=== PATIENT | female | born 1955 | race African-American/Black ===

== ENCOUNTER 2016-08-21 02:05 | Inpatient (IN) ==
[2016-08-21] MEDS ORDERED: TERBUTALINE 1 MG/1 ML VIAL SUBCUT ONE ×2 (02:44→02:48)
[2016-08-21] MEDS ORDERED: methylPREDNISolone SOD SUC 125 MG/2 ML VIAL IV STA (02:44)
[2016-08-21] MEDS ORDERED: ALBUTEROL NEB SOLN 5 MG/ML 20 ML/BOTTLE CONT NEB STA (02:44)
[2016-08-21] MEDS ORDERED: methylPREDNISolone SOD SUC 125 MG/2 ML VIAL ONE ×2 (02:48→02:57)
--- NOTE | 2016-08-21 03:05 | Emergency Department Note ---
I, Anne Lozoya, am scribing for, and in the presence of, Stephanie Perez DO 02: 48. IChris Debra, DO, personally performed the services described in this documentation, ascribed by Anne Lozoya in my presence, and it is both accurate and complete . Arrival - Arrival Chief Complaint: Shortness of Breath Stated Complaint: shortness of breath ED Nursing Triage Note: Patient to room via ems. Patient states that she has asthma and she is having trouble breathing. Patient has had a total of 3 breathing treatments and states that she still is having trouble breathing. Mode of Arrival: Stretcher Limitations: No Limitations Source: Patient Time Seen by Provider: 08/21/16 02:21 - History of Present Illness HPI Narrative: Pt is a 60 y/o female that came to the ED via EMS with c/o SOB and wheezing that began a few hours ago. Pt reports she does have asthma and took 3 breathing treatments but seems unable to catch her breath. Pt denies anyone being sick at home. She states she is currently on steroids. Pt reports she has been seeing a doctor about her asthma and is being treated for it for 3 years. No other complaints/pain in ED. Onset (ago): hour(s) Consistency: constant Severity: moderate Severity scale (1-10): 5 Quality: other Allergies/Adverse Reactions: Allergies Allergy/AdvReac Type Severity Reaction Status Date / Time Iodinated Contrast Media - Allergy ANAPHYLAXIS Verified 08/21/16 02:17 IV Dye iodine AdvReac ITCHING Verified 08/21/16 02:17 Home Medications: Home Medications Medication Instructions Recorded Confirmed Type glipiZIDE [Glipizide] 2.5 mg PO DAILY PRN 08/25/15 08/02/16 History Arformoterol Neb [Brovana] 15 mcg RESP TX RT BID 11/02/15 08/01/16 History Pantoprazole Sodium 40 mg PO BID 12/01/15 08/01/16 History Benzonatate [Tessalon] 100 mg PO TID #30 capsule 12/18/15 08/01/16 Rx Furosemide Tab [Lasix Tab] 20 mg PO DAILY 03/18/16 08/01/16 History Albuterol Sulfate [Ventolin HFA] 2 puff INH Q4H PRN 04/24/16 08/01/16 History Diltiazem Cd Cap [Cardizem CD] 300 mg PO BEDTIME 04/24/16 08/01/16 History Montelukast Tab [Singulair Tab] 10 mg PO DAILY 04/24/16 08/01/16 History Theophylline ER Tab (24 Hr) 200 mg PO BID W/MEALS 04/24/16 08/01/16 History Fluticasone 50 Mcg Nasal [place] 1 spray BOTH NARES DAILY 06/01/16 08/01/16 History [Flonase Nasal [place]] Beclomethasone 80 Mcg Inhaler 2 puffs INH 5X DAILY 07/07/16 08/01/16 History [Qvar 80 Mcg] Erythromycin Base 250 mg PO TID W/MEALS 07/07/16 08/01/16 History Promethazine Tab [Phenergan Tab] 25 mg PO Q6H PRN 07/07/16 08/01/16 History Albuterol/Ipratropium Neb [Duoneb] 3 ml RESP TX RT Q6H 08/01/16 08/01/16 History Beclomethasone 40 Mcg Inhaler 2 puffs INH BID 08/01/16 08/01/16 History [Qvar 40 Mcg] Acetaminophen Tab [Tylenol Tab] 325 mg PO Q4H PRN #0 tablet 08/04/16 Rx HYDROcodone/ACETAMIN 7.5-325 1 tablet PO Q4H PRN #20 tablet 08/04/16 Rx [[place] 7.5-325] Hydrocortisone (Anusol-Hc) Sup 25 mg RECTAL BID PRN #0 suppository 08/04/16 Rx [Anusol HC Supp] Hydrocortisone 2.5% Rectal Cr 1 applic TOP TID PRN #1 rectal 08/04/16 Rx [Anusol HC Cream] cream Polyethylene Glycol Powder 17 gm PO DAILY PRN #0 powder 08/04/16 Rx [Miralax] guaiFENesin LIQUID [Robitussin] 15 ml PO Q4H PRN #7 udcup 08/04/16 Rx predniSONE TAB [PredniSONE] See Taper PO DAILY #20 tablet 08/04/16 Rx Review of System - Review of System 12 point system: reviewed and no additional remarkable complaints except as stated - Review of System Constitutional: Absent: chills, fever Respiratory: Present: wheezing, other (SOB). Absent: cough Cardiovascular: Absent: chest pain Gastrointestinal: Absent: abdominal pain, nausea, vomiting Musculoskeletal: Absent: arm pain, back pain, leg pain, neck pain Skin: Absent: rash Neurological: Absent: headache Psychiatric: Absent: anxiety Medical,Surgical,& Family Hx - Medical History Cardio: History of: Cardiac Dysrhythmia (STATES AFLUTTER), Hypertension No history of: CHF, CAD Neurology: History of: Migraine (doesn't take meds for this) No history of: Brain Aneurysm, Cerebral Hemorrhage, Cerebrovascular Accident , Cerebral Palsy, Dementia, Multiple Sclerosis, Parkinson's Disease, Peripheral Neuropathy, Seizures, TIA, Vertigo, Neurologocal Cancer HEENT: History of: Ear Problem (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), HEENT Problems ( chronic allergic rhinitis) Endocrine: History of: Diabetes Mellitus (NIDDM) (recently diagnosed), Endocrine Problems (morbid obesity) Rheumatology: History of;: Rheumatological Problems (carpal tunnel) Respiratory: History of: Asthma, Bronchitis, COPD, Obstructive Sleep Apnea, Respiratory Problems (patient states that she is on home oxygen) Gastrointestinal: History of: GERD (AND GASTROPARESIS), GI Problems (for history of significant reflux and was prescribed a hospital bed.) Musculoskeletal: History of: Musculoskeletal Problems (NUMBNESS AND TINGLING IN FEET AND LEGS) - Surgical History Cardiac Surgeries: Patient Denies: Cardiac Catheterization Thoracic Surgeries: Patient denies;: Organ Transplant, Lobectomy Neurologic Surgeries: Patient denies: Brain Aneurysm, Cerebral Hemorrhage, Neurologic Surgery HEENT Surgeries: Patient denies: Eye Surgery, Thyroid Surgery, Tonsilectomy & Adenoidectomy Abdominal Surgeries: Patient denies: Abdominal Surgery Reproductive Surgeries: Surgical HX of;: Hysterectomy - Family History Family History: Reports;: Family Cancer (father-liver cancer), Family Diabetes ( father and mother), Family Heart Disease (father), Family Hypertension (father) , Family Psychiatric Problems (mom and sister), Family Stroke (mom) - Social History Smoking Status: Never smoker Frequency of Alcohol Use: None Type of Drug Use: None Exam Vital Signs: Vital Signs Temperature 97.5 F L 08/21/16 02:05 Pulse Rate 103 H 08/21/16 02:05 Respiratory Rate 26 H 08/21/16 02:05 Blood Pressure 114/75 08/21/16 02:05 O2 Sat by Pulse Oximetry 100 08/21/16 02:05 - General General appearance: alert, in no apparent distress - Head Head exam: Present: atraumatic, normocephalic - Eye Eye exam: Present: PERRL, EOMI - ENT ENT exam: Present: mucous membranes moist. Absent: mucous membranes dry - Neck Neck exam: Present: full ROM. Absent: tenderness - Chest Chest inspection: Present: symmetric chest wall rise. Absent: tenderness - Respiratory Respiratory exam: Present: wheezes (expiratory and inspiratory wheezing) - Cardiovascular Cardiovascular exam: Present: normal rhythm, tachycardia, normal heart sounds - Abdominal Exam Abdominal exam: Present: soft. Absent: tenderness - Extremities Exam Extremities exam: Present: full ROM. Absent: tenderness, pedal edema - Back Exam Back exam: Present: full ROM. Absent: tenderness - Neurological Exam Neurological exam: Present: alert, oriented X3, CN II-XII intact. Absent: motor sensory deficit - Psychiatric Psychiatric exam: Present: normal affect, normal mood - Skin Skin exam: Present: warm, dry Results - Labs CBC & BMP: 08/21/16 02:17 Lab Results: I have reviewed the patients labs Labs: Laboratory Tests 08/21/16 02:17 Potassium 3.2 L Chloride 110 H Glucose 150 H Alkaline Phosphatase 150 H
[2016-08-21 03:13] LABS: Albumin 3.9 G/DL (3.4-5.0); Bilirubin,Total 0.4 MG/DL (0.2-1.0); Calcium 9.3 MG/DL (8.5-10.1); Osmolality,Calculated 288.7 MOS/KG (273-304); Potassium 3.2 MMOL/L (3.5-5.1); Total Protein 6.4 G/DL (6.4-8.3)
[2016-08-21 03:36] LABS: Basophils % 0.6 % (0.0-0.8); Eosinophils # 0.6 10*3/uL (0.0-0.87); Eosinophils % 8.3 % (0.00-10.9); Hemoglobin 12.7 GM/DL (12.0-16.0); Immature Granulocytes % 0.4 %; Immature Granulocytes Absolute 0.03 #; Lymphocytes # 2.5 10*3/uL (1.4-4.0); Lymphocytes % 34.9 % (21.3-54.2); Mean Corpuscular HGB Conc 34.3 GM/DL (32-36); Mean Corpuscular Hemoglobin 31 PG (27-34); Mean Corpuscular Volume 88.9 FL (87-102); Mean Platelet Volume 10.3 FL (9.6-12.0); Monocytes # 0.4 10*3/uL (0.11-0.8); Monocytes % 6.3 % (1.7-12.7); Neutrophils # 3.5 10*3/uL (1.4-7.4); Neutrophils % 49.5 % (38.7-73.9); Platelet Count 220 T/CUMM (130-400); Red Blood Count 4.16 MC/CUMM (3.8-5.5); Red Cell Distribution Width 14.1 % (9.3-17.3)
[2016-08-21] MEDS ORDERED: POTASSIUM CHLORIDE 20 MEQ TABLET PO STA (03:41)
[2016-08-21] MEDS ORDERED: POTASSIUM CHLORIDE 20 MEQ TABLET PO ONE (03:54)
[2016-08-21] MEDS ORDERED: HYDROmorphone 2 MG/1 ML VIAL IV STA (04:07)
[2016-08-21] MEDS ORDERED: ONDANSETRON 4 MG/2 ML VIAL IV STA (04:08)
[2016-08-21] MEDS ORDERED: DEXTROSE 50% 25 GM/50 ML VIAL IV PRN (04:13)
[2016-08-21] MEDS ORDERED: GLUCAGON 1 MG VIAL IM PRN (04:13)
--- NOTE | 2016-08-21 04:13 | Hospitalist History & Physical ---
Assessment and Plan (1) Asthma with exacerbation Status: Acute Current Visit: No Qualifiers: Asthma severity: severe persistent Qualified Code(s): J45.51 - Severe persistent asthma with (acute) exacerbation (2) Respiratory distress Status: Resolved Current Visit: No (3) GERD (gastroesophageal reflux disease) Status: Chronic Current Visit: No (4) Diabetes mellitus Status: Chronic Current Visit: No Qualifiers: Diabetes mellitus type: type 2 Diabetes mellitus complication status: with neurologic complications Diabetes mellitus complication detail: with autonomic neuropathy (5) Diabetes mellitus Status: Chronic Current Visit: No Qualifiers: Diabetes mellitus type: type 2 Diabetes mellitus complication status: without complication Qualified Code(s): E11.9 - Type 2 diabetes mellitus without complications (6) Asthma with acute exacerbation Status: Acute Assessment and plan: Plan for this patient. We will admit the patient our service. Scheduled breathing treatments and steroids. Will continue home meds as appropriate and consult her surgical specialist Dr. Moose Hendrickson. Current Visit: No History of Present Illness Chief complaint: shortness of breath History of present illness: Ms. Armstrong is a 60 year old female with past medical history significant for diabetes and asthma [facility] Patient's been admitted multiple times under our service. She has a long-standing history of asthma exacerbations and sees Dr. Moose Hendrickson as her surgical specialist. She reports tonight that the shortness of breath and wheezing started a few hours ago. She took several breathing treatments at home she was unable to catch her breath. She ultimately called the ambulance to bring her to our hospital for further evaluation. She received 2 hour long the episodes I was consulted to admit her. She still has significant wheezing. Home Medications Medication Instructions Recorded Confirmed Type glipiZIDE [Glipizide] 2.5 mg PO DAILY PRN 08/25/15 08/02/16 History Arformoterol Neb [Brovana] 15 mcg RESP TX RT BID 11/02/15 08/01/16 History Pantoprazole Sodium 40 mg PO BID 12/01/15 08/01/16 History Benzonatate [Tessalon] 100 mg PO TID #30 capsule 12/18/15 08/01/16 Rx Furosemide Tab [Lasix Tab] 20 mg PO DAILY 03/18/16 08/01/16 History Albuterol Sulfate [Ventolin HFA] 2 puff INH Q4H PRN 04/24/16 08/01/16 History Diltiazem Cd Cap [Cardizem CD] 300 mg PO BEDTIME 04/24/16 08/01/16 History Montelukast Tab [Singulair Tab] 10 mg PO DAILY 04/24/16 08/01/16 History Theophylline ER Tab (24 Hr) 200 mg PO BID W/MEALS 04/24/16 08/01/16 History Fluticasone 50 Mcg Nasal [place] 1 spray BOTH NARES DAILY 06/01/16 08/01/16 History [Flonase Nasal [place]] Beclomethasone 80 Mcg Inhaler 2 puffs INH 5X DAILY 07/07/16 08/01/16 History [Qvar 80 Mcg] Erythromycin Base 250 mg PO TID W/MEALS 07/07/16 08/01/16 History Promethazine Tab [Phenergan Tab] 25 mg PO Q6H PRN 07/07/16 08/01/16 History Albuterol/Ipratropium Neb [Duoneb] 3 ml RESP TX RT Q6H 08/01/16 08/01/16 History Beclomethasone 40 Mcg Inhaler 2 puffs INH BID 08/01/16 08/01/16 History [Qvar 40 Mcg] Acetaminophen Tab [Tylenol Tab] 325 mg PO Q4H PRN #0 tablet 08/04/16 Rx HYDROcodone/ACETAMIN 7.5-325 1 tablet PO Q4H PRN #20 tablet 08/04/16 Rx [[place] 7.5-325] Hydrocortisone (Anusol-Hc) Sup 25 mg RECTAL BID PRN #0 suppository 08/04/16 Rx [Anusol HC Supp] Hydrocortisone 2.5% Rectal Cr 1 applic TOP TID PRN #1 rectal 08/04/16 Rx [Anusol HC Cream] cream Polyethylene Glycol Powder 17 gm PO DAILY PRN #0 powder 08/04/16 Rx [Miralax] guaiFENesin LIQUID [Robitussin] 15 ml PO Q4H PRN #7 udcup 08/04/16 Rx predniSONE TAB [PredniSONE] See Taper PO DAILY #20 tablet 08/04/16 Rx Allergies Allergy/AdvReac Type Severity Reaction Status Date / Time Iodinated Contrast Media - Allergy ANAPHYLAXIS Verified 08/21/16 02:17 IV Dye iodine AdvReac ITCHING Verified 08/21/16 02:17 Medical,Surgical,& Family Hx - Medical History Cardio: History of: Cardiac Dysrhythmia (STATES AFLUTTER), Hypertension No history of: CHF, CAD Neurology: History of: Migraine (doesn't take meds for this) No history of: Brain Aneurysm, Cerebral Hemorrhage, Cerebrovascular Accident , Cerebral Palsy, Dementia, Multiple Sclerosis, Parkinson's Disease, Peripheral Neuropathy, Seizures, TIA, Vertigo, Neurologocal Cancer HEENT: History of: Ear Problem (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), HEENT Problems ( chronic allergic rhinitis) Endocrine: History of: Diabetes Mellitus (NIDDM) (recently diagnosed), Endocrine Problems (morbid obesity) Rheumatology: History of;: Rheumatological Problems (carpal tunnel) Respiratory: History of: Asthma, Bronchitis, COPD, Obstructive Sleep Apnea, Respiratory Problems (patient states that she is on home oxygen) Gastrointestinal: History of: GERD (AND GASTROPARESIS), GI Problems (for history of significant reflux and was prescribed a hospital bed.) Musculoskeletal: History of: Musculoskeletal Problems (NUMBNESS AND TINGLING IN FEET AND LEGS) - Surgical History Cardiac Surgeries: Patient Denies: Cardiac Catheterization Thoracic Surgeries: Patient denies;: Organ Transplant, Lobectomy Neurologic Surgeries: Patient denies: Brain Aneurysm, Cerebral Hemorrhage, Neurologic Surgery HEENT Surgeries: Patient denies: Eye Surgery, Thyroid Surgery, Tonsilectomy & Adenoidectomy Abdominal Surgeries: Patient denies: Abdominal Surgery Reproductive Surgeries: Surgical HX of;: Hysterectomy - Family History Family History: Reports;: Family Cancer (father-liver cancer), Family Diabetes ( father and mother), Family Heart Disease (father), Family Hypertension (father) , Family Psychiatric Problems (mom and sister), Family Stroke (mom) - Social History Smoking Status: Never smoker Frequency of Alcohol Use: None Type of Drug Use: None 12 point system: reviewed and no additional remarkable complaints except as stated Exam - Constitutional Vitals: Period Temp Pulse Resp BP Sys/Loung Pulse Ox Last 24 Hr 97.5 F 103 26 114/75 100 General appearance: over weight - Head Head exam: Present: normal inspection - Eye Eye exam: Present: EOMI Pupils: Present: MUSTAPHA - ENT ENT exam: Present: normal exam - Respiratory Respiratory exam: Present: wheezes - Cardiovascular Cardiovascular exam: Present: regular rate and rhythm - GI/Abdominal GI/Abdominal exam: Present: normal bowel sounds - Extremities Exam Extremities exam: Present: normal inspection - Back Exam Back exam: Present: normal inspection - Neurological Exam Neurological exam: Present: alert, oriented X3 - Psychiatric Psychiatric exam: Present: normal affect Results - Labs CBC & BMP: 08/21/16 02:17 08/21/16 02:17
[2016-08-21] MEDS ORDERED: ONDANSETRON 4 MG/2 ML VIAL ONE (04:16)
[2016-08-21] MEDS ORDERED: HYDROmorphone 2 MG/1 ML VIAL ONE (04:17)
[2016-08-21] MEDS ORDERED: INFLUENZA VIRUS VACCINE 0.5 ML SYRINGE IM ONE (06:18)
--- NOTE | 2016-08-21 06:45 | XRay Report ---
Exam: XR chest 1V portable Date: 08/21/2016 2:45 AM Indication: Shortness of breath Comparison: 08/01/2016 Technical: AP portable Findings: External cardiac leads and oxygen tubing are present. Cardiomegaly is present. Some coarse interstitial markings present. No obvious consolidations are present. Mediastinum bony structures are otherwise intact. Patchy infiltrate in the right base cannot be excluded Impression: 1. Mild cardiomegaly 2. Underlying mild scarring and possible infiltrate right base. PROCEDURE INTERPRETED AT [facility] DEPARTMENT OF RADIOLOGY Final Report Signed by: Dr. Cory De La Garza
[2016-08-21] MEDS: ALBUTEROL/IPRATROPIUM 3 ML NEB RESP TX SCH ×2 (07:05→12:36)
[2016-08-21] MEDS: PANTOPRAZOLE 40 MG TABLET PO SCH ×2 (08:57→21:19)
[2016-08-21] MEDS: DOCUSATE SODIUM 100 MG CAPSULE PO SCH ×2 (08:57→21:19)
[2016-08-21] MEDS: INSULIN REGULAR 100 UNIT/ML SUBCUT SCH ×4 (08:58→21:18)
[2016-08-21] MEDS ORDERED: ALBUTEROL 2.5 MG/3 ML NEB RESP TX PRN (10:52)
[2016-08-21] MEDS ORDERED: PROMETHAZINE 25 MG TABLET PO PRN (10:57)
[2016-08-21] MEDS ORDERED: HYDROCORTISONE 25 MG SUPP RECTAL PRN (10:57)
[2016-08-21] MEDS ORDERED: POLYETHYLENE GLYCOL POWDER 17 GM PACK PO PRN (10:57)
[2016-08-21] MEDS ORDERED: ACETAMINOPHEN 325 MG TABLET PO PRN (10:57)
[2016-08-21] MEDS: methylPREDNISolone SOD SUC 125 MG/2 ML VIAL IV SCH ×3 (12:12→22:03)
[2016-08-21] MEDS: LEVOFLOXACIN INJ 500 MG in PREMIX 1 EACH IV SCH (12:13)
[2016-08-21] MEDS: ARFORMOTEROL 15 MCG/2 ML NEB RESP TX SCH ×2 (12:30→19:31)
[2016-08-21] MEDS: BENZONATATE 100 MG CAPSULE PO SCH ×2 (15:02→21:19)
[2016-08-21] MEDS: BECLOMETHASONE 80 MCG/PUFF INHALER 8.7 GM INH SCH ×3 (15:02→22:03)
--- NOTE | 2016-08-21 17:47 | Pulmonology Consult Note ---
Assessment and Plan (1) Acute asthma exacerbation Status: Acute Assessment and plan: Clearly she is having an exacerbation of asthma. It has improved with Solu- Medrol 125 mg every 6 hours as well as bronchodilators. Would continue same for now. Also getting empiric antibiotics with Levaquin. Current Visit: No (2) Obstructive sleep apnea Status: Acute Assessment and plan: We will need to use her CPAP at night. Current Visit: No (3) Diabetes mellitus Status: Chronic Assessment and plan: Glucose is running in the 200s. This is due to the steroids. Sliding scale ordered. Current Visit: No Qualifiers: Diabetes mellitus type: type 2 Diabetes mellitus complication status: without complication Qualified Code(s): E11.9 - Type 2 diabetes mellitus without complications History of Present Illness Chief complaint: Cough shortness of breath History of present illness: Ms. Armstrong is a 60 year old female who has a long history of asthma. She has been very difficult to control. She is on inhaled steroids, Brovana, and oral Singulair. She gets Xolair treatments as well. She has had multiple rounds of steroids. She was last hospitalized here about 3 weeks ago. Comes back in now after about a 1 day history of worsening shortness of breath and she was in respiratory distress last night. She has now been given intravenous corticosteroids and nebulized bronchodilators and is feeling a little better. She is a non-smoker. She has obstructive sleep apnea and gastroesophageal reflux disease. Home Medications Medication Instructions Recorded Confirmed Type glipiZIDE [Glipizide] 2.5 mg PO DAILY PRN 08/25/15 08/21/16 History Arformoterol Neb [Brovana] 15 mcg RESP TX RT BID 11/02/15 08/21/16 History Pantoprazole Sodium 40 mg PO BID 12/01/15 08/21/16 History Benzonatate [Tessalon] 100 mg PO TID #30 capsule 12/18/15 08/21/16 Rx Furosemide Tab [Lasix Tab] 20 mg PO DAILY 03/18/16 08/21/16 History Albuterol Sulfate [Ventolin HFA] 2 puff INH Q4H PRN 04/24/16 08/21/16 History Diltiazem Cd Cap [Cardizem CD] 300 mg PO BEDTIME 04/24/16 08/21/16 History Montelukast Tab [Singulair Tab] 10 mg PO DAILY 04/24/16 08/21/16 History Theophylline ER Tab (24 Hr) 200 mg PO BID W/MEALS 04/24/16 08/21/16 History Fluticasone 50 Mcg Nasal [place] 1 spray BOTH NARES DAILY 06/01/16 08/21/16 History [Flonase Nasal [place]] Beclomethasone 80 Mcg Inhaler 2 puffs INH 5X DAILY 07/07/16 08/21/16 History [Qvar 80 Mcg] Erythromycin Base 250 mg PO TID W/MEALS 07/07/16 08/21/16 History Promethazine Tab [Phenergan Tab] 25 mg PO Q6H PRN 07/07/16 08/21/16 History Albuterol/Ipratropium Neb [Duoneb] 3 ml RESP TX RT Q6H 08/01/16 08/21/16 History Beclomethasone 40 Mcg Inhaler 2 puffs INH BID 08/01/16 08/21/16 History [Qvar 40 Mcg] Acetaminophen Tab [Tylenol Tab] 325 mg PO Q4H PRN #0 tablet 08/04/16 08/21/16 Rx HYDROcodone/ACETAMIN 7.5-325 1 tablet PO Q4H PRN #20 tablet 08/04/16 08/21/16 Rx [[place] 7.5-325] Hydrocortisone (Anusol-Hc) Sup 25 mg RECTAL BID PRN #0 suppository 08/04/16 Rx [Anusol HC Supp] Hydrocortisone 2.5% Rectal Cr 1 applic TOP TID PRN #1 rectal 08/04/16 08/21/16 Rx [Anusol HC Cream] cream Polyethylene Glycol Powder 17 gm PO DAILY PRN #0 powder 08/04/16 08/21/16 Rx [Miralax] guaiFENesin LIQUID [Robitussin] 15 ml PO Q4H PRN #7 udcup 08/04/16 08/21/16 Rx predniSONE TAB [PredniSONE] See Taper PO DAILY #20 tablet 08/04/16 08/21/16 Rx levoFLOXacin [Levofloxacin Tab] 750 mg PO DAILY 08/21/16 08/21/16 History Allergies Allergy/AdvReac Type Severity Reaction Status Date / Time Iodinated Contrast Media - Allergy ANAPHYLAXIS Verified 08/21/16 02:17 IV Dye iodine AdvReac ITCHING Verified 08/21/16 02:17 12 point system: reviewed and no additional remarkable complaints except as stated - Constitutional Constitutional: Present: fatigue, weight gain - Cardiovascular Cardiovascular: Present: dyspnea, dyspnea on exertion - Respiratory Respiratory: Present: cough, dyspnea, dyspnea on exertion, wheezing - Gastrointestinal Gastrointestinal: Present: dyspepsia - Psychiatric Psychiatric: Present: anxiety Exam ([place]) H&P - Constitutional Vitals: Period Temp Pulse Resp BP Sys/Lu[place] Pulse Ox Last 24 Hr 97.6 F-98.6 F 63-112 18-21 95-131/47-62 95-100 Exam: Vital signs are normal. Pupils react to light. Throat is clear. Neck supple no bruits. Chest reveals expiratory wheezes bilaterally. Heart normal rate and rhythm no murmurs. Abdomen soft nontender no masses. Extremities no clubbing cyanosis or edema. Calves nontender. 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), HEENT Problems ( chronic allergic rhinitis) Endocrine: History of: Diabetes Mellitus (NIDDM) (recently diagnosed), Endocrine Problems (morbid obesity) Rheumatology: History of;: Rheumatological Problems (carpal tunnel) Respiratory: History of: Asthma, Bronchitis, COPD, Obstructive Sleep Apnea, Respiratory Problems (patient states that she is on home oxygen) Gastrointestinal: History of: GERD (AND GASTROPARESIS), GI Problems (for history of significant reflux and was prescribed a hospital bed.) Musculoskeletal: History of: Musculoskeletal Problems (NUMBNESS AND TINGLING IN FEET AND LEGS) - Surgical History Cardiac Surgeries: Patient Denies: Cardiac Catheterization Thoracic Surgeries: Patient denies;: Organ Transplant, Lobectomy Neurologic Surgeries: Patient denies: Brain Aneurysm, Cerebral Hemorrhage, Neurologic Surgery HEENT Surgeries: Patient denies: Eye Surgery, Thyroid Surgery, Tonsilectomy & Adenoidectomy Abdominal Surgeries: Patient denies: Abdominal Surgery Reproductive Surgeries: Surgical HX of;: Hysterectomy - Family History Family History: Reports;: Family Cancer (father-liver cancer), Family Diabetes ( father and mother), Family Heart Disease (father), Family Hypertension (father) , Family Psychiatric Problems (mom and sister), Family Stroke (mom) - Social History Smoking Status: Never smoker Frequency of Alcohol Use: None Type of Drug Use: None Results - Labs CBC & BMP: 08/21/16 02:17 08/21/16 02:17 Lab Results: I have reviewed the past 24 hour labs - Diagnostic Findings Procedure: Chest x-ray: image reviewed by me (Questionable right lower lobe infiltrate.)
[2016-08-21] MEDS: THEOPHYLLINE ER (24 HR) 400 MG TABLET PO SCH (17:48)
[2016-08-21] MEDS: DILTIAZEM CD 300 MG CAPSULE PO SCH (21:19)
[2016-08-21] MEDS: guaiFENesin 200 MG/10 ML UDCUP PO PRN (21:19)
[2016-08-22] MEDS: ALBUTEROL/IPRATROPIUM 3 ML NEB RESP TX PRN (03:00)
[2016-08-22] MEDS: guaiFENesin 200 MG/10 ML UDCUP PO PRN (04:03)
[2016-08-22] MEDS: BECLOMETHASONE 80 MCG/PUFF INHALER 8.7 GM INH SCH ×5 (05:26→23:19)
[2016-08-22] MEDS: methylPREDNISolone SOD SUC 125 MG/2 ML VIAL IV SCH ×4 (05:26→23:19)
[2016-08-22 06:53] LABS: Basophils % 0.1 % (0.0-0.8); Hemoglobin 12.7 GM/DL (12.0-16.0); Immature Granulocytes % 1.7 %; Immature Granulocytes Absolute 0.29 #; Lymphocytes # 1.2 10*3/uL (1.4-4.0); Lymphocytes % 7.1 % (21.3-54.2); Mean Corpuscular HGB Conc 33.4 GM/DL (32-36); Mean Corpuscular Hemoglobin 30 PG (27-34); Mean Corpuscular Volume 89.8 FL (87-102); Mean Platelet Volume 11.4 FL (9.6-12.0); Monocytes # 0.3 10*3/uL (0.11-0.8); Monocytes % 1.9 % (1.7-12.7); Neutrophils # 15.4 10*3/uL (1.4-7.4); Neutrophils % 89.2 % (38.7-73.9); Platelet Count 226 T/CUMM (130-400); Red Blood Count 4.23 MC/CUMM (3.8-5.5); Red Cell Distribution Width 14.4 % (9.3-17.3); White Blood Count 17.3 T/CUMM (4-12)
[2016-08-22 07:29] LABS: Calcium 10.1 MG/DL (8.5-10.1); Osmolality,Calculated 295.6 MOS/KG (273-304); Potassium 4.1 MMOL/L (3.5-5.1)
[2016-08-22] MEDS: ARFORMOTEROL 15 MCG/2 ML NEB RESP TX SCH ×2 (08:38→18:30)
[2016-08-22] MEDS: INSULIN REGULAR 100 UNIT/ML SUBCUT SCH ×4 (08:58→21:30)
[2016-08-22] MEDS: MONTELUKAST 10 MG TABLET PO SCH (09:00)
[2016-08-22] MEDS: FUROSEMIDE 20 MG TABLET PO SCH (09:00)
[2016-08-22] MEDS: DOCUSATE SODIUM 100 MG CAPSULE PO SCH ×2 (09:00→21:22)
[2016-08-22] MEDS: PANTOPRAZOLE 40 MG TABLET PO SCH ×3 (09:00→21:22)
[2016-08-22] MEDS: BENZONATATE 100 MG CAPSULE PO SCH ×3 (09:00→21:23)
[2016-08-22] MEDS: FLUTICASONE 50 MCG NASAL SPRAY 16 GM BOTTLE BOTH NARES SCH (09:02)
[2016-08-22] MEDS: THEOPHYLLINE ER (24 HR) 400 MG TABLET PO SCH ×2 (09:20→17:13)
--- NOTE | 2016-08-22 09:51 | Hospitalist Progress Note ---
Assessment and Plan (1) Asthma with exacerbation Status: Acute Current Visit: No Qualifiers: Asthma severity: severe persistent Qualified Code(s): J45.51 - Severe persistent asthma with (acute) exacerbation (2) Respiratory distress Status: Resolved Current Visit: No (3) GERD (gastroesophageal reflux disease) Status: Chronic Current Visit: No (4) Diabetes mellitus Status: Chronic Current Visit: No Qualifiers: Diabetes mellitus type: type 2 Diabetes mellitus complication status: with neurologic complications Diabetes mellitus complication detail: with autonomic neuropathy (5) Diabetes mellitus Status: Chronic Current Visit: No Qualifiers: Diabetes mellitus type: type 2 Diabetes mellitus complication status: without complication Qualified Code(s): E11.9 - Type 2 diabetes mellitus without complications (6) Asthma with acute exacerbation Status: Acute Assessment and plan: Plan for this patient. We will admit the patient our service. Scheduled breathing treatments and steroids. Will continue home meds as appropriate and consult her component assembler supervisor Dr. Moose Hendrickson. 08/22/16 patient seems to be improving on the current regimen. We have her on steroids antibiotics scheduled breathing treatments. He is limited exacerbation of this nature Ms. Armstrong usually requires 4-5 days of hospitalization before she's ready for discharge. Current Visit: No Hospitalist: Subjective Interval history: She reports feeling much better. Exam - Constitutional Vitals: Period Temp Pulse Resp BP Sys/Luong Pulse Ox Last 24 Hr 97.8 F-99.3 F 63-112 16-20 115-154/51-89 96-100 General appearance: over weight - Head Head exam: Present: normal inspection - Eye Eye exam: Present: EOMI Pupils: Present: MUSTAPHA - ENT ENT exam: Present: normal exam - Respiratory Respiratory exam: Present: wheezes improving - Cardiovascular Cardiovascular exam: Present: regular rate and rhythm - GI/Abdominal GI/Abdominal exam: Present: normal bowel sounds - Extremities Exam Extremities exam: Present: normal inspection - Back Exam Back exam: Present: normal inspection - Neurological Exam Neurological exam: Present: alert, oriented X3 - Psychiatric Psychiatric exam: Present: normal affect Results - Labs CBC & BMP: 08/22/16 05:18 08/22/16 05:18
--- NOTE | 2016-08-22 10:10 | Pulmonology Progress Note ---
Pulmonary - PN: Subj Interval history: This is a 60-year-old white female with severe asthma. In with acute exacerbation. She is a little better but still fairly tight. Need to continue current dose of steroids. Exam (Progress Note) - Constitutional Vitals: Period Temp Pulse Resp BP Sys/Luong Pulse Ox Last 24 Hr 97.8 F-99.3 F 63-112 16-20 115-154/51-89 96-100 Exam: Alert oriented vital signs normal. Pupils react to light. Throat is clear. Neck supple no bruits. Chest shows expiratory wheezes bilaterally and prolonged expiratory phase. Heart normal rate and rhythm no murmurs. Abdomen soft nontender no masses. Extremities no clubbing cyanosis edema. Calves nontender. Results - Labs CBC & BMP: 08/22/16 05:18 08/22/16 05:18 Lab Results: I have reviewed the past 24 hour labs Assessment and Plan (1) Acute asthma exacerbation Status: Acute Assessment and plan: Clearly she is having an exacerbation of asthma. It has improved with Solu- Medrol 125 mg every 6 hours as well as bronchodilators. Would continue same for now. Also getting empiric antibiotics with Levaquin. 08/22/2016 continue current medications. Hopefully can start reducing steroids tomorrow. Current Visit: No (2) Obstructive sleep apnea Status: Acute Assessment and plan: We will need to use her CPAP at night. 08/22/2016 she has had sleep studies done and has a new device being brought to her house for use at night. She is better at present. We will not use it here. Current Visit: No (3) Diabetes mellitus Status: Chronic Assessment and plan: Glucose is running in the 200s. This is due to the steroids. Sliding scale ordered. 08/22/2016 blood sugars in the 200s due to steroids. Current Visit: No Qualifiers: Diabetes mellitus type: type 2 Diabetes mellitus complication status: without complication Qualified Code(s): E11.9 - Type 2 diabetes mellitus without complications
[2016-08-22] MEDS: LEVOFLOXACIN INJ 500 MG in PREMIX 1 EACH IV SCH (10:28)
[2016-08-22] MEDS: DILTIAZEM CD 300 MG CAPSULE PO SCH (21:22)
[2016-08-22] MEDS: ZALEPLON 5 MG CAPSULE PO SCH (22:05)
[2016-08-23] MEDS: ALBUTEROL/IPRATROPIUM 3 ML NEB RESP TX PRN (04:10)
[2016-08-23] MEDS: methylPREDNISolone SOD SUC 125 MG/2 ML VIAL IV SCH ×2 (05:26→10:05)
[2016-08-23] MEDS: BECLOMETHASONE 80 MCG/PUFF INHALER 8.7 GM INH SCH ×5 (05:28→23:57)
[2016-08-23 06:36] LABS: Hemoglobin 12.7 GM/DL (12.0-16.0); Immature Granulocytes % 1.4 %; Lymphocytes # 0.9 10*3/uL (1.4-4.0); Lymphocytes % 4.1 % (21.3-54.2); Mean Corpuscular HGB Conc 34.3 GM/DL (32-36); Mean Corpuscular Hemoglobin 31 PG (27-34); Mean Corpuscular Volume 89.2 FL (87-102); Mean Platelet Volume 10.6 FL (9.6-12.0); Monocytes # 0.4 10*3/uL (0.11-0.8); Monocytes % 1.9 % (1.7-12.7); Neutrophils # 19.2 10*3/uL (1.4-7.4); Neutrophils % 92.6 % (38.7-73.9); Platelet Count 249 T/CUMM (130-400); Red Blood Count 4.15 MC/CUMM (3.8-5.5); Red Cell Distribution Width 14.3 % (9.3-17.3); White Blood Count 20.8 T/CUMM (4-12)
[2016-08-23 06:59] LABS: Hypochromasia Slight; Lymphocytes 3 % (20-55); Platelet Estimate Normal; Segmented Neutrophils 95 % (50-85); Total Cells Counted 100
[2016-08-23] MEDS: ARFORMOTEROL 15 MCG/2 ML NEB RESP TX SCH ×2 (07:00→19:20)
[2016-08-23 07:14] LABS: Calcium 9.2 MG/DL (8.5-10.1); Osmolality,Calculated 299.6 MOS/KG (273-304); Potassium 4.1 MMOL/L (3.5-5.1)
[2016-08-23] MEDS: THEOPHYLLINE ER (24 HR) 400 MG TABLET PO SCH ×2 (08:11→16:08)
[2016-08-23] MEDS: INSULIN REGULAR 100 UNIT/ML SUBCUT SCH ×4 (08:11→20:43)
[2016-08-23] MEDS: FUROSEMIDE 20 MG TABLET PO SCH (08:12)
[2016-08-23] MEDS: PANTOPRAZOLE 40 MG TABLET PO SCH ×3 (08:12→20:43)
[2016-08-23] MEDS: MONTELUKAST 10 MG TABLET PO SCH (08:12)
[2016-08-23] MEDS: DOCUSATE SODIUM 100 MG CAPSULE PO SCH ×2 (08:12→20:44)
[2016-08-23] MEDS: BENZONATATE 100 MG CAPSULE PO SCH ×3 (08:12→20:43)
[2016-08-23] MEDS: FLUTICASONE 50 MCG NASAL SPRAY 16 GM BOTTLE BOTH NARES SCH (08:12)
--- NOTE | 2016-08-23 08:59 | XRay Report ---
XR chest 2V Date: 08/23/2016 4:00 AM History: Shortness of breath Comparison: 08/21/2016 Technique: PA and lateral chest Findings: The heart is minimally enlarged with reduced parenchymal findings in the lungs. Residual atelectasis at the lung bases. Stable mediastinum with degenerative changes. Impression: Improved CHF/pneumonitis with residual atelectasis at the lung bases. PROCEDURE INTERPRETED AT [facility] DEPARTMENT OF RADIOLOGY Final Report Signed by: Dr. Jayla Zafar
[2016-08-23] MEDS: LACTULOSE 20 GM/30 ML UDCUP PO PRN (10:05)
[2016-08-23] MEDS: LEVOFLOXACIN INJ 500 MG in PREMIX 1 EACH IV SCH (10:06)
--- NOTE | 2016-08-23 10:33 | Pulmonology Progress Note ---
Pulmonary - PN: Subj Interval history: This is a 60-year-old white female with severe asthma. In with acute exacerbation. She is a little better but still fairly tight. Need to continue current dose of steroids. 08/23/2016 patient is feeling better. Not as much bronchospasm. Exam (Progress Note) - Constitutional Vitals: Period Temp Pulse Resp BP Sys/Luong Pulse Ox Last 24 Hr 97.6 F-98.8 F 76-110 18-20 109-132/49-77 93-99 Exam: Alert oriented vital signs normal. Pupils react to light. Throat is clear. Neck supple no bruits. Chest shows expiratory wheezes bilaterally and prolonged expiratory phase. Heart normal rate and rhythm no murmurs. Abdomen soft nontender no masses. Extremities no clubbing cyanosis edema. Calves nontender. Results - Labs CBC & BMP: 08/23/16 05:54 08/23/16 05:54 Lab Results: I have reviewed the past 24 hour labs - Diagnostic Findings Procedure: Chest x-ray: image reviewed by me (Improved less interstitial edema) Assessment and Plan (1) Acute asthma exacerbation Status: Acute Assessment and plan: Clearly she is having an exacerbation of asthma. It has improved with Solu- Medrol 125 mg every 6 hours as well as bronchodilators. Would continue same for now. Also getting empiric antibiotics with Levaquin. 08/22/2016 continue current medications. Hopefully can start reducing steroids tomorrow. 08/23/2016 she is better we can start reducing steroids. Current Visit: No (2) Obstructive sleep apnea Status: Acute Assessment and plan: We will need to use her CPAP at night. 08/22/2016 she has had sleep studies done and has a new device being brought to her house for use at night. She is better at present. We will not use it here. Current Visit: No (3) Diabetes mellitus Status: Chronic Assessment and plan: Glucose is running in the 200s. This is due to the steroids. Sliding scale ordered. 08/22/2016 blood sugars in the 200s due to steroids. 08/23/2016 glucoses remained in the 200s. This is fair control on steroids. Should get better with reduction of the steroids. Current Visit: No Qualifiers: Diabetes mellitus type: type 2 Diabetes mellitus complication status: without complication Qualified Code(s): E11.9 - Type 2 diabetes mellitus without complications
--- NOTE | 2016-08-23 14:17 | Hospitalist Progress Note ---
Hospitalist: Subjective Interval history: Wheezing and SOB improving. No cp. Still significant YATES. No LE swelling. Tolerating po better today. No fever. +BM today. No diarrhea. Exam - Constitutional Vitals: Period Temp Pulse Resp BP Sys/Luong Pulse Ox Last 24 Hr 97.3 F-98.8 F 76-110 18-20 109-133/49-77 93-99 General appearance: no acute distress, over weight - Head Head exam: Present: normal inspection, normocephalic, atraumatic - Eye Eye exam: Present: EOMI. Absent: conjunctival injection, scleral icterus Pupils: Present: MUSTAPHA - ENT ENT exam: Present: normal exam - Neck Neck exam: Present: normal inspection. Absent: lymphadenopathy, tenderness, thyromegaly - Respiratory Respiratory exam: Present: decreased breath sounds, prolonged expiratory phase, wheezes - Cardiovascular Cardiovascular exam: Present: regular rate and rhythm. Absent: diastolic murmur , systolic murmur - GI/Abdominal GI/Abdominal exam: Present: normal bowel sounds, soft (difficult to assess for HSM or masses given body habitus). Absent: mass, organomegaly, tenderness - Extremities Exam Extremities exam: Present: normal inspection, normal capillary refill. Absent: calf tenderness, edema - Neurological Exam Neurological exam: Present: alert, oriented X3. Absent: motor sensory deficit - Psychiatric Psychiatric exam: Present: normal affect, normal mood - Skin Skin exam: Present: normal color, warm, dry Results - Labs CBC & BMP: 08/23/16 05:54 08/23/16 05:54 - Impressions * Acute Asthma exacerbation- cont IV steroids--possibly able to wean tomorrow, IV antibiotics, bronchodilators, oxygen as needed. Add mucinex. Pulm following * DM2 with steroid induced hyperglycemia- Increase insulin. Check HgbA1c * ARLETH- bipap hs per pulm * Mild hypernatremia- on Lasix po. monitor since oral intake has improved today and likely has increased her free water. DVT prophylaxis and GI prophylaxis (prevent stress ulcer due to high dose steroid use) D/W pt and all questions answered. - Diagnostic Findings Procedure: Chest x-ray: image reviewed by me (improved basilar infiltrates)
--- NOTE | 2016-08-23 15:00 | Physician Query Form ---
CLICK EDIT DOCUMENT TO SELECT QUERY ANSWER --> OK --> SIGN Sariah Bates RN Clinical Anesthesiologist Assistant Certified W) [phone] (f) [phone] [email or web address] PROVIDERS: Make your selection(s) from the choices in EACH section by typing an "x" and enter comments in the comment section. Please use your independent medical judgment in providing your response. This request does not imply that any particular answer is desired or expected. CLINICAL INDICATORS: (Providers should not edit this section) Based on documentation of "Shortness of breath and wheezing" "Acute Asthma exacerbation" History of COPD. Treated with BIPAP, IV Solu Medrol, IV Levaquin. Based on the above, could you clarify the appropriate diagnosis, if significant , that supports the above abnormalities and additional evaluation, monitoring, and/or treatment rendered: ( x) Acute COPD with Acute Asthma Exacerbation ( ) COPD with Acute Asthma Exacerbation ( ) Other, please specify: ( ) Clinically unable to determine COMMENTS: Use of terms such as suspected, likely, or probable (associated with a specific diagnosis that is being evaluated, monitored, or treated as if it exists) are acceptable and can be restated in the discharge summary if not ruled out. [facility]
[2016-08-23] MEDS ORDERED: HYDROCORTISONE 2.5% RECTAL CREAM 30 GM TUBE TOP PRN (16:56)
[2016-08-23] MEDS: methylPREDNISolone SOD SUC 40 MG/1 ML VIAL IV SCH (17:14)
[2016-08-23] MEDS: guaiFENesin 200 MG/10 ML UDCUP PO PRN (20:43)
[2016-08-23] MEDS: ZALEPLON 5 MG CAPSULE PO SCH (20:43)
[2016-08-23] MEDS: DILTIAZEM CD 300 MG CAPSULE PO SCH (20:43)
[2016-08-23] MEDS: INSULIN GLARGINE 100 UNIT/ML SUBCUT SCH (20:44)
[2016-08-23] MEDS: DESITIN 4OZ/NYSTATIN 15 GRAM MIXTURE PASTE TOP SCH (20:44)
[2016-08-24] MEDS: methylPREDNISolone SOD SUC 40 MG/1 ML VIAL IV SCH ×3 (02:00→23:46)
[2016-08-24] MEDS: BECLOMETHASONE 80 MCG/PUFF INHALER 8.7 GM INH SCH ×5 (06:11→21:50)
[2016-08-24] MEDS: ARFORMOTEROL 15 MCG/2 ML NEB RESP TX SCH ×2 (07:20→19:20)
[2016-08-24 07:43] LABS: Risk Ratio 2.34; VLDL CHOLESTEROL 16.4 MG/DL
[2016-08-24] MEDS: INSULIN REGULAR 100 UNIT/ML SUBCUT SCH ×4 (08:30→20:13)
[2016-08-24] MEDS: DOCUSATE SODIUM 100 MG CAPSULE PO SCH ×2 (08:31→20:14)
[2016-08-24] MEDS: THEOPHYLLINE ER (24 HR) 400 MG TABLET PO SCH ×2 (08:31→16:29)
[2016-08-24] MEDS: BENZONATATE 100 MG CAPSULE PO SCH ×3 (08:32→20:14)
[2016-08-24] MEDS: LACTULOSE 20 GM/30 ML UDCUP PO PRN (08:33)
[2016-08-24] MEDS: MONTELUKAST 10 MG TABLET PO SCH (08:33)
[2016-08-24] MEDS: FUROSEMIDE 20 MG TABLET PO SCH (08:33)
[2016-08-24] MEDS: PANTOPRAZOLE 40 MG TABLET PO SCH ×2 (08:34→20:14)
[2016-08-24] MEDS: DESITIN 4OZ/NYSTATIN 15 GRAM MIXTURE PASTE TOP SCH ×2 (08:35→20:15)
[2016-08-24] MEDS: FLUTICASONE 50 MCG NASAL SPRAY 16 GM BOTTLE BOTH NARES SCH (08:36)
--- NOTE | 2016-08-24 09:33 | Pulmonology Progress Note ---
Pulmonary - PN: Subj Interval history: This is a 60-year-old white female with severe asthma. In with acute exacerbation. She is a little better but still fairly tight. Need to continue current dose of steroids. 08/23/2016 patient is feeling better. Not as much bronchospasm. 08/24/16 patient is feeling better. Still having some wheezing but sounds much better. Exam (Progress Note) - Constitutional Vitals: Period Temp Pulse Resp BP Sys/Luong Pulse Ox Last 24 Hr 97.3 F-98.7 F 80-113 14-22 123-143/61-76 93-100 Exam: Alert oriented vital signs normal. Pupils react to light. Throat is clear. Neck supple no bruits. Chest shows expiratory wheezes bilaterally and prolonged expiratory phase. Heart normal rate and rhythm no murmurs. Abdomen soft nontender no masses. Extremities no clubbing cyanosis edema. Calves nontender. Sounds a little better than yesterday. Results - Labs CBC & BMP: 08/23/16 05:54 08/23/16 05:54 Lab Results: I have reviewed the past 24 hour labs Assessment and Plan (1) Acute asthma exacerbation Status: Acute Assessment and plan: Clearly she is having an exacerbation of asthma. It has improved with Solu- Medrol 125 mg every 6 hours as well as bronchodilators. Would continue same for now. Also getting empiric antibiotics with Levaquin. 08/22/2016 continue current medications. Hopefully can start reducing steroids tomorrow. 08/23/2016 she is better we can start reducing steroids. 08/24/16 we will reduce Solu-Medrol to 40 mg every 12 hours. Still needs a few more days here. Current Visit: No (2) Obstructive sleep apnea Status: Acute Assessment and plan: We will need to use her CPAP at night. 08/22/2016 she has had sleep studies done and has a new device being brought to her house for use at night. She is better at present. We will not use it here. Current Visit: No (3) Diabetes mellitus Status: Chronic Assessment and plan: Glucose is running in the 200s. This is due to the steroids. Sliding scale ordered. 08/22/2016 blood sugars in the 200s due to steroids. 08/23/2016 glucoses remained in the 200s. This is fair control on steroids. Should get better with reduction of the steroids. 08/24/16 glucoses remain in the 200s. Should improve as we taper steroids. Current Visit: No Qualifiers: Diabetes mellitus type: type 2 Diabetes mellitus complication status: without complication Qualified Code(s): E11.9 - Type 2 diabetes mellitus without complications
[2016-08-24] MEDS: LEVOFLOXACIN INJ 500 MG in PREMIX 1 EACH IV SCH (11:34)
--- NOTE | 2016-08-24 16:09 | Hospitalist Progress Note ---
Hospitalist: Subjective Interval history: Patient reports her shortness of breath has improved. She reports her wheezing is decreased. No chest pain. No fever. She reports feeling nauseated earlier but after having 2 bowel movements she reports feeling better. She is able to walk across the room without significant dyspnea. She is tolerating some oral intake. Exam - Constitutional Vitals: Period Temp Pulse Resp BP Sys/Luong Pulse Ox Last 24 Hr 98 F-98.7 F 80-113 14-22 118-143/61-73 93-100 General appearance: no acute distress, over weight - Head Head exam: Present: normal inspection - Eye Eye exam: Present: EOMI. Absent: conjunctival injection, scleral icterus Pupils: Present: MUSTAPHA - Respiratory Respiratory exam: Present: wheezes. Absent: accessory muscle use - Cardiovascular Cardiovascular exam: Present: regular rate and rhythm. Absent: diastolic murmur , systolic murmur, tachycardia - GI/Abdominal GI/Abdominal exam: Present: normal bowel sounds, soft. Absent: distended, tenderness - Extremities Exam Extremities exam: Absent: edema - Neurological Exam Neurological exam: Present: alert, oriented X3, motor sensory deficit - Skin Skin exam: Present: normal color, warm, dry Results - Labs CBC & BMP: 08/23/16 05:54 08/23/16 05:54 Labs: Hemoglobin A1c 7.6 - Impressions * Acute Asthma exacerbation-weaning IV steroids, IV antibiotics, bronchodilators , oxygen as needed. Cont Mucinex. Add Acapella valve. Pulm following * DM2 uncontrolled with a hemoglobin A1c of 7.6 with steroid induced hyperglycemia-continue insulin. Watch blood sugars now that we are weaning the steroids * ARLETH- bipap hs per pulm. Not doing in the hospital but can resume upon discharge per pulmonology. * Mild hypernatremia- on Lasix po. monitor since oral intake has improved today and likely has increased her free water. DVT prophylaxis and GI prophylaxis (prevent stress ulcer due to high dose steroid use) D/W pt and all questions answered. Disposal: Likely discharge to home in the a.m. if patient continues to improve.
[2016-08-24] MEDS: ACETAMINOPHEN 325 MG TABLET PO PRN (16:29)
[2016-08-24] MEDS: guaiFENesin 200 MG/10 ML UDCUP PO PRN (20:14)
[2016-08-24] MEDS: DILTIAZEM CD 300 MG CAPSULE PO SCH (20:14)
[2016-08-24] MEDS: ZALEPLON 5 MG CAPSULE PO SCH (20:14)
[2016-08-24] MEDS: INSULIN GLARGINE 100 UNIT/ML SUBCUT SCH (20:14)
[2016-08-25] MEDS: BECLOMETHASONE 80 MCG/PUFF INHALER 8.7 GM INH SCH ×5 (06:10→21:22)
[2016-08-25] MEDS: ARFORMOTEROL 15 MCG/2 ML NEB RESP TX SCH ×2 (07:01→20:00)
[2016-08-25] MEDS: DOCUSATE SODIUM 100 MG CAPSULE PO SCH ×2 (09:15→21:17)
[2016-08-25] MEDS: THEOPHYLLINE ER (24 HR) 400 MG TABLET PO SCH ×2 (09:15→16:58)
[2016-08-25] MEDS: FUROSEMIDE 20 MG TABLET PO SCH (09:15)
[2016-08-25] MEDS: BENZONATATE 100 MG CAPSULE PO SCH ×3 (09:15→21:17)
[2016-08-25] MEDS: DESITIN 4OZ/NYSTATIN 15 GRAM MIXTURE PASTE TOP SCH ×2 (09:16→21:22)
[2016-08-25] MEDS: PANTOPRAZOLE 40 MG TABLET PO SCH ×2 (09:16→21:19)
[2016-08-25] MEDS: FLUTICASONE 50 MCG NASAL SPRAY 16 GM BOTTLE BOTH NARES SCH (09:16)
[2016-08-25] MEDS: MONTELUKAST 10 MG TABLET PO SCH (09:16)
--- NOTE | 2016-08-25 09:32 | Discharge Summary ---
<Sree Allen - Last Filed: 08/25/16 09:33> Hospital Course - Hospital Course Hospital Course: Ms. Armstrong is 60 yr old black female patient that was admitted on 08/21 for asthma exacerbation. The patient stated she was at home and began to have trouble breathing. She gave herself consecutive treatments at home before calling EMR for assistance. The patient has an extensive hx of asthma as well as htn, she wears 2L of O2 nightly, and recently diagnosed DM. Patient was admitted to hospitalist service for evaluation and pulm was consulted. Breathing treatments and medications were ordered for patient. Pt states she has improved significantly and is ready to be discharged today. No apparent distress noted. Pt does not have any complaints and is aware of need to follow up if problems arise. MD to follow with med recs. Discharge Plan - Discharge Data Disposition: Disch To Home/Self Care - Discharge Medications New predniSONE TAB [PredniSONE] 40 mg PO DAILY #60 tablet Levofloxacin Tab [Levaquin Tab] 750 mg PO DAILY #7 tablet Continue glipiZIDE [Glipizide] 2.5 mg PO DAILY PRN PRN Reason: blood sugar >/= to 160 Arformoterol Neb [Brovana] 15 mcg RESP TX RT BID Pantoprazole Sodium 40 mg PO BID Benzonatate [Tessalon] 100 mg PO TID #30 capsule Furosemide Tab [Lasix Tab] 20 mg PO DAILY Albuterol Sulfate [Ventolin HFA] 2 puff INH Q4H PRN PRN Reason: Shortness Of Breath/Wheezing Theophylline ER Tab (24 Hr) 200 mg PO BID W/MEALS Montelukast Tab [Singulair Tab] 10 mg PO DAILY Diltiazem Cd Cap [Cardizem CD] 300 mg PO BEDTIME Beclomethasone 80 Mcg Inhaler [Qvar 80 Mcg] 2 puffs INH 5X DAILY Promethazine Tab [Phenergan Tab] 25 mg PO Q6H PRN PRN Reason: Nausea/Vomiting Erythromycin Base 250 mg PO TID W/MEALS Albuterol/Ipratropium Neb [Duoneb] 3 ml RESP TX RT Q6H predniSONE TAB [PredniSONE] See Taper PO DAILY #20 tablet Acetaminophen Tab [Tylenol Tab] 325 mg PO Q4H PRN #0 tablet PRN Reason: fever, headache/body aches Hydrocortisone 2.5% Rectal Cr [Anusol HC Cream] 1 applic TOP TID PRN #1 rectal cream PRN Reason: Hemorrhoids Fluticasone 50 Mcg Nasal [place] [Flonase Nasal [place]] 1 spray BOTH NARES DAILY Beclomethasone 40 Mcg Inhaler [Qvar 40 Mcg] 2 puffs INH BID HYDROcodone/ACETAMIN 7.5-325 [[place] 7.5-325] 1 tablet PO Q4H PRN #20 tablet PRN Reason: Pain Moderate (4-7) Hydrocortisone (Anusol-Hc) Sup [Anusol HC Supp] 25 mg RECTAL BID PRN #0 suppository PRN Reason: Hemorrhoids Polyethylene Glycol Powder [Miralax] 17 gm PO DAILY PRN #0 powder PRN Reason: Constipation guaiFENesin LIQUID [Robitussin] 15 ml PO Q4H PRN #7 udcup PRN Reason: Cough levoFLOXacin [Levofloxacin Tab] 750 mg PO DAILY #7 - Follow Up or Referral Follow Up: Wilfrid Hendrickson MD [Physician] - - Forms/Instructions Exam - Constitutional Vitals: Period Temp Pulse Resp BP Sys/Luong Pulse Ox Last 24 Hr 98.2 F-98.4 F 91-112 16-20 115-132/53-75 96-100 Discharge Results Labs on day of discharge: Labs from last 24 hours 08/28/16 08/27/16 08/27/16 07:23 20:38 16:26 POC Glucose 93 207 H 253 H 08/27/16 12:01 POC Glucose 172 H DS: Provider Date of admission: 08/21/16 04:13 Primary care physician: Emilee Briceño MD Attending physician on admission: Wilfrido Pham MD Consults: 08/21/16 10:53 Consult to Physician [CONS] Routine Comment: Consulting Provider: Wilfrid Hendrickson Consult to Specialist Group: Pulmonology Person Notified: rc Date Notified: 08/21/16 Time Notified: 11:34 Consult Notification Comment: Discharging clinician: Sree Allen NP <Srinath Mir - Last Filed: 08/28/16 09:27> Discharge Plan - Discharge Data Condition at Discharge: Stable Discharge Diet: diabetic diet Activity: resume usual activities as tolerated
[2016-08-25] MEDS: LACTULOSE 20 GM/30 ML UDCUP PO PRN (10:06)
[2016-08-25] MEDS: guaiFENesin 200 MG/10 ML UDCUP PO PRN (10:06)
[2016-08-25] MEDS: ACETAMINOPHEN 325 MG TABLET PO PRN (10:07)
[2016-08-25] MEDS: INSULIN REGULAR 100 UNIT/ML SUBCUT SCH ×4 (10:08→21:23)
[2016-08-25] MEDS ORDERED: diphenhydrAMINE CAP 25 MG CAPSULE PO PRN (10:22)
[2016-08-25] MEDS: LEVOFLOXACIN INJ 500 MG in PREMIX 1 EACH IV SCH (13:09)
[2016-08-25] MEDS: ONDANSETRON 4 MG/2 ML VIAL IV PRN (13:47)
[2016-08-25] MEDS: methylPREDNISolone SOD SUC 40 MG/1 ML VIAL IV SCH (13:48)
--- NOTE | 2016-08-25 15:04 | Pulmonology Progress Note ---
Pulmonary - PN: Subj Interval history: This is a 60-year-old white female with severe asthma. In with acute exacerbation. She is a little better but still fairly tight. Need to continue current dose of steroids. 08/23/2016 patient is feeling better. Not as much bronchospasm. 08/24/16 patient is feeling better. Still having some wheezing but sounds much better. 08/25/2016 patient continues to improve but still has some wheezing. I do think we can taper her steroids further. Do not think she is ready for discharge yet. Exam (Progress Note) - Constitutional Vitals: Period Temp Pulse Resp BP Sys/Luong Pulse Ox Last 24 Hr 97.4 F-98.5 F 72-96 14-22 120-141/56-73 95-100 Exam: Alert oriented vital signs normal. Pupils react to light. Throat is clear. Neck supple no bruits. Chest shows mild expiratory wheezes bilaterally and prolonged expiratory phase. Heart normal rate and rhythm no murmurs. Abdomen soft nontender no masses. Extremities no clubbing cyanosis edema. Calves nontender. Again, sounds a little better than yesterday. Results - Labs CBC & BMP: 08/23/16 05:54 08/23/16 05:54 Lab Results: I have reviewed the past 24 hour labs Assessment and Plan (1) Acute asthma exacerbation Status: Acute Assessment and plan: Clearly she is having an exacerbation of asthma. It has improved with Solu- Medrol 125 mg every 6 hours as well as bronchodilators. Would continue same for now. Also getting empiric antibiotics with Levaquin. 08/22/2016 continue current medications. Hopefully can start reducing steroids tomorrow. 08/23/2016 she is better we can start reducing steroids. 08/24/16 we will reduce Solu-Medrol to 40 mg every 12 hours. Still needs a few more days here. 08/25/2016 reducing Solu-Medrol little further. Perhaps she could be discharged this weekend if she improves further. She has severe asthma with remodeling changes and would be likely to return if she goes home too soon. Current Visit: No (2) Obstructive sleep apnea Status: Acute Assessment and plan: We will need to use her CPAP at night. 08/22/2016 she has had sleep studies done and has a new device being brought to her house for use at night. She is better at present. We will not use it here. Current Visit: No (3) Diabetes mellitus Status: Chronic Assessment and plan: Glucose is running in the 200s. This is due to the steroids. Sliding scale ordered. 08/22/2016 blood sugars in the 200s due to steroids. 08/23/2016 glucoses remained in the 200s. This is fair control on steroids. Should get better with reduction of the steroids. 08/24/16 glucoses remain in the 200s. Should improve as we taper steroids. 08/25/2016 sugars getting better as we taper steroids. Current Visit: No Qualifiers: Diabetes mellitus type: type 2 Diabetes mellitus complication status: without complication Qualified Code(s): E11.9 - Type 2 diabetes mellitus without complications
--- NOTE | 2016-08-25 16:17 | Hospitalist Progress Note ---
Hospitalist: Subjective Interval history: Pt had an episode of emesis after lunch today. No abd pain. No cp. SOB improving. No fever. Exam - Constitutional Vitals: Period Temp Pulse Resp BP Sys/Luong Pulse Ox Last 24 Hr 97.4 F-98.5 F 74-96 14-22 120-141/59-73 95-100 General appearance: morbidly obese - Respiratory Respiratory exam: Present: clear to auscultation bilaterally. Absent: accessory muscle use - Cardiovascular Cardiovascular exam: Present: regular rate and rhythm. Absent: diastolic murmur , systolic murmur - GI/Abdominal GI/Abdominal exam: Present: normal bowel sounds, soft. Absent: distended, mass , tenderness - Extremities Exam Extremities exam: Present: normal inspection, normal capillary refill. Absent: edema - Skin Skin exam: Present: normal color, warm, dry Results - Labs CBC & BMP: 08/23/16 05:54 08/23/16 05:54 - Impressions * Acute Asthma exacerbation-weaning IV steroids, IV antibiotics, bronchodilators , oxygen as needed. Cont Mucinex. Cont Acapella valve. Pulm following * DM2 uncontrolled with a hemoglobin A1c of 7.6 with steroid induced hyperglycemia-continue insulin. Watch blood sugars now that we are weaning the steroids * ARLETH- bipap hs per pulm. Not doing in the hospital but can resume upon discharge per pulmonology. * Mild hypernatremia- on Lasix po. monitor. Recheck labs in am DVT prophylaxis and GI prophylaxis (prevent stress ulcer due to high dose steroid use) D/W pt, nurse and social work and all questions answered. Disposal: DC when cleared by pulmonology and tolerating oral intake.
[2016-08-25] MEDS: DILTIAZEM CD 300 MG CAPSULE PO SCH (21:18)
[2016-08-25] MEDS: ZALEPLON 5 MG CAPSULE PO SCH (21:19)
[2016-08-25] MEDS: INSULIN GLARGINE 100 UNIT/ML SUBCUT SCH (21:20)
[2016-08-26] MEDS: ALBUTEROL/IPRATROPIUM 3 ML NEB RESP TX PRN (02:55)
[2016-08-26] MEDS: BECLOMETHASONE 80 MCG/PUFF INHALER 8.7 GM INH SCH ×5 (06:11→21:09)
[2016-08-26] MEDS: ARFORMOTEROL 15 MCG/2 ML NEB RESP TX SCH ×2 (07:02→19:36)
[2016-08-26] MEDS: INSULIN REGULAR 100 UNIT/ML SUBCUT SCH ×4 (07:30→20:56)
[2016-08-26] MEDS: PANTOPRAZOLE 40 MG TABLET PO SCH ×2 (09:40→20:54)
[2016-08-26] MEDS: ONDANSETRON 4 MG/2 ML VIAL IV PRN (09:43)
[2016-08-26] MEDS: BENZONATATE 100 MG CAPSULE PO SCH ×3 (09:44→20:54)
[2016-08-26] MEDS: THEOPHYLLINE ER (24 HR) 400 MG TABLET PO SCH ×2 (09:44→16:51)
[2016-08-26] MEDS: methylPREDNISolone SOD SUC 40 MG/1 ML VIAL IV SCH (09:44)
[2016-08-26] MEDS: MONTELUKAST 10 MG TABLET PO SCH (09:44)
[2016-08-26] MEDS: DESITIN 4OZ/NYSTATIN 15 GRAM MIXTURE PASTE TOP SCH ×2 (09:45→21:10)
[2016-08-26] MEDS: FUROSEMIDE 20 MG TABLET PO SCH (09:45)
[2016-08-26] MEDS: DOCUSATE SODIUM 100 MG CAPSULE PO SCH ×2 (09:45→20:55)
[2016-08-26] MEDS: FLUTICASONE 50 MCG NASAL SPRAY 16 GM BOTTLE BOTH NARES SCH (09:45)
[2016-08-26] MEDS: LEVOFLOXACIN INJ 500 MG in PREMIX 1 EACH IV SCH (10:49)
--- NOTE | 2016-08-26 11:06 | Hospitalist Progress Note ---
Hospitalist: Subjective Interval history: Pt has been walking in the halls. SOB is improving. Minimal cough. Still complaining of nausea. Reportedly she had vomiting last night but nurses did not report this. She reports she has been doing more belching and feels relief from this. No fever or chest pain. +BM no diarrhea, melena or BRBPR Exam - Constitutional Vitals: Period Temp Pulse Resp BP Sys/Luong Pulse Ox Last 24 Hr 97.8 F-98.9 F 85-113 17-20 123-153/68-79 93-100 General appearance: over weight - Head Head exam: Present: normal inspection - Respiratory Respiratory exam: Present: other (clear to auscultation but wheezing on forced expiration bialterally. Nonlabored breathing noted. ) - Cardiovascular Cardiovascular exam: Present: regular rate and rhythm. Absent: diastolic murmur , systolic murmur - GI/Abdominal GI/Abdominal exam: Present: normal bowel sounds, soft. Absent: distended, mass , organomegaly, rebound - Extremities Exam Extremities exam: Present: normal inspection, normal capillary refill, edema. Absent: calf tenderness - Neurological Exam Neurological exam: Present: alert, oriented X3, normal gait - Skin Skin exam: Present: normal color, warm, dry Results - Labs CBC & BMP: 08/23/16 05:54 08/23/16 05:54 - Impressions * Acute Asthma exacerbation-weaning IV steroids (on q24h), IV antibiotics, bronchodilators, oxygen as needed. Cont Mucinex. Cont Acapella valve. Pulm following. Probably can change to po steroids soon. * DM2 uncontrolled with a hemoglobin A1c of 7.6 with steroid induced hyperglycemia-continue insulin. Watch blood sugars now that we are weaning the steroids * ARLETH- bipap hs per pulm. Not doing in the hospital but can resume upon discharge per pulmonology. * Mild hypernatremia- on Lasix po. monitor. DVT prophylaxis and GI prophylaxis (prevent stress ulcer due to high dose steroid use) D/W pt, nurse and social work and all questions answered. Disposal: DC when cleared by pulmonology and tolerating oral intake. Will add miralax scheduled, simethicone for gas and put her on a full liquid diet. Hopefully can dc soon.
[2016-08-26] MEDS: POLYETHYLENE GLYCOL POWDER 17 GM PACK PO SCH ×2 (13:08→20:56)
[2016-08-26] MEDS: SIMETHICONE CHEW 125 MG TABLET PO SCH ×3 (13:09→20:55)
--- NOTE | 2016-08-26 13:18 | Pulmonology Progress Note ---
Pulmonary - PN: Subj Interval history: This is a 60-year-old white female with severe asthma. In with acute exacerbation. She is a little better but still fairly tight. Need to continue current dose of steroids. 08/23/2016 patient is feeling better. Not as much bronchospasm. 08/24/16 patient is feeling better. Still having some wheezing but sounds much better. 08/25/2016 patient continues to improve but still has some wheezing. I do think we can taper her steroids further. Do not think she is ready for discharge yet. 08/26/2016 she is improving each day. Still has some mild end expiratory wheezes. We could probably go to oral medications now. Increase activities. Shoot for discharge Sunday. Exam (Progress Note) - Constitutional Vitals: Period Temp Pulse Resp BP Sys/Luong Pulse Ox Last 24 Hr 97.8 F-98.9 F 85-113 17-20 123-153/68-79 93-100 Exam: Alert oriented vital signs normal. Pupils react to light. Throat is clear. Neck supple no bruits. Chest shows mild end-expiratory wheezes bilaterally and prolonged expiratory phase. Heart normal rate and rhythm no murmurs. Abdomen soft nontender no masses. Extremities no clubbing cyanosis edema. Calves nontender. Results - Labs CBC & BMP: 08/23/16 05:54 08/23/16 05:54 Lab Results: I have reviewed the past 24 hour labs Assessment and Plan (1) Acute asthma exacerbation Status: Acute Assessment and plan: Clearly she is having an exacerbation of asthma. It has improved with Solu- Medrol 125 mg every 6 hours as well as bronchodilators. Would continue same for now. Also getting empiric antibiotics with Levaquin. 08/22/2016 continue current medications. Hopefully can start reducing steroids tomorrow. 08/23/2016 she is better we can start reducing steroids. 08/24/16 we will reduce Solu-Medrol to 40 mg every 12 hours. Still needs a few more days here. 08/25/2016 reducing Solu-Medrol little further. Perhaps she could be discharged this weekend if she improves further. She has severe asthma with remodeling changes and would be likely to return if she goes home too soon. 08/26/2016 could go to oral medications. Probably home in a couple of days. She always has end expiratory wheezes even between exacerbations. Current Visit: No (2) Obstructive sleep apnea Status: Acute Assessment and plan: We will need to use her CPAP at night. 08/22/2016 she has had sleep studies done and has a new device being brought to her house for use at night. She is better at present. We will not use it here. Current Visit: No (3) Diabetes mellitus Status: Chronic Assessment and plan: Glucose is running in the 200s. This is due to the steroids. Sliding scale ordered. 08/22/2016 blood sugars in the 200s due to steroids. 08/23/2016 glucoses remained in the 200s. This is fair control on steroids. Should get better with reduction of the steroids. 08/24/16 glucoses remain in the 200s. Should improve as we taper steroids. 08/25/2016 sugars getting better as we taper steroids. 08/26/2016 blood sugars improve as we reduce her steroids. Current Visit: No Qualifiers: Diabetes mellitus type: type 2 Diabetes mellitus complication status: without complication Qualified Code(s): E11.9 - Type 2 diabetes mellitus without complications
[2016-08-26] MEDS: ZALEPLON 5 MG CAPSULE PO SCH (20:54)
[2016-08-26] MEDS: DILTIAZEM CD 300 MG CAPSULE PO SCH (20:55)
[2016-08-26] MEDS: glipiZIDE 5 MG TABLET PO PRN (20:55)
[2016-08-26] MEDS: INSULIN GLARGINE 100 UNIT/ML SUBCUT SCH (20:56)
[2016-08-27 05:01] LABS: Basophils % 0.1 % (0.0-0.8); Eosinophils # 0.2 10*3/uL (0.0-0.87); Hematocrit 38.3 VOL% (35.7-47.0); Hemoglobin 13.6 GM/DL (12.0-16.0); Immature Granulocytes % 0.8 %; Immature Granulocytes Absolute 0.12 #; Lymphocytes # 0.9 10*3/uL (1.4-4.0); Lymphocytes % 5.9 % (21.3-54.2); Mean Corpuscular HGB Conc 35.5 GM/DL (32-36); Mean Corpuscular Hemoglobin 30 PG (27-34); Mean Corpuscular Volume 85.5 FL (87-102); Mean Platelet Volume 11.5 FL (9.6-12.0); Monocytes # 0.9 10*3/uL (0.11-0.8); Monocytes % 6.1 % (1.7-12.7); NRBC # 0.02 10*3/uL; Neutrophils % 86.1 % (38.7-73.9); Platelet Count 232 T/CUMM (130-400); Red Blood Count 4.48 MC/CUMM (3.8-5.5); Red Cell Distribution Width 13.6 % (9.3-17.3); White Blood Count 15.1 T/CUMM (4-12)
[2016-08-27 05:37] LABS: Albumin 3.5 G/DL (3.4-5.0); Calcium 8.5 MG/DL (8.5-10.1); Osmolality,Calculated 284.1 MOS/KG (273-304); Phosphorous 2.5 MG/DL (2.5-4.9)
[2016-08-27] MEDS: BECLOMETHASONE 80 MCG/PUFF INHALER 8.7 GM INH SCH ×5 (06:01→22:01)
[2016-08-27] MEDS: ARFORMOTEROL 15 MCG/2 ML NEB RESP TX SCH ×2 (07:17→21:23)
[2016-08-27] MEDS: MONTELUKAST 10 MG TABLET PO SCH (09:09)
[2016-08-27] MEDS: THEOPHYLLINE ER (24 HR) 400 MG TABLET PO SCH ×2 (09:09→16:53)
[2016-08-27] MEDS: DOCUSATE SODIUM 100 MG CAPSULE PO SCH ×2 (09:09→20:40)
[2016-08-27] MEDS: FUROSEMIDE 20 MG TABLET PO SCH (09:09)
[2016-08-27] MEDS: SIMETHICONE CHEW 125 MG TABLET PO SCH ×4 (09:09→20:40)
[2016-08-27] MEDS: BENZONATATE 100 MG CAPSULE PO SCH ×3 (09:09→20:40)
[2016-08-27] MEDS: PANTOPRAZOLE 40 MG TABLET PO SCH ×2 (09:09→20:40)
[2016-08-27] MEDS: FLUTICASONE 50 MCG NASAL SPRAY 16 GM BOTTLE BOTH NARES SCH (09:10)
[2016-08-27] MEDS: INSULIN REGULAR 100 UNIT/ML SUBCUT SCH ×4 (09:10→21:33)
[2016-08-27] MEDS: methylPREDNISolone SOD SUC 40 MG/1 ML VIAL IV SCH (09:10)
[2016-08-27] MEDS: POLYETHYLENE GLYCOL POWDER 17 GM PACK PO SCH ×2 (09:11→21:33)
[2016-08-27] MEDS: DESITIN 4OZ/NYSTATIN 15 GRAM MIXTURE PASTE TOP SCH ×2 (09:11→21:33)
--- NOTE | 2016-08-27 10:44 | Hospitalist Progress Note ---
Hospitalist: Subjective Interval history: Patient reports her nausea has resolved. She reports her shortness of breath is better. She is preparing to walk down the maloney. Denies any abdominal pain. Her gas pains are much improved. No fever. No chest pain. Exam - Constitutional Vitals: Period Temp Pulse Resp BP Sys/Luong Pulse Ox Last 24 Hr 97.4 F-98.9 F 84-112 16-20 118-146/57-77 95-100 General :patient is awake alert and oriented 4 lying in hospital bed in no acute distress. Cardiovascular :regular rate and rhythm no murmurs Lungs :mostly clear to auscultation at rest but on forced expiration she has expiratory wheezes bilaterally with a prolonged expiratory phase. Abdomen :soft nontender nondistended positive bowel sounds Extremities :warm and well perfused no clubbing cyanosis or edema Results - Labs CBC & BMP: 08/27/16 04:05 08/27/16 04:05 - Impressions * Acute Asthma exacerbation-change IV steroids (on q24h) to po. Continue IV antibiotics, bronchodilators, inhalers, oxygen as needed. Cont Mucinex. Cont Acapella valve. Pulm following. * DM2 uncontrolled with a hemoglobin A1c of 7.6 with steroid induced hyperglycemia-stop the scheduled insulin since blood sugars have significantly improved while off IV steroids. Continue insulin sliding scale as needed * ARLETH- bipap hs per pulm. Not doing in the hospital but can resume upon discharge per pulmonology. * Mild hypernatremia- on Lasix po. monitor. DVT prophylaxis and GI prophylaxis (prevent stress ulcer due to high dose steroid use) D/W pt, nurse and social work and all questions answered. Disposal: DC when cleared by pulmonology and tolerating oral intake. Cont miralax scheduled, simethicone for gas and put her on a advance to 1800 ADA diet. Hopefully can dc soon. I will be away several days. One of my associates will follow in my absence.
[2016-08-27] MEDS: LEVOFLOXACIN INJ 500 MG in PREMIX 1 EACH IV SCH (11:00)
--- NOTE | 2016-08-27 11:24 | Pulmonology Progress Note ---
Pulmonary - PN: Subj Interval history: This is a 60-year-old white female with severe asthma. In with acute exacerbation. She is a little better but still fairly tight. Need to continue current dose of steroids. 08/23/2016 patient is feeling better. Not as much bronchospasm. 08/24/16 patient is feeling better. Still having some wheezing but sounds much better. 08/25/2016 patient continues to improve but still has some wheezing. I do think we can taper her steroids further. Do not think she is ready for discharge yet. 08/26/2016 she is improving each day. Still has some mild end expiratory wheezes. We could probably go to oral medications now. Increase activities. Shoot for discharge Sunday. 08/27/2016 she is improved on oral medications now. Still has some end expiratory wheezes. Dr. Hendrickson will be back tomorrow and address follow-up plans, as he follows her in the office [facility]. Exam (Progress Note) - Constitutional Vitals: Period Temp Pulse Resp BP Sys/Luong Pulse Ox Last 24 Hr 97.4 F-98.9 F 84-112 16-20 118-146/57-77 95-100 Exam: Alert oriented vital signs normal. Pupils react to light. Throat is clear. Neck supple no bruits. Chest shows mild end-expiratory wheezes bilaterally and prolonged expiratory phase. Heart normal rate and rhythm no murmurs. Abdomen soft nontender no masses. Extremities no clubbing cyanosis edema. Calves nontender. Results - Labs CBC & BMP: 08/27/16 04:05 08/27/16 04:05 Lab Results: I have reviewed the past 24 hour labs Assessment and Plan (1) Acute asthma exacerbation Status: Acute Assessment and plan: Clearly she is having an exacerbation of asthma. It has improved with Solu- Medrol 125 mg every 6 hours as well as bronchodilators. Would continue same for now. Also getting empiric antibiotics with Levaquin. 08/22/2016 continue current medications. Hopefully can start reducing steroids tomorrow. 08/23/2016 she is better we can start reducing steroids. 08/24/16 we will reduce Solu-Medrol to 40 mg every 12 hours. Still needs a few more days here. 08/25/2016 reducing Solu-Medrol little further. Perhaps she could be discharged this weekend if she improves further. She has severe asthma with remodeling changes and would be likely to return if she goes home too soon. 08/26/2016 could go to oral medications. Probably home in a couple of days. She always has end expiratory wheezes even between exacerbations. 08/27/2016 plan discharge tomorrow. Current Visit: No (2) Obstructive sleep apnea Status: Acute Assessment and plan: We will need to use her CPAP at night. 08/22/2016 she has had sleep studies done and has a new device being brought to her house for use at night. She is better at present. We will not use it here. Current Visit: No (3) Diabetes mellitus Status: Chronic Assessment and plan: Glucose is running in the 200s. This is due to the steroids. Sliding scale ordered. 08/22/2016 blood sugars in the 200s due to steroids. 08/23/2016 glucoses remained in the 200s. This is fair control on steroids. Should get better with reduction of the steroids. 08/24/16 glucoses remain in the 200s. Should improve as we taper steroids. 08/25/2016 sugars getting better as we taper steroids. 08/26/2016 blood sugars improve as we reduce her steroids. 08/27/2016 blood sugars improved on lower prednisone dose Current Visit: No Qualifiers: Diabetes mellitus type: type 2 Diabetes mellitus complication status: without complication Qualified Code(s): E11.9 - Type 2 diabetes mellitus without complications
[2016-08-27] MEDS ORDERED: GLUCAGON 1 MG VIAL IM PRN (13:23)
[2016-08-27] MEDS ORDERED: DEXTROSE 50% 25 GM/50 ML VIAL IV PRN (13:23)
[2016-08-27] MEDS: glipiZIDE 5 MG TABLET PO PRN (16:54)
[2016-08-27] MEDS: ZALEPLON 5 MG CAPSULE PO SCH (20:40)
[2016-08-27] MEDS: DILTIAZEM CD 300 MG CAPSULE PO SCH (20:40)
[2016-08-28] MEDS: BECLOMETHASONE 80 MCG/PUFF INHALER 8.7 GM INH SCH ×2 (06:08→09:09)
[2016-08-28] MEDS: ALBUTEROL/IPRATROPIUM 3 ML NEB RESP TX PRN (06:15)
[2016-08-28] MEDS: ARFORMOTEROL 15 MCG/2 ML NEB RESP TX SCH (06:19)
--- NOTE | 2016-08-28 08:16 | Hospitalist Progress Note ---
<Hallie Pillai - Last Filed: 08/28/16 08:21> Assessment and Plan - Time spent with patient Time spent with patient: Less than 30 minutes (1) Asthma with exacerbation Status: Acute Assessment and plan: pt undergoing breathing treatments and steroids have been changed to po. still has an expiratory wheeze but much improved. dc home on recommendations from dr hendrickson. Current Visit: No Qualifiers: Asthma severity: severe persistent Qualified Code(s): J45.51 - Severe persistent asthma with (acute) exacerbation (2) Diabetes mellitus Status: Chronic Assessment and plan: blood sugars are much improved now that steroids have been weaned. Current Visit: No Qualifiers: Diabetes mellitus type: type 2 Diabetes mellitus complication status: with neurologic complications Diabetes mellitus complication detail: with autonomic neuropathy (3) Constipation by delayed colonic transit Status: Acute Assessment and plan: pt having BMs and nausea has resolved. will dc on home regimen. Current Visit: No Hospitalist: Subjective Interval history: pt states she feels much better this am. she is tolerating a diet and her nausea is resolved. she is now having good BMs. she is coughing some phlegm up now finally. she feels like she is ready to go home. Exam - Constitutional Vitals: Period Temp Pulse Resp BP Sys/Luong Pulse Ox Last 24 Hr 98.2 F-98.4 F 91-112 16-20 115-132/53-75 96-100 58AAF, NAD, alert and oriented chest w expiratory wheezes at the bases cv tachy but reg abd obese, nt ext no edema Results - Labs CBC & BMP: 08/27/16 04:05 08/27/16 04:05 Lab Results: I have reviewed the past 24 hour labs Specialty Discharge - Follow Up or Referrals Follow up with: Wilfrid Hendrickson MD [Physician] - <Srinath Mir - Last Filed: 08/28/16 09:28> Exam - Constitutional Vitals: Period Temp Pulse Resp BP Sys/Luong Pulse Ox Last 24 Hr 98.2 F-98.4 F 91-112 16-20 115-132/53-75 96-100 Results - Labs CBC & BMP: 08/27/16 04:05 08/27/16 04:05
[2016-08-28] MEDS: POLYETHYLENE GLYCOL POWDER 17 GM PACK PO SCH (08:26)
[2016-08-28] MEDS: THEOPHYLLINE ER (24 HR) 400 MG TABLET PO SCH (08:26)
[2016-08-28] MEDS: BENZONATATE 100 MG CAPSULE PO SCH (08:27)
[2016-08-28] MEDS: DOCUSATE SODIUM 100 MG CAPSULE PO SCH (08:27)
[2016-08-28] MEDS: PANTOPRAZOLE 40 MG TABLET PO SCH (08:28)
[2016-08-28] MEDS: FUROSEMIDE 20 MG TABLET PO SCH (08:28)
[2016-08-28] MEDS: MONTELUKAST 10 MG TABLET PO SCH (08:28)
[2016-08-28] MEDS: FLUTICASONE 50 MCG NASAL SPRAY 16 GM BOTTLE BOTH NARES SCH (08:29)
[2016-08-28] MEDS: DESITIN 4OZ/NYSTATIN 15 GRAM MIXTURE PASTE TOP SCH (08:30)
[2016-08-28] MEDS: INSULIN REGULAR 100 UNIT/ML SUBCUT SCH ×2 (08:31→11:26)
[2016-08-28] MEDS: SIMETHICONE CHEW 125 MG TABLET PO SCH (08:38)
[2016-08-28] MEDS ORDERED: predniSONE 20 MG TABLET PO SCH (09:00)
--- NOTE | 2016-08-28 11:10 | Pulmonology Progress Note ---
Pulmonary - PN: Subj Interval history: This is a 60-year-old white female with severe asthma. In with acute exacerbation. She is a little better but still fairly tight. Need to continue current dose of steroids. 08/23/2016 patient is feeling better. Not as much bronchospasm. 08/24/16 patient is feeling better. Still having some wheezing but sounds much better. 08/25/2016 patient continues to improve but still has some wheezing. I do think we can taper her steroids further. Do not think she is ready for discharge yet. 08/26/2016 she is improving each day. Still has some mild end expiratory wheezes. We could probably go to oral medications now. Increase activities. Shoot for discharge Sunday. 08/27/2016 she is improved on oral medications now. Still has some end expiratory wheezes. Dr. Hendrickson will be back tomorrow and address follow-up plans, as he follows her in the office pulmonary [facility]. 08/28/2016 patient is about back to her baseline. She gets Xolair injections every 2 weeks at the outpatient parenteral medication clinic on [address] [facility]. Exam (Progress Note) - Constitutional Vitals: Period Temp Pulse Resp BP Sys/Luong Pulse Ox Last 24 Hr 98.2 F-98.4 F 91-112 16-20 115-132/53-75 96-100 Exam: Alert oriented vital signs normal. Pupils react to light. Throat is clear. Neck supple no bruits. Chest shows mild end-expiratory wheezes bilaterally and prolonged expiratory phase. Heart normal rate and rhythm no murmurs. Abdomen soft nontender no masses. Extremities no clubbing cyanosis edema. Calves nontender. Results - Labs CBC & BMP: 08/27/16 04:05 08/27/16 04:05 Lab Results: I have reviewed the past 24 hour labs Assessment and Plan (1) Acute asthma exacerbation Status: Acute Assessment and plan: Clearly she is having an exacerbation of asthma. It has improved with Solu- Medrol 125 mg every 6 hours as well as bronchodilators. Would continue same for now. Also getting empiric antibiotics with Levaquin. 08/22/2016 continue current medications. Hopefully can start reducing steroids tomorrow. 08/23/2016 she is better we can start reducing steroids. 08/24/16 we will reduce Solu-Medrol to 40 mg every 12 hours. Still needs a few more days here. 08/25/2016 reducing Solu-Medrol little further. Perhaps she could be discharged this weekend if she improves further. She has severe asthma with remodeling changes and would be likely to return if she goes home too soon. 08/26/2016 could go to oral medications. Probably home in a couple of days. She always has end expiratory wheezes even between exacerbations. 08/27/2016 plan discharge tomorrow. 08/28/2016 this is improved. She can be discharged. Follow-up at [address]. Gets Xolair every 2 weeks. Needs to see Dr. Hendrickson in the clinic in 3-4 weeks. Current Visit: No (2) Obstructive sleep apnea Status: Acute Assessment and plan: We will need to use her CPAP at night. 08/22/2016 she has had sleep studies done and has a new device being brought to her house for use at night. She is better at present. We will not use it here. Current Visit: No (3) Diabetes mellitus Status: Chronic Assessment and plan: Glucose is running in the 200s. This is due to the steroids. Sliding scale ordered. 08/22/2016 blood sugars in the 200s due to steroids. 08/23/2016 glucoses remained in the 200s. This is fair control on steroids. Should get better with reduction of the steroids. 08/24/16 glucoses remain in the 200s. Should improve as we taper steroids. 08/25/2016 sugars getting better as we taper steroids. 08/26/2016 blood sugars improve as we reduce her steroids. 08/27/2016 blood sugars improved on lower prednisone dose 08/28/2016 glucoses better. Current Visit: No Qualifiers: Diabetes mellitus type: type 2 Diabetes mellitus complication status: without complication Qualified Code(s): E11.9 - Type 2 diabetes mellitus without complications Specialty Discharge - Follow Up or Referrals Follow up with: Wilfrid Hendrickson MD [Physician] -
[2016-08-28] MEDS: LEVOFLOXACIN INJ 500 MG in PREMIX 1 EACH IV SCH (11:26)
[2016-08-28 11:49] VITALS: BP 130/80
== END 2016-08-28 12:30 | disposition home or self-care (01) | DRG 202 ==
LOC: EDUNIT# → EDBD → N.ED 02:05 → SUATTDRO 04:13 → N.EDINP 04:13 → N.5E 05:34
PROVIDERS: ADMIT Internal Medicine; ATTEND Internal Medicine

== ENCOUNTER 2016-11-03 14:32 | Inpatient (IN) ==
[2016-11-03] MEDS ORDERED: methylPREDNISolone SOD SUC 125 MG/2 ML VIAL IV STA ×2 (18:16→19:54)
[2016-11-03] MEDS ORDERED: ONDANSETRON 4 MG/2 ML VIAL IM STA (18:16)
[2016-11-03] MEDS ORDERED: LEVOFLOXACIN INJ 750 MG in PREMIX 1 EACH IV STA (18:16)
--- NOTE | 2016-11-03 18:21 | Emergency Department Note ---
Arrival - Arrival Chief Complaint: Shortness of Breath Stated Complaint: Asthma ED Nursing Triage Note: PT C/O SHORTNESS OF BREATH AND ASHTMA ATTACK. ONSET YESTERDAY. PT WEARS CONTINUOUS HOME OXYGEN. AUDIBLE WHEEZING NOTED. Mode of Arrival: Wheelchair Time Seen by Provider: 11/03/16 18:16 - History of Present Illness HPI Narrative: This 60-year-old black female presents with complaints of 1 week of progressive cough productive of yellowish sputum, increased dyspnea at rest and exertion, and continuous wheeze despite home O2. The patient has advanced COPD and sleep apnea for which she has been prescribed home oxygen. She states she has had subjective feeling of chills and fever but no nausea, vomiting, diarrhea, or chest pain. Despite her complaints the patient appears quite comfortable at this point in time. Onset (ago): week(s) (Patient presents 1 week post onset of symptoms) Allergies/Adverse Reactions: Allergies Allergy/AdvReac Type Severity Reaction Status Date / Time strawberry Allergy Mild ITCHING Verified 11/03/16 14:43 Iodinated Contrast Media - Allergy ANAPHYLAXIS Verified 11/03/16 14:43 Oral and [Iodinated Contrast Media - IV Dye] iodine AdvReac ITCHING Verified 11/03/16 14:43 Home Medications: Home Medications Medication Instructions Recorded Confirmed Type glipiZIDE [Glipizide] 5 mg PO DAILY 08/25/15 11/03/16 History Pantoprazole Sodium 40 mg PO BID 12/01/15 11/03/16 History Benzonatate [Tessalon] 100 mg PO TID #30 capsule 12/18/15 11/03/16 Rx Furosemide Tab [Lasix Tab] 20 mg PO DAILY 03/18/16 11/03/16 History Albuterol Sulfate [Ventolin HFA] 2 puff INH Q4H PRN 04/24/16 11/03/16 History Diltiazem Cd Cap [Cardizem CD] 300 mg PO BEDTIME 04/24/16 11/03/16 History Montelukast Tab [Singulair Tab] 10 mg PO DAILY 04/24/16 11/03/16 History Fluticasone 50 Mcg Nasal [place] 1 spray BOTH NARES DAILY 06/01/16 11/03/16 History [Flonase Nasal [place]] Beclomethasone 80 Mcg Inhaler 2 puffs INH 5X DAILY 07/07/16 11/03/16 History [Qvar 80 Mcg] Erythromycin Base 250 mg PO TID W/MEALS 07/07/16 11/03/16 History Promethazine Tab [Phenergan Tab] 25 mg PO Q6H PRN 07/07/16 11/03/16 History Albuterol/Ipratropium Neb [Duoneb] 3 ml RESP TX RT Q6H 08/01/16 11/03/16 History Beclomethasone 40 Mcg Inhaler 2 puffs INH BID 08/01/16 11/03/16 History [Qvar 40 Mcg] HYDROcodone/ACETAMIN 7.5-325 1 tablet PO Q4H PRN #20 tablet 08/04/16 11/03/16 Rx [[place] 7.5-325] Hydrocortisone (Anusol-Hc) Sup 25 mg RECTAL BID PRN #0 suppository 08/04/1606/10 Rx [Anusol HC Supp] Polyethylene Glycol Powder 17 gm PO DAILY PRN #0 powder 08/04/16 11/03/16 Rx [Miralax] guaiFENesin LIQUID [Robitussin] 15 ml PO Q4H PRN #7 udcup 08/04/16 11/03/16 Rx Arformoterol Neb [Brovana] 15 mcg RESP TX BID #90 08/28/16 11/03/16 Rx Theophylline ER Tab (24 Hr) 200 mg PO BID W/MEALS #100 08/28/16 11/03/16 Rx Cholecalciferol [Vitamin D3] 1,000 unit PO QOTHER DAY 11/03/16 11/03/16 History predniSONE TAB [PredniSONE] See Taper PO DAILY 11/03/16 11/03/16 History Review of System - Review of System 12 point system: reviewed and no additional remarkable complaints except as stated - Review of System Constitutional: Present: as per HPI Respiratory: Present: as per HPI Cardiovascular: Present: as per HPI Gastrointestinal: Present: as per HPI 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), HEENT Problems ( chronic allergic rhinitis) Endocrine: History of: Diabetes Mellitus (NIDDM) (recently diagnosed), Endocrine Problems (morbid obesity) Rheumatology: History of;: Rheumatological Problems (carpal tunnel) Respiratory: History of: Asthma, Bronchitis, COPD, Obstructive Sleep Apnea, Respiratory Problems (patient states that she is on home oxygen) Gastrointestinal: History of: GERD (AND GASTROPARESIS), GI Problems (for history of significant reflux and was prescribed a hospital bed.) Musculoskeletal: History of: Musculoskeletal Problems (NUMBNESS AND TINGLING IN FEET AND LEGS) - Surgical History Cardiac Surgeries: Patient Denies: Cardiac Catheterization Thoracic Surgeries: Patient denies;: Organ Transplant, Lobectomy Neurologic Surgeries: Patient denies: Brain Aneurysm, Cerebral Hemorrhage, Neurologic Surgery HEENT Surgeries: Patient denies: Eye Surgery, Thyroid Surgery, Tonsilectomy & Adenoidectomy Abdominal Surgeries: Patient denies: Abdominal Surgery Reproductive Surgeries: Surgical HX of;: Hysterectomy - Family History Family History: Reports;: Family Cancer (father-liver cancer), Family Diabetes ( father and mother), Family Heart Disease (father), Family Hypertension (father) , Family Psychiatric Problems (mom and sister), Family Stroke (mom) - Social History Smoking Status: Never smoker Frequency of Alcohol Use: None Type of Drug Use: None Exam Physical Examination: GENERAL: Well developed, well nourished black female in no acute distress. HEENT: Normocephalic. No trauma. Moist mucous membranes. EOMI. PERRLA. ENT NML NECK: Supple. No adenopathy. CARDIAC: Regular. No murmurs. Heart rate 100 CHEST: Diffuse expiratory wheezes which are more laryngeal than parenchymal in sound. No respiratory distress. O2 sat 95% ABDOMEN: Soft. Nontender. Active bowel sounds. EXTREMITIES: No trauma. Normal ROM. No pedal edema. SKIN: No diaphoresis. No rash. NEURO: Alert. Neuro intact no focal deficits. Vital Signs: Vital Signs Temperature 98.5 F 11/03/16 19:22 Pulse Rate 111 H 11/03/16 20:18 Respiratory Rate 22 11/03/16 20:18 Blood Pressure 151/77 11/03/16 20:18 O2 Sat by Pulse Oximetry 99 11/03/16 20:18 Course - Reevaluation(s) Reevaluation #1: Discussed with patient the fact that she has a resting tachycardia and still wheezing and for this reason we will admit for further evaluation and treatment. - Consultations Consultation #1: Discussed with the hospitalist service who will admit for further evaluation treatment. Results - Labs CBC & BMP: 11/03/16 18:21 11/03/16 18:21 Labs: I reviewed the laboratory and noted the normal BnP and remainder of the grossly normal laboratory. - Impressions EKG: Sinus tachycardia at 100. Normal AK interval and QRS duration. Left axis deviation. Nonspecific ST changes. No acute injury pattern noted. - Diagnostic Findings Procedure: Chest x-ray: image reviewed by me, report reviewed by me ( Interstitial scarring but no acute infiltrates per) Disposition Clinical Impression: Exacerbation of asthma Case discussed with: patient Disposition: Still a Patient Condition: Stable Time of Disposition: 20:59
[2016-11-03] MEDS ORDERED: ALBUTEROL 2.5 MG/3 ML NEB RESP TX SCH (18:30)
[2016-11-03 18:35] LABS: Basophils % 0.4 % (0.0-0.8); Eosinophils # 0.1 10*3/uL (0.0-0.87); Eosinophils % 0.7 % (0.00-10.9); Hematocrit 44.5 VOL% (35.7-47.0); Hemoglobin 15.2 GM/DL (12.0-16.0); Immature Granulocytes % 0.4 %; Immature Granulocytes Absolute 0.04 #; Lymphocytes # 1.2 10*3/uL (1.4-4.0); Lymphocytes % 10.9 % (21.3-54.2); Mean Corpuscular HGB Conc 34.2 GM/DL (32-36); Mean Corpuscular Hemoglobin 31 PG (27-34); Mean Corpuscular Volume 89.4 FL (87-102); Mean Platelet Volume 9.6 FL (9.6-12.0); Monocytes # 0.2 10*3/uL (0.11-0.8); Monocytes % 2.1 % (1.7-12.7); Neutrophils # 9.2 10*3/uL (1.4-7.4); Neutrophils % 85.5 % (38.7-73.9); Platelet Count 352 T/CUMM (130-400); Red Blood Count 4.98 MC/CUMM (3.8-5.5); Red Cell Distribution Width 13.9 % (9.3-17.3); White Blood Count 10.7 T/CUMM (4-12)
--- NOTE | 2016-11-03 18:35 | EKG Report ---
Stationary ECG Study [facility] ER Test Date: 11/03/2016 6:34:19 PM Pat Name: FEMI ZACARIAS Department: Room: Gender: F Alterations Expert: : 1955 Requested by: Karson Fajardo Order Number: [id number] Reading MD: DC CANDELARIA Intervals [place] Rate: 100 P: 59 IA: 126 QRS: -27 QRSD: 75 T: 25 QT: 331 QTc: 388 Interpretive Statements SINUS TACHYCARDIA at 100 bpm IA WP LOW QRS VOLTAGE IN PRECORDIAL LEADS PATTERN CONSISTENT WITH PULMONARY DISEASE Electronically Signed On 11-06-16 16:24:51 CDT by DC CANDELARIA [email or web address]
--- NOTE | 2016-11-03 18:38 | XRay Report ---
XR chest 1V portable Indication: Shortness of breath Comparison: One August 2016 Findings: The heart and mediastinum are stable in size and configuration. The pulmonary vascularity is slightly increased with bilateral increased interstitial lung density. No other lung infiltrates, effusions, pneumothorax or other abnormality is demonstrated. Impression: Findings suggest mild cardiac decompensation. PROCEDURE INTERPRETED AT [facility] DEPARTMENT OF RADIOLOGY Final Report Signed by: Dr. Juan Diego Dinh
[2016-11-03 18:45] LABS: INR 1.1; PT Patient Result 11.4 SECS; Partial Thromboplastin Time 30.8 SECS (0-40)
[2016-11-03 19:04] LABS: Alanine Aminotransferase 30 U/L (13-56); Albumin 4.5 G/DL (3.4-5.0); Alkaline Phosphatase 196 U/L (45-117); Aspartate Amino Transferase 14 U/L (0-37); Blood Urea Nitrogen 16 MG/DL (7-18); Calcium 9.8 MG/DL (8.5-10.1); Glucose 137 MG/DL (74-106); Osmolality,Calculated 281.4 MOS/KG (273-304); Potassium 4.4 MMOL/L (3.5-5.1); Sodium 140 MMOL/L (136-145); Total Protein 7.9 G/DL (6.4-8.3); Troponin I Only < 0.015 NG/ML (0.00-0.045)
[2016-11-03] MEDS ORDERED: LEVOFLOXACIN INJ 150 ML IV ONE (19:07)
[2016-11-03] MEDS ORDERED: ONDANSETRON 4 MG/2 ML VIAL ONE (19:07)
[2016-11-03] MEDS ORDERED: methylPREDNISolone SOD SUC 125 MG/2 ML VIAL ONE ×2 (19:07→20:13)
[2016-11-03] MEDS ORDERED: ONDANSETRON 4 MG/2 ML VIAL IV STA (19:12)
[2016-11-03] MEDS ORDERED: ONDANSETRON 4 MG/2 ML VIAL IV PRN (21:22)
[2016-11-03] MEDS ORDERED: FUROSEMIDE 40 MG/4 ML VIAL IV ONE (22:00)
[2016-11-03] MEDS ORDERED: FUROSEMIDE 40 MG/4 ML VIAL ONE (22:52)
[2016-11-03] MEDS ORDERED: GLUCAGON 1 MG VIAL IM PRN (23:23)
[2016-11-03] MEDS ORDERED: DEXTROSE 50% 25 GM/50 ML VIAL IV PRN (23:23)
[2016-11-03] MEDS: ALBUTEROL 2.5 MG/3 ML NEB RESP TX SCH (23:49)
--- NOTE | 2016-11-04 01:26 | Hospitalist History & Physical ---
Assessment and Plan (1) Acute exacerbation of chronic obstructive airways disease Status: Acute Assessment and plan: Acute COPD exacerbation/chronic respiratory failure - Oxygen - IV solumedrol - Nebulizer treatments - IV Levaquin - Pulmonology consult - Echocardogram; Lasix IV X 1 given - will monitor Current Visit: No (2) Tachycardia determined by examination of pulse Status: Acute Assessment and plan: Tachaycardia - May be due to distress vs nebulizer treatments/steroids - TSH ordered - will monitor Current Visit: Yes (3) Bruising Status: Acute Assessment and plan: Bruising - LANA reflex - PT and PTT ordered - will monitor Current Visit: Yes History of Present Illness Chief complaint: shortness of breath History of present illness: Ms. Armstrong is a 60 year old female with a history of obstructive sleep apnea, COPD /asthma on 2 liters of oxygen at home , GERD, diabetes, and esophageal stricture that presented to the ER for worsening shortness of breath for the past 2 days. Patient reports that she has shortness of breath and wheezing at baseline but it worsened 2 days ago when the weather changed. Patient reports she came to the ER today because it was unbearable. Patient reports varies between productive with white sputum and nonproductive. Pain is worse on exertion. Initially on arrival to the ER, patient complained of moderate, nonradiating, left-sided chest pain that have resolved by the time of the hospitalist examination. Patient is on CPAP at home. Patient complains of some unexplained bruising and extremity cramping. Patient denies any fevers and all the symptoms. Dr. Wilfrid Hendrickson is patient's insurance operations rep. Patient reports that she usually has COPD exacerbation once a month but this time she has been out of the hospital for 2 months. In the ER patient was given nebulized treatments and Solu-Medrol without improvement. Patient was admitted to hospitalist service for further management. Home Medications Medication Instructions Recorded Confirmed Type glipiZIDE [Glipizide] 5 mg PO DAILY 08/25/15 11/03/16 History Pantoprazole Sodium 40 mg PO BID 12/01/15 11/03/16 History Benzonatate [Tessalon] 100 mg PO TID #30 capsule 12/18/15 11/03/16 Rx Furosemide Tab [Lasix Tab] 20 mg PO DAILY 03/18/16 11/03/16 History Albuterol Sulfate [Ventolin HFA] 2 puff INH Q4H PRN 04/24/16 11/03/16 History Diltiazem Cd Cap [Cardizem CD] 300 mg PO BEDTIME 04/24/16 11/03/16 History Montelukast Tab [Singulair Tab] 10 mg PO DAILY 04/24/16 11/03/16 History Fluticasone 50 Mcg Nasal [place] 1 spray BOTH NARES DAILY 06/01/16 11/03/16 History [Flonase Nasal [place]] Beclomethasone 80 Mcg Inhaler 2 puffs INH 5X DAILY 07/07/16 11/03/16 History [Qvar 80 Mcg] Erythromycin Base 250 mg PO TID W/MEALS 07/07/16 11/03/16 History Promethazine Tab [Phenergan Tab] 25 mg PO Q6H PRN 07/07/16 11/03/16 History Albuterol/Ipratropium Neb [Duoneb] 3 ml RESP TX RT Q6H 08/01/16 11/03/16 History Beclomethasone 40 Mcg Inhaler 2 puffs INH BID 08/01/16 11/03/16 History [Qvar 40 Mcg] HYDROcodone/ACETAMIN 7.5-325 1 tablet PO Q4H PRN #20 tablet 08/04/16 11/03/16 Rx [[place] 7.5-325] Hydrocortisone (Anusol-Hc) Sup 25 mg RECTAL BID PRN #0 suppository 08/04/1606/10 Rx [Anusol HC Supp] Polyethylene Glycol Powder 17 gm PO DAILY PRN #0 powder 08/04/16 11/03/16 Rx [Miralax] guaiFENesin LIQUID [Robitussin] 15 ml PO Q4H PRN #7 udcup 08/04/16 11/03/16 Rx Arformoterol Neb [Brovana] 15 mcg RESP TX BID #90 08/28/16 11/03/16 Rx Theophylline ER Tab (24 Hr) 200 mg PO BID W/MEALS #100 08/28/16 11/03/16 Rx Cholecalciferol [Vitamin D3] 1,000 unit PO QOTHER DAY 11/03/16 11/03/16 History predniSONE TAB [PredniSONE] See Taper PO DAILY 05/12/17 05/12/17 History Allergies Allergy/AdvReac Type Severity Reaction Status Date / Time strawberry Allergy Mild ITCHING Verified 11/03/16 14:43 Iodinated Contrast Media - Allergy ANAPHYLAXIS Verified 11/03/16 14:43 Oral and [Iodinated Contrast Media - IV Dye] iodine AdvReac ITCHING Verified 11/03/16 14:43 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), HEENT Problems ( chronic allergic rhinitis) Endocrine: History of: Diabetes Mellitus (NIDDM) (recently diagnosed), Endocrine Problems (morbid obesity) Rheumatology: History of;: Rheumatological Problems (carpal tunnel) Respiratory: History of: Asthma, Bronchitis, COPD, Obstructive Sleep Apnea, Respiratory Problems (patient states that she is on home oxygen) Gastrointestinal: History of: GERD (AND GASTROPARESIS), GI Problems (for history of significant reflux and was prescribed a hospital bed.) Musculoskeletal: History of: Musculoskeletal Problems (NUMBNESS AND TINGLING IN FEET AND LEGS) - Surgical History Cardiac Surgeries: Patient Denies: Cardiac Catheterization Thoracic Surgeries: Patient denies;: Organ Transplant, Lobectomy Neurologic Surgeries: Patient denies: Brain Aneurysm, Cerebral Hemorrhage, Neurologic Surgery HEENT Surgeries: Patient denies: Eye Surgery, Thyroid Surgery, Tonsilectomy & Adenoidectomy Abdominal Surgeries: Patient denies: Abdominal Surgery Reproductive Surgeries: Surgical HX of;: Hysterectomy - Family History Family History: Reports;: Family Cancer (father-liver cancer), Family Diabetes ( father and mother), Family Heart Disease (father), Family Hypertension (father) , Family Psychiatric Problems (mom and sister), Family Stroke (mom) - Social History Smoking Status: Never smoker Frequency of Alcohol Use: None Type of Drug Use: None 12 point system: reviewed and no additional remarkable complaints except as stated Exam - Constitutional Vitals: Period Temp Pulse Resp BP Sys/Luong Pulse Ox Last 24 Hr 97.8 F 110-118 18-20 117-140/61-68 94-98 General appearance: mild distress, over weight - Head Head exam: Present: normal inspection, normocephalic - Eye Eye exam: Present: EOMI - ENT ENT exam: Present: normal exam - Neck Neck exam: Present: normal inspection - Respiratory Respiratory exam: Present: decreased breath sounds, prolonged expiratory phase, rhonchi, wheezes, other (tachypnea) - Cardiovascular Cardiovascular exam: Present: regular rate and rhythm, tachycardia - GI/Abdominal GI/Abdominal exam: Present: normal bowel sounds, soft. Absent: distended, tenderness - Extremities Exam Extremities exam: Absent: calf tenderness, edema - Neurological Exam Neurological exam: Present: alert, oriented X3 - Psychiatric Psychiatric exam: Present: normal affect - Skin Skin exam: Present: other (bruises on extremities and various other areas) Results - Labs CBC & BMP: 11/03/16 18:21 11/03/16 18:21 - EKG EKG shows: tachycardia - Diagnostic Findings Procedure: Chest x-ray: image reviewed by me
[2016-11-04] MEDS ORDERED: PROMETHAZINE 25 MG TABLET PO PRN (01:37)
[2016-11-04] MEDS ORDERED: HYDROCORTISONE 25 MG SUPP RECTAL PRN (01:37)
[2016-11-04] MEDS: ALBUTEROL 2.5 MG/3 ML NEB RESP TX SCH ×6 (02:55→23:47)
[2016-11-04] MEDS: ARFORMOTEROL 15 MCG/2 ML NEB RESP TX SCH ×3 (02:55→19:14)
[2016-11-04] MEDS ORDERED: QVAR INH SCH (06:00)
[2016-11-04 06:01] LABS: Basophils % 0.1 % (0.0-0.8); Hematocrit 38.9 VOL% (35.7-47.0); Hemoglobin 13.4 GM/DL (12.0-16.0); Immature Granulocytes % 0.6 %; Immature Granulocytes Absolute 0.06 #; Lymphocytes # 0.7 10*3/uL (1.4-4.0); Lymphocytes % 7.7 % (21.3-54.2); Mean Corpuscular HGB Conc 34.4 GM/DL (32-36); Mean Corpuscular Hemoglobin 30 PG (27-34); Mean Corpuscular Volume 88.2 FL (87-102); Mean Platelet Volume 9.6 FL (9.6-12.0); Monocytes # 0.1 10*3/uL (0.11-0.8); Monocytes % 0.5 % (1.7-12.7); Neutrophils # 8.6 10*3/uL (1.4-7.4); Neutrophils % 91.1 % (38.7-73.9); Platelet Count 312 T/CUMM (130-400); Red Blood Count 4.41 MC/CUMM (3.8-5.5); Red Cell Distribution Width 13.6 % (9.3-17.3); White Blood Count 9.4 T/CUMM (4-12)
[2016-11-04 06:19] LABS: INR 1.1; PT Patient Result 11.8 SECS; Partial Thromboplastin Time 28.5 SECS (0-40)
[2016-11-04 06:44] LABS: Bilirubin,Total 0.9 MG/DL (0.2-1.0); Magnesium 2.4 MG/DL (1.8-2.4); Osmolality,Calculated 284.4 MOS/KG (273-304); Potassium 4.4 MMOL/L (3.5-5.1); Thyroid Stimulating Hormone 0.428 uIU/ml (0.358-3.74); Total Protein 7.1 G/DL (6.4-8.3)
[2016-11-04] MEDS: INSULIN LISPRO 100 UNIT/ML SUBCUT SCH ×4 (07:30→21:12)
[2016-11-04] MEDS: IPRATROPIUM 500 MCG/2.5 ML NEB RESP TX SCH ×3 (07:40→23:47)
[2016-11-04 08:00] LABS: Hypochromasia 2+; Lymphocytes 11 % (20-55); Platelet Estimate Adequate; Segmented Neutrophils 89 % (50-85); Total Cells Counted 100
--- NOTE | 2016-11-04 10:31 | Hospitalist Progress Note ---
Assessment and Plan - Time spent with patient Time spent with patient: Greater than 30 minutes (1) Chronic asthma with acute exacerbation Status: Acute Assessment and plan: Continue current management. Pulm consult pending. Current Visit: No (2) Hypertension Status: Acute Assessment and plan: Continue current management. Current Visit: No (3) Diabetes mellitus Status: Chronic Assessment and plan: Continue current management. Current Visit: No Qualifiers: Diabetes mellitus type: type 2 Diabetes mellitus complication status: without complication Qualified Code(s): E11.9 - Type 2 diabetes mellitus without complications Hospitalist: Subjective Interval history: Complains of continued wheezing and difficulty expiring air. Otherwise she states she is doing better. Exam - Constitutional Vitals: Period Temp Pulse Resp BP Sys/Luong Pulse Ox Last 24 Hr 97.8 F-98.1 F 89-118 16-20 117-140/56-68 93-99 General appearance: no acute distress - Head Head exam: Present: normocephalic, atraumatic - Eye Eye exam: Present: EOMI Pupils: Present: MUSTAPHA - ENT ENT exam: Present: normal exam - Neck Neck exam: Present: normal inspection - Respiratory Respiratory exam: Present: wheezes. Absent: rhonchi - Cardiovascular Cardiovascular exam: Present: regular rate and rhythm. Absent: gallop, rubs, systolic murmur - GI/Abdominal GI/Abdominal exam: Present: normal bowel sounds, soft. Absent: distended, firm , guarding, tenderness, rebound - Extremities Exam Extremities exam: Present: normal inspection. Absent: calf tenderness, edema Results - Labs CBC & BMP: 11/04/16 05:50 11/04/16 05:50 Lab Results: I have reviewed the past 24 hour labs
[2016-11-04] MEDS: guaiFENesin 200 MG/10 ML UDCUP PO PRN (10:47)
[2016-11-04] MEDS: ENOXAPARIN 40 MG/0.4 ML SYRINGE SUBCUT SCH (10:47)
[2016-11-04] MEDS: FLUTICASONE 50 MCG NASAL SPRAY 16 GM BOTTLE BOTH NARES SCH (10:48)
[2016-11-04] MEDS: POLYETHYLENE GLYCOL POWDER 17 GM PACK PO PRN (10:48)
[2016-11-04] MEDS: THEOPHYLLINE ER (24 HR) 400 MG TABLET PO SCH ×2 (10:49→19:07)
[2016-11-04] MEDS: ERYTHROMYCIN BASE 250 MG TABLET PO SCH ×3 (10:49→19:07)
[2016-11-04] MEDS: PANTOPRAZOLE 40 MG TABLET PO SCH (10:49)
[2016-11-04] MEDS: BENZONATATE 100 MG CAPSULE PO SCH ×3 (10:49→20:56)
[2016-11-04] MEDS: FUROSEMIDE 20 MG TABLET PO SCH (10:51)
[2016-11-04] MEDS: MONTELUKAST 10 MG TABLET PO SCH (10:51)
[2016-11-04] MEDS: CHOLECALCIFEROL 1,000 UNIT TABLET PO SCH (10:51)
[2016-11-04] MEDS: ACETAMINOPHEN 325 MG TABLET PO PRN ×2 (11:14→21:13)
[2016-11-04] MEDS: methylPREDNISolone SOD SUC 125 MG/2 ML VIAL IV SCH ×2 (11:16→20:59)
--- NOTE | 2016-11-04 16:35 | Pulmonology Consult Note ---
Assessment and Plan (1) Acute asthma exacerbation Status: Acute Assessment and plan: 60-year-old female with a history of severe asthma with frequent exacerbations admitted for an exacerbation of asthma related to recent weather changes. Agree with current therapy with steroids bronchodilators and antibiotics. Also agree with evaluation for a coexisting cardiac abnormality with an echocardiogram. Patient feels there has been some improvement, but it may take a few days for there to be complete improvement in symptoms. Recommend obtaining a theophylline level to ensure not supratherapeutic. Otherwise continue current therapies. Current Visit: Yes Qualifiers: Asthma severity: severe persistent Qualified Code(s): J45.51 - Severe persistent asthma with (acute) exacerbation History of Present Illness Chief complaint: Asthma exacerbation History of present illness: Ms. Armstrong is a 60 year old female with a history of ARLETH, COPD/asthma on 2 L oxygen at home, GERD, diabetes, and esophageal stricture who presented to the emergency room for worsening dyspnea on exertion and wheezing for the prior 2 days. In addition to dyspnea and wheezing, she also is experiencing chest tightness and coughing, which is consistent with prior asthma exacerbations. Patient has known severe asthma with frequent exacerbations and is an outpatient of Dr. Morris. She feels that the trigger for this exacerbation was the recent weather change. She is currently being treated with bronchodilators, steroids, & antibiotics and she feels that there has been significant improvement with this therapy. Home Medications Medication Instructions Recorded Confirmed Type glipiZIDE [Glipizide] 5 mg PO DAILY 08/25/15 11/03/16 History Pantoprazole Sodium 40 mg PO BID 12/01/15 11/03/16 History Benzonatate [Tessalon] 100 mg PO TID #30 capsule 12/18/15 11/03/16 Rx Furosemide Tab [Lasix Tab] 20 mg PO DAILY 03/18/16 11/03/16 History Albuterol Sulfate [Ventolin HFA] 2 puff INH Q4H PRN 04/24/16 11/03/16 History Diltiazem Cd Cap [Cardizem CD] 300 mg PO BEDTIME 04/24/16 11/03/16 History Montelukast Tab [Singulair Tab] 10 mg PO DAILY 04/24/16 11/03/16 History Fluticasone 50 Mcg Nasal [place] 1 spray BOTH NARES DAILY 06/01/16 11/03/16 History [Flonase Nasal [place]] Beclomethasone 80 Mcg Inhaler 2 puffs INH 5X DAILY 07/07/16 11/03/16 History [Qvar 80 Mcg] Erythromycin Base 250 mg PO TID W/MEALS 07/07/16 11/03/16 History Promethazine Tab [Phenergan Tab] 25 mg PO Q6H PRN 07/07/16 11/03/16 History Albuterol/Ipratropium Neb [Duoneb] 3 ml RESP TX RT Q6H 08/01/16 11/03/16 History Beclomethasone 40 Mcg Inhaler 2 puffs INH BID 08/01/16 11/03/16 History [Qvar 40 Mcg] HYDROcodone/ACETAMIN 7.5-325 1 tablet PO Q4H PRN #20 tablet 08/04/16 11/03/16 Rx [[place] 7.5-325] Hydrocortisone (Anusol-Hc) Sup 25 mg RECTAL BID PRN #0 suppository 08/04/1606/10 Rx [Anusol HC Supp] Polyethylene Glycol Powder 17 gm PO DAILY PRN #0 powder 08/04/16 11/03/16 Rx [Miralax] guaiFENesin LIQUID [Robitussin] 15 ml PO Q4H PRN #7 udcup 08/04/16 11/03/16 Rx Arformoterol Neb [Brovana] 15 mcg RESP TX BID #90 08/28/16 11/03/16 Rx Theophylline ER Tab (24 Hr) 200 mg PO BID W/MEALS #100 08/28/16 11/03/16 Rx Cholecalciferol [Vitamin D3] 1,000 unit PO QOTHER DAY 11/03/16 11/03/16 History predniSONE TAB [PredniSONE] See Taper PO DAILY 11/03/16 11/03/16 History Allergies Allergy/AdvReac Type Severity Reaction Status Date / Time strawberry Allergy Mild ITCHING Verified 11/03/16 14:43 Iodinated Contrast Media - Allergy ANAPHYLAXIS Verified 11/03/16 14:43 Oral and [Iodinated Contrast Media - IV Dye] iodine AdvReac ITCHING Verified 11/03/16 14:43 12 point system: reviewed and no additional remarkable complaints except as stated Exam (Pulmonay) H&P - Constitutional Vitals: Period Temp Pulse Resp BP Sys/Luong Pulse Ox Last 24 Hr 97.8 F-98.1 F 89-118 16-20 117-140/56-68 93-99 General appearance: over weight - Head Head exam: Present: normal inspection - Eye Eye exam: Present: EOMI Pupils: Present: MUSTAPHA - ENT ENT exam: Present: normal exam - Neck Neck exam: Present: normal inspection - Respiratory Respiratory exam: Present: prolonged expiratory phase, rhonchi, wheezes ( Diffuse expiratory wheezes bilaterally). Absent: rales - Cardiovascular Cardiovascular exam: Present: tachycardia. Absent: gallop, rubs, systolic murmur - GI/Abdominal GI/Abdominal exam: Present: normal bowel sounds, soft. Absent: tenderness - Extremities Exam Extremities exam: Present: normal inspection. Absent: edema - Neurological Exam Neurological exam: Present: alert, oriented X3 - Psychiatric Psychiatric exam: Present: normal affect, normal mood - Skin Skin exam: Present: warm, dry 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), HEENT Problems ( chronic allergic rhinitis) Endocrine: History of: Diabetes Mellitus (NIDDM) (recently diagnosed), Endocrine Problems (morbid obesity) Rheumatology: History of;: Rheumatological Problems (carpal tunnel) Respiratory: History of: Asthma, Bronchitis, COPD, Obstructive Sleep Apnea, Respiratory Problems (patient states that she is on home oxygen) Gastrointestinal: History of: GERD (AND GASTROPARESIS), GI Problems (for history of significant reflux and was prescribed a hospital bed.) Musculoskeletal: History of: Musculoskeletal Problems (NUMBNESS AND TINGLING IN FEET AND LEGS) - Surgical History Cardiac Surgeries: Patient Denies: Cardiac Catheterization Thoracic Surgeries: Patient denies;: Organ Transplant, Lobectomy Neurologic Surgeries: Patient denies: Brain Aneurysm, Cerebral Hemorrhage, Neurologic Surgery HEENT Surgeries: Patient denies: Eye Surgery, Thyroid Surgery, Tonsilectomy & Adenoidectomy Abdominal Surgeries: Patient denies: Abdominal Surgery Reproductive Surgeries: Surgical HX of;: Hysterectomy - Family History Family History: Reports;: Family Cancer (father-liver cancer), Family Diabetes ( father and mother), Family Heart Disease (father), Family Hypertension (father) , Family Psychiatric Problems (mom and sister), Family Stroke (mom) - Social History Smoking Status: Never smoker Frequency of Alcohol Use: None Type of Drug Use: None Results - Labs CBC & BMP: 11/04/16 05:50 11/04/16 05:50 - Diagnostic Findings Procedure: Chest x-ray: image reviewed by me, report reviewed by me (Findings concerning for mild volume overload.), Ultrasound: pending (Echocardiogram)
[2016-11-04] MEDS: LEVOFLOXACIN INJ 500 MG in PREMIX 1 EACH IV SCH (20:55)
[2016-11-04] MEDS: DILTIAZEM CD 300 MG CAPSULE PO SCH (20:56)
[2016-11-05] MEDS: ALBUTEROL 2.5 MG/3 ML NEB RESP TX SCH ×6 (03:23→23:27)
[2016-11-05] MEDS: guaiFENesin 200 MG/10 ML UDCUP PO PRN (04:20)
[2016-11-05 04:58] LABS: Basophils % 0.1 % (0.0-0.8); Hematocrit 41.9 VOL% (35.7-47.0); Hemoglobin 14.2 GM/DL (12.0-16.0); Immature Granulocytes Absolute 0.23 #; Lymphocytes # 1.2 10*3/uL (1.4-4.0); Lymphocytes % 5.2 % (21.3-54.2); Mean Corpuscular HGB Conc 33.9 GM/DL (32-36); Mean Corpuscular Hemoglobin 30 PG (27-34); Mean Corpuscular Volume 88.6 FL (87-102); Mean Platelet Volume 10.1 FL (9.6-12.0); Monocytes # 0.5 10*3/uL (0.11-0.8); Monocytes % 2.2 % (1.7-12.7); Neutrophils # 21.3 10*3/uL (1.4-7.4); Neutrophils % 91.5 % (38.7-73.9); Platelet Count 374 T/CUMM (130-400); Red Blood Count 4.73 MC/CUMM (3.8-5.5); Red Cell Distribution Width 13.9 % (9.3-17.3); White Blood Count 23.3 T/CUMM (4-12)
[2016-11-05 05:10] LABS: Calcium 9.6 MG/DL (8.5-10.1); Osmolality,Calculated 284.4 MOS/KG (273-304); Potassium 4.1 MMOL/L (3.5-5.1)
[2016-11-05] MEDS: IPRATROPIUM 500 MCG/2.5 ML NEB RESP TX SCH ×3 (07:08→23:27)
[2016-11-05] MEDS: ARFORMOTEROL 15 MCG/2 ML NEB RESP TX SCH ×2 (07:09→19:50)
[2016-11-05 07:40] LABS: Band Neutrophils 1 % (0-10); Hypochromasia Slight; Lymphocytes 2 % (20-55); Platelet Estimate Adequate; Segmented Neutrophils 96 % (50-85); Total Cells Counted 100
--- NOTE | 2016-11-05 10:16 | Hospitalist Progress Note ---
Assessment and Plan - Time spent with patient Time spent with patient: Greater than 30 minutes (1) Chronic asthma with acute exacerbation Status: Acute Assessment and plan: Wheezing improving. Continue current management. Appreicate pulm recs. Current Visit: No (2) Hypertension Status: Acute Assessment and plan: Continue current management. Current Visit: No (3) Diabetes mellitus Status: Chronic Assessment and plan: Continue current management. Current Visit: No Qualifiers: Diabetes mellitus type: type 2 Diabetes mellitus complication status: without complication Qualified Code(s): E11.9 - Type 2 diabetes mellitus without complications Hospitalist: Subjective Interval history: Complains of coughing though, feels better. Exam - Constitutional Vitals: Period Temp Pulse Resp BP Sys/Luong Pulse Ox Last 24 Hr 97.6 F-99 F 87-120 18-20 105-139/57-69 94-99 General appearance: no acute distress - Head Head exam: Present: normocephalic, atraumatic - Eye Eye exam: Present: EOMI Pupils: Present: MUSTAPHA - ENT ENT exam: Present: normal exam - Neck Neck exam: Present: normal inspection - Respiratory Respiratory exam: Present: wheezes. Absent: rhonchi - Cardiovascular Cardiovascular exam: Present: regular rate and rhythm. Absent: gallop, rubs, systolic murmur - GI/Abdominal GI/Abdominal exam: Present: normal bowel sounds, soft. Absent: distended, firm , guarding, tenderness, rebound - Extremities Exam Extremities exam: Present: normal inspection. Absent: calf tenderness, edema Results - Labs CBC & BMP: 11/05/16 04:26 11/05/16 04:26 Lab Results: I have reviewed the past 24 hour labs
[2016-11-05] MEDS: THEOPHYLLINE ER (24 HR) 400 MG TABLET PO SCH ×2 (12:03→18:40)
[2016-11-05] MEDS: ERYTHROMYCIN BASE 250 MG TABLET PO SCH ×4 (12:03→18:40)
[2016-11-05] MEDS: FUROSEMIDE 20 MG TABLET PO SCH (12:04)
[2016-11-05] MEDS: ENOXAPARIN 40 MG/0.4 ML SYRINGE SUBCUT SCH (12:04)
[2016-11-05] MEDS: MONTELUKAST 10 MG TABLET PO SCH (12:05)
[2016-11-05] MEDS: PANTOPRAZOLE 40 MG TABLET PO SCH (12:05)
[2016-11-05] MEDS: INSULIN LISPRO 100 UNIT/ML SUBCUT SCH ×5 (12:05→21:15)
[2016-11-05] MEDS: FLUTICASONE 50 MCG NASAL SPRAY 16 GM BOTTLE BOTH NARES SCH (12:26)
[2016-11-05] MEDS: BENZONATATE 100 MG CAPSULE PO SCH ×3 (12:27→21:14)
[2016-11-05] MEDS: methylPREDNISolone SOD SUC 125 MG/2 ML VIAL IV SCH ×2 (12:29→21:12)
--- NOTE | 2016-11-05 16:14 | Pulmonology Progress Note ---
Pulmonary - PN: Subj Interval history: 60-year-old female with a history of ARLETH, COPD/asthma on 2 L oxygen at home, GERD, diabetes, and esophageal stricture who presented to the emergency room for worsening dyspnea on exertion and wheezing admitted for an asthma exacerbation. Overnight patient had continued coughing but otherwise no acute interval changes. Today she admits to improvement in her breathing and she has been able to walk the halls without significant dyspnea. She continues to have wheezing on exam though it is decreased in amount. Patient's only new complaint today is of constipation. Exam (Progress Note) - Constitutional Vitals: Period Temp Pulse Resp BP Sys/Luong Pulse Ox Last 24 Hr 97.6 F-99 F 85-120 16-20 105-139/57-69 94-99 General appearance: over weight - Eye Eye exam: Present: EOMI - Neck Neck exam: Present: normal inspection - Respiratory Respiratory exam: Present: prolonged expiratory phase, rhonchi, wheezes ( Diffuse expiratory). Absent: accessory muscle use - Cardiovascular Cardiovascular exam: Present: regular rate and rhythm - GI/Abdominal GI/Abdominal exam: Present: normal bowel sounds, soft - Neurological Exam Neurological exam: Present: alert, oriented X3 - Skin Skin exam: Present: warm, dry Results - Labs CBC & BMP: 11/05/16 04:26 11/05/16 04:26 Assessment and Plan (1) Acute asthma exacerbation Status: Acute Assessment and plan: 60-year-old female with a history of severe asthma with frequent exacerbations admitted for an exacerbation of asthma related to recent weather changes. Today patient admits to improvement in her breathing with current therapies. We will continue current management and monitor for continued improvement. Expect slow recovery given her known severe disease at baseline. Echocardiogram pending to evaluate for coexisting cardiac disease. Current Visit: Yes Qualifiers: Asthma severity: severe persistent Qualified Code(s): J45.51 - Severe persistent asthma with (acute) exacerbation (2) Constipation Status: Acute Assessment and plan: Patient requesting senna/docusate for chronic complaint of constipation. Will start today. Current Visit: Yes
--- NOTE | 2016-11-05 17:36 | ECHO Report ---
Porsha Armstrong Exam Date: 11/04/2016 13:31 Referring Physician: Technologist: Ana Maldonado LRSUSHMA Age: 60 Ht (in): 67 Wt (lb): 213 Gender: F Exam Location: [facility] Echo Indications: ARLETH, GERD, DM, Tachycardia, bruising BP: 121 / 56 HR: 103 Rhythm: Sinus tachycardia Technical Quality: Fair IMPRESSIONS 1. This is limited study. 2. Left ventricle is normal size systolic function 60+%. 3. Other cardiac chambers are normal size. 4. Mitral valve may be minimally thickened and with worse mild regurgitation. 5. Mild tricuspid regurgitation. 6. Right-sided pressures are probably normal. MEASUREMENTS (Male / Female) Normal Values 2D ECHO LV Diastolic Diameter PLAX 3.3 cm 4.2 - 5.9 / 3.9 - 5.3 cm LV Systolic Diameter PLAX 2.3 cm LV Fractional Shortening PLAX 30.9 % IVS Diastolic Thickness 1.6 cm 0.6 - 1.0 / 0.6 - 0.9 cm LVPW Diastolic Thickness 1.3 cm 0.6 - 1.0 / 0.6 - 0.9 cm RV Internal Dim ED PLAX 3.0 cm Aortic Root Diameter 2.7 cm LA Systolic Diameter LX 3.5 cm 3.0 - 4.0 / 2.7 - 3.8 cm DOPPLER TR Peak Velocity 175.0 cm/s TR Peak Gradient 12.3 mmHg FINDINGS Left Ventricle Left ventricle is normal size and systolic function with ejection fraction of 60+%. No segmental wall motion normality is noted. Because the tachycardia diastolic dysfunction is difficult to measure. Wall thickness is probably normal to minimally thickened. Right Ventricle Normal right ventricular size. Right Atrium Normal right atrial size. Left Atrium Normal left atrial size. Mitral Valve Mildly thickened mitral valve with mild mitral regurgitation. Aortic Valve Aortic valve sclerosis without stenosis or regurgitation. Tricuspid Valve Morphologically normal tricuspid valve. Mild tricuspid valve regurgitation. Tricuspid regurgitation velocities suggest a PAP 17-22 mmHg. Pulmonic Valve Morphologically normal pulmonic valve. Trace pulmonary valve regurgitation. Pericardium Trivial pericardial effusion. Aorta Normal size aortic root and proximal ascending aorta. Wilfrido Malik MD (Electronically Signed) Final Date: 05 Nov 2016 17:35
[2016-11-05] MEDS: LEVOFLOXACIN INJ 500 MG in PREMIX 1 EACH IV SCH (21:12)
[2016-11-05] MEDS: DILTIAZEM CD 300 MG CAPSULE PO SCH (21:14)
[2016-11-05] MEDS: DOCUSATE/SENNA 50-8.6 MG TABLET PO SCH (21:14)
[2016-11-06] MEDS: ALBUTEROL 2.5 MG/3 ML NEB RESP TX SCH ×5 (03:11→19:23)
[2016-11-06] MEDS: IPRATROPIUM 500 MCG/2.5 ML NEB RESP TX SCH ×2 (07:29→14:49)
[2016-11-06] MEDS: ARFORMOTEROL 15 MCG/2 ML NEB RESP TX SCH ×2 (07:29→19:23)
[2016-11-06] MEDS: THEOPHYLLINE ER (24 HR) 400 MG TABLET PO SCH ×2 (08:08→16:29)
[2016-11-06] MEDS: ERYTHROMYCIN BASE 250 MG TABLET PO SCH ×3 (08:08→16:29)
[2016-11-06] MEDS: FLUTICASONE 50 MCG NASAL SPRAY 16 GM BOTTLE BOTH NARES SCH (08:09)
[2016-11-06] MEDS: FUROSEMIDE 20 MG TABLET PO SCH (08:09)
[2016-11-06] MEDS: PANTOPRAZOLE 40 MG TABLET PO SCH (08:09)
[2016-11-06] MEDS: ENOXAPARIN 40 MG/0.4 ML SYRINGE SUBCUT SCH (08:09)
[2016-11-06] MEDS: MONTELUKAST 10 MG TABLET PO SCH (08:10)
[2016-11-06] MEDS: DOCUSATE/SENNA 50-8.6 MG TABLET PO SCH ×2 (08:10→22:24)
[2016-11-06] MEDS: BECLOMETHASONE 40 MCG/PUFF INHALER 8.7 GM INH SCH ×2 (08:10→22:40)
[2016-11-06] MEDS: BENZONATATE 100 MG CAPSULE PO SCH ×3 (08:11→22:24)
[2016-11-06] MEDS: CHOLECALCIFEROL 1,000 UNIT TABLET PO SCH (08:11)
[2016-11-06] MEDS: methylPREDNISolone SOD SUC 125 MG/2 ML VIAL IV SCH ×2 (08:12→22:25)
--- NOTE | 2016-11-06 09:06 | Pulmonology Progress Note ---
Pulmonary - PN: Subj Interval history: The patient is a 60-year-old black lady that has severe chronic asthma with chronic obstructive airways disease. She has been very hard to keep clear and did not really respond to Xolair so this was stopped. She has been on steroids and inhaled steroids along with bronchodilator therapy. She comes back in over the weekend with a flareup of wheezing and bronchospasm. She does have some productive cough at times. Her echocardiogram looked okay. Her chest x-ray does show increased markings especially in the right lung. Exam (Progress Note) - Constitutional Vitals: Period Temp Pulse Resp BP Sys/Luong Pulse Ox Last 24 Hr 97.6 F-98.1 F 82-99 16-22 116-145/56-65 92-100 General appearance: no acute distress, over weight - Head Head exam: Present: normal inspection, normocephalic - Eye Eye exam: Present: EOMI. Absent: scleral icterus Pupils: Present: MUSTAPHA - ENT ENT exam: Present: normal exam - Neck Neck exam: Present: normal inspection. Absent: lymphadenopathy, thyromegaly - Respiratory Respiratory exam: Present: prolonged expiratory phase, wheezes. Absent: accessory muscle use - Cardiovascular Cardiovascular exam: Present: regular rate and rhythm. Absent: gallop, systolic murmur - GI/Abdominal GI/Abdominal exam: Present: normal bowel sounds, soft. Absent: organomegaly, tenderness - Extremities Exam Extremities exam: Absent: calf tenderness, edema - Neurological Exam Neurological exam: Present: alert, oriented X3, CN II-XII intact - Psychiatric Psychiatric exam: Present: normal affect - Skin Skin exam: Present: warm, dry Results - Labs CBC & BMP: 11/05/16 04:26 11/05/16 04:26 - Diagnostic Findings Procedure: Chest x-ray: image reviewed by me, report reviewed by me (Chest x- ray shows increased markings bilaterally, and a little more prominent in the right lower lobe.) Assessment and Plan (1) Asthma with exacerbation Status: Acute Assessment and plan: Patient continues to have bronchitis and bronchospasm. She has been extremely hard to keep clear. She is comfortable but still wheezing. Will discuss a therapeutic bronchoscopy as she may have significant mucus plugging. Current Visit: No Qualifiers: Asthma severity: severe persistent Qualified Code(s): J45.51 - Severe persistent asthma with (acute) exacerbation (2) GERD (gastroesophageal reflux disease) Status: Chronic Assessment and plan: We will continue antireflux measures. Current Visit: No (3) ARLETH (obstructive sleep apnea) Status: Chronic Assessment and plan: She is on oxygen but not CPAP at home Current Visit: No (4) Essential hypertension Status: Chronic Assessment and plan: Her blood pressures been monitored. Current Visit: No (5) Diabetes mellitus Status: Chronic Assessment and plan: She is getting sliding scale insulin. Her glucose is 153 today. Current Visit: No Qualifiers: Diabetes mellitus type: type 2 Diabetes mellitus complication status: without complication Qualified Code(s): E11.9 - Type 2 diabetes mellitus without complications
[2016-11-06] MEDS: INSULIN LISPRO 100 UNIT/ML SUBCUT SCH ×4 (09:20→22:40)
--- NOTE | 2016-11-06 10:28 | Hospitalist Progress Note ---
Assessment and Plan - Time spent with patient Time spent with patient: Greater than 30 minutes (1) Chronic asthma with acute exacerbation Status: Acute Assessment and plan: Wheezing improving. Continue current management. Appreicate pulm recs. Appears they are considering a Bronch. Current Visit: No (2) Hypertension Status: Acute Assessment and plan: Continue current management. Current Visit: No (3) Diabetes mellitus Status: Chronic Assessment and plan: Continue current management. Current Visit: No Qualifiers: Diabetes mellitus type: type 2 Diabetes mellitus complication status: without complication Qualified Code(s): E11.9 - Type 2 diabetes mellitus without complications Hospitalist: Subjective Interval history: Patient appears very comfortable. States she is doing better. Exam - Constitutional Vitals: Period Temp Pulse Resp BP Sys/Luong Pulse Ox Last 24 Hr 97.6 F-98.1 F 82-99 16-22 116-145/56-65 92-100 General appearance: no acute distress - Head Head exam: Present: normocephalic, atraumatic - Eye Eye exam: Present: EOMI Pupils: Present: MUSTAPHA - ENT ENT exam: Present: normal exam - Neck Neck exam: Present: normal inspection - Respiratory Respiratory exam: Present: clear to auscultation bilaterally. Absent: rhonchi, wheezes - Cardiovascular Cardiovascular exam: Present: regular rate and rhythm. Absent: gallop, rubs, systolic murmur - GI/Abdominal GI/Abdominal exam: Present: normal bowel sounds, soft. Absent: distended, firm , guarding, tenderness, rebound - Extremities Exam Extremities exam: Present: normal inspection. Absent: calf tenderness, edema Results - Labs CBC & BMP: 11/05/16 04:26 11/05/16 04:26 Lab Results: I have reviewed the past 24 hour labs
[2016-11-06] MEDS: LEVOFLOXACIN INJ 500 MG in PREMIX 1 EACH IV SCH (22:20)
[2016-11-06] MEDS: DILTIAZEM CD 300 MG CAPSULE PO SCH (22:24)
[2016-11-07] MEDS: ALBUTEROL 2.5 MG/3 ML NEB RESP TX SCH ×7 (00:05→23:23)
[2016-11-07] MEDS: IPRATROPIUM 500 MCG/2.5 ML NEB RESP TX SCH ×4 (00:05→23:23)
[2016-11-07] MEDS: ARFORMOTEROL 15 MCG/2 ML NEB RESP TX SCH ×2 (07:47→19:40)
[2016-11-07] MEDS: ENOXAPARIN 40 MG/0.4 ML SYRINGE SUBCUT SCH (08:09)
[2016-11-07] MEDS: DOCUSATE/SENNA 50-8.6 MG TABLET PO SCH ×2 (08:09→21:50)
[2016-11-07] MEDS: MONTELUKAST 10 MG TABLET PO SCH (08:09)
[2016-11-07] MEDS: PANTOPRAZOLE 40 MG TABLET PO SCH (08:10)
[2016-11-07] MEDS: BENZONATATE 100 MG CAPSULE PO SCH ×3 (08:10→21:50)
[2016-11-07] MEDS: THEOPHYLLINE ER (24 HR) 400 MG TABLET PO SCH ×2 (08:10→17:49)
[2016-11-07] MEDS: FUROSEMIDE 20 MG TABLET PO SCH (08:10)
[2016-11-07] MEDS: ERYTHROMYCIN BASE 250 MG TABLET PO SCH ×3 (08:10→17:49)
[2016-11-07] MEDS: FLUTICASONE 50 MCG NASAL SPRAY 16 GM BOTTLE BOTH NARES SCH (08:11)
[2016-11-07] MEDS: BECLOMETHASONE 40 MCG/PUFF INHALER 8.7 GM INH SCH ×2 (08:13→21:49)
[2016-11-07] MEDS: methylPREDNISolone SOD SUC 125 MG/2 ML VIAL IV SCH ×2 (08:13→21:50)
[2016-11-07] MEDS: POLYETHYLENE GLYCOL POWDER 17 GM PACK PO PRN (08:22)
[2016-11-07] MEDS: INSULIN LISPRO 100 UNIT/ML SUBCUT SCH ×4 (08:29→21:49)
--- NOTE | 2016-11-07 09:03 | Pulmonology Progress Note ---
Pulmonary - PN: Subj Interval history: The patient is a 60-year-old black lady that has severe chronic asthma with chronic obstructive airways disease. She has been very hard to keep clear and did not really respond to Xolair so this was stopped. She has been on steroids and inhaled steroids along with bronchodilator therapy. She comes back in over the weekend with a flareup of wheezing and bronchospasm. She does have some productive cough at times. Her echocardiogram looked okay. Her chest x-ray does show increased markings especially in the right lung. Patient continues to have some coughing and wheezing although she is feeling a little better. She states to be tolerating her treatment fairly well. We will plan to do a therapeutic bronchoscopy tomorrow and see if she has any mucus plugging. Otherwise she will continue with her present therapy. Exam (Progress Note) - Constitutional Vitals: Period Temp Pulse Resp BP Sys/Luong Pulse Ox Last 24 Hr 96.8 F-98.6 F 65-102 16-20 120-142/54-70 95-100 Exam: General appearance: no acute distress, over weight, she is ambulating without problems - Head Head exam: Present: normal inspection, normocephalic - Eye Eye exam: Present: EOMI. Absent: scleral icterus Pupils: Present: MUSTAPHA - ENT ENT exam: Present: normal exam - Neck Neck exam: Present: normal inspection. Absent: lymphadenopathy, thyromegaly - Respiratory Respiratory exam: Present: She has fair breath sounds bilaterally with prolonged expiration and some wheezing. - Cardiovascular Cardiovascular exam: Present: regular rate and rhythm. Absent: gallop, systolic murmur - GI/Abdominal GI/Abdominal exam: Present: normal bowel sounds, soft. Absent: organomegaly, tenderness - Extremities Exam Extremities exam: Absent: calf tenderness, edema - Neurological Exam Neurological exam: Present: alert, oriented X3, CN II-XII intact - Psychiatric Psychiatric exam: Present: normal affect - Skin Skin exam: Present: warm, dry Results - Labs CBC & BMP: 11/05/16 04:26 11/05/16 04:26 Assessment and Plan (1) Asthma with exacerbation Status: Acute Assessment and plan: Patient continues to have bronchitis and bronchospasm. She has been extremely hard to keep clear. She is comfortable but still wheezing. She does want to go ahead with a therapeutic bronchoscopy and see if this will clear some secretions. Current Visit: No Qualifiers: Asthma severity: severe persistent Qualified Code(s): J45.51 - Severe persistent asthma with (acute) exacerbation (2) GERD (gastroesophageal reflux disease) Status: Chronic Assessment and plan: We will continue antireflux measures. Current Visit: No (3) ARLETH (obstructive sleep apnea) Status: Chronic Assessment and plan: She is on oxygen but not CPAP at home Current Visit: No (4) Essential hypertension Status: Chronic Assessment and plan: Her blood pressures been monitored. Current Visit: No (5) Diabetes mellitus Status: Chronic Assessment and plan: She is getting sliding scale insulin. Her glucose is 198 today. Current Visit: No Qualifiers: Diabetes mellitus type: type 2 Diabetes mellitus complication status: without complication Qualified Code(s): E11.9 - Type 2 diabetes mellitus without complications
--- NOTE | 2016-11-07 09:15 | Physician Query Form ---
CLICK EDIT DOCUMENT TO SELECT QUERY ANSWER --> OK --> SIGN Emelia Martinez RN, CCDS Certified Clinical Intellectual Property Paralegal W) [phone] (f) [phone] [email or web address] PROVIDERS: Make your selection(s) from the choices in EACH section by typing an "x" and enter comments in the comment section. Please use your independent medical judgment in providing your response. This request does not imply that any particular answer is desired or expected. CLINICAL INDICATORS: (Providers should not edit this section) The medical record indicates that the patient was admitted with COPD/ Asthma exacerbation, "Pt wears continuous home oxygen", and the patient was placed on 2 liters per NC. Based on the above, could you clarify the appropriate diagnosis, if significant , that supports the above abnormalities and additional evaluation, monitoring, and/or treatment rendered: (x ) Patient was treated or monitored for chronic respiratory failure ( ) Patient was not treated or monitored for chronic respiratory failure ( ) Other, please specify: ( ) Clinically unable to determine COMMENTS: PLEASE ALSO DOCUMENT RESPONSE IN PROGRESS NOTES AND/OR DISCHARGE SUMMARY Use of terms such as suspected, likely, or probable (associated with a specific diagnosis that is being evaluated, monitored, or treated as if it exists) are acceptable and can be restated in the discharge summary if not ruled out. MTDD
--- NOTE | 2016-11-07 11:25 | Hospitalist Progress Note ---
Assessment and Plan - Time spent with patient Time spent with patient: Greater than 30 minutes (1) Chronic asthma with acute exacerbation Status: Acute Assessment and plan: Wheezing improving. Continue current management. Appreicate pulm recs. Current Visit: Yes (2) Hypertension Status: Acute Assessment and plan: Continue current management. Current Visit: No (3) Diabetes mellitus Status: Chronic Assessment and plan: Continue current management. Current Visit: No Qualifiers: Diabetes mellitus type: type 2 Diabetes mellitus complication status: without complication Qualified Code(s): E11.9 - Type 2 diabetes mellitus without complications Hospitalist: Subjective Interval history: No complaints or overnight events. Exam - Constitutional Vitals: Period Temp Pulse Resp BP Sys/Luong Pulse Ox Last 24 Hr 96.8 F-98.6 F 65-102 16-20 117-142/54-82 95-100 General appearance: no acute distress - Head Head exam: Present: normocephalic, atraumatic - Eye Eye exam: Present: EOMI Pupils: Present: MUSTAPHA - ENT ENT exam: Present: normal exam - Neck Neck exam: Present: normal inspection - Respiratory Respiratory exam: Present: wheezes. Absent: rhonchi - Cardiovascular Cardiovascular exam: Present: regular rate and rhythm. Absent: gallop, rubs, systolic murmur - GI/Abdominal GI/Abdominal exam: Present: normal bowel sounds, soft. Absent: distended, firm , guarding, tenderness, rebound - Extremities Exam Extremities exam: Present: normal inspection. Absent: calf tenderness, edema Results - Labs CBC & BMP: 11/05/16 04:26 11/05/16 04:26 Lab Results: I have reviewed the past 24 hour labs
[2016-11-07] MEDS: guaiFENesin 200 MG/10 ML UDCUP PO PRN ×2 (11:51→23:48)
[2016-11-07] MEDS: DILTIAZEM CD 300 MG CAPSULE PO SCH (21:48)
[2016-11-07] MEDS: LEVOFLOXACIN INJ 500 MG in PREMIX 1 EACH IV SCH (21:49)
[2016-11-08] MEDS: ALBUTEROL 2.5 MG/3 ML NEB RESP TX SCH ×5 (03:59→20:50)
[2016-11-08] MEDS ORDERED: GLYCOPYRROLATE 0.4 MG/2 ML VIAL IM ONE (07:00)
[2016-11-08] MEDS ORDERED: MEPERIDINE 50 MG/1 ML VIAL IM ONE (07:00)
[2016-11-08] MEDS ORDERED: PROMETHAZINE 25 MG/1 ML VIAL IM ONE (07:00)
[2016-11-08] MEDS ORDERED: MIDAZOLAM 2 MG/2 ML VIAL ONE (07:21)
[2016-11-08] MEDS ORDERED: LIDOCAINE 1% 20 ML VIAL MISC INJ ONE (07:30)
[2016-11-08] MEDS ORDERED: LIDOCAINE 4% TOP SOLN 50 ML BOTTLE RESP TX ONE (07:30)
[2016-11-08] MEDS ORDERED: LIDOCAINE 2% VISCOUS 100 ML BOTTLE SWISH/SPIT ONE (07:30)
[2016-11-08] MEDS ORDERED: MIDAZOLAM 2 MG/2 ML VIAL IV ONE (07:30)
--- NOTE | 2016-11-08 07:35 | Pulmonology Progress Note ---
Pulmonary - PN: Subj Interval history: The patient is a 60-year-old black lady that has severe chronic asthma with chronic obstructive airways disease. She has been very hard to keep clear and did not really respond to Xolair so this was stopped. She has been on steroids and inhaled steroids along with bronchodilator therapy. She comes back in over the weekend with a flareup of wheezing and bronchospasm. She does have some productive cough at times. Her echocardiogram looked okay. Her chest x-ray does show increased markings especially in the right lung. Patient is feeling a little better today although she has some coughing and wheezing still. She has been tolerating her treatments fairly well. We will go ahead with a therapeutic bronchoscopy today. Exam (Progress Note) - Constitutional Vitals: Period Temp Pulse Resp BP Sys/Luong Pulse Ox Last 24 Hr 96.6 F-98.5 F 76-154 14-22 117-157/55-82 94-100 Exam: General appearance: no acute distress, over weight, she is ambulating without problems. She looks comfortable at present. - Head Head exam: Present: normal inspection, normocephalic - Eye Eye exam: Present: EOMI. Absent: scleral icterus Pupils: Present: MUSTAPHA - ENT ENT exam: Present: normal exam - Neck Neck exam: Present: normal inspection. Absent: lymphadenopathy, thyromegaly - Respiratory Respiratory exam: Present: She has fair breath sounds bilaterally with prolonged expiration and some wheezing. - Cardiovascular Cardiovascular exam: Present: regular rate and rhythm. Absent: gallop, systolic murmur - GI/Abdominal GI/Abdominal exam: Present: normal bowel sounds, soft. Absent: organomegaly, tenderness - Extremities Exam Extremities exam: Absent: calf tenderness, edema - Neurological Exam Neurological exam: Present: alert, oriented X3, CN II-XII intact, no focal deficit - Psychiatric Psychiatric exam: Present: normal affect - Skin Skin exam: Present: warm, dry Results - Labs CBC & BMP: 11/05/16 04:26 11/05/16 04:26 Assessment and Plan (1) Asthma with exacerbation Status: Acute Assessment and plan: Patient continues to have bronchitis and bronchospasm. She has been extremely hard to keep clear. She is comfortable but still wheezing. We will go ahead with the bronchoscope and check her airways. After that she can probably go home soon. Current Visit: No Qualifiers: Asthma severity: severe persistent Qualified Code(s): J45.51 - Severe persistent asthma with (acute) exacerbation (2) GERD (gastroesophageal reflux disease) Status: Chronic Assessment and plan: We will continue antireflux measures. Current Visit: No (3) ARLETH (obstructive sleep apnea) Status: Chronic Assessment and plan: She is on oxygen but not CPAP at home Current Visit: No (4) Essential hypertension Status: Chronic Assessment and plan: Her blood pressures been monitored. She is hemodynamically stable. Current Visit: No (5) Diabetes mellitus Status: Chronic Assessment and plan: She is getting sliding scale insulin. Her glucose is 198 today. Current Visit: No Qualifiers: Diabetes mellitus type: type 2 Diabetes mellitus complication status: without complication Qualified Code(s): E11.9 - Type 2 diabetes mellitus without complications
--- NOTE | 2016-11-08 07:39 | Operative Note ---
Date of procedure: 11/08/16 Pre-op diagnosis: Asthmatic bronchitis Post-op diagnosis: other (Bronchitis with mild mucous plugging) Procedure: The patient is a 60-year-old that has chronic asthma and comes in wheezing and coughing is difficult to clear. A therapeutic bronchoscopy will be done to see if she has considerable plugging. We have done this before and she said it helped a lot. Timeout was performed to identify the patient. The patient is in the bronchoscopy lab. Preop: Demerol 50 mg, Phenergan 25 mg IM. Anesthesia: Versed 4 mg IVP, topical lidocaine. Procedure: The fiberoptic bronchoscope was passed transnasally through the vocal cords into the lungs. The bronchopulmonary segments were identified and specimens were obtained. Findings: The vocal cords, trachea, and hernandez are unremarkable. There is bronchitis present but the main bronchi are open. The right upper lobe, right middle lobe, and right lower lobe are all open. The left upper lobe, lingula, and left lower lobe are open. There is some thick mucus and plugs seen bilaterally this was washed and cleared and sent for culture. There are no endobronchial lesions seen. Once the airways were cleared the procedure was stopped. She coughed some but tolerated the procedure well. Impression: Asthmatic bronchitis with mild mucous plugging Plan: We will continue bronchodilator therapy. Anesthesia: conscious sedation Surgeon / Physician: Wilfrid Hendrickson Estimated blood loss: none Specimens: other (Washings were sent for culture) Condition: stable Disposition: floor Results - Labs CBC & BMP: 11/05/16 04:26 11/05/16 04:26 Discharge Plan - Discharge Medications No Action glipiZIDE [Glipizide] 5 mg PO DAILY Pantoprazole Sodium 40 mg PO BID Benzonatate [Tessalon] 100 mg PO TID #30 capsule Furosemide Tab [Lasix Tab] 20 mg PO DAILY Albuterol Sulfate [Ventolin HFA] 2 puff INH Q4H PRN PRN Reason: Shortness Of Breath/Wheezing Montelukast Tab [Singulair Tab] 10 mg PO DAILY Diltiazem Cd Cap [Cardizem CD] 300 mg PO BEDTIME Beclomethasone 80 Mcg Inhaler [Qvar 80 Mcg] 2 puffs INH 5X DAILY Promethazine Tab [Phenergan Tab] 25 mg PO Q6H PRN PRN Reason: Nausea/Vomiting Erythromycin Base 250 mg PO TID W/MEALS Albuterol/Ipratropium Neb [Duoneb] 3 ml RESP TX RT Q6H Arformoterol Neb [Brovana] 15 mcg RESP TX BID #90 predniSONE TAB [PredniSONE] See Taper PO DAILY Fluticasone 50 Mcg Nasal [place] [Flonase Nasal [place]] 1 spray BOTH NARES DAILY Beclomethasone 40 Mcg Inhaler [Qvar 40 Mcg] 2 puffs INH BID HYDROcodone/ACETAMIN 7.5-325 [[place] 7.5-325] 1 tablet PO Q4H PRN #20 tablet PRN Reason: Pain Moderate (4-7) Hydrocortisone (Anusol-Hc) Sup [Anusol HC Supp] 25 mg RECTAL BID PRN #0 suppository PRN Reason: Hemorrhoids Polyethylene Glycol Powder [Miralax] 17 gm PO DAILY PRN #0 powder PRN Reason: Constipation guaiFENesin LIQUID [Robitussin] 15 ml PO Q4H PRN #7 udcup PRN Reason: Cough Theophylline ER Tab (24 Hr) 200 mg PO BID W/MEALS #100 Cholecalciferol [Vitamin D3] 1,000 unit PO QOTHER DAY - Follow Up or Referral - Forms/Instructions
[2016-11-08] MEDS: IPRATROPIUM 500 MCG/2.5 ML NEB RESP TX SCH ×2 (08:07→15:25)
[2016-11-08] MEDS: ARFORMOTEROL 15 MCG/2 ML NEB RESP TX SCH ×2 (08:14→20:50)
[2016-11-08] MEDS: INSULIN LISPRO 100 UNIT/ML SUBCUT SCH ×4 (09:35→20:54)
[2016-11-08] MEDS: THEOPHYLLINE ER (24 HR) 400 MG TABLET PO SCH ×2 (09:36→17:02)
[2016-11-08] MEDS: ERYTHROMYCIN BASE 250 MG TABLET PO SCH ×3 (09:36→17:02)
[2016-11-08] MEDS: CHOLECALCIFEROL 1,000 UNIT TABLET PO SCH (09:37)
[2016-11-08] MEDS: MONTELUKAST 10 MG TABLET PO SCH (09:37)
[2016-11-08] MEDS: PANTOPRAZOLE 40 MG TABLET PO SCH (09:37)
[2016-11-08] MEDS: FUROSEMIDE 20 MG TABLET PO SCH (09:37)
[2016-11-08] MEDS: BECLOMETHASONE 40 MCG/PUFF INHALER 8.7 GM INH SCH ×2 (09:37→20:55)
[2016-11-08] MEDS: DOCUSATE/SENNA 50-8.6 MG TABLET PO SCH ×2 (09:37→20:56)
[2016-11-08] MEDS: BENZONATATE 100 MG CAPSULE PO SCH ×3 (09:37→20:55)
[2016-11-08] MEDS: FLUTICASONE 50 MCG NASAL SPRAY 16 GM BOTTLE BOTH NARES SCH (09:37)
[2016-11-08] MEDS: ENOXAPARIN 40 MG/0.4 ML SYRINGE SUBCUT SCH (09:38)
[2016-11-08] MEDS: methylPREDNISolone SOD SUC 125 MG/2 ML VIAL IV SCH ×2 (09:38→21:23)
--- NOTE | 2016-11-08 09:58 | Hospitalist Progress Note ---
Assessment and Plan - Time spent with patient Time spent with patient: Greater than 30 minutes (1) Chronic asthma with acute exacerbation Status: Acute Assessment and plan: Wheezing improving. Status post bronch. Continue current management. Appreicate pulm recs. Current Visit: Yes (2) Hypertension Status: Acute Assessment and plan: Continue current management. Current Visit: No (3) Diabetes mellitus Status: Chronic Assessment and plan: Continue current management. Current Visit: No Qualifiers: Diabetes mellitus type: type 2 Diabetes mellitus complication status: without complication Qualified Code(s): E11.9 - Type 2 diabetes mellitus without complications Hospitalist: Subjective Interval history: No complaints, patient returned from bronchoscopy. Findings noted. Exam - Constitutional Vitals: Period Temp Pulse Resp BP Sys/Luong Pulse Ox Last 24 Hr 96.6 F-98.5 F 77-154 12-22 125-157/55-80 93-100 General appearance: no acute distress - Head Head exam: Present: normocephalic, atraumatic - Eye Eye exam: Present: EOMI Pupils: Present: MUSTAPHA - ENT ENT exam: Present: normal exam - Neck Neck exam: Present: normal inspection - Respiratory Respiratory exam: Present: clear to auscultation bilaterally. Absent: rhonchi, wheezes - Cardiovascular Cardiovascular exam: Present: regular rate and rhythm. Absent: gallop, rubs, systolic murmur - GI/Abdominal GI/Abdominal exam: Present: normal bowel sounds, soft. Absent: distended, firm , guarding, tenderness, rebound - Extremities Exam Extremities exam: Present: normal inspection. Absent: calf tenderness, edema Results - Labs CBC & BMP: 11/05/16 04:26 11/05/16 04:26 Lab Results: I have reviewed the past 24 hour labs
[2016-11-08] MEDS: LEVOFLOXACIN INJ 500 MG in PREMIX 1 EACH IV SCH (20:52)
[2016-11-08] MEDS: DILTIAZEM CD 300 MG CAPSULE PO SCH (20:55)
[2016-11-09] MEDS: IPRATROPIUM 500 MCG/2.5 ML NEB RESP TX SCH ×2 (01:11→07:36)
[2016-11-09] MEDS: ALBUTEROL 2.5 MG/3 ML NEB RESP TX SCH ×4 (01:11→10:59)
[2016-11-09 05:46] LABS: Basophils % 0.1 % (0.0-0.8); Hematocrit 38.1 VOL% (35.7-47.0); Hemoglobin 13.1 GM/DL (12.0-16.0); Immature Granulocytes % 1.8 %; Lymphocytes # 0.6 10*3/uL (1.4-4.0); Lymphocytes % 3.7 % (21.3-54.2); Mean Corpuscular HGB Conc 34.4 GM/DL (32-36); Mean Corpuscular Hemoglobin 30 PG (27-34); Mean Corpuscular Volume 87.8 FL (87-102); Mean Platelet Volume 10.2 FL (9.6-12.0); Monocytes # 0.4 10*3/uL (0.11-0.8); Monocytes % 2.5 % (1.7-12.7); Neutrophils # 15.3 10*3/uL (1.4-7.4); Neutrophils % 91.9 % (38.7-73.9); Platelet Count 291 T/CUMM (130-400); Red Blood Count 4.34 MC/CUMM (3.8-5.5); Red Cell Distribution Width 13.5 % (9.3-17.3); White Blood Count 16.6 T/CUMM (4-12)
[2016-11-09 06:08] LABS: Lymphocytes 5 % (20-55); Nucleated Red Blood Cells 1 (0-5); Platelet Estimate Normal; Segmented Neutrophils 93 % (50-85); Total Cells Counted 100
[2016-11-09 06:09] LABS: Hypochromasia Slight
[2016-11-09 06:15] LABS: Osmolality,Calculated 290.1 MOS/KG (273-304); Potassium 4.3 MMOL/L (3.5-5.1)
[2016-11-09] MEDS: ARFORMOTEROL 15 MCG/2 ML NEB RESP TX SCH (07:43)
--- NOTE | 2016-11-09 08:27 | Pulmonology Progress Note ---
Pulmonary - PN: Subj Interval history: The patient is a 60-year-old black lady that has severe chronic asthma with chronic obstructive airways disease. She has been very hard to keep clear and did not really respond to Xolair so this was stopped. She has been on steroids and inhaled steroids along with bronchodilator therapy. She comes back in over the weekend with a flareup of wheezing and bronchospasm. She does have some productive cough at times. Her echocardiogram looked okay. Her chest x-ray does show increased markings especially in the right lung. The patient did well yesterday with a therapeutic bronchoscopy and she said she slept well. He feels like her cough and breathing are little better. She is comfortable at present. Exam (Progress Note) - Constitutional Vitals: Period Temp Pulse Resp BP Sys/Luong Pulse Ox Last 24 Hr 97.0 F-97.9 F 73-107 18-20 125-157/57-75 91-100 Exam: General appearance: no acute distress, over weight, she is ambulating without problems. Overall she looks like she is feeling better. - Head Head exam: Present: normal inspection, normocephalic - Eye Eye exam: Present: EOMI. Absent: scleral icterus Pupils: Present: MUSTAPHA - ENT ENT exam: Present: normal exam - Neck Neck exam: Present: normal inspection. Absent: lymphadenopathy, thyromegaly - Respiratory Respiratory exam: Present: She has fair breath sounds bilaterally she is moving air well with only minimal wheeze now. - Cardiovascular Cardiovascular exam: Present: regular rate and rhythm. Absent: gallop, systolic murmur - GI/Abdominal GI/Abdominal exam: Present: normal bowel sounds, soft. Absent: organomegaly, tenderness - Extremities Exam Extremities exam: Absent: calf tenderness, edema - Neurological Exam Neurological exam: Present: alert, oriented X3, CN II-XII intact, no focal deficit - Psychiatric Psychiatric exam: Present: normal affect - Skin Skin exam: Present: warm, dry Results - Labs CBC & BMP: 11/09/16 05:26 11/09/16 05:26 Assessment and Plan (1) Asthma with exacerbation Status: Acute Assessment and plan: Patient has chronic persistent asthma with chronic bronchospasm. She is doing a little better now. She is very hard to keep clear. She will need to continue inhaled steroids. She can slowly taper her prednisone. She is stable at present and can go home today. Current Visit: No Qualifiers: Asthma severity: severe persistent Qualified Code(s): J45.51 - Severe persistent asthma with (acute) exacerbation (2) GERD (gastroesophageal reflux disease) Status: Chronic Assessment and plan: We will continue antireflux measures. Current Visit: No (3) ARLETH (obstructive sleep apnea) Status: Chronic Assessment and plan: She is on oxygen but not CPAP at home Current Visit: No (4) Essential hypertension Status: Chronic Assessment and plan: Her blood pressures been monitored. She is hemodynamically stable. Her vital signs have been stable. Current Visit: No (5) Diabetes mellitus Status: Chronic Assessment and plan: She is getting sliding scale insulin. Her glucose is 219 today. Current Visit: No Qualifiers: Diabetes mellitus type: type 2 Diabetes mellitus complication status: without complication Qualified Code(s): E11.9 - Type 2 diabetes mellitus without complications
[2016-11-09 08:30] VITALS: BP 142/71
--- NOTE | 2016-11-09 08:52 | Discharge Summary ---
Hospital Course - Hospital Course Hospital Course: Ms. Armstrong was admitted for management of acute asthma exacerbation. She was placed on steroids, breathing treatments and antibiotics. Pulmonary was consulted. Patient required a bronchoscopy which revealed thick secretions.; these were cleared. The patient's wheezing and breathing ultimately improved and by discharge she had met maximum benefit of hospitalization. I spent 38 minutes coordinating this discharge - Time spent with patient Time with patient DS: Greater than 30 minutes Diagnosis - Discharge Diagnosis (1) Chronic asthma with acute exacerbation Status: Acute (2) Hypertension Status: Acute (3) Diabetes mellitus Status: Chronic Discharge Plan - Discharge Data Disposition: Disch To Home/Self Care Condition at Discharge: Stable Discharge Diet: advance to your usual diet Activity: resume usual activities as tolerated - Discharge Medications New predniSONE TAB [PredniSONE] 10 mg PO DAILY #12 tablet Levofloxacin Tab [Levaquin Tab] 750 mg PO DAILY #3 tablet Continue glipiZIDE [Glipizide] 5 mg PO DAILY Pantoprazole Sodium 40 mg PO BID Benzonatate [Tessalon] 100 mg PO TID #30 capsule Furosemide Tab [Lasix Tab] 20 mg PO DAILY Albuterol Sulfate [Ventolin HFA] 2 puff INH Q4H PRN PRN Reason: Shortness Of Breath/Wheezing Montelukast Tab [Singulair Tab] 10 mg PO DAILY Diltiazem Cd Cap [Cardizem CD] 300 mg PO BEDTIME Beclomethasone 80 Mcg Inhaler [Qvar 80 Mcg] 2 puffs INH 5X DAILY Promethazine Tab [Phenergan Tab] 25 mg PO Q6H PRN PRN Reason: Nausea/Vomiting Erythromycin Base 250 mg PO TID W/MEALS Albuterol/Ipratropium Neb [Duoneb] 3 ml RESP TX RT Q6H Arformoterol Neb [Brovana] 15 mcg RESP TX BID #90 Fluticasone 50 Mcg Nasal [place] [Flonase Nasal [place]] 1 spray BOTH NARES DAILY Beclomethasone 40 Mcg Inhaler [Qvar 40 Mcg] 2 puffs INH BID HYDROcodone/ACETAMIN 7.5-325 [[place] 7.5-325] 1 tablet PO Q4H PRN #20 tablet PRN Reason: Pain Moderate (4-7) Hydrocortisone (Anusol-Hc) Sup [Anusol HC Supp] 25 mg RECTAL BID PRN #0 suppository PRN Reason: Hemorrhoids Polyethylene Glycol Powder [Miralax] 17 gm PO DAILY PRN #0 powder PRN Reason: Constipation guaiFENesin LIQUID [Robitussin] 15 ml PO Q4H PRN #7 udcup PRN Reason: Cough Theophylline ER Tab (24 Hr) 200 mg PO BID W/MEALS #100 Cholecalciferol [Vitamin D3] 1,000 unit PO QOTHER DAY Discontinued predniSONE TAB [PredniSONE] See Taper PO DAILY - Follow Up or Referral - Forms/Instructions Exam - Constitutional Vitals: Period Temp Pulse Resp BP Sys/Luong Pulse Ox Last 24 Hr 97.0 F-97.9 F 73-107 17-20 125-157/57-75 91-100 General appearance: normal weight, no acute distress - Head Head exam: Present: normal inspection, normocephalic, atraumatic - Eye Eye exam: Present: EOMI Pupils: Present: MUSTAPHA - ENT ENT exam: Present: normal exam - Neck Neck exam: Present: normal inspection - Respiratory Respiratory exam: Present: clear to auscultation bilaterally. Absent: accessory muscle use, prolonged expiratory phase, wheezes - Cardiovascular Cardiovascular exam: Present: regular rate and rhythm. Absent: bradycardia, irregular rhythm, systolic murmur - GI/Abdominal GI/Abdominal exam: Present: normal bowel sounds. Absent: ascites, distended, hypoactive bowel sounds, tenderness - Extremities Exam Extremities exam: Absent: normal inspection Discharge Results Procedures and tests throughout hospitalization: Pending Orders 11/08/16 07:39 AFB Culture/Smears Routine Bronchial Washings C & Gram St Routine Fungal Culture w/ Prep Routine Labs on day of discharge: Labs from last 24 hours 11/09/16 11/09/16 11/09/16 07:10 05:26 05:26 WBC 16.6 H RBC 4.34 Hgb 13.1 Hct 38.1 MCV 87.8 MCH 30 MCHC 34.4 RDW 13.5 Plt Count 291 MPV 10.2 Neut % (Auto) 91.9 H Lymph % (Auto) 3.7 L [place] % (Auto) 2.5 Eos % (Auto) 0.0 Baso % (Auto) 0.1 Neut # (Auto) 15.3 H Lymph # (Auto) 0.6 L [place] # (Auto) 0.4 Eos # (Auto) 0.0 Baso # (Auto) 0.0 Total Counted 100 Immature Gran % 1.8 Nucleated RBC % 0.0 Immature Gran # 0.30 Segmented Neutrophils 93 H Lymphocytes 5 L Monocytes 2 Nucleated RBCs 1 Nucleated RBCs # 0.00 Platelet Estimate Normal Hypochromasia Slight Morphology Comment Sodium 142 Potassium 4.3 Chloride 106 Carbon Dioxide 26 Anion Gap 14.3 BUN 16 Creatinine 1.00 GFR Calculation 86 BUN/Creatinine Ratio 16.00 Glucose 219 H POC Glucose 230 H Calculated Osmolality 290.1 Calcium 9.0 11/08/16 11/08/16 11/08/16 20:18 15:10 10:45 WBC RBC Hgb Hct MCV MCH MCHC RDW Plt Count MPV Neut % (Auto) Lymph % (Auto) [place] % (Auto) Eos % (Auto) Baso % (Auto) Neut # (Auto) Lymph # (Auto) [place] # (Auto) Eos # (Auto) Baso # (Auto) Total Counted Immature Gran % Nucleated RBC % Immature Gran # Segmented Neutrophils Lymphocytes Monocytes Nucleated RBCs Nucleated RBCs # Platelet Estimate Hypochromasia Morphology Comment Sodium Potassium Chloride Carbon Dioxide Anion Gap BUN Creatinine GFR Calculation BUN/Creatinine Ratio Glucose POC Glucose 263 H 312 H 207 H Calculated Osmolality Calcium DS: Provider Date of admission: 11/05/16 11:01 Primary care physician: Emilee Briceño MD Attending physician on admission: Inocencio Jewell Discharging clinician: Allison Recio MD Expected date of discharge: 11/09/16
[2016-11-09] MEDS: BENZONATATE 100 MG CAPSULE PO SCH (08:58)
[2016-11-09] MEDS: FLUTICASONE 50 MCG NASAL SPRAY 16 GM BOTTLE BOTH NARES SCH (08:58)
[2016-11-09] MEDS: ERYTHROMYCIN BASE 250 MG TABLET PO SCH (08:58)
[2016-11-09] MEDS: THEOPHYLLINE ER (24 HR) 400 MG TABLET PO SCH (08:58)
[2016-11-09] MEDS: PANTOPRAZOLE 40 MG TABLET PO SCH (08:58)
[2016-11-09] MEDS: FUROSEMIDE 20 MG TABLET PO SCH (08:58)
[2016-11-09] MEDS: DOCUSATE/SENNA 50-8.6 MG TABLET PO SCH (08:58)
[2016-11-09] MEDS: BECLOMETHASONE 40 MCG/PUFF INHALER 8.7 GM INH SCH (08:58)
[2016-11-09] MEDS: MONTELUKAST 10 MG TABLET PO SCH (08:58)
[2016-11-09] MEDS: INSULIN LISPRO 100 UNIT/ML SUBCUT SCH (08:59)
[2016-11-09] MEDS: ENOXAPARIN 40 MG/0.4 ML SYRINGE SUBCUT SCH (08:59)
[2016-11-09] MEDS ORDERED: predniSONE 20 MG TABLET PO SCH (09:00)
[2016-11-09] MEDS: POLYETHYLENE GLYCOL POWDER 17 GM PACK PO PRN (10:09)
[2016-11-09] MEDS: guaiFENesin 200 MG/10 ML UDCUP PO PRN (10:10)
== END 2016-11-09 12:37 | disposition home or self-care (01) | DRG 140 ==
LOC: N.ED 14:32 → N.EDINP 14:32 → SUATTDRO 21:22 → N.2E 22:33
PROVIDERS: ADMIT Family Medicine; ATTEND Internal Medicine

== ENCOUNTER 2016-11-27 23:25 | Inpatient (IN) ==
[2016-11-28] MEDS ORDERED: MORPHINE 2 MG/1 ML SYRINGE IV STA (00:29)
[2016-11-28] MEDS ORDERED: FUROSEMIDE 100 MG/10 ML VIAL IV STA (00:29)
[2016-11-28] MEDS ORDERED: ONDANSETRON 4 MG/2 ML VIAL IV STA (00:29)
[2016-11-28] MEDS ORDERED: methylPREDNISolone SOD SUC 125 MG/2 ML VIAL IV STA (00:29)
[2016-11-28] MEDS ORDERED: cefTRIAXone 1,000 MG in SODIUM CHLORIDE 0.9% 100 ML IV STA (00:29)
[2016-11-28] MEDS ORDERED: ALBUTEROL 2.5 MG/3 ML NEB RESP TX SCH (00:30)
--- NOTE | 2016-11-28 00:35 | Emergency Department Note ---
Lior Lincoln Brittany, am scribing for, and in the presence of, Peter Workman MD 00:32. Ji Lincoln Charles R, MD, personally performed the services described in this documentation, ascribed by Fatou Tinajero in my presence, and it is both accurate and complete . Arrival - Arrival Chief Complaint: Shortness of Breath Stated Complaint: asthma ,chest pain ED Nursing Triage Note: to triage via wc with c/o sob, pt states it feels like bronchospasms after starting spiriva and nausea. reproducible chest pain. Mode of Arrival: Wheelchair Limitations: No Limitations Source: Patient, RN Notes Reviewed - History of Present Illness HPI Narrative: Patient is a 60 y/o black female with a history significant for Asthma presenting to the ED with c/o shortness of breath with an onset of earlier today. Patient states that she was started on Spiriva today and since beginning this therapy she has felt as if she was having bronchospasms. Patient reports that really got winded while in [facility] and began to feel weak. She soon after did a breathing treatment and felt better. Upon arriving home symptoms began to resurface, worse than before. She also began to feel flushed with chills and had some nausea. Patient tried breathing treatment once again, but this did nothing to relieve symptoms. Patient reports that she believes the weather may have also contributed to worsening of symptoms. She is followed by Dr. Wilfrid Hendrickson. She has no other complaint/pain. Onset (ago): hour(s) Consistency: constant Allergies/Adverse Reactions: Allergies Allergy/AdvReac Type Severity Reaction Status Date / Time strawberry Allergy Mild ITCHING Verified 11/03/16 14:43 Iodinated Contrast Media - Allergy ANAPHYLAXIS Verified 11/03/16 14:43 Oral and [Iodinated Contrast Media - IV Dye] iodine AdvReac ITCHING Verified 11/03/16 14:43 Home Medications: Home Medications Medication Instructions Recorded Confirmed Type glipiZIDE [Glipizide] 5 mg PO DAILY 08/25/15 11/03/16 History Pantoprazole Sodium 40 mg PO BID 12/01/15 11/03/16 History Benzonatate [Tessalon] 100 mg PO TID #30 capsule 12/18/15 11/03/16 Rx Furosemide Tab [Lasix Tab] 20 mg PO DAILY 03/18/16 11/03/16 History Albuterol Sulfate [Ventolin HFA] 2 puff INH Q4H PRN 04/24/16 11/03/16 History Diltiazem Cd Cap [Cardizem CD] 300 mg PO BEDTIME 04/24/16 11/03/16 History Montelukast Tab [Singulair Tab] 10 mg PO DAILY 04/24/16 11/03/16 History Fluticasone 50 Mcg Nasal [place] 1 spray BOTH NARES DAILY 06/01/16 11/03/16 History [Flonase Nasal [place]] Beclomethasone 80 Mcg Inhaler 2 puffs INH 5X DAILY 07/07/16 11/03/16 History [Qvar 80 Mcg] Erythromycin Base 250 mg PO TID W/MEALS 07/07/16 11/03/16 History Promethazine Tab [Phenergan Tab] 25 mg PO Q6H PRN 07/07/16 11/03/16 History Albuterol/Ipratropium Neb [Duoneb] 3 ml RESP TX RT Q6H 08/01/16 11/03/16 History Beclomethasone 40 Mcg Inhaler 2 puffs INH BID 08/01/16 11/03/16 History [Qvar 40 Mcg] HYDROcodone/ACETAMIN 7.5-325 1 tablet PO Q4H PRN #20 tablet 08/04/16 11/03/16 Rx [[place] 7.5-325] Hydrocortisone (Anusol-Hc) Sup 25 mg RECTAL BID PRN #0 suppository 08/04/1606/10 Rx [Anusol HC Supp] Polyethylene Glycol Powder 17 gm PO DAILY PRN #0 powder 08/04/16 11/03/16 Rx [Miralax] guaiFENesin LIQUID [Robitussin] 15 ml PO Q4H PRN #7 udcup 08/04/16 11/03/16 Rx Arformoterol Neb [Brovana] 15 mcg RESP TX BID #90 08/28/16 11/03/16 Rx Theophylline ER Tab (24 Hr) 200 mg PO BID W/MEALS #100 08/28/16 11/03/16 Rx Cholecalciferol [Vitamin D3] 1,000 unit PO QOTHER DAY 11/03/16 11/03/16 History Levofloxacin Tab [Levaquin Tab] 750 mg PO DAILY #3 tablet 11/09/16 Rx predniSONE TAB [PredniSONE] 10 mg PO DAILY #12 tablet 11/09/16 Rx Review of System - Review of System 12 point system: reviewed and no additional remarkable complaints except as stated - Review of System Constitutional: Present: chills, fever Eyes: Absent: vision change Head/Ears/Nose/Throat: Absent: nasal drainage, sore throat Respiratory: Present: respiratory distress Cardiovascular: Absent: chest pain, palpitations Gastrointestinal: Absent: abdominal pain, nausea, vomiting, diarrhea, constipation Genitourinary female: Absent: dysuria, frequency, urgency Musculoskeletal: Absent: arm pain, back pain, leg pain, neck pain Skin: Absent: rash Neurological: Absent: headache Psychiatric: Absent: anxiety, depression Hematological/Lymphatic: Absent: easy bleeding, easy bruising 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), HEENT Problems ( chronic allergic rhinitis) Endocrine: History of: Diabetes Mellitus (NIDDM) (recently diagnosed), Endocrine Problems (morbid obesity) Rheumatology: History of;: Rheumatological Problems (carpal tunnel) Respiratory: History of: Asthma, Bronchitis, COPD, Obstructive Sleep Apnea, Respiratory Problems (patient states that she is on home oxygen) Gastrointestinal: History of: GERD (AND GASTROPARESIS), GI Problems (for history of significant reflux and was prescribed a hospital bed.) Musculoskeletal: History of: Musculoskeletal Problems (NUMBNESS AND TINGLING IN FEET AND LEGS) - Surgical History Cardiac Surgeries: Patient Denies: Cardiac Catheterization Thoracic Surgeries: Patient denies;: Organ Transplant, Lobectomy Neurologic Surgeries: Patient denies: Brain Aneurysm, Cerebral Hemorrhage, Neurologic Surgery HEENT Surgeries: Patient denies: Eye Surgery, Thyroid Surgery, Tonsilectomy & Adenoidectomy Abdominal Surgeries: Patient denies: Abdominal Surgery Reproductive Surgeries: Surgical HX of;: Hysterectomy - Family History Family History: Reports;: Family Cancer (father-liver cancer), Family Diabetes ( father and mother), Family Heart Disease (father), Family Hypertension (father) , Family Psychiatric Problems (mom and sister), Family Stroke (mom) - Social History Smoking Status: Never smoker Frequency of Alcohol Use: None Type of Drug Use: None Exam Vital Signs: Vital Signs Temperature 98.1 F 11/27/16 23:40 Pulse Rate 91 H 11/28/16 01:04 Respiratory Rate 15 11/28/16 01:04 Blood Pressure 145/68 11/27/16 23:40 O2 Sat by Pulse Oximetry 93 L 11/28/16 01:04 - General General appearance: alert, in no apparent distress - Head Head exam: Present: atraumatic, normocephalic, normal inspection - Eye Eye exam: Present: normal appearance, PERRL, EOMI - ENT ENT exam: Present: normal exam, normal oropharynx - Neck Neck exam: Present: normal inspection, full ROM, trachea midline - Chest Chest inspection: Present: normal inspection, symmetric chest wall rise - Respiratory Respiratory exam: Present: accessory muscle use, wheezes. Absent: normal lung sounds bilaterally (decreased breath sounds) - Cardiovascular Cardiovascular exam: Present: normal rhythm, tachycardia (tachycardic with extrasystole), normal heart sounds. Absent: regular rate - Abdominal Exam Abdominal exam: Present: soft, normal bowel sounds - Extremities Exam Extremities exam: Present: full ROM, pedal edema (+41) - Back Exam Back exam: Present: normal inspection - Neurological Exam Neurological exam: Present: alert, oriented X3, CN II-XII intact. Absent: motor sensory deficit - Psychiatric Psychiatric exam: Present: normal affect, normal mood - Skin Skin exam: Present: warm, dry, intact, normal color Course - Reevaluation(s) Reevaluation #1: Patient reevaluated. Patient still has widespread wheezing both lungs and respiratory distress. Will admit patient for further workup Time: 01:33 - Consultations Consultation #1: Hospitalist will admit patient Time: 01:33 Results - Labs CBC & BMP: 11/28/16 00:00 11/28/16 00:00 Lab Results: I have reviewed the patients labs Labs: Laboratory Tests 11/28/16 00:00 WBC 7.1 RBC 4.45 Hgb 13.6 Hct 39.0 Plt Count 228 Laboratory Tests 11/28/16 11/28/16 00:00 00:00 INR 1.0 PT Patient/Control Mix 10.9 Sodium 144 Potassium 3.3 L Chloride 108 H Carbon Dioxide 25 BUN 8 Creatinine 0.80 Glucose 131 H Alkaline Phosphatase 176 H Critical Care Time Critical Care Time: Yes Total Critical Care Time: 60 Disposition Clinical Impression: Asthma with exacerbation, Acute severe exacerbation of asthma, Acute bronchitis , Acute dyspnea, Tachycardia, Chronic asthma with acute exacerbation Case discussed with: patient, patient's family Disposition: Still a Patient Condition: Guarded Time of Disposition: 01:35
[2016-11-28 00:37] LABS: Basophils % 0.3 % (0.0-0.8); Eosinophils # 0.5 10*3/uL (0.0-0.87); Hemoglobin 13.6 GM/DL (12.0-16.0); Immature Granulocytes % 0.1 %; Immature Granulocytes Absolute 0.01 #; Lymphocytes # 2.1 10*3/uL (1.4-4.0); Mean Corpuscular HGB Conc 34.9 GM/DL (32-36); Mean Corpuscular Hemoglobin 31 PG (27-34); Mean Corpuscular Volume 87.6 FL (87-102); Mean Platelet Volume 10.2 FL (9.6-12.0); Monocytes # 0.4 10*3/uL (0.11-0.8); Monocytes % 6.2 % (1.7-12.7); Neutrophils # 4.1 10*3/uL (1.4-7.4); Neutrophils % 57.4 % (38.7-73.9); Platelet Count 228 T/CUMM (130-400); Red Blood Count 4.45 MC/CUMM (3.8-5.5); Red Cell Distribution Width 13.9 % (9.3-17.3); White Blood Count 7.1 T/CUMM (4-12)
[2016-11-28 00:41] LABS: PT Patient Result 10.9 SECS
[2016-11-28 00:50] LABS: Alanine Aminotransferase 30 U/L (13-56); Albumin 4.3 G/DL (3.4-5.0); Alkaline Phosphatase 176 U/L (45-117); Aspartate Amino Transferase 16 U/L (0-37); Blood Urea Nitrogen 8 MG/DL (7-18); Glucose 131 MG/DL (74-106); Magnesium 2.1 MG/DL (1.8-2.4); Osmolality,Calculated 285.8 MOS/KG (273-304); Potassium 3.3 MMOL/L (3.5-5.1); Sodium 144 MMOL/L (136-145); Total Protein 6.9 G/DL (6.4-8.3); Troponin I Only < 0.015 NG/ML (0.00-0.045)
[2016-11-28] MEDS ORDERED: ONDANSETRON 4 MG/2 ML VIAL ONE (00:56)
[2016-11-28] MEDS ORDERED: FUROSEMIDE 40 MG/4 ML VIAL ONE (00:56)
[2016-11-28] MEDS ORDERED: SODIUM CHLORIDE 0.9% 100 ML IV ONE (00:56)
[2016-11-28] MEDS ORDERED: cefTRIAXone 1,000 MG VIAL ONE (00:56)
[2016-11-28] MEDS ORDERED: methylPREDNISolone SOD SUC 125 MG/2 ML VIAL ONE (00:57)
[2016-11-28] MEDS ORDERED: MORPHINE 2 MG/1 ML SYRINGE ONE (00:57)
[2016-11-28] MEDS ORDERED: FUROSEMIDE 20 MG/2 ML VIAL ONE (00:57)
[2016-11-28] MEDS ORDERED: POTASSIUM CHLORIDE 20 MEQ TABLET PO STA (00:58)
[2016-11-28] MEDS ORDERED: POTASSIUM CHLORIDE 20 MEQ TABLET PO ONE (02:06)
[2016-11-28] MEDS ORDERED: ACETAMINOPHEN 325 MG TABLET PO PRN (02:08)
[2016-11-28] MEDS ORDERED: MORPHINE 2 MG/1 ML SYRINGE IV PRN (02:08)
[2016-11-28] MEDS ORDERED: ONDANSETRON 4 MG/2 ML VIAL IV PRN (02:08)
[2016-11-28] MEDS ORDERED: GLUCAGON 1 MG VIAL IM PRN (02:08)
[2016-11-28] MEDS ORDERED: ALBUTEROL 2.5 MG/3 ML NEB RESP TX PRN (02:08)
[2016-11-28] MEDS ORDERED: DEXTROSE 50% 25 GM/50 ML VIAL IV PRN (02:08)
--- NOTE | 2016-11-28 02:18 | Hospitalist History & Physical ---
Assessment and Plan (1) Respiratory distress Status: Resolved Current Visit: No (2) GERD (gastroesophageal reflux disease) Status: Chronic Current Visit: No (3) Diabetes mellitus Status: Chronic Current Visit: No Qualifiers: Diabetes mellitus type: type 2 Diabetes mellitus complication status: with neurologic complications Diabetes mellitus complication detail: with autonomic neuropathy (4) Asthma with acute exacerbation Status: Acute Assessment and plan: Plan for this patient. We will admit the patient our service. Scheduled breathing treatments and steroids. Will continue home meds as appropriate once they are confirmed and consult her apprise counselor Dr. Moose Hendrickson. Current Visit: No History of Present Illness Chief complaint: Shortness of breath History of present illness: Ms. Armstrong is a 60 year old female with past medical history of asthma and well- known to our service comes in again with complaints of shortness of breath and wheezing. Patient reports she had a medication change today. She started on Spiriva is our understanding. And she started developing wheezing and bronchospasms and thereafter. She said that she begin to feel weak at [employer]. She took a tree breathing treatment and felt better. She began to feel flushed with chills but her breathing symptoms were not relieved with her nebs at home. She came up to our hospital for further evaluation. I was consulted to admit her. Home Medications Medication Instructions Recorded Confirmed Type glipiZIDE [Glipizide] 5 mg PO DAILY 08/25/15 11/03/16 History Pantoprazole Sodium 40 mg PO BID 12/01/15 11/03/16 History Benzonatate [Tessalon] 100 mg PO TID #30 capsule 12/18/15 11/03/16 Rx Furosemide Tab [Lasix Tab] 20 mg PO DAILY 03/18/16 11/03/16 History Albuterol Sulfate [Ventolin HFA] 2 puff INH Q4H PRN 04/24/16 11/03/16 History Diltiazem Cd Cap [Cardizem CD] 300 mg PO BEDTIME 04/24/16 11/03/16 History Montelukast Tab [Singulair Tab] 10 mg PO DAILY 04/24/16 11/03/16 History Fluticasone 50 Mcg Nasal [place] 1 spray BOTH NARES DAILY 06/01/16 11/03/16 History [Flonase Nasal [place]] Beclomethasone 80 Mcg Inhaler 2 puffs INH 5X DAILY 07/07/16 11/03/16 History [Qvar 80 Mcg] Erythromycin Base 250 mg PO TID W/MEALS 07/07/16 11/03/16 History Promethazine Tab [Phenergan Tab] 25 mg PO Q6H PRN 07/07/16 11/03/16 History Albuterol/Ipratropium Neb [Duoneb] 3 ml RESP TX RT Q6H 08/01/16 11/03/16 History Beclomethasone 40 Mcg Inhaler 2 puffs INH BID 08/01/16 11/03/16 History [Qvar 40 Mcg] HYDROcodone/ACETAMIN 7.5-325 1 tablet PO Q4H PRN #20 tablet 08/04/16 11/03/16 Rx [[place] 7.5-325] Hydrocortisone (Anusol-Hc) Sup 25 mg RECTAL BID PRN #0 suppository 08/04/1606/10 Rx [Anusol HC Supp] Polyethylene Glycol Powder 17 gm PO DAILY PRN #0 powder 08/04/16 11/03/16 Rx [Miralax] guaiFENesin LIQUID [Robitussin] 15 ml PO Q4H PRN #7 udcup 08/04/16 11/03/16 Rx Arformoterol Neb [Brovana] 15 mcg RESP TX BID #90 08/28/16 11/03/16 Rx Theophylline ER Tab (24 Hr) 200 mg PO BID W/MEALS #100 08/28/16 11/03/16 Rx Cholecalciferol [Vitamin D3] 1,000 unit PO QOTHER DAY 11/03/16 11/03/16 History Levofloxacin Tab [Levaquin Tab] 750 mg PO DAILY #3 tablet 11/09/16 Rx predniSONE TAB [PredniSONE] 10 mg PO DAILY #12 tablet 11/09/16 Rx Allergies Allergy/AdvReac Type Severity Reaction Status Date / Time strawberry Allergy Mild ITCHING Verified 11/03/16 14:43 Iodinated Contrast Media - Allergy ANAPHYLAXIS Verified 11/03/16 14:43 Oral and [Iodinated Contrast Media - IV Dye] iodine AdvReac ITCHING Verified 11/03/16 14:43 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), HEENT Problems ( chronic allergic rhinitis) Endocrine: History of: Diabetes Mellitus (NIDDM) (recently diagnosed), Endocrine Problems (morbid obesity) Rheumatology: History of;: Rheumatological Problems (carpal tunnel) Respiratory: History of: Asthma, Bronchitis, COPD, Obstructive Sleep Apnea, Respiratory Problems (patient states that she is on home oxygen) Gastrointestinal: History of: GERD (AND GASTROPARESIS), GI Problems (for history of significant reflux and was prescribed a hospital bed.) Musculoskeletal: History of: Musculoskeletal Problems (NUMBNESS AND TINGLING IN FEET AND LEGS) - Surgical History Cardiac Surgeries: Patient Denies: Cardiac Catheterization Thoracic Surgeries: Patient denies;: Organ Transplant, Lobectomy Neurologic Surgeries: Patient denies: Brain Aneurysm, Cerebral Hemorrhage, Neurologic Surgery HEENT Surgeries: Patient denies: Eye Surgery, Thyroid Surgery, Tonsilectomy & Adenoidectomy Abdominal Surgeries: Patient denies: Abdominal Surgery Reproductive Surgeries: Surgical HX of;: Hysterectomy - Family History Family History: Reports;: Family Cancer (father-liver cancer), Family Diabetes ( father and mother), Family Heart Disease (father), Family Hypertension (father) , Family Psychiatric Problems (mom and sister), Family Stroke (mom) - Social History Smoking Status: Never smoker Frequency of Alcohol Use: None Type of Drug Use: None 12 point system: reviewed and no additional remarkable complaints except as stated Exam - Constitutional Vitals: Period Temp Pulse Resp BP Sys/Luong Pulse Ox Last 24 Hr 98.1 F-98.1 F 91-109 15-27 145-145/68-68 93-99 General appearance: over weight - Head Head exam: Present: normal inspection - Eye Eye exam: Present: EOMI Pupils: Present: MUSTAPHA - ENT ENT exam: Present: normal exam - Respiratory Respiratory exam: Present: wheezes bilaterally - Cardiovascular Cardiovascular exam: Present: regular rate and rhythm - GI/Abdominal GI/Abdominal exam: Present: normal bowel sounds - Extremities Exam Extremities exam: Present: normal inspection - Back Exam Back exam: Present: normal inspection - Neurological Exam Neurological exam: Present: alert, oriented X3 - Psychiatric Psychiatric exam: Present: normal affect Results - Labs CBC & BMP: 11/28/16 00:00 11/28/16 00:00
[2016-11-28 06:31] LABS: Basophils % 0.1 % (0.0-0.8); Eosinophils % 0.1 % (0.00-10.9); Hematocrit 39.2 VOL% (35.7-47.0); Hemoglobin 13.5 GM/DL (12.0-16.0); Immature Granulocytes % 0.6 %; Immature Granulocytes Absolute 0.04 #; Lymphocytes # 0.3 10*3/uL (1.4-4.0); Lymphocytes % 4.1 % (21.3-54.2); Mean Corpuscular HGB Conc 34.4 GM/DL (32-36); Mean Corpuscular Hemoglobin 31 PG (27-34); Mean Corpuscular Volume 88.5 FL (87-102); Mean Platelet Volume 10.1 FL (9.6-12.0); Monocytes % 0.4 % (1.7-12.7); Neutrophils # 6.4 10*3/uL (1.4-7.4); Neutrophils % 94.7 % (38.7-73.9); Platelet Count 247 T/CUMM (130-400); Red Blood Count 4.43 MC/CUMM (3.8-5.5); Red Cell Distribution Width 13.9 % (9.3-17.3); White Blood Count 6.8 T/CUMM (4-12)
[2016-11-28 06:52] LABS: Burr Cells Slight; Eosinophils 1 % (0-10); Hypochromasia 1+; Lymphocytes 4 % (20-55); Ovalocytes Slight; Platelet Estimate Adequate; Segmented Neutrophils 95 % (50-85); Total Cells Counted 100
--- NOTE | 2016-11-28 06:58 | XRay Report ---
XR chest 1V portable Indication: SOB Comparison: Chest x-ray dated November 03, 2016 Technique: Single frontal view of the chest. Findings: The cardiomediastinal silhouette is stable in configuration. Heart remains mildly prominent. There is nonspecific prominence of lung markings suspicious for interstitial pulmonary edema. Chronic/fibrotic change and interstitial pneumonia may have similar appearance. Suspect small bilateral pleural fluid. Visualized osseous and surrounding soft tissue structures appear grossly unchanged. IMPRESSION: As above. PROCEDURE INTERPRETED AT [facility] DEPARTMENT OF RADIOLOGY Final Report Signed by: Dr Toñito Pearl
[2016-11-28 07:03] LABS: Calcium 9.5 MG/DL (8.5-10.1); Osmolality,Calculated 290.1 MOS/KG (273-304); Potassium 3.5 MMOL/L (3.5-5.1)
[2016-11-28] MEDS: ALBUTEROL/IPRATROPIUM 3 ML NEB RESP TX SCH ×3 (07:36→19:05)
--- NOTE | 2016-11-28 08:14 | EKG Report ---
Stationary ECG Study [facility] ER Test Date: 11/28/2016 12:06:32 AM Pat Name: FEMI ZACARIAS Department: Room: 518 Gender: F Escalator Attendant: CINDY : 1955 Requested by: Peter Villar Order Number: [id number] Reading MD: LAYLA GALLOWAY Intervals [place] Rate: 94 P: 52 CT: 139 QRS: -25 QRSD: 82 T: 29 QT: 348 QTc: 400 Interpretive Statements SINUS RHYTHM WITH OCCASIONAL VENTRICULAR PREMATURE COMPLEXES LOW QRS VOLTAGE IN PRECORDIAL LEADS POSSIBLE ANTERIOR MYOCARDIAL INFARCTION, OF INDETERMINATE AGE MODERATE T-WAVE ABNORMALITY, CONSIDER LATERAL ISCHEMIA Electronically Signed On 11-29-16 17:03:08 CDT by LAYLA GALLOWAY [email or web address]
[2016-11-28] MEDS: methylPREDNISolone SOD SUC 125 MG/2 ML VIAL IV SCH ×3 (08:56→20:38)
[2016-11-28] MEDS: PANTOPRAZOLE 40 MG TABLET PO SCH ×3 (08:59→20:38)
[2016-11-28] MEDS: ENOXAPARIN 40 MG/0.4 ML SYRINGE SUBCUT SCH (09:00)
[2016-11-28] MEDS: INSULIN REGULAR 100 UNIT/ML SUBCUT SCH ×4 (10:37→20:49)
[2016-11-28] MEDS ORDERED: POLYETHYLENE GLYCOL POWDER 17 GM PACK PO PRN (12:17)
[2016-11-28] MEDS ORDERED: HYDROCORTISONE 25 MG SUPP RECTAL PRN (12:17)
--- NOTE | 2016-11-28 12:17 | Hospitalist Progress Note ---
Assessment and Plan (1) Chronic asthma with acute exacerbation Status: Acute Assessment and plan: Continue theophylline, Rocephin, Qvar, steroids, Singulair, duo nebs, Brovana Current Visit: Yes (2) GERD (gastroesophageal reflux disease) Status: Chronic Assessment and plan: Continue Protonix Current Visit: No (3) Gastroparesis Status: Chronic Assessment and plan: Gastric emptying study showed delayed emptying in November 2014. Continue erythromycin Current Visit: No (4) Essential hypertension Status: Chronic Assessment and plan: cont diltiazem Current Visit: No (5) Type 2 diabetes mellitus Status: Chronic Assessment and plan: Continue glipizide 5 mg p.o. daily, insulin sliding scale while in steroid Current Visit: No (6) Sleep apnea Status: Acute Assessment and plan: CPAP at night while sleeping. Current Visit: No Hospitalist: Subjective Interval history: Patient feels great today and she feels better. After the rainstorm she got choked and short of breath. They give her steroids and breathing treatments down the emergency room and fixed her. We will observe her overnight and make sure she is remains okay okay we will send her home tomorrow. Exam - Constitutional Vitals: Period Temp Pulse Resp BP Sys/Luong Pulse Ox Last 24 Hr 98 F-98.3 F 91-110 15-27 118-145/62-70 90-99 Exam: Heart Rate-[RRR] Lungs-[CTAB] GI-[+bs soft, NT] Ext-[no edema] Neuro [Motor 5/5], [alert and oriented times 3] psych [normal mood and affect] General [no acute distress] Results - Labs CBC & BMP: 11/28/16 06:14 11/28/16 06:14 Lab Results: I have reviewed the past 24 hour labs - Diagnostic Findings Procedure: Chest x-ray: report reviewed by me (Pulmonary edema)
[2016-11-28] MEDS ORDERED: CHOLECALCIFEROL 1,000 UNIT TABLET PO SCH (12:30)
[2016-11-28] MEDS: FLUTICASONE 50 MCG NASAL SPRAY 16 GM BOTTLE BOTH NARES SCH (13:09)
[2016-11-28] MEDS: glipiZIDE 5 MG TABLET PO SCH (13:09)
[2016-11-28] MEDS: BECLOMETHASONE 80 MCG/PUFF INHALER 8.7 GM INH SCH ×2 (13:09→20:42)
[2016-11-28] MEDS: MONTELUKAST 10 MG TABLET PO SCH (13:09)
[2016-11-28] MEDS: ARFORMOTEROL 15 MCG/2 ML NEB RESP TX SCH ×2 (13:55→19:05)
--- NOTE | 2016-11-28 15:13 | Pulmonology Consult Note ---
Assessment and Plan (1) Asthma with exacerbation Status: Acute Assessment and plan: The patient comes in with a mild flareup of her asthma. She seems to be better with steroids and bronchodilators. She is extremely difficult to keep clear Current Visit: Yes Qualifiers: Asthma severity: severe persistent Qualified Code(s): J45.51 - Severe persistent asthma with (acute) exacerbation (2) Respiratory distress Status: Resolved Assessment and plan: Her respiratory distress was mild and she is doing better now. Current Visit: No (3) GERD (gastroesophageal reflux disease) Status: Chronic Assessment and plan: She will continue with antireflux measures. Current Visit: No (4) Diabetes mellitus Status: Chronic Assessment and plan: Her glucose has been around 200. Current Visit: No Qualifiers: Diabetes mellitus type: type 2 Diabetes mellitus complication status: with neurologic complications Diabetes mellitus complication detail: with autonomic neuropathy (5) ARLEHT (obstructive sleep apnea) Status: Chronic Assessment and plan: The patient says she has been using CPAP at home but did not bring her machine to the hospital. Current Visit: No (6) Hypertension Status: Acute Assessment and plan: Her blood pressure has been quite stable. Current Visit: No History of Present Illness Chief complaint: Shortness of breath History of present illness: Ms. Armstrong is a 60 year old black female that comes in once again because of shortness of breath and wheezing. She has a long history of chronic persistent asthma and is been very hard to keep clear. She says when there is a change in the weather she has a flareup. She has been having some tightness and wheezing but is better after getting some steroids and vigorous respiratory therapy. She says she has been using her inhalers at home and using her CPAP at night. She was taken off of Xolair because of her failure to respond. At present she is reasonably stable. Home Medications Medication Instructions Recorded Confirmed Type glipiZIDE [Glipizide] 5 mg PO DAILY 08/25/15 11/28/16 History Pantoprazole Sodium 40 mg PO BID 12/01/15 11/28/16 History Benzonatate [Tessalon] 100 mg PO TID #30 capsule 12/18/15 11/28/16 Rx Furosemide Tab [Lasix Tab] 20 mg PO DAILY 03/18/16 11/03/16 History Albuterol Sulfate [Ventolin HFA] 2 puff INH Q4H PRN 04/24/16 11/03/16 History Diltiazem Cd Cap [Cardizem CD] 300 mg PO BEDTIME 04/24/16 11/28/16 History Montelukast Tab [Singulair Tab] 10 mg PO DAILY 04/24/16 11/28/16 History Fluticasone 50 Mcg Nasal [place] 1 spray BOTH NARES DAILY 06/01/16 11/03/16 History [Flonase Nasal [place]] Beclomethasone 80 Mcg Inhaler 2 puffs INH 5X DAILY 07/07/16 11/28/16 History [Qvar 80 Mcg] Erythromycin Base 250 mg PO TID W/MEALS 07/07/16 11/03/16 History Promethazine Tab [Phenergan Tab] 25 mg PO Q6H PRN 07/07/16 11/03/16 History Albuterol/Ipratropium Neb [Duoneb] 3 ml RESP TX RT Q6H 08/01/16 11/03/16 History Beclomethasone 40 Mcg Inhaler 2 puffs INH BID 08/01/16 11/28/16 History [Qvar 40 Mcg] HYDROcodone/ACETAMIN 7.5-325 1 tablet PO Q4H PRN #20 tablet 08/04/16 11/03/16 Rx [[place] 7.5-325] Hydrocortisone (Anusol-Hc) Sup 25 mg RECTAL BID PRN #0 suppository 08/04/1606/10 Rx [Anusol HC Supp] Polyethylene Glycol Powder 17 gm PO DAILY PRN #0 powder 08/04/16 11/03/16 Rx [Miralax] guaiFENesin LIQUID [Robitussin] 15 ml PO Q4H PRN #7 udcup 08/04/16 11/03/16 Rx Arformoterol Neb [Brovana] 15 mcg RESP TX BID #90 08/28/16 11/03/16 Rx Theophylline ER Tab (24 Hr) 200 mg PO BID W/MEALS #100 08/28/16 11/28/16 Rx Cholecalciferol [Vitamin D3] 1,000 unit PO QOTHER DAY 11/03/16 11/28/16 History Levofloxacin Tab [Levaquin Tab] 750 mg PO DAILY #3 tablet 11/09/16 Rx predniSONE TAB [PredniSONE] 10 mg PO DAILY #12 tablet 11/09/16 Rx Allergies Allergy/AdvReac Type Severity Reaction Status Date / Time strawberry Allergy Mild ITCHING Verified 11/03/16 14:43 Iodinated Contrast Media - Allergy ANAPHYLAXIS Verified 11/03/16 14:43 Oral and [Iodinated Contrast Media - IV Dye] iodine AdvReac ITCHING Verified 11/03/16 14:43 - Constitutional Constitutional: Present: fatigue, weight gain. Absent: chills, fever(s) - EENT Eyes: Absent: loss of vision Ears: Absent: decreased hearing Nose, mouth and throat: Absent: dysphagia, hoarseness, sinus pressure, sore throat - Cardiovascular Cardiovascular: Absent: chest pain at rest, edema, orthopnea, palpitations - Respiratory Respiratory: Present: cough, dyspnea on exertion, wheezing. Absent: hemoptysis , change in phlegm color - Gastrointestinal Gastrointestinal: Absent: abdominal pain, change in bowel habits, dysphagia, nausea, vomiting - Genitourinary Genitourinary: Absent: difficulty urinating, dysuria, hematuria, urinary frequency - Musculoskeletal Musculoskeletal: Absent: arthralgias, muscle weakness - Neurological Neurological: Absent: abnormal gait, abnormal speech, focal weakness, paresthesias - Psychiatric Psychiatric: Present: anxiety Exam (Pulmonay) H&P - Constitutional Vitals: Period Temp Pulse Resp BP Sys/Luong Pulse Ox Last 24 Hr 98 F-98.3 F 91-122 15-27 118-145/62-70 90-100 Exam: General appearance: no acute distress, over weight, she is comfortable lying in bed today. - Head Head exam: Present: normal inspection, normocephalic - Eye Eye exam: Present: EOMI. Absent: scleral icterus Pupils: Present: MUSTAPHA - ENT ENT exam: Present: normal exam, no sinus tenderness - Neck Neck exam: Present: normal inspection. Absent: lymphadenopathy, thyromegaly - Respiratory Respiratory exam: Present: She has good breath sounds bilaterally with prolonged expiration and mild wheezing. - Cardiovascular Cardiovascular exam: Present: regular rate and rhythm. Absent: gallop, systolic murmur - GI/Abdominal GI/Abdominal exam: Present: normal bowel sounds, soft. Absent: organomegaly, tenderness - Extremities Exam Extremities exam: Absent: calf tenderness, edema, no signs of phlebitis. - Neurological Exam Neurological exam: Present: alert, oriented X3, CN II-XII intact - Psychiatric Psychiatric exam: Present: normal affect - Skin Skin exam: Present: warm, dry 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), HEENT Problems ( chronic allergic rhinitis) Endocrine: History of: Diabetes Mellitus (NIDDM) (recently diagnosed), Endocrine Problems (morbid obesity) Rheumatology: History of;: Rheumatological Problems (carpal tunnel) Respiratory: History of: Asthma, Bronchitis, COPD, Obstructive Sleep Apnea, Respiratory Problems (patient states that she is on home oxygen) Gastrointestinal: History of: GERD (AND GASTROPARESIS), GI Problems (for history of significant reflux and was prescribed a hospital bed.) Musculoskeletal: History of: Musculoskeletal Problems (NUMBNESS AND TINGLING IN FEET AND LEGS) - Surgical History Cardiac Surgeries: Patient Denies: Cardiac Catheterization Thoracic Surgeries: Patient denies;: Organ Transplant, Lobectomy Neurologic Surgeries: Patient denies: Brain Aneurysm, Cerebral Hemorrhage, Neurologic Surgery HEENT Surgeries: Patient denies: Eye Surgery, Thyroid Surgery, Tonsilectomy & Adenoidectomy Abdominal Surgeries: Patient denies: Abdominal Surgery Reproductive Surgeries: Surgical HX of;: Hysterectomy - Family History Family History: Reports;: Family Cancer (father-liver cancer), Family Diabetes ( father and mother), Family Heart Disease (father), Family Hypertension (father) , Family Psychiatric Problems (mom and sister), Family Stroke (mom) - Social History Smoking Status: Never smoker Frequency of Alcohol Use: None Type of Drug Use: None Results - Labs CBC & BMP: 11/28/16 06:14 11/28/16 06:14 - Diagnostic Findings Procedure: Chest x-ray: image reviewed by me, report reviewed by me (Chest x- ray shows no acute infiltrates.)
[2016-11-28] MEDS: BENZONATATE 100 MG CAPSULE PO SCH ×2 (15:43→20:38)
[2016-11-28] MEDS: ERYTHROMYCIN BASE 250 MG TABLET PO SCH (17:37)
[2016-11-28] MEDS: THEOPHYLLINE ER (24 HR) 400 MG TABLET PO SCH (17:38)
[2016-11-28] MEDS: guaiFENesin 200 MG/10 ML UDCUP PO PRN (17:54)
[2016-11-28] MEDS ORDERED: DILTIAZEM CD 300 MG CAPSULE PO SCH (21:00)
[2016-11-29] MEDS: ALBUTEROL/IPRATROPIUM 3 ML NEB RESP TX SCH ×3 (00:50→12:32)
[2016-11-29] MEDS ORDERED: cefTRIAXone 1,000 MG in SODIUM CHLORIDE 0.9% 100 ML IV SCH (03:00)
[2016-11-29] MEDS: methylPREDNISolone SOD SUC 125 MG/2 ML VIAL IV SCH ×2 (03:11→09:36)
--- NOTE | 2016-11-29 06:49 | Physician Query Form ---
CLICK EDIT DOCUMENT TO SELECT QUERY ANSWER --> OK --> SIGN Emelia Martinez RN, CCDS Certified Clinical Auto Clocks Repairer W) [phone] (f) [phone] [email or web address] PROVIDERS: Make your selection(s) from the choices in EACH section by typing an "x" and enter comments in the comment section. Please use your independent medical judgment in providing your response. This request does not imply that any particular answer is desired or expected. CLINICAL INDICATORS: (Providers should not edit this section) "Chest x-ray: report reviewed by me (Pulmonary edema)"--Treated with IV Lasix in the ER. Pulmonary Edema Clarify which of the following accurately represents the acuity of the above diagnosis. ( ) Acute ( ) Acute on chronic ( ) Chronic stable condition ( ) Remission (x ) Other, please specify:volume overload ( ) Clinically unable to determine COMMENTS: PLEASE ALSO DOCUMENT RESPONSE IN PROGRESS NOTES AND/OR DISCHARGE SUMMARY Use of terms such as suspected, likely, or probable (associated with a specific diagnosis that is being evaluated, monitored, or treated as if it exists) are acceptable and can be restated in the discharge summary if not ruled out. [facility]
--- NOTE | 2016-11-29 06:56 | Physician Query Form ---
CLICK EDIT DOCUMENT TO SELECT QUERY ANSWER --> OK --> SIGN Emelia Martinez RN, CCDS Certified Clinical Flour Worker W) [phone] (f) [phone] [email or web address] PROVIDERS: Make your selection(s) from the choices in EACH section by typing an "x" and enter comments in the comment section. Please use your independent medical judgment in providing your response. This request does not imply that any particular answer is desired or expected. CLINICAL INDICATORS: (Providers should not edit this section) The medical record indicates that the patient was admitted with asthma exacerbation, "(patient states that she is on home oxygen)", the patient was admitted and placed on 2 liters per NC. Based on the above, could you clarify the appropriate diagnosis, if significant , that supports the above abnormalities and additional evaluation, monitoring, and/or treatment rendered: ( ) Patient was treated or monitored for chronic respiratory failure ( ) Patient was not treated or monitored for chronic respiratory failure ( x ) Other, please specify: Acute asthma exacerbation ( ) Clinically unable to determine COMMENTS: PLEASE ALSO DOCUMENT RESPONSE IN PROGRESS NOTES AND/OR DISCHARGE SUMMARY Use of terms such as suspected, likely, or probable (associated with a specific diagnosis that is being evaluated, monitored, or treated as if it exists) are acceptable and can be restated in the discharge summary if not ruled out. [facility]TDD
[2016-11-29] MEDS: ARFORMOTEROL 15 MCG/2 ML NEB RESP TX SCH (06:58)
[2016-11-29] MEDS ORDERED: FUROSEMIDE 20 MG TABLET PO SCH (09:00)
[2016-11-29] MEDS: INSULIN REGULAR 100 UNIT/ML SUBCUT SCH ×2 (09:35→12:24)
[2016-11-29] MEDS: guaiFENesin 200 MG/10 ML UDCUP PO PRN (09:36)
[2016-11-29] MEDS: THEOPHYLLINE ER (24 HR) 400 MG TABLET PO SCH (09:37)
[2016-11-29] MEDS: PANTOPRAZOLE 40 MG TABLET PO SCH ×2 (09:37→09:57)
[2016-11-29] MEDS: BENZONATATE 100 MG CAPSULE PO SCH (09:37)
[2016-11-29] MEDS: glipiZIDE 5 MG TABLET PO SCH (09:37)
[2016-11-29] MEDS: MONTELUKAST 10 MG TABLET PO SCH (09:37)
[2016-11-29] MEDS: ERYTHROMYCIN BASE 250 MG TABLET PO SCH ×2 (09:55→12:28)
[2016-11-29] MEDS: ENOXAPARIN 40 MG/0.4 ML SYRINGE SUBCUT SCH (09:55)
[2016-11-29] MEDS: FLUTICASONE 50 MCG NASAL SPRAY 16 GM BOTTLE BOTH NARES SCH (09:56)
[2016-11-29] MEDS: BECLOMETHASONE 80 MCG/PUFF INHALER 8.7 GM INH SCH (09:57)
--- NOTE | 2016-11-29 10:09 | Discharge Summary ---
<Martha Allenamadou - Last Filed: 11/29/16 10:02> Hospital Course - Hospital Course Hospital Course: Ms. Armstrong is a 60-year-old female patient with a past medical history of asthma, pneumonia, bronchitis, ARLETH, diabetes, and hypertension who presented to the ED on 11/28 with complaints of shortness of breath and wheezing. The patient is well -known to the hospitalist service. Patient stated that she had a medication change and was switched to Spiriva. After she started the Spiriva she began to wheeze and have bronchospasms. She also stated that she began to feel weak. She took a breathing treatment and felt a little better but then started to have some issues with breathing associated associated with flushing/chills. The patient was admitted to the hospitalist service for further evaluation and treatment. Patient was treated with theophylline, Rocephin, Qvar, steroids, Singulair, DuoNeb, and Brovana. Pulmonary was also consulted to assist in the care of the patient. CXR showed no pneumonia. Most likely just had a copd exacerbation due to weather change. Patient recovered more quickly this admission. Today the patient is stable and ready for discharge. Follow up Dba and Dr. Hendrickson as scheduled. Discharge Plan - Discharge Data Disposition: Disch To Home/Self Care - Discharge Medications Continue glipiZIDE [Glipizide] 5 mg PO DAILY Pantoprazole Sodium 40 mg PO BID Benzonatate [Tessalon] 100 mg PO TID #30 capsule Furosemide Tab [Lasix Tab] 20 mg PO DAILY Albuterol Sulfate [Ventolin HFA] 2 puff INH Q4H PRN PRN Reason: Shortness Of Breath/Wheezing Montelukast Tab [Singulair Tab] 10 mg PO DAILY Diltiazem Cd Cap [Cardizem CD] 300 mg PO BEDTIME Beclomethasone 80 Mcg Inhaler [Qvar 80 Mcg] 2 puffs INH 5X DAILY Promethazine Tab [Phenergan Tab] 25 mg PO Q6H PRN PRN Reason: Nausea/Vomiting Erythromycin Base 250 mg PO TID W/MEALS Albuterol/Ipratropium Neb [Duoneb] 3 ml RESP TX RT Q6H Arformoterol Neb [Brovana] 15 mcg RESP TX BID #90 Levofloxacin Tab [Levaquin Tab] 750 mg PO DAILY #5 tablet predniSONE TAB [PredniSONE] 10 mg PO DAILY #60 tablet Fluticasone 50 Mcg Nasal [place] [Flonase Nasal [place]] 1 spray BOTH NARES DAILY Beclomethasone 40 Mcg Inhaler [Qvar 40 Mcg] 2 puffs INH BID HYDROcodone/ACETAMIN 7.5-325 [[place] 7.5-325] 1 tablet PO Q4H PRN #20 tablet PRN Reason: Pain Moderate (4-7) Hydrocortisone (Anusol-Hc) Sup [Anusol HC Supp] 25 mg RECTAL BID PRN #0 suppository PRN Reason: Hemorrhoids Polyethylene Glycol Powder [Miralax] 17 gm PO DAILY PRN #0 powder PRN Reason: Constipation guaiFENesin LIQUID [Robitussin] 15 ml PO Q4H PRN #7 udcup PRN Reason: Cough Theophylline ER Tab (24 Hr) 200 mg PO BID W/MEALS #100 Cholecalciferol [Vitamin D3] 1,000 unit PO QOTHER DAY - Follow Up or Referral Follow Up: Wilfrid Hendrickson MD [Physician] - (as scheduled ) - Forms/Instructions Exam - Constitutional Vitals: Period Temp Pulse Resp BP Sys/Luong Pulse Ox Last 24 Hr 98.2 F-98.5 F 101-129 18-20 110-141/51-68 89-100 Discharge Results Procedures and tests throughout hospitalization: Pending Orders 11/28/16 Blood Culture Stat Labs on day of discharge: Labs from last 24 hours 11/29/16 11/29/16 11/28/16 10:57 07:18 19:30 POC Glucose 189 H 182 H 145 H 11/28/16 14:32 POC Glucose 227 H Preliminary micro results at discharge 11/28/16 Unknown Blood Culture - Preliminary Blood No growth at 1 day 11/28/16 00:00 Blood Culture - Preliminary Blood No growth at 1 day DS: Provider Date of admission: 11/28/16 02:09 Primary care physician: . No PCP Attending physician on admission: Wilfrido Pham MD Consults: 11/28/16 02:08 Consult to Physician [CONS] Routine Comment: Consulting Provider: Consult to Specialist Group: Pulmonology Consult to Physician [CONS] Routine Comment: asthma Consulting Provider: Wilfrid Hendrickson When should Consulting Provider be notified: In am Person Notified: EMMA Date Notified: 11/28/16 Time Notified: 09:38 Discharging clinician: Sree Allen NP <Kiana Andres - Last Filed: 11/29/16 11:20> Hospital Course - Time spent with patient Time with patient DS: Less than 30 minutes (25 min) Diagnosis - Discharge Diagnosis (1) Chronic asthma with acute exacerbation Status: Acute (2) GERD (gastroesophageal reflux disease) Status: Chronic (3) Gastroparesis Status: Chronic (4) Essential hypertension Status: Chronic (5) Type 2 diabetes mellitus Status: Chronic (6) Sleep apnea Status: Acute Discharge Plan - Discharge Data Condition at Discharge: Stable Discharge Diet: diabetic diet Activity: resume usual activities as tolerated, wear oxygen at all times Hygiene: no restrictions Weight Bearing at Discharge: full weight bearing Exam - Constitutional General appearance: normal weight, no acute distress - Respiratory Respiratory exam: Present: clear to auscultation bilaterally. Absent: rhonchi, wheezes - Cardiovascular Cardiovascular exam: Present: regular rate and rhythm - GI/Abdominal GI/Abdominal exam: Present: normal bowel sounds, soft. Absent: tenderness - Extremities Exam Extremities exam: Present: normal inspection, normal capillary refill
[2016-11-29 11:55] VITALS: BP 133/72
--- NOTE | 2016-11-29 12:39 | Pulmonology Progress Note ---
Pulmonary - PN: Subj Interval history: Patient is a 60-year-old black lady with chronic asthma. She also has hypertension and obstructive sleep apnea. She came in with a mild flareup and is doing well now. She feels like her breathing is better and she is tolerating everything okay. She looks quite comfortable now. Exam (Progress Note) - Constitutional Vitals: Period Temp Pulse Resp BP Sys/Luong Pulse Ox Last 24 Hr 98.0 F-98.5 F 100-129 18-20 110-141/51-72 89-100 Exam: General appearance: no acute distress, over weight, she is comfortable and sitting up and moving around okay. - Head Head exam: Present: normal inspection, normocephalic - Eye Eye exam: Present: EOMI. Absent: scleral icterus Pupils: Present: MUSTAPHA - ENT ENT exam: Present: normal exam, no sinus tenderness - Neck Neck exam: Present: normal inspection. Absent: lymphadenopathy, thyromegaly - Respiratory Respiratory exam: Present: She has good breath sounds bilaterally and she is moving air well in her lungs sound much better with minimal wheeze. - Cardiovascular Cardiovascular exam: Present: regular rate and rhythm. Absent: gallop, systolic murmur - GI/Abdominal GI/Abdominal exam: Present: normal bowel sounds, soft. Absent: organomegaly, tenderness - Extremities Exam Extremities exam: Absent: calf tenderness, edema, no signs of phlebitis. - Neurological Exam Neurological exam: Present: alert, oriented X3, CN II-XII intact - Psychiatric Psychiatric exam: Present: normal affect - Skin Skin exam: Present: warm, dry Results - Labs CBC & BMP: 11/28/16 06:14 11/28/16 06:14 Assessment and Plan (1) Asthma with exacerbation Status: Acute Assessment and plan: The patient comes in with a mild flareup of her asthma. She seems to be better with steroids and bronchodilators. She had a good night and is feeling better. She can go home today. Current Visit: Yes Qualifiers: Asthma severity: severe persistent Qualified Code(s): J45.51 - Severe persistent asthma with (acute) exacerbation (2) GERD (gastroesophageal reflux disease) Status: Chronic Assessment and plan: She will continue with antireflux measures. Current Visit: No (3) Diabetes mellitus Status: Chronic Assessment and plan: Her glucose has been around 200. Her glucose is 189 this morning. Current Visit: No Qualifiers: Diabetes mellitus type: type 2 Diabetes mellitus complication status: with neurologic complications Diabetes mellitus complication detail: with autonomic neuropathy (4) ARLETH (obstructive sleep apnea) Status: Chronic Assessment and plan: The patient says she has been using CPAP at home but did not bring her machine to the hospital. She did not use his CPAP last night. Current Visit: No (5) Hypertension Status: Acute Assessment and plan: Her blood pressure has been quite stable. Current Visit: No Specialty Discharge - Follow Up or Referrals Follow up with: Wilfrid Hendrickson MD [Physician] - (as scheduled )
== END 2016-11-29 13:02 | disposition home or self-care (01) | DRG 141 ==
LOC: N.ED 23:25 → SUATTDRO 11-28 02:08 → N.EDINP 11-28 02:08 → N.5E 11-28 04:36
PROVIDERS: ADMIT Internal Medicine; ATTEND Internal Medicine

== ENCOUNTER 2016-12-23 13:49 | Inpatient (IN) ==
[2016-12-23] MEDS ORDERED: methylPREDNISolone SOD SUC 125 MG/2 ML VIAL IV ONE (14:09)
[2016-12-23] MEDS ORDERED: ALBUTEROL 2.5 MG/3 ML NEB RESP TX STA (14:09)
--- NOTE | 2016-12-23 14:38 | Emergency Department Note ---
Lior Lincoln Brittany, am scribing for, and in the presence of, Jose Martinez MD 14:14. Juan Lincoln Robert M, MD, personally performed the services described in this documentation, ascribed by Fatou Tinajero in my presence, and it is both accurate and complete 438 . Arrival - Arrival Chief Complaint: Shortness of Breath Stated Complaint: COPD, HAVING ATTACK, TIGHTNESS, WHEEZING ED Nursing Triage Note: c/o chronic dry cough. and pain with deep breathes and coughing. +wheezing noted Mode of Arrival: Wheelchair Limitations: No Limitations Source: Patient, RN Notes Reviewed Time Seen by Provider: 12/23/16 14:08 - History of Present Illness HPI Narrative: Patient is a 61 y/o black female presenting to the ED with c/o SOB and dry cough that has been ongoing for the past few days. Patient reports also having a fever at a high of 100.4. She notes that last night she was unable to lie flat in the bed and has had some chest pain when coughing. This cough has been dry and non-productive. Patient reports a PMHx significant for COPD, Chronic Asthma, Chronic Bronchitis, and Allergies. Patient states that she has began to have an Eczema Exacerbation recently. Patient has a history of admissions for COPD exacerbation. She is usually admitted under the hospitalist service. Patient while giving history begins to get dyspneic. Patient has no other complaint/pain. Onset (ago): hour(s) Consistency: constant Allergies/Adverse Reactions: Allergies Allergy/AdvReac Type Severity Reaction Status Date / Time strawberry Allergy Mild ITCHING Verified 11/03/16 14:43 Iodinated Contrast Media - Allergy ANAPHYLAXIS Verified 11/03/16 14:43 Oral and [Iodinated Contrast Media - IV Dye] iodine AdvReac ITCHING Verified 11/03/16 14:43 Home Medications: Home Medications Medication Instructions Recorded Confirmed Type glipiZIDE [Glipizide] 5 mg PO DAILY 08/25/15 12/16/16 History Pantoprazole Sodium 40 mg PO BID 12/01/15 12/16/16 History Furosemide Tab [Lasix Tab] 20 mg PO DAILY 03/18/16 12/16/16 History Albuterol Sulfate [Ventolin HFA] 2 puff INH Q4H PRN 04/24/16 12/16/16 History Diltiazem Cd Cap [Cardizem CD] 300 mg PO BEDTIME 04/24/16 12/16/16 History Montelukast Tab [Singulair Tab] 10 mg PO DAILY 04/24/16 12/16/16 History Fluticasone 50 Mcg Nasal [place] 1 spray BOTH NARES DAILY 06/01/16 12/16/16 History [Flonase Nasal [place]] Beclomethasone 80 Mcg Inhaler 2 puffs INH 5X DAILY 07/07/16 12/16/16 History [Qvar 80 Mcg] Erythromycin Base 250 mg PO TID W/MEALS 07/07/16 12/16/16 History Promethazine Tab [Phenergan Tab] 25 mg PO Q6H PRN 07/07/16 12/16/16 History Albuterol/Ipratropium Neb [Duoneb] 3 ml RESP TX RT Q6H 08/01/16 12/16/16 History Beclomethasone 40 Mcg Inhaler 2 puffs INH BID 08/01/16 12/16/16 History [Qvar 40 Mcg] HYDROcodone/ACETAMIN 7.5-325 1 tablet PO Q4H PRN #20 tablet 08/04/16 12/16/16 Rx [[place] 7.5-325] Hydrocortisone (Anusol-Hc) Sup 25 mg RECTAL BID PRN #0 suppository 08/04/16 Rx [Anusol HC Supp] Polyethylene Glycol Powder 17 gm PO DAILY PRN #0 powder 08/04/16 12/16/16 Rx [Miralax] Arformoterol Neb [Brovana] 15 mcg RESP TX BID #90 08/28/16 12/16/16 Rx Theophylline ER Tab (24 Hr) 200 mg PO BID W/MEALS #100 08/28/16 12/16/16 Rx Cholecalciferol [Vitamin D3] 1,000 unit PO QOTHER DAY 11/03/16 12/16/16 History predniSONE TAB [PredniSONE] 20 mg PO DAILY #10 tablet 12/17/16 Rx Review of System - Review of System 12 point system: reviewed and no additional remarkable complaints except as stated - Review of System Constitutional: Present: fever. Absent: chills Eyes: Absent: vision change Head/Ears/Nose/Throat: Absent: nasal drainage, sore throat Respiratory: Present: cough, respiratory distress Cardiovascular: Present: chest pain Gastrointestinal: Absent: abdominal pain, nausea, vomiting, diarrhea, constipation Genitourinary female: Absent: dysuria, frequency, urgency Musculoskeletal: Absent: arm pain, back pain, leg pain, neck pain Skin: Absent: rash Neurological: Absent: headache Psychiatric: Absent: anxiety, depression 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), HEENT Problems ( chronic allergic rhinitis) Endocrine: History of: Diabetes Mellitus (NIDDM) (recently diagnosed), Endocrine Problems (morbid obesity) Rheumatology: History of;: Rheumatological Problems (carpal tunnel) Respiratory: History of: Asthma, Bronchitis, COPD, Obstructive Sleep Apnea, Respiratory Problems (patient states that she is on home oxygen) Gastrointestinal: History of: GERD (AND GASTROPARESIS), GI Problems (for history of significant reflux and was prescribed a hospital bed.) Musculoskeletal: History of: Musculoskeletal Problems (NUMBNESS AND TINGLING IN FEET AND LEGS) - Surgical History Cardiac Surgeries: Patient Denies: Cardiac Catheterization Thoracic Surgeries: Patient denies;: Organ Transplant, Lobectomy Neurologic Surgeries: Patient denies: Brain Aneurysm, Cerebral Hemorrhage, Neurologic Surgery HEENT Surgeries: Patient denies: Eye Surgery, Thyroid Surgery, Tonsilectomy & Adenoidectomy Abdominal Surgeries: Patient denies: Abdominal Surgery Reproductive Surgeries: Surgical HX of;: Hysterectomy - Family History Family History: Reports;: Family Cancer (father-liver cancer), Family Diabetes ( father and mother), Family Heart Disease (father), Family Hypertension (father) , Family Psychiatric Problems (mom and sister), Family Stroke (mom) - Social History Smoking Status: Never smoker Frequency of Alcohol Use: None Type of Drug Use: None Exam Vital Signs: Vital Signs Temperature 100.2 F H 12/23/16 14:40 Pulse Rate 132 H 12/23/16 15:09 Respiratory Rate 20 12/23/16 15:09 Blood Pressure 130/79 12/23/16 14:40 O2 Sat by Pulse Oximetry 100 12/23/16 15:09 - General General appearance: alert, in no apparent distress - Head Head exam: Present: atraumatic, normocephalic, normal inspection - Eye Eye exam: Present: normal appearance, PERRL, EOMI - ENT ENT exam: Present: normal exam, normal oropharynx - Neck Neck exam: Present: normal inspection, full ROM, trachea midline - Chest Chest inspection: Present: normal inspection, symmetric chest wall rise - Respiratory Respiratory exam: Present: respiratory distress (patient gets dyspneic while providing history'), wheezes (diffuse wheezes to bilateral lung mckeon). Absent : normal lung sounds bilaterally - Cardiovascular Cardiovascular exam: Present: regular rate, normal rhythm, normal heart sounds - Abdominal Exam Abdominal exam: Present: soft, normal bowel sounds. Absent: tenderness - Extremities Exam Extremities exam: Present: normal inspection - Back Exam Back exam: Present: normal inspection - Neurological Exam Neurological exam: Present: alert, oriented X3, CN II-XII intact. Absent: motor sensory deficit - Psychiatric Psychiatric exam: Present: normal affect, normal mood - Skin Skin exam: Present: warm, dry, other (dry flaky skin consistent with eczema) Results - Labs CBC & BMP: 12/23/16 14:35 Lab Results: I have reviewed the patients labs - Diagnostic Findings Procedure: Chest x-ray: image reviewed by me (No acute process, cardiomegaly, venous hypertension) Disposition Clinical Impression: Asthma with exacerbation, Type 2 diabetes mellitus, Acute bronchitis with asthma with acute exacerbation Case discussed with: patient Disposition: Still a Patient Condition: Stable Instructions: Asthma (ED) Time of Disposition: 15:25
[2016-12-23 14:46] LABS: Basophils % 0.4 % (0.0-0.8); Eosinophils # 0.8 10*3/uL (0.0-0.87); Eosinophils % 7.1 % (0.00-10.9); Hematocrit 38.3 VOL% (35.7-47.0); Hemoglobin 13.5 GM/DL (12.0-16.0); Immature Granulocytes % 0.3 %; Immature Granulocytes Absolute 0.03 #; Lymphocytes # 1.3 10*3/uL (1.4-4.0); Lymphocytes % 11.5 % (21.3-54.2); Mean Corpuscular HGB Conc 35.2 GM/DL (32-36); Mean Corpuscular Hemoglobin 31 PG (27-34); Mean Corpuscular Volume 87.8 FL (87-102); Mean Platelet Volume 9.8 FL (9.6-12.0); Monocytes # 0.8 10*3/uL (0.11-0.8); Monocytes % 7.2 % (1.7-12.7); Neutrophils # 8.2 10*3/uL (1.4-7.4); Neutrophils % 73.5 % (38.7-73.9); Platelet Count 299 T/CUMM (130-400); Red Blood Count 4.36 MC/CUMM (3.8-5.5); Red Cell Distribution Width 14.1 % (9.3-17.3); White Blood Count 11.2 T/CUMM (4-12)
[2016-12-23] MEDS ORDERED: methylPREDNISolone SOD SUC 125 MG/2 ML VIAL ONE (14:46)
--- NOTE | 2016-12-23 14:51 | XRay Report ---
History: Shortness of breath. Chest pain Date: 12/23/2016 Study: Chest x-ray AP portable Comparison exam: December 16, 2016 There is cardiomegaly. The pulmonary vasculature is borderline to minimally prominent. The mediastinal contour is unchanged. The lungs are unchanged. There is no gross pleural effusion. Shallow breath. Osseous structures are unchanged. Impression: Cardiomegaly and borderline pulmonary venous hypertension appearance PROCEDURE INTERPRETED AT [facility] DEPARTMENT OF RADIOLOGY Final Report Signed by: Dr. Colleen Bullock
[2016-12-23 15:21] LABS: Magnesium 2.2 MG/DL (1.8-2.4); Osmolality,Calculated 279.3 MOS/KG (273-304); Potassium 3.7 MMOL/L (3.5-5.1)
--- NOTE | 2016-12-23 15:57 | Hospitalist History & Physical ---
Assessment and Plan (1) Type 2 diabetes mellitus Status: Chronic Assessment and plan: The patient reports new diagnosis of [id number] diabetes mellitus. She reports that she was placed on oral agents. We will hold oral agents for now, start Accu-Cheks with sliding scale coverage, and obtain hemoglobin A1c. Current Visit: Yes (2) Acute exacerbation of chronic obstructive airways disease Status: Acute Assessment and plan: The patient has been seen multiple times for acute COPD exacerbations. Her COPD is quite severe. We will start empiric antibiotics prophylactically, inhaled bronchodilators, and intravenous corticosteroids. We will consult pulmonary to evaluate and assist during the clinical encounter. We will recheck chest x-ray in a.m. Current Visit: No History of Present Illness Chief complaint: Shortness of breath/chest tightness/wheezing History of present illness: This is a chronically ill 61-year-old female that presented to the ED at [facility] this afternoon for the evaluation of shortness of breath, chest tightness,. The patient has a very extensive medical history significant for: Chronic obstructive pulmonary disease, asthma,bronchitis, eczema, pulmonary hypertension, allergic rhinitis, morbid obesity, non-insulin- dependent diabetes mellitus, obstructive sleep apnea, gastroparesis, peripheral neuropathy, migraine headaches, atrial flutter, and GERD. Patient has a surgical history significant for hysterectomy. The patient reported the onset of symptoms 2 days prior to presentation. She reports that she was unable to lie flat in bed and experienced some intermittent chest pain when coughing. She reports the cough as dry and nonproductive. In addition, she reported that she was febrile with a temperature of 100.4 prior to presentation. She became concerned that her symptoms were worsening; so she presented to the ED for further evaluation. At the time of ED presentation, the patient was noticeably wheezing. Inhaled bronchodilators per nebulizer were initiated immediately. The patient was notably tachycardic with a pulse rate noted at 132 and febrile with a temperature of 100.2. Labs were obtained; complete blood count reported white blood cell count 11.2, hemoglobin 13.5, hematocrit 38.3, and platelet count at 299. Complete metabolic profile reported sodium at 141, potassium 3.7, chloride 106, carbon dioxide 26, BUN 18, creatinine 1.00, glucose 106, calcium 9.0, and magnesium 2.2. Chest x-ray reported cardiomegaly and borderline pulmonary venous hypertension appearance. After brief discussion with both Dr. Martinez and Dr. Salgado, the patient will be admitted to the hospitalist services for continuation of care. The patient is known to Dr. Wilfrid Hendrickson; however he is not on-call this weekend. We will consult the on-call mold construction supervisor Dr. Coyr Trevino to assist during the clinical encounter. Home Medications Medication Instructions Recorded Confirmed Type glipiZIDE [Glipizide] 5 mg PO DAILY 08/25/15 12/16/16 History Pantoprazole Sodium 40 mg PO BID 12/01/15 12/16/16 History Furosemide Tab [Lasix Tab] 20 mg PO DAILY 03/18/16 12/16/16 History Albuterol Sulfate [Ventolin HFA] 2 puff INH Q4H PRN 04/24/16 12/16/16 History Diltiazem Cd Cap [Cardizem CD] 300 mg PO BEDTIME 04/24/16 12/16/16 History Montelukast Tab [Singulair Tab] 10 mg PO DAILY 04/24/16 12/16/16 History Fluticasone 50 Mcg Nasal [place] 1 spray BOTH NARES DAILY 06/01/16 12/16/16 History [Flonase Nasal [place]] Beclomethasone 80 Mcg Inhaler 2 puffs INH 5X DAILY 07/07/16 12/16/16 History [Qvar 80 Mcg] Erythromycin Base 250 mg PO TID W/MEALS 07/07/16 12/16/16 History Promethazine Tab [Phenergan Tab] 25 mg PO Q6H PRN 07/07/16 12/16/16 History Albuterol/Ipratropium Neb [Duoneb] 3 ml RESP TX RT Q6H 08/01/16 12/16/16 History Beclomethasone 40 Mcg Inhaler 2 puffs INH BID 08/01/16 12/16/16 History [Qvar 40 Mcg] HYDROcodone/ACETAMIN 7.5-325 1 tablet PO Q4H PRN #20 tablet 08/04/16 12/16/16 Rx [[place] 7.5-325] Hydrocortisone (Anusol-Hc) Sup 25 mg RECTAL BID PRN #0 suppository 08/04/16 Rx [Anusol HC Supp] Polyethylene Glycol Powder 17 gm PO DAILY PRN #0 powder 08/04/16 12/16/16 Rx [Miralax] Arformoterol Neb [Brovana] 15 mcg RESP TX BID #90 08/28/16 12/16/16 Rx Theophylline ER Tab (24 Hr) 200 mg PO BID W/MEALS #100 08/28/16 12/16/16 Rx Cholecalciferol [Vitamin D3] 1,000 unit PO QOTHER DAY 11/03/16 12/16/16 History predniSONE TAB [PredniSONE] 20 mg PO DAILY #10 tablet 12/17/16 Rx Allergies Allergy/AdvReac Type Severity Reaction Status Date / Time strawberry Allergy Mild ITCHING Verified 11/03/16 14:43 Iodinated Contrast Media - Allergy ANAPHYLAXIS Verified 11/03/16 14:43 Oral and [Iodinated Contrast Media - IV Dye] iodine AdvReac ITCHING Verified 11/03/16 14:43 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), HEENT Problems ( chronic allergic rhinitis) Endocrine: History of: Diabetes Mellitus (NIDDM) (recently diagnosed), Endocrine Problems (morbid obesity) Rheumatology: History of;: Rheumatological Problems (carpal tunnel) Respiratory: History of: Asthma, Bronchitis, COPD, Obstructive Sleep Apnea, Respiratory Problems (patient states that she is on home oxygen) Gastrointestinal: History of: GERD (AND GASTROPARESIS), GI Problems (for history of significant reflux and was prescribed a hospital bed.) Musculoskeletal: History of: Musculoskeletal Problems (NUMBNESS AND TINGLING IN FEET AND LEGS) - Surgical History Cardiac Surgeries: Patient Denies: Cardiac Catheterization Thoracic Surgeries: Patient denies;: Organ Transplant, Lobectomy Neurologic Surgeries: Patient denies: Brain Aneurysm, Cerebral Hemorrhage, Neurologic Surgery HEENT Surgeries: Patient denies: Eye Surgery, Thyroid Surgery, Tonsilectomy & Adenoidectomy Abdominal Surgeries: Patient denies: Abdominal Surgery Reproductive Surgeries: Surgical HX of;: Hysterectomy - Family History Family History: Reports;: Family Cancer (father-liver cancer), Family Diabetes ( father and mother), Family Heart Disease (father), Family Hypertension (father) , Family Psychiatric Problems (mom and sister), Family Stroke (mom) - Social History Smoking Status: Never smoker Frequency of Alcohol Use: None Type of Drug Use: None 12 point system: reviewed and no additional remarkable complaints except as stated Exam - Constitutional Vitals: Period Temp Pulse Resp BP Sys/Luong Pulse Ox Last 24 Hr 100.2 F-100.2 F 71-132 20-22 125-130/79-86 95-100 General appearance: mild distress, morbidly obese - Head Head exam: Present: normal inspection, normocephalic, atraumatic - Eye Eye exam: Present: EOMI, conjunctival injection, nystagmus Pupils: Present: MUSTAPHA, normal accommodation - ENT ENT exam: Present: normal exam, normal external ear exam, normal oropharynx - Neck Neck exam: Present: normal inspection, thyromegaly, other. Absent: lymphadenopathy, meningismus - Respiratory Respiratory exam: Present: accessory muscle use, chest wall tenderness, wheezes - Cardiovascular Cardiovascular exam: Present: tachycardia - GI/Abdominal GI/Abdominal exam: Present: normal bowel sounds, soft - Extremities Exam Extremities exam: Present: normal inspection, normal capillary refill, full ROM. Absent: edema - Back Exam Back exam: Present: normal inspection - Neurological Exam Neurological exam: Present: alert, oriented X3, CN II-XII intact - Psychiatric Psychiatric exam: Present: normal affect, normal mood - Skin Skin exam: Present: normal color, warm Results - Labs CBC & BMP: 12/23/16 14:35 12/23/16 14:35 Lab Results: I have reviewed the past 24 hour labs
[2016-12-23] MEDS ORDERED: POLYETHYLENE GLYCOL POWDER 17 GM PACK PO PRN (16:00)
[2016-12-23] MEDS ORDERED: HYDROCORTISONE 25 MG SUPP RECTAL PRN (16:00)
[2016-12-23] MEDS ORDERED: DEXTROSE 50% 25 GM/50 ML VIAL IV PRN ×2 (16:03)
[2016-12-23] MEDS ORDERED: GLUCAGON 1 MG VIAL IM PRN ×2 (16:03)
[2016-12-23] MEDS ORDERED: ACETAMINOPHEN 500 MG TABLET PO STA (16:10)
[2016-12-23] MEDS ORDERED: ACETAMINOPHEN 500 MG TABLET ONE (16:12)
[2016-12-23] MEDS: THEOPHYLLINE ER (24 HR) 400 MG CAPSULE PO SCH (17:15)
[2016-12-23] MEDS: ENOXAPARIN 40 MG/0.4 ML SYRINGE SUBCUT SCH (17:31)
[2016-12-23] MEDS: INSULIN REGULAR 100 UNIT/ML SUBCUT SCH ×2 (17:33→20:24)
[2016-12-23] MEDS: methylPREDNISolone SOD SUC 125 MG/2 ML VIAL IV SCH ×2 (17:33→21:59)
[2016-12-23] MEDS: cefTRIAXone 1,000 MG in SODIUM CHLORIDE 0.9% 100 ML IV SCH (17:34)
[2016-12-23] MEDS: LEVOFLOXACIN INJ 750 MG in PREMIX 1 EACH IV SCH (18:29)
[2016-12-23] MEDS: ALBUTEROL/IPRATROPIUM 3 ML NEB RESP TX SCH (19:10)
[2016-12-23] MEDS: DILTIAZEM CD 300 MG CAPSULE PO SCH (20:22)
[2016-12-23] MEDS: PANTOPRAZOLE 40 MG TABLET PO SCH (20:22)
[2016-12-23] MEDS: ACETAMINOPHEN 325 MG TABLET PO PRN (21:30)
[2016-12-23] MEDS: guaiFENesin/CODEINE 5 ML LIQUID PO PRN (21:58)
[2016-12-24] MEDS: methylPREDNISolone SOD SUC 125 MG/2 ML VIAL IV SCH ×4 (04:00→21:01)
[2016-12-24 07:35] LABS: Basophils % 0.1 % (0.0-0.8); Hematocrit 37.7 VOL% (35.7-47.0); Hemoglobin 13.1 GM/DL (12.0-16.0); Immature Granulocytes % 1.1 %; Immature Granulocytes Absolute 0.11 #; Lymphocytes # 0.9 10*3/uL (1.4-4.0); Lymphocytes % 8.7 % (21.3-54.2); Mean Corpuscular HGB Conc 34.7 GM/DL (32-36); Mean Corpuscular Hemoglobin 31 PG (27-34); Mean Corpuscular Volume 87.7 FL (87-102); Mean Platelet Volume 9.7 FL (9.6-12.0); Monocytes # 0.1 10*3/uL (0.11-0.8); Monocytes % 1.2 % (1.7-12.7); Neutrophils # 9.2 10*3/uL (1.4-7.4); Neutrophils % 88.9 % (38.7-73.9); Platelet Count 321 T/CUMM (130-400); Red Cell Distribution Width 13.9 % (9.3-17.3); White Blood Count 10.3 T/CUMM (4-12)
[2016-12-24] MEDS: ALBUTEROL/IPRATROPIUM 3 ML NEB RESP TX SCH ×4 (07:38→19:42)
--- NOTE | 2016-12-24 08:04 | Hospitalist Progress Note ---
Assessment and Plan (1) Acute asthma exacerbation Status: Acute Assessment and plan: Impression: 1. Severe persistent asthma Plan: Continue bronchodilators and steroids. Add mucolytic's. Reconcile home medications. This note was completed using [employer] voice recognition software. There may be dye automation operator errors as a result. Current Visit: No Qualifiers: Asthma severity: severe persistent Qualified Code(s): J45.51 - Severe persistent asthma with (acute) exacerbation Hospitalist: Subjective Interval history: Follow-up asthma The patient was admitted last night with another flare of her asthma. Apparently, this is a chronic problem for her, and review of the electronic chart shows numerous hospitalizations and emergency department visits. She is seen by pulmonary, and has apparently been on Xolair in the past, with no significant response. She reports that she is feeling a little better with the bronchodilators and steroids that were instituted yesterday. She is having some difficulty clearing her secretions. Exam - Constitutional Vitals: Period Temp Pulse Resp BP Sys/Luong Pulse Ox Last 24 Hr 97.0 F-100.2 F 71-132 20-22 119-135/51-86 95-100 Vital signs are noted above. Heart appears regular with no murmur or gallop. She has diffuse expiratory wheezes. She is awake and alert Results - Labs CBC & BMP: 12/24/16 07:24 12/23/16 14:35 Lab Results: I have reviewed the past 24 hour labs - Diagnostic Findings Procedure: Chest x-ray: image reviewed by me (Chest x-ray does not show definite acute infiltrates.) Specialty Discharge - Follow Up or Referrals
[2016-12-24] MEDS ORDERED: GLUCAGON 1 MG VIAL IM PRN (08:07)
[2016-12-24] MEDS ORDERED: DEXTROSE 50% 25 GM/50 ML VIAL IV PRN (08:07)
[2016-12-24 08:18] LABS: Albumin 3.8 G/DL (3.4-5.0); Bilirubin,Total 0.6 MG/DL (0.2-1.0); Calcium 9.6 MG/DL (8.5-10.1); Osmolality,Calculated 287.1 MOS/KG (273-304); Total Protein 6.8 G/DL (6.4-8.3)
[2016-12-24] MEDS: THEOPHYLLINE ER (24 HR) 400 MG CAPSULE PO SCH (08:27)
[2016-12-24] MEDS: INSULIN REGULAR 100 UNIT/ML SUBCUT SCH ×4 (08:27→21:50)
[2016-12-24] MEDS: PANTOPRAZOLE 40 MG TABLET PO SCH ×2 (08:28→20:54)
[2016-12-24] MEDS: FUROSEMIDE 40 MG TABLET PO SCH (08:28)
[2016-12-24] MEDS: CETIRIZINE 10 MG TABLET PO SCH (08:34)
[2016-12-24] MEDS: DOCUSATE SODIUM 100 MG CAPSULE PO PRN ×2 (08:34→20:53)
[2016-12-24] MEDS: BENZONATATE 100 MG CAPSULE PO SCH ×3 (08:35→20:54)
[2016-12-24] MEDS: glipiZIDE 5 MG TABLET PO SCH (08:35)
[2016-12-24] MEDS: MONTELUKAST 10 MG TABLET PO SCH (08:36)
[2016-12-24] MEDS ORDERED: FLUTICASONE 50 MCG NASAL SPRAY 16 GM BOTTLE BOTH NARES SCH (09:00)
--- NOTE | 2016-12-24 10:02 | XRay Report ---
History: Shortness of breath Date: 12/24/2016 Study: Chest x-ray AP portable Comparison exam: 12/23/2016 The cardiac silhouette is upper normal in size. There is no mediastinal mass. The pulmonary vasculature is borderline to minimally prominent. There is no new or worsening infiltrate. There is some coarsening of interstitial markings in the lung bases similar to the previous study. There is no increased pleural effusion. Osseous structures are unchanged. Impression: No gross change from the previous study PROCEDURE INTERPRETED AT [facility] DEPARTMENT OF RADIOLOGY Final Report Signed by: Dr. Colleen Bullock
[2016-12-24] MEDS: BECLOMETHASONE 80 MCG/PUFF INHALER 8.7 GM INH SCH ×5 (10:31→21:02)
[2016-12-24] MEDS: ACETAMINOPHEN 325 MG TABLET PO PRN (11:29)
--- NOTE | 2016-12-24 11:49 | Pulmonology Consult Note ---
History of Present Illness Chief complaint: S OB. YATES. Acute asthma. Possible acute pneumonia History of present illness: Ms. Armstrong is a 61 year old black female long time patient of Dr. Anselmo Hendrickson. This patient is admitted to the hospital 12/23/2016 and I been asked to see her in pulmonary consultation for evaluation and treatment. This patient has had a long history of acute exacerbations of COPD and asthma. She has a severe problem and requires frequent hospitalizations. All routine measures did not work this time when she developed shortness of breath cough and dyspnea on exertion. I asked her what she thought called and she said the weather. She has been able to get up only a scant amount of sputum there is been no hemoptysis. She denies chest pain she denies dysphagia she denies aspiration. The patient says today that she is already much improved compared to how she was at the time of admission The remainder the review of systems is negative. Allergies. [place]. Iodinated contrast and compounds. Home medicines. See below Hospital medicines. See below Past history. Cardiac arrhythmias. High blood pressure. Migraine headaches. Decreased hearing in both ears. [id number] diabetes mellitus. Obesity. History of gastroesophageal reflux disease and gastroparesis. Family history. Her father had liver cancer. Her father and mother had diabetes. Her father had heart disease high blood pressure. Her mother and sister had psychiatric problems. Her mother had a stroke. Social history. Patient never smoked. She does not use alcohol or drugs. Chest x-ray. The patient's had 2 x-rays since admission. She has increased markings in both bases which may log turner to be pneumonia. This could be old interstitial scarring related to past history of aspiration of gastric acid but I do not see these findings on old chest x-rays. Lab. Admit white count was 11,200 with 73.5 segs 11.5 lymphs. Today's white count is 10,388.9 segs and 8.7 lymphocytes. H&H 13.1/37.7 with normal indices and red blood cell distribution with electrolytes are normal creatinine is 0.90 BUN of 13 alkaline [place] is minimally up at 155 transaminases bilirubin total protein and albumin and globulin are normal. Natruretic peptide is less than 2 Microbiology. No report Physical exam. Vital signs. See below. Face. Symmetrical. No swelling of lips and tongue. Neck. Symmetrical. No meningismus. Neurological. Patient's urine is slightly decreased bilaterally but she was hearing well when I talked her today long track motor functions intact sensory exam was not done gait walking around in her room appeared to be normal. Neck. Symmetrical. No meningismus. Lymphatics. No submandibular cervical supraclavicular or epitrochlear adenopathy. Heart. No gallop Chest. Symmetrical hyperinflated with prolonged incomplete expiration. Patient only has a slight large airway wheeze with associated congestion. Expiration is prolonged incomplete and at the end of forced expiration I can hear some end expiratory wheezes at the bases. Breasts. Deferred. Abdomen. Obese. Nontender. Positive bowel sounds Extremities. Nothing to suggest deep venous thrombophlebitis Musculoskeletal age-appropriate loss normal curvature cervical thoracic and lumbar spine Skin. No cancers infectious lesions of the face and hands. No other areas of skin were examined. Venous exam neck upper and lower extremities are normal. Arterial exam carotids upstrokes fair upper extremity pulses palpable lower extremity pulses nonpalpable. There is no evidence of ischemia in the lower extremities. The remainder the exam he is negative Impression. 1. COPD/asthma. Acute exacerbation. 2. Past history of gastroesophageal reflux disease. Severe. Patient says this is under control. 3. [id number] diabetes mellitus 4. See past Plan. 1. I agree with present medicines. No changes were made. 2. Careful attention to glucoses. 3. Dr. Quispe will take over on Sunday for Dr. Anselmo Hendrickson. 4. Follow-up E PA and lateral chest x-ray 5. Cold agglutinins 6. Sputum for Gram stain culture and sensitivity 7. Check microbiology when available. Home Medications Medication Instructions Recorded Confirmed Type glipiZIDE [Glipizide] 5 mg PO DAILY 08/25/15 12/23/16 History Pantoprazole Sodium 40 mg PO BID 12/01/15 12/23/16 History Furosemide Tab [Lasix Tab] 20 mg PO DAILY 03/18/16 12/23/16 History Albuterol Sulfate [Ventolin HFA] 2 puff INH Q4H PRN 04/24/16 12/23/16 History Diltiazem Cd Cap [Cardizem CD] 300 mg PO BEDTIME 04/24/16 12/23/16 History Montelukast Tab [Singulair Tab] 10 mg PO DAILY 04/24/16 12/23/16 History Fluticasone 50 Mcg Nasal [place] 1 spray BOTH NARES DAILY 06/01/16 12/23/16 History [Flonase Nasal [place]] Beclomethasone 80 Mcg Inhaler 2 puffs INH 5X DAILY 07/07/16 12/23/16 History [Qvar 80 Mcg] Promethazine Tab [Phenergan Tab] 25 mg PO Q6H PRN 07/07/16 12/23/16 History Albuterol/Ipratropium Neb [Duoneb] 3 ml RESP TX RT Q6H 08/01/16 12/23/16 History Beclomethasone 40 Mcg Inhaler 2 puffs INH BID 08/01/16 12/23/16 History [Qvar 40 Mcg] Arformoterol Neb [Brovana] 15 mcg RESP TX BID #90 08/28/16 12/23/16 Rx Theophylline ER Tab (24 Hr) 200 mg PO BID W/MEALS #100 08/28/16 12/23/16 Rx Cholecalciferol [Vitamin D3] 1,000 unit PO QOTHER DAY 11/03/16 12/23/16 History Benzonatate [Benzonatate] 100 mg PO TID 12/23/16 12/23/16 History Cetirizine Tab [ZyrTEC Tab] 10 mg PO DAILY 12/23/16 12/23/16 History Erythromycin Base [Erythromycin] 250 mg PO TID 12/23/16 12/23/16 History Tiotropium [place] [Spiriva 4 gm INH DAILY 12/23/16 12/23/16 History Respimat] Allergies Allergy/AdvReac Type Severity Reaction Status Date / Time strawberry Allergy Mild ITCHING Verified 11/03/16 14:43 Iodinated Contrast Media - Allergy ANAPHYLAXIS Verified 11/03/16 14:43 Oral and [Iodinated Contrast Media - IV Dye] iodine AdvReac ITCHING Verified 11/03/16 14:43 Exam (Pulmonay) H&P - Constitutional Vitals: Period Temp Pulse Resp BP Sys/Luong Pulse Ox Last 24 Hr 97.0 F-100.2 F 71-132 18-22 119-135/51-86 95-100 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), HEENT Problems ( chronic allergic rhinitis) Endocrine: History of: Diabetes Mellitus (NIDDM) (recently diagnosed), Thyroid Disorder, Endocrine Problems (morbid obesity) Rheumatology: History of;: Rheumatological Problems (carpal tunnel) Respiratory: History of: Asthma, Bronchitis, COPD, Obstructive Sleep Apnea, Respiratory Problems (patient states that she is on home oxygen) Gastrointestinal: History of: GERD (AND GASTROPARESIS), GI Problems (for history of significant reflux and was prescribed a hospital bed.) Musculoskeletal: History of: Musculoskeletal Problems (NUMBNESS AND TINGLING IN FEET AND LEGS) - Surgical History Cardiac Surgeries: Patient Denies: Cardiac Catheterization Thoracic Surgeries: Patient denies;: Organ Transplant, Lobectomy Neurologic Surgeries: Patient denies: Brain Aneurysm, Cerebral Hemorrhage, Neurologic Surgery HEENT Surgeries: Patient denies: Eye Surgery, Thyroid Surgery, Tonsilectomy & Adenoidectomy Abdominal Surgeries: Patient denies: Abdominal Surgery Reproductive Surgeries: Surgical HX of;: Hysterectomy - Family History Family History: Reports;: Family Cancer (father-liver cancer), Family Diabetes ( father and mother), Family Heart Disease (father), Family Hypertension (father) , Family Psychiatric Problems (mom and sister), Family Stroke (mom) - Social History Smoking Status: Never smoker Frequency of Alcohol Use: None Type of Drug Use: None Results - Labs CBC & BMP: 12/24/16 07:24 12/24/16 07:24 Specialty Discharge - Follow Up or Referrals
--- NOTE | 2016-12-24 12:54 | Pulmonology Progress Note ---
Exam (Progress Note) - Constitutional Vitals: Period Temp Pulse Resp BP Sys/Luong Pulse Ox Last 24 Hr 97.0 F-100.2 F 71-132 18-22 115-135/51-86 94-100 Results - Labs CBC & BMP: 12/24/16 07:24 12/24/16 07:24 Specialty Discharge - Follow Up or Referrals
[2016-12-24] MEDS ORDERED: ALBUTEROL/IPRATROPIUM 3 ML NEB RESP TX SCH (13:00)
[2016-12-24] MEDS: ACETYLCYSTEINE 20% 800 MG/4 ML VIAL RESP TX SCH ×2 (13:20→19:42)
[2016-12-24] MEDS: ENOXAPARIN 40 MG/0.4 ML SYRINGE SUBCUT SCH (16:58)
[2016-12-24] MEDS: cefTRIAXone 1,000 MG in SODIUM CHLORIDE 0.9% 100 ML IV SCH (17:04)
[2016-12-24] MEDS: LEVOFLOXACIN INJ 750 MG in PREMIX 1 EACH IV SCH (17:50)
[2016-12-24] MEDS: DILTIAZEM CD 300 MG CAPSULE PO SCH (20:54)
[2016-12-24] MEDS ORDERED: PROMETHAZINE 25 MG TABLET PO PRN (22:10)
[2016-12-25] MEDS: ACETYLCYSTEINE 20% 800 MG/4 ML VIAL RESP TX SCH ×4 (00:57→19:28)
[2016-12-25] MEDS: ALBUTEROL/IPRATROPIUM 3 ML NEB RESP TX SCH ×4 (00:57→19:28)
[2016-12-25] MEDS: methylPREDNISolone SOD SUC 125 MG/2 ML VIAL IV SCH ×4 (03:49→20:24)
[2016-12-25] MEDS: BECLOMETHASONE 80 MCG/PUFF INHALER 8.7 GM INH SCH ×5 (06:15→21:10)
[2016-12-25 06:30] LABS: Calcium 9.3 MG/DL (8.5-10.1); Magnesium 2.5 MG/DL (1.8-2.4); Osmolality,Calculated 292.1 MOS/KG (273-304); Potassium 4.2 MMOL/L (3.5-5.1)
--- NOTE | 2016-12-25 08:00 | XRay Report ---
Exam: XR chest 2V Date: 12/25/2016 4:00 AM Indication: Pneumonia Comparison: 12/24/2016 Technical: PA lateral Findings: Mild cardiac prominence. Oxygen tubing is present. A few reticular nodular densities are present in the perihilar regions with low volume right effusion. Bony structures reveal no acute findings. Mediastinum is otherwise intact. Minimal ASVD Impression: 1. Mild cardiac enlargement 2. Mild scarring in the perihilar regions without overt congestive failure infiltrates or effusions PROCEDURE INTERPRETED AT [facility] DEPARTMENT OF RADIOLOGY Final Report Signed by: Dr. Cory De La Garza
--- NOTE | 2016-12-25 08:31 | Pulmonology Progress Note ---
Pulmonary - PN: Subj Interval history: This 61-year-old lady has severe asthma. She required oral prednisone. She is also getting multiple bronchodilators. She came in with an acute exacerbation. She is feeling a little better starting to get sputum up. Still needs IV steroids. Exam (Progress Note) - Constitutional Vitals: Period Temp Pulse Resp BP Sys/Luong Pulse Ox Last 24 Hr 97.0 F-97.8 F 7-109 20-209 113-131/52-67 93-100 Exam: Patient is alert. Seems comfortable sitting on side of the bed. Vital signs normal. Pupils react to light. Throat is clear. Chest reveals some expiratory wheezes bilaterally. Heart normal rate and rhythm no murmurs. Abdomen soft nontender no masses. Extremities no clubbing cyanosis or edema. Calves are nontender. Results - Labs CBC & BMP: 12/24/16 07:24 12/25/16 05:41 Specialty Discharge - Follow Up or Referrals
--- NOTE | 2016-12-25 08:35 | Pulmonology Progress Note ---
Pulmonary - PN: Subj Interval history: This 61-year-old female was admitted with an exacerbation of asthma. She is followed by Dr. Hendrickson and is on multiple medications including prednisone and she gets Xolair on a regular basis. She is feeling better but is still having bronchospasm. Still on IV steroids needs them further. Exam (Progress Note) - Constitutional Vitals: Period Temp Pulse Resp BP Sys/Luong Pulse Ox Last 24 Hr 97.0 F-97.8 F 7-109 20-209 113-131/52-67 93-100 Exam: Patient's alert oriented vital signs normal. Pupils react to light. Throat is clear. Neck supple no bruits. Chest reveals expiratory wheezes bilaterally. Heart normal rate and rhythm no murmurs. Abdomen soft nontender no masses. Bowel sounds present. Extremities no clubbing cyanosis or edema. Calves nontender. Results - Labs CBC & BMP: 12/24/16 07:24 12/25/16 05:41 Lab Results: I have reviewed the past 24 hour labs - Diagnostic Findings Procedure: Chest x-ray: image reviewed by me (Minimal bibasilar interstitial scarring unchanged from before.) Assessment and Plan (1) Acute bronchitis with asthma with acute exacerbation Status: Acute Assessment and plan: Patient has severe persistent asthma. Acute exacerbation bronchitis. Keep on high-dose steroids for now. Continue antibiotics empirically. Continue bronchodilators. Current Visit: Yes (2) Type 2 diabetes mellitus Status: Chronic Assessment and plan: Glucoses not well controlled with current meds. Adding Lantus 10 units at bedtime. She is already on sliding scale and oral medications. Not ready to decrease steroids yet. Current Visit: Yes Specialty Discharge - Follow Up or Referrals
[2016-12-25] MEDS: INSULIN REGULAR 100 UNIT/ML SUBCUT SCH ×4 (09:32→21:10)
[2016-12-25] MEDS: CHOLECALCIFEROL 1,000 UNIT TABLET PO SCH (09:36)
[2016-12-25] MEDS: BENZONATATE 100 MG CAPSULE PO SCH ×3 (09:36→20:21)
[2016-12-25] MEDS: PANTOPRAZOLE 40 MG TABLET PO SCH ×2 (09:36→20:21)
[2016-12-25] MEDS: CETIRIZINE 10 MG TABLET PO SCH (09:36)
[2016-12-25] MEDS: FUROSEMIDE 40 MG TABLET PO SCH (09:36)
[2016-12-25] MEDS: MONTELUKAST 10 MG TABLET PO SCH (09:36)
[2016-12-25] MEDS: glipiZIDE 5 MG TABLET PO SCH (09:37)
[2016-12-25] MEDS: THEOPHYLLINE ER (24 HR) 400 MG CAPSULE PO SCH (09:37)
[2016-12-25] MEDS ORDERED: traZODone 50 MG TABLET PO ONE (11:00)
[2016-12-25] MEDS: BECLOMETHASONE 40 MCG/PUFF INHALER 8.7 GM INH SCH ×2 (11:50→20:24)
[2016-12-25] MEDS: IPRATROPIUM 500 MCG/2.5 ML NEB RESP TX SCH ×4 (11:51→19:34)
[2016-12-25] MEDS: POLYETHYLENE GLYCOL POWDER 17 GM PACK PO SCH (13:00)
[2016-12-25] MEDS: LEVOFLOXACIN INJ 750 MG in PREMIX 1 EACH IV SCH (16:00)
--- NOTE | 2016-12-25 16:07 | Hospitalist Progress Note ---
Assessment and Plan (1) Asthma with exacerbation Status: Acute Assessment and plan: - oxygen - Nebulizer treatments - symptomatic treatment - IV Solumedrol - will monitor Current Visit: Yes Qualifiers: Asthma severity: severe persistent Qualified Code(s): J45.51 - Severe persistent asthma with (acute) exacerbation Hospitalist: Subjective Interval history: Ms. Armstrong is a 61 y/o female that was admitted for an asthma exacerbation. Patient reports feeling better but is not back to baseline. She reports wheezing and dyspnea on exertion. Exam - Constitutional Vitals: Period Temp Pulse Resp BP Sys/Luong Pulse Ox Last 24 Hr 97.5 F-97.9 F 7-109 18-209 113-131/54-71 93-100 General appearance: morbidly obese - Head Head exam: Present: normal inspection - Eye Eye exam: Present: EOMI - ENT ENT exam: Present: normal exam - Respiratory Respiratory exam: Present: decreased breath sounds, wheezes (expiratory) - Cardiovascular Cardiovascular exam: Present: regular rate and rhythm - GI/Abdominal GI/Abdominal exam: Present: normal bowel sounds, soft. Absent: distended, tenderness - Extremities Exam Extremities exam: Absent: edema - Neurological Exam Neurological exam: Present: alert, oriented X3 - Psychiatric Psychiatric exam: Present: normal affect, normal mood - Skin Skin exam: Present: normal color Results - Labs CBC & BMP: 12/24/16 07:24 12/25/16 05:41 Specialty Discharge - Follow Up or Referrals
[2016-12-25] MEDS: DILTIAZEM CD 300 MG CAPSULE PO SCH (20:21)
[2016-12-25] MEDS: ZALEPLON 5 MG CAPSULE PO PRN (20:21)
[2016-12-25] MEDS: ENOXAPARIN 40 MG/0.4 ML SYRINGE SUBCUT SCH (20:22)
[2016-12-25] MEDS: cefTRIAXone 1,000 MG in SODIUM CHLORIDE 0.9% 100 ML IV SCH (20:23)
[2016-12-25] MEDS: INSULIN GLARGINE 100 UNIT/ML SUBCUT SCH (21:07)
[2016-12-26] MEDS: ALBUTEROL/IPRATROPIUM 3 ML NEB RESP TX SCH ×4 (00:02→19:31)
[2016-12-26] MEDS: ACETYLCYSTEINE 20% 800 MG/4 ML VIAL RESP TX SCH ×2 (00:30→07:17)
[2016-12-26] MEDS: methylPREDNISolone SOD SUC 125 MG/2 ML VIAL IV SCH ×4 (02:27→21:17)
[2016-12-26] MEDS: BECLOMETHASONE 80 MCG/PUFF INHALER 8.7 GM INH SCH ×3 (05:31→21:19)
[2016-12-26] MEDS: IPRATROPIUM 500 MCG/2.5 ML NEB RESP TX SCH ×4 (07:19→19:31)
--- NOTE | 2016-12-26 09:09 | Pulmonology Progress Note ---
Pulmonary - PN: Subj Interval history: This 61-year-old female was admitted with an exacerbation of asthma. She is followed by Dr. Hendrickson and is on multiple medications including prednisone and she gets Xolair on a regular basis. She is feeling better but is still having bronchospasm. Still on IV steroids needs them further. 12/26/2016 patient is a little better today. She is coughing up sputum now. I will stop her Mucomyst. Slowly taper steroids. Exam (Progress Note) - Constitutional Vitals: Period Temp Pulse Resp BP Sys/Luong Pulse Ox Last 24 Hr 97.3 F-98.1 F 75-100 16-22 112-133/53-73 90-100 Exam: Patient's alert oriented vital signs normal. Pupils react to light. Throat is clear. Neck supple no bruits. Chest reveals mild expiratory wheezes bilaterally. Heart normal rate and rhythm no murmurs. Abdomen soft nontender no masses. Bowel sounds present. Extremities no clubbing cyanosis or edema. Calves nontender. She sounds a little better today than yesterday. Results - Labs CBC & BMP: 12/24/16 07:24 12/25/16 05:41 Lab Results: I have reviewed the past 24 hour labs Assessment and Plan (1) Acute bronchitis with asthma with acute exacerbation Status: Acute Assessment and plan: Patient has severe persistent asthma. Acute exacerbation bronchitis. Keep on high-dose steroids for now. Continue antibiotics empirically. Continue bronchodilators. 12/26/2016 asthma is improved. Lungs are still not quite yet. She is producing sputum now. Current Visit: Yes (2) Type 2 diabetes mellitus Status: Chronic Assessment and plan: Glucoses not well controlled with current meds. Adding Lantus 10 units at bedtime. She is already on sliding scale and oral medications. Not ready to decrease steroids yet. 12/26/2016 blood sugars are little better, might take another day or so for the Lantus to help. Current Visit: Yes Specialty Discharge - Follow Up or Referrals
--- NOTE | 2016-12-26 09:26 | Hospitalist Progress Note ---
Assessment and Plan (1) Asthma with exacerbation Status: Acute Assessment and plan: - oxygen - Nebulizer treatments - symptomatic treatment - IV Solumedrol - Pulmonary following - will monitor Current Visit: Yes Qualifiers: Asthma severity: severe persistent Qualified Code(s): J45.51 - Severe persistent asthma with (acute) exacerbation (2) Type 2 diabetes mellitus Status: Chronic Assessment and plan: - Lantus added to regimen yesterday - SSI - continue home medications - will monitor Current Visit: Yes Hospitalist: Subjective Interval history: Ms. Armstrong is a 61 y/o female that was admitted for an asthma exacerbation. Patient reports feeling better but is not back to baseline. She is now producing some sputum. She reports continued wheezing. Exam - Constitutional Vitals: Period Temp Pulse Resp BP Sys/Luong Pulse Ox Last 24 Hr 97.3 F-98.1 F 75-100 16-22 112-133/53-73 90-100 General appearance: no acute distress, over weight - Head Head exam: Present: normal inspection - Eye Eye exam: Present: EOMI - Neck Neck exam: Present: normal inspection - Respiratory Respiratory exam: Present: prolonged expiratory phase, wheezes (expiratory) - Cardiovascular Cardiovascular exam: Present: regular rate and rhythm - GI/Abdominal GI/Abdominal exam: Present: normal bowel sounds, soft. Absent: tenderness - Extremities Exam Extremities exam: Absent: edema - Neurological Exam Neurological exam: Present: alert, oriented X3 - Psychiatric Psychiatric exam: Present: normal affect, normal mood - Skin Skin exam: Present: normal color Results - Labs CBC & BMP: 12/24/16 07:24 12/25/16 05:41 Specialty Discharge - Follow Up or Referrals
[2016-12-26] MEDS: BECLOMETHASONE 40 MCG/PUFF INHALER 8.7 GM INH SCH ×2 (09:54→23:05)
[2016-12-26] MEDS: INSULIN REGULAR 100 UNIT/ML SUBCUT SCH ×4 (09:55→21:17)
[2016-12-26] MEDS: BENZONATATE 100 MG CAPSULE PO SCH ×3 (09:56→21:18)
[2016-12-26] MEDS: PANTOPRAZOLE 40 MG TABLET PO SCH ×2 (09:56→21:18)
[2016-12-26] MEDS: FUROSEMIDE 40 MG TABLET PO SCH (09:56)
[2016-12-26] MEDS: THEOPHYLLINE ER (24 HR) 400 MG CAPSULE PO SCH (09:57)
[2016-12-26] MEDS: CETIRIZINE 10 MG TABLET PO SCH (09:57)
[2016-12-26] MEDS: MONTELUKAST 10 MG TABLET PO SCH (09:57)
[2016-12-26] MEDS: POLYETHYLENE GLYCOL POWDER 17 GM PACK PO SCH (09:57)
[2016-12-26] MEDS: glipiZIDE 5 MG TABLET PO SCH (09:57)
[2016-12-26] MEDS: ACETAMINOPHEN 325 MG TABLET PO PRN (18:11)
[2016-12-26] MEDS: LEVOFLOXACIN INJ 750 MG in PREMIX 1 EACH IV SCH (18:15)
[2016-12-26] MEDS: INSULIN GLARGINE 100 UNIT/ML SUBCUT SCH (21:16)
[2016-12-26] MEDS: ZALEPLON 5 MG CAPSULE PO PRN (21:17)
[2016-12-26] MEDS: traZODone 50 MG TABLET PO PRN (21:17)
[2016-12-26] MEDS: DILTIAZEM CD 300 MG CAPSULE PO SCH (21:18)
[2016-12-26] MEDS: ENOXAPARIN 40 MG/0.4 ML SYRINGE SUBCUT SCH (21:18)
[2016-12-26] MEDS: cefTRIAXone 1,000 MG in SODIUM CHLORIDE 0.9% 100 ML IV SCH (21:20)
[2016-12-27] MEDS: ALBUTEROL/IPRATROPIUM 3 ML NEB RESP TX SCH ×4 (00:37→19:00)
[2016-12-27] MEDS: methylPREDNISolone SOD SUC 125 MG/2 ML VIAL IV SCH ×4 (02:44→22:04)
[2016-12-27] MEDS: ALBUTEROL 2.5 MG/3 ML NEB RESP TX PRN (05:04)
[2016-12-27] MEDS: IPRATROPIUM 500 MCG/2.5 ML NEB RESP TX SCH ×3 (07:14→19:00)
--- NOTE | 2016-12-27 07:23 | Hospitalist Progress Note ---
Assessment and Plan - Time spent with patient Time spent with patient: Less than 30 minutes (1) Acute bronchitis with asthma with acute exacerbation Status: Acute Assessment and plan: Patient is improving daily. Will continue O2 supplementation, nebulizer therapy , antibiotics and corticosteroids. Pulmonary is following and assisting with her care. Current Visit: Yes (2) Diabetes mellitus Status: Chronic Assessment and plan: Blood sugars running high which is likely exacerbated by her corticosteroids. Will continue current regimen with Accu-Cheks and sliding scale and wean steroids as appropriate. Current Visit: No Qualifiers: Diabetes mellitus type: type 2 Diabetes mellitus complication status: without complication (3) Hypertension Status: Chronic Assessment and plan: Blood pressure currently well controlled. Continue current regimen. Current Visit: No Qualifiers: Hypertension type: essential hypertension Qualified Code(s): I10 - Essential (primary) hypertension Hospitalist: Subjective Interval history: Chart reviewed and patient examined. She states she is feeling better however shortness of breath with exertion. She also has a cough which she states is chronic however she is not bringing any sputum up at this time. She is tolerating her diet. No other issues at this time. Exam - Constitutional Vitals: Period Temp Pulse Resp BP Sys/Luong Pulse Ox Last 24 Hr 97.2 F-98.1 F 70-104 18-24 120-154/68-78 93-99 General appearance: no acute distress - Head Head exam: Present: normocephalic, atraumatic - Eye Eye exam: Present: EOMI Pupils: Present: MUSTAPHA - ENT ENT exam: Present: normal exam - Neck Neck exam: Present: normal inspection - Respiratory Respiratory exam: Present: clear to auscultation bilaterally, other (Distant). Absent: rales, rhonchi, wheezes - Cardiovascular Cardiovascular exam: Present: regular rate and rhythm - GI/Abdominal GI/Abdominal exam: Present: normal bowel sounds, soft. Absent: tenderness - Extremities Exam Extremities exam: Absent: calf tenderness, edema - Neurological Exam Neurological exam: Present: alert, oriented X3, CN II-XII intact. Absent: motor sensory deficit - Psychiatric Psychiatric exam: Present: normal affect, normal mood. Absent: agitated, anxious - Skin Skin exam: Present: warm, dry. Absent: erythema Results - Labs CBC & BMP: 12/24/16 07:24 12/25/16 05:41 Lab Results: I have reviewed the past 24 hour labs Labs: Blood cultures negative thus far. Specialty Discharge - Follow Up or Referrals
--- NOTE | 2016-12-27 08:37 | Pulmonology Progress Note ---
Pulmonary - PN: Subj Interval history: Patient is a 61-year-old black lady that has chronic asthma and comes in with acute exacerbation. She has been extremely difficult to manage. She has been on Xolair and steroids and multiple bronchodilator therapy. She comes in again with a mild exacerbation. She says she is feeling better on IV medicines and is walking around and looks comfortable. She still has some cough and mild wheeze. She is tolerating her treatments fairly well. Exam (Progress Note) - Constitutional Vitals: Period Temp Pulse Resp BP Sys/Luong Pulse Ox Last 24 Hr 97.2 F-98.1 F 70-104 18-24 120-154/68-78 93-99 General appearance: no acute distress, over weight - Head Head exam: Present: normal inspection, normocephalic - Eye Eye exam: Present: EOMI. Absent: scleral icterus Pupils: Present: MUSTAPHA - ENT ENT exam: Present: normal exam, other (No sinus tenderness) - Neck Neck exam: Present: normal inspection. Absent: lymphadenopathy, thyromegaly - Respiratory Respiratory exam: Present: wheezes (She has good breath sounds bilaterally but some mild wheezing on deep expiration.). Absent: accessory muscle use - Cardiovascular Cardiovascular exam: Present: regular rate and rhythm. Absent: gallop, systolic murmur - GI/Abdominal GI/Abdominal exam: Present: normal bowel sounds, soft. Absent: organomegaly, tenderness - Extremities Exam Extremities exam: Absent: calf tenderness, edema - Neurological Exam Neurological exam: Present: alert, oriented X3, CN II-XII intact. Absent: motor sensory deficit - Psychiatric Psychiatric exam: Present: normal affect - Skin Skin exam: Present: warm, dry Results - Labs CBC & BMP: 12/24/16 07:24 12/25/16 05:41 - Diagnostic Findings Procedure: Chest x-ray: image reviewed by me, report reviewed by me (Chest x- ray did not show any infiltrates.) Assessment and Plan (1) Asthma with exacerbation Status: Acute Assessment and plan: The patient comes in with a mild exacerbation of her asthma. She is doing better with IV medications. She should be ready to go home in a day or 2. Current Visit: Yes Qualifiers: Asthma severity: severe persistent Qualified Code(s): J45.51 - Severe persistent asthma with (acute) exacerbation (2) GERD (gastroesophageal reflux disease) Status: Chronic Assessment and plan: She needs to continue with antireflux measures. Current Visit: No (3) Diabetes mellitus Status: Chronic Assessment and plan: Her glucoses are up while she is on steroids. Current Visit: No Qualifiers: Diabetes mellitus type: type 2 Diabetes mellitus complication status: with neurologic complications Diabetes mellitus complication detail: with autonomic neuropathy (4) Essential hypertension Status: Chronic Assessment and plan: Her blood pressure and heart rate are stable. Current Visit: No (5) Obstructive sleep apnea Status: Acute Assessment and plan: I do not think she has been very compliant with her CPAP. Will try to review this with her. Current Visit: No Specialty Discharge - Follow Up or Referrals
[2016-12-27] MEDS: POLYETHYLENE GLYCOL POWDER 17 GM PACK PO SCH (09:40)
[2016-12-27] MEDS: glipiZIDE 5 MG TABLET PO SCH (09:41)
[2016-12-27] MEDS: PANTOPRAZOLE 40 MG TABLET PO SCH ×2 (09:41→22:06)
[2016-12-27] MEDS: BENZONATATE 100 MG CAPSULE PO SCH ×3 (09:41→22:05)
[2016-12-27] MEDS: CHOLECALCIFEROL 1,000 UNIT TABLET PO SCH (09:42)
[2016-12-27] MEDS: CETIRIZINE 10 MG TABLET PO SCH (09:42)
[2016-12-27] MEDS: FUROSEMIDE 40 MG TABLET PO SCH (09:43)
[2016-12-27] MEDS: THEOPHYLLINE ER (24 HR) 400 MG CAPSULE PO SCH (09:43)
[2016-12-27] MEDS: INSULIN REGULAR 100 UNIT/ML SUBCUT SCH ×4 (09:43→22:10)
[2016-12-27] MEDS: MONTELUKAST 10 MG TABLET PO SCH (09:43)
[2016-12-27] MEDS: BECLOMETHASONE 80 MCG/PUFF INHALER 8.7 GM INH SCH ×4 (09:52→18:36)
[2016-12-27] MEDS: BECLOMETHASONE 40 MCG/PUFF INHALER 8.7 GM INH SCH ×2 (09:54→22:14)
[2016-12-27] MEDS: LEVOFLOXACIN INJ 750 MG in PREMIX 1 EACH IV SCH (16:43)
[2016-12-27] MEDS ORDERED: INSULIN GLARGINE 100 UNIT/ML SUBCUT SCH (21:00)
[2016-12-27] MEDS: cefTRIAXone 1,000 MG in SODIUM CHLORIDE 0.9% 100 ML IV SCH (22:03)
[2016-12-27] MEDS: traZODone 50 MG TABLET PO PRN ×2 (22:06→22:07)
[2016-12-27] MEDS: ZALEPLON 5 MG CAPSULE PO PRN (22:06)
[2016-12-27] MEDS: DILTIAZEM CD 300 MG CAPSULE PO SCH (22:07)
[2016-12-27] MEDS: ENOXAPARIN 40 MG/0.4 ML SYRINGE SUBCUT SCH (22:12)
[2016-12-28] MEDS: ALBUTEROL/IPRATROPIUM 3 ML NEB RESP TX SCH ×4 (00:10→19:10)
[2016-12-28] MEDS: BECLOMETHASONE 80 MCG/PUFF INHALER 8.7 GM INH SCH ×6 (01:26→22:50)
[2016-12-28] MEDS: ALBUTEROL 2.5 MG/3 ML NEB RESP TX PRN (02:30)
[2016-12-28] MEDS: methylPREDNISolone SOD SUC 125 MG/2 ML VIAL IV SCH (03:55)
--- NOTE | 2016-12-28 08:05 | Pulmonology Progress Note ---
Pulmonary - PN: Subj Interval history: Patient is a 61-year-old black lady that has chronic asthma and comes in with acute exacerbation. She has been extremely difficult to manage. She has been on Xolair and steroids and multiple bronchodilator therapy. She comes in again with a mild exacerbation. She says she is feeling better on IV medicines and is walking around and looks comfortable. She did cough a lot during the night and is unable to clear secretions very well. Shortness of breath is better but she still has some mild wheezing. Exam (Progress Note) - Constitutional Vitals: Period Temp Pulse Resp BP Sys/Luong Pulse Ox Last 24 Hr 97.4 F-98.3 F 80-116 8-20 124-154/63-85 92-99 Exam: General appearance: no acute distress, over weight, she is walking around and breathing comfortably. - Head Head exam: Present: normal inspection, normocephalic - Eye Eye exam: Present: EOMI. Absent: scleral icterus Pupils: Present: MUSTAPHA - ENT ENT exam: Present: normal exam, other (No sinus tenderness) - Neck Neck exam: Present: normal inspection. Absent: lymphadenopathy, thyromegaly - Respiratory Respiratory exam: Present: She still has some wheezing on forced expiration but is moving air okay. - Cardiovascular Cardiovascular exam: Present: regular rate and rhythm. Absent: gallop, systolic murmur - GI/Abdominal GI/Abdominal exam: Present: normal bowel sounds, soft. Absent: organomegaly, tenderness - Extremities Exam Extremities exam: Absent: calf tenderness, edema - Neurological Exam Neurological exam: Present: alert, oriented X3, CN II-XII intact. Absent: motor sensory deficit - Psychiatric Psychiatric exam: Present: normal affect - Skin Skin exam: Present: warm, dry Results - Labs CBC & BMP: 12/24/16 07:24 12/25/16 05:41 Assessment and Plan (1) Asthma with exacerbation Status: Acute Assessment and plan: The patient comes in with a mild exacerbation of her asthma. She is doing better with IV medications. She still has having considerable coughing. Will try to adjust her medicines. Current Visit: Yes Qualifiers: Asthma severity: severe persistent Qualified Code(s): J45.51 - Severe persistent asthma with (acute) exacerbation (2) GERD (gastroesophageal reflux disease) Status: Chronic Assessment and plan: She needs to continue with antireflux measures. Current Visit: No (3) Diabetes mellitus Status: Chronic Assessment and plan: Her glucoses are up while she is on steroids. Her glucose is 279 this morning. Current Visit: No Qualifiers: Diabetes mellitus type: type 2 Diabetes mellitus complication status: with neurologic complications Diabetes mellitus complication detail: with autonomic neuropathy (4) Essential hypertension Status: Chronic Assessment and plan: Her blood pressure and heart rate are stable. Current Visit: No (5) Obstructive sleep apnea Status: Acute Assessment and plan: I do not think she has been very compliant with her CPAP. Will try to review this with her. Current Visit: No Specialty Discharge - Follow Up or Referrals
[2016-12-28] MEDS ORDERED: methylPREDNISolone SOD SUC 40 MG/1 ML VIAL ONE (08:29)
[2016-12-28] MEDS: guaiFENesin/CODEINE 5 ML LIQUID PO PRN (08:45)
[2016-12-28] MEDS: CETIRIZINE 10 MG TABLET PO SCH (08:45)
[2016-12-28] MEDS: BENZONATATE 100 MG CAPSULE PO SCH ×3 (08:45→22:34)
[2016-12-28] MEDS: FUROSEMIDE 40 MG TABLET PO SCH (08:45)
[2016-12-28] MEDS: PANTOPRAZOLE 40 MG TABLET PO SCH ×2 (08:45→22:34)
[2016-12-28] MEDS: glipiZIDE 5 MG TABLET PO SCH (08:45)
[2016-12-28] MEDS: THEOPHYLLINE ER (24 HR) 400 MG CAPSULE PO SCH (08:45)
[2016-12-28] MEDS: INSULIN REGULAR 100 UNIT/ML SUBCUT SCH ×4 (08:46→22:35)
[2016-12-28] MEDS: POLYETHYLENE GLYCOL POWDER 17 GM PACK PO SCH (08:50)
[2016-12-28] MEDS: BECLOMETHASONE 40 MCG/PUFF INHALER 8.7 GM INH SCH ×2 (10:04→22:47)
[2016-12-28] MEDS: MONTELUKAST 10 MG TABLET PO SCH (10:04)
[2016-12-28] MEDS: DORNASE ALFA 2.5 MG/2.5 ML VIAL RESP TX SCH ×2 (10:05→19:10)
[2016-12-28] MEDS: IPRATROPIUM 500 MCG/2.5 ML NEB RESP TX SCH ×4 (10:17→19:10)
[2016-12-28] MEDS: methylPREDNISolone SOD SUC 40 MG/1 ML VIAL IV SCH ×2 (13:55→22:36)
--- NOTE | 2016-12-28 14:10 | Hospitalist Progress Note ---
Assessment and Plan (1) Diabetes mellitus Status: Chronic Assessment and plan: Elevated now due to steroids Will increase lantus for tonight Current Visit: No Qualifiers: Diabetes mellitus type: type 2 Diabetes mellitus complication status: without complication (2) Hypertension Status: Chronic Current Visit: No (3) Acute bronchitis with asthma with acute exacerbation Status: Acute Assessment and plan: Improving some Pulmonary managing Continue levaquin, discontinue rocephin steroids, duonebs Current Visit: Yes Hospitalist: Subjective Interval history: No acute events overnight. She reports having a rough night due to coughing spells requiring back to back breathing treatments. She feels better today. Still coughing up very little sputum. Exam - Constitutional Vitals: Period Temp Pulse Resp BP Sys/Luong Pulse Ox Last 24 Hr 97.4 F-98.3 F 80-125 8-20 124-154/63-81 92-100 General appearance: normal weight - Head Head exam: Present: normocephalic, atraumatic - Eye Eye exam: Present: EOMI Pupils: Present: MUSTAPHA - ENT ENT exam: Present: normal exam - Neck Neck exam: Present: normal inspection - Respiratory Respiratory exam: Present: rhonchi, wheezes - Cardiovascular Cardiovascular exam: Present: regular rate and rhythm - GI/Abdominal GI/Abdominal exam: Present: normal bowel sounds, soft - Extremities Exam Extremities exam: Present: normal inspection - Back Exam Back exam: Present: normal inspection - Neurological Exam Neurological exam: Present: alert, oriented X3 - Psychiatric Psychiatric exam: Present: normal affect, normal mood - Skin Skin exam: Present: warm, intact Results - Labs CBC & BMP: 12/24/16 07:24 12/25/16 05:41 Specialty Discharge - Follow Up or Referrals
[2016-12-28] MEDS: LEVOFLOXACIN INJ 750 MG in PREMIX 1 EACH IV SCH (16:28)
[2016-12-28] MEDS: DILTIAZEM CD 300 MG CAPSULE PO SCH (22:32)
[2016-12-28] MEDS: ZALEPLON 5 MG CAPSULE PO PRN (22:32)
[2016-12-28] MEDS: traZODone 50 MG TABLET PO PRN (22:33)
[2016-12-28] MEDS: ENOXAPARIN 40 MG/0.4 ML SYRINGE SUBCUT SCH (22:34)
[2016-12-28] MEDS: INSULIN GLARGINE 100 UNIT/ML SUBCUT SCH (22:34)
[2016-12-29] MEDS: ALBUTEROL/IPRATROPIUM 3 ML NEB RESP TX SCH ×4 (00:20→19:08)
[2016-12-29] MEDS: BECLOMETHASONE 80 MCG/PUFF INHALER 8.7 GM INH SCH ×4 (05:52→21:26)
[2016-12-29] MEDS: methylPREDNISolone SOD SUC 40 MG/1 ML VIAL IV SCH ×3 (05:53→20:47)
[2016-12-29] MEDS: IPRATROPIUM 500 MCG/2.5 ML NEB RESP TX SCH (07:34)
[2016-12-29] MEDS: DORNASE ALFA 2.5 MG/2.5 ML VIAL RESP TX SCH ×2 (07:45→19:08)
--- NOTE | 2016-12-29 08:35 | Pulmonology Progress Note ---
Pulmonary - PN: Subj Interval history: Patient is a 61-year-old black lady that has chronic asthma and comes in with acute exacerbation. She has been extremely difficult to manage. She has been on Xolair and steroids and multiple bronchodilator therapy. She comes in again with a mild exacerbation. She has been having trouble clearing her secretions but she says she did well last night. She thinks the Pulmozyme may have helped some. Her cough is better and she feels like she is breathing better. Exam (Progress Note) - Constitutional Vitals: Period Temp Pulse Resp BP Sys/Luong Pulse Ox Last 24 Hr 96.6 F-97.9 F 74-102 18-20 120-142/59-70 92-100 Exam: General appearance: no acute distress, over weight, she is walking around and breathing comfortably. She looks like she feels better today. - Head Head exam: Present: normal inspection, normocephalic - Eye Eye exam: Present: EOMI. Absent: scleral icterus Pupils: Present: MUSTAPHA - ENT ENT exam: Present: normal exam, other (No sinus tenderness) - Neck Neck exam: Present: normal inspection. Absent: lymphadenopathy, thyromegaly - Respiratory Respiratory exam: Present: Her lungs sound better today with just very minimal wheeze at the end expiration. - Cardiovascular Cardiovascular exam: Present: regular rate and rhythm. Absent: gallop, systolic murmur - GI/Abdominal GI/Abdominal exam: Present: normal bowel sounds, soft. Absent: organomegaly, tenderness - Extremities Exam Extremities exam: Absent: calf tenderness, edema - Neurological Exam Neurological exam: Present: alert, oriented X3, CN II-XII intact. Absent: motor sensory deficit - Psychiatric Psychiatric exam: Present: normal affect - Skin Skin exam: Present: warm, dry Results - Labs CBC & BMP: 12/24/16 07:24 12/25/16 05:41 Assessment and Plan (1) Asthma with exacerbation Status: Acute Assessment and plan: The patient comes in with a mild exacerbation of her asthma. She is doing better with IV medications. She feels like she did fairly well with the Pulmozyme and her cough is better. Her wheezing does seem to be improved. Overall she looks better. She should be ready to go home in the next day or so. Current Visit: Yes Qualifiers: Asthma severity: severe persistent Qualified Code(s): J45.51 - Severe persistent asthma with (acute) exacerbation (2) GERD (gastroesophageal reflux disease) Status: Chronic Assessment and plan: She needs to continue with antireflux measures. Current Visit: No (3) Diabetes mellitus Status: Chronic Assessment and plan: Her glucoses are up while she is on steroids. Her glucose is 247 this morning. Current Visit: No Qualifiers: Diabetes mellitus type: type 2 Diabetes mellitus complication status: with neurologic complications Diabetes mellitus complication detail: with autonomic neuropathy (4) Essential hypertension Status: Chronic Assessment and plan: Her blood pressure and heart rate are stable. Current Visit: No (5) Obstructive sleep apnea Status: Acute Assessment and plan: I do not think she has been very compliant with her CPAP. This may need to be reevaluated later. Current Visit: No Specialty Discharge - Follow Up or Referrals
[2016-12-29] MEDS: POLYETHYLENE GLYCOL POWDER 17 GM PACK PO SCH (09:08)
[2016-12-29] MEDS: MONTELUKAST 10 MG TABLET PO SCH (09:08)
[2016-12-29] MEDS: FUROSEMIDE 40 MG TABLET PO SCH (09:08)
[2016-12-29] MEDS: THEOPHYLLINE ER (24 HR) 400 MG CAPSULE PO SCH (09:08)
[2016-12-29] MEDS: CHOLECALCIFEROL 1,000 UNIT TABLET PO SCH (09:09)
[2016-12-29] MEDS: BENZONATATE 100 MG CAPSULE PO SCH ×3 (09:09→20:48)
[2016-12-29] MEDS: CETIRIZINE 10 MG TABLET PO SCH (09:09)
[2016-12-29] MEDS: glipiZIDE 5 MG TABLET PO SCH (09:09)
[2016-12-29] MEDS: PANTOPRAZOLE 40 MG TABLET PO SCH ×2 (09:09→20:48)
--- NOTE | 2016-12-29 10:15 | Hospitalist Progress Note ---
Assessment and Plan (1) Diabetes mellitus Status: Chronic Assessment and plan: Elevated now due to steroids Lantus increased last night SSI Current Visit: No Qualifiers: Diabetes mellitus type: type 2 Diabetes mellitus complication status: without complication (2) Hypertension Status: Chronic Current Visit: No (3) Acute bronchitis with asthma with acute exacerbation Status: Acute Assessment and plan: Improving some Pulmonary managing Continue levaquin, discontinue rocephin steroids, duonebs Current Visit: Yes Hospitalist: Subjective Interval history: No acute events overnight. Patient slept much better last night. Her chest congestion is starting to improve. Seen this morning walking the halls. Exam - Constitutional Vitals: Period Temp Pulse Resp BP Sys/Luong Pulse Ox Last 24 Hr 96.6 F-97.9 F 74-102 18-20 120-142/59-70 92-100 General appearance: over weight - Head Head exam: Present: normocephalic, atraumatic - Eye Eye exam: Present: EOMI Pupils: Present: MUSTAPHA - ENT ENT exam: Present: normal exam - Neck Neck exam: Present: normal inspection - Respiratory Respiratory exam: Present: clear to auscultation bilaterally. Absent: rhonchi, wheezes - Cardiovascular Cardiovascular exam: Present: regular rate and rhythm - GI/Abdominal GI/Abdominal exam: Present: normal bowel sounds, soft. Absent: tenderness, rebound - Extremities Exam Extremities exam: Present: normal inspection - Back Exam Back exam: Present: normal inspection - Neurological Exam Neurological exam: Present: alert, oriented X3 - Psychiatric Psychiatric exam: Present: normal affect, normal mood - Skin Skin exam: Present: warm, intact Results - Labs CBC & BMP: 12/24/16 07:24 12/25/16 05:41 Specialty Discharge - Follow Up or Referrals
[2016-12-29] MEDS: INSULIN REGULAR 100 UNIT/ML SUBCUT SCH ×4 (10:19→21:25)
[2016-12-29] MEDS: BECLOMETHASONE 40 MCG/PUFF INHALER 8.7 GM INH SCH ×2 (13:04→20:51)
[2016-12-29] MEDS: ACETAMINOPHEN 325 MG TABLET PO PRN (13:14)
[2016-12-29] MEDS: DILTIAZEM CD 300 MG CAPSULE PO SCH (20:47)
[2016-12-29] MEDS: ENOXAPARIN 40 MG/0.4 ML SYRINGE SUBCUT SCH (20:48)
[2016-12-29] MEDS: DOCUSATE SODIUM 100 MG CAPSULE PO PRN (20:48)
[2016-12-29] MEDS: ZALEPLON 5 MG CAPSULE PO PRN (20:48)
[2016-12-29] MEDS: traZODone 50 MG TABLET PO PRN (20:48)
[2016-12-29] MEDS: LEVOFLOXACIN INJ 750 MG in PREMIX 1 EACH IV SCH (20:51)
[2016-12-29] MEDS: INSULIN GLARGINE 100 UNIT/ML SUBCUT SCH (21:25)
[2016-12-30] MEDS: ACETAMINOPHEN 325 MG TABLET PO PRN ×2 (00:09→06:12)
[2016-12-30] MEDS: ALBUTEROL/IPRATROPIUM 3 ML NEB RESP TX SCH ×4 (01:04→19:46)
[2016-12-30] MEDS: methylPREDNISolone SOD SUC 40 MG/1 ML VIAL IV SCH (04:48)
[2016-12-30] MEDS: BECLOMETHASONE 80 MCG/PUFF INHALER 8.7 GM INH SCH ×2 (05:18→09:37)
[2016-12-30] MEDS: DORNASE ALFA 2.5 MG/2.5 ML VIAL RESP TX SCH ×2 (07:11→19:57)
[2016-12-30] MEDS: THEOPHYLLINE ER (24 HR) 400 MG CAPSULE PO SCH (09:14)
[2016-12-30] MEDS: glipiZIDE 5 MG TABLET PO SCH (09:15)
[2016-12-30] MEDS: CETIRIZINE 10 MG TABLET PO SCH (09:17)
[2016-12-30] MEDS: MONTELUKAST 10 MG TABLET PO SCH (09:18)
[2016-12-30] MEDS: BENZONATATE 100 MG CAPSULE PO SCH ×3 (09:18→20:33)
[2016-12-30] MEDS: PANTOPRAZOLE 40 MG TABLET PO SCH ×2 (09:19→20:32)
[2016-12-30] MEDS: DOCUSATE SODIUM 100 MG CAPSULE PO PRN ×2 (09:19→20:32)
[2016-12-30] MEDS: FUROSEMIDE 40 MG TABLET PO SCH (09:19)
[2016-12-30] MEDS: POLYETHYLENE GLYCOL POWDER 17 GM PACK PO SCH (09:22)
[2016-12-30] MEDS: INSULIN REGULAR 100 UNIT/ML SUBCUT SCH ×4 (09:25→22:14)
[2016-12-30] MEDS: BECLOMETHASONE 40 MCG/PUFF INHALER 8.7 GM INH SCH (09:36)
--- NOTE | 2016-12-30 10:39 | Hospitalist Progress Note ---
<Sree Allen - Last Filed: 12/30/16 10:23> Assessment and Plan (1) Acute bronchitis with asthma with acute exacerbation Status: Acute Assessment and plan: Patient improving. Pulmonary following. Patient to continue IV antibiotics, steroids, and duo nebs. Current Visit: Yes (2) Type 2 diabetes mellitus Status: Chronic Assessment and plan: Patient's blood sugars remain elevated due to use of steroids. Sliding scale insulin in place. Continue to monitor. Current Visit: Yes (3) Hypertension Status: Chronic Assessment and plan: Patient's blood pressures are stable currently. Current Visit: No Qualifiers: Hypertension type: essential hypertension Qualified Code(s): I10 - Essential (primary) hypertension Hospitalist: Subjective Interval history: Pt. seen and examined with Dr. Roblero at the bedside. Patient alert and oriented with no apparent distress noted. Patient denies any issues with breathing or pain overnight. Chest congestion has improved. Patient did mention infiltration of IV to left forearm. Site was covered with warm cloth. Patient should be ready for discharge tomorrow. Exam - Constitutional Vitals: Period Temp Pulse Resp BP Sys/Luong Pulse Ox Last 24 Hr 96.7 F-98.1 F 77-92 20-20 124-150/68-91 90-100 General appearance: no acute distress, over weight - Head Head exam: Present: normal inspection, normocephalic - Eye Eye exam: Present: EOMI. Absent: scleral icterus Pupils: Present: MUSTAPHA. Absent: fixed - ENT ENT exam: Present: normal exam - Respiratory Respiratory exam: Present: clear to auscultation bilaterally. Absent: wheezes - Cardiovascular Cardiovascular exam: Present: regular rate and rhythm - GI/Abdominal GI/Abdominal exam: Present: normal bowel sounds, soft. Absent: tenderness - Extremities Exam Extremities exam: Present: normal capillary refill, full ROM, edema (trace ankle /foot) - Back Exam Back exam: Present: normal inspection - Neurological Exam Neurological exam: Present: alert, oriented X3 - Psychiatric Psychiatric exam: Present: normal affect, normal mood - Skin Skin exam: Present: normal color, warm, dry Results - Labs CBC & BMP: 12/24/16 07:24 12/25/16 05:41 Specialty Discharge - Follow Up or Referrals <Wendy Roblero - Last Filed: 12/30/16 13:47> Assessment and Plan (1) Diabetes mellitus Status: Chronic Assessment and plan: Increase Lantus a small amount, steroids have also been decreased Current Visit: No Qualifiers: Diabetes mellitus type: type 2 Diabetes mellitus complication status: without complication (2) Hypertension Status: Chronic Current Visit: No (3) Acute bronchitis with asthma with acute exacerbation Status: Acute Current Visit: Yes Hospitalist: Subjective Interval history: Patient seen and examined along with RESIDENTIAL MORTGAGE UNDERWRITER Allen, agree with assessment and plan as documented. Patient feeling better. Only complaint is of IV infiltrating overnight. Hopefully will be ready for discharge soon. Pulmonary assisting, changed to po medications today. Exam - Constitutional Vitals: Period Temp Pulse Resp BP Sys/Luong Pulse Ox Last 24 Hr 97.1 F-98.1 F 77-92 20-20 124-150/68-91 90-100 Results - Labs CBC & BMP: 12/24/16 07:24 12/25/16 05:41
--- NOTE | 2016-12-30 10:58 | Pulmonology Progress Note ---
Pulmonary - PN: Subj Interval history: Patient with severe poorly controlled asthma, reports that overall breathing is improved. She states she was doing much better until IV infiltrated last night. still having some desats with activity but overall feels improved Exam (Progress Note) - Constitutional Vitals: Period Temp Pulse Resp BP Sys/Luong Pulse Ox Last 24 Hr 96.7 F-98.1 F 77-92 20-20 124-150/68-91 90-100 General appearance: no acute distress - Head Head exam: Present: normal inspection - ENT ENT exam: Present: normal exam - Respiratory Respiratory exam: Present: wheezes. Absent: accessory muscle use, stridor - Cardiovascular Cardiovascular exam: Present: regular rate and rhythm - GI/Abdominal GI/Abdominal exam: Present: normal bowel sounds Results - Labs CBC & BMP: 12/24/16 07:24 12/25/16 05:41 Assessment and Plan (1) Asthma with exacerbation Status: Acute Assessment and plan: Patient poorly controlled asthma, unsure if she is truly noncompliant at home or if she is just confused about her regimen. Either way, she appears to be improving. Will switch her to PO steroids and antibiotic at this time to ensure she does ok on PO. Patient on Qvar at home, but does not need while she is on high dose oral steroids in the hospital so will DC that. Continue to monitor, if she continues to improve can likely go in the next few days with outpatient follow up Current Visit: Yes Qualifiers: Asthma severity: severe persistent Qualified Code(s): J45.51 - Severe persistent asthma with (acute) exacerbation Specialty Discharge - Follow Up or Referrals
[2016-12-30] MEDS ORDERED: INSULIN GLARGINE 100 UNIT/ML SUBCUT SCH (13:42)
[2016-12-30] MEDS: DILTIAZEM CD 300 MG CAPSULE PO SCH (20:32)
[2016-12-30] MEDS: ZALEPLON 5 MG CAPSULE PO PRN (20:32)
[2016-12-30] MEDS: traZODone 50 MG TABLET PO PRN (20:32)
[2016-12-30] MEDS: ENOXAPARIN 40 MG/0.4 ML SYRINGE SUBCUT SCH (20:33)
[2016-12-31] MEDS: ALBUTEROL/IPRATROPIUM 3 ML NEB RESP TX SCH ×3 (00:14→14:13)
[2016-12-31 04:35] LABS: Basophils % 0.2 % (0.0-0.8); Hematocrit 35.6 VOL% (35.7-47.0); Hemoglobin 12.3 GM/DL (12.0-16.0); Immature Granulocytes % 4.7 %; Immature Granulocytes Absolute 0.94 #; Lymphocytes # 1.3 10*3/uL (1.4-4.0); Lymphocytes % 6.4 % (21.3-54.2); Mean Corpuscular HGB Conc 34.6 GM/DL (32-36); Mean Corpuscular Hemoglobin 30 PG (27-34); Mean Corpuscular Volume 87.9 FL (87-102); Mean Platelet Volume 10.1 FL (9.6-12.0); Monocytes # 1.4 10*3/uL (0.11-0.8); Monocytes % 6.7 % (1.7-12.7); NRBC # 0.03 10*3/uL; Neutrophils # 16.5 10*3/uL (1.4-7.4); Platelet Count 332 T/CUMM (130-400); Red Blood Count 4.05 MC/CUMM (3.8-5.5); Red Cell Distribution Width 14.3 % (9.3-17.3); White Blood Count 20.2 T/CUMM (4-12)
[2016-12-31 05:04] LABS: Albumin 3.1 G/DL (3.4-5.0); Calcium 8.8 MG/DL (8.5-10.1); Potassium 3.9 MMOL/L (3.5-5.1)
[2016-12-31 06:11] LABS: Band Neutrophils 1 % (0-10); Lymphocytes 19 % (20-55); Metamyelocytes 2 %; Myelocytes 2 %; Segmented Neutrophils 75 % (50-85); Total Cells Counted 100
[2016-12-31 06:12] LABS: Platelet Estimate Normal
[2016-12-31] MEDS: DORNASE ALFA 2.5 MG/2.5 ML VIAL RESP TX SCH (07:24)
[2016-12-31] MEDS ORDERED: LEVOFLOXACIN 500 MG TABLET PO SCH (09:00)
[2016-12-31] MEDS ORDERED: predniSONE 50 MG TABLET PO SCH (09:00)
[2016-12-31] MEDS ORDERED: predniSONE 10 MG TABLET ONE (09:12)
--- NOTE | 2016-12-31 09:36 | Event Note ---
Patient out of room when I came to see her. Vitals and labs are all stable, leukocytosis consistent with steroid use. Will try and catch her later. Otherwise continue current care and Dr Hendrickson will resume care tomorrow
[2016-12-31] MEDS: DOCUSATE SODIUM 100 MG CAPSULE PO PRN (10:12)
[2016-12-31] MEDS: THEOPHYLLINE ER (24 HR) 400 MG CAPSULE PO SCH (10:13)
[2016-12-31] MEDS: PANTOPRAZOLE 40 MG TABLET PO SCH (10:13)
[2016-12-31] MEDS: FUROSEMIDE 40 MG TABLET PO SCH (10:14)
[2016-12-31] MEDS: CHOLECALCIFEROL 1,000 UNIT TABLET PO SCH (10:15)
[2016-12-31] MEDS: CETIRIZINE 10 MG TABLET PO SCH (10:15)
[2016-12-31] MEDS: MONTELUKAST 10 MG TABLET PO SCH (10:15)
[2016-12-31] MEDS: BENZONATATE 100 MG CAPSULE PO SCH ×2 (10:15→16:18)
[2016-12-31] MEDS: glipiZIDE 5 MG TABLET PO SCH (10:16)
[2016-12-31] MEDS: POLYETHYLENE GLYCOL POWDER 17 GM PACK PO SCH (10:16)
[2016-12-31] MEDS: INSULIN REGULAR 100 UNIT/ML SUBCUT SCH ×4 (10:17→16:23)
--- NOTE | 2016-12-31 11:24 | Discharge Summary ---
Diagnosis - Discharge Diagnosis (1) Diabetes mellitus Status: Chronic (2) Hypertension Status: Chronic (3) Acute bronchitis with asthma with acute exacerbation Status: Acute Specialty Discharge - Follow Up or Referrals Discharge Plan - Discharge Data Disposition: Disch To Home/Self Care Condition at Discharge: Stable Discharge Diet: diabetic diet Activity: increase activity as tolerated Hygiene: no restrictions Weight Bearing at Discharge: weight bear as tolerated Driving: no restrictions Contact your physician if you experience:: fever over 101, Shortness of breath - Discharge Medications New Levofloxacin Tab [Levaquin Tab] 500 mg PO DAILY #3 tablet predniSONE TAB [PredniSONE] 20 mg PO DAILY #28 tablet Continue glipiZIDE [Glipizide] 5 mg PO DAILY Pantoprazole Sodium 40 mg PO BID Furosemide Tab [Lasix Tab] 20 mg PO DAILY Albuterol Sulfate [Ventolin HFA] 2 puff INH Q4H PRN PRN Reason: Shortness Of Breath/Wheezing Diltiazem Cd Cap [Cardizem CD] 300 mg PO BEDTIME Promethazine Tab [Phenergan Tab] 25 mg PO Q6H PRN PRN Reason: Nausea/Vomiting Arformoterol Neb [Brovana] 15 mcg RESP TX BID #90 Benzonatate 100 mg PO TID Cetirizine Tab [ZyrTEC Tab] 10 mg PO DAILY Tiotropium Box [place] [Spiriva Respimat] 4 gm INH DAILY Albuterol/Ipratropium Neb [Duoneb] 3 ml RESP TX RT Q6H #100 applicator Fluticasone 50 Mcg Nasal [place]ancock [Flonase Nasal [place]] 1 spray BOTH NARES DAILY Beclomethasone 40 Mcg Inhaler [Qvar 40 Mcg] 2 puffs INH BID Theophylline ER Tab (24 Hr) 200 mg PO BID W/MEALS #100 Cholecalciferol [Vitamin D3] 1,000 unit PO QOTHER DAY Erythromycin Base [Erythromycin] 250 mg PO TID Discontinued Beclomethasone 80 Mcg Inhaler [Qvar 80 Mcg] 2 puffs INH 5X DAILY No Action Montelukast Tab [Singulair Tab] 10 mg PO DAILY - Follow Up or Referral - Forms/Instructions Instructions: Asthma (ED) Exam - Constitutional Vitals: Period Temp Pulse Resp BP Sys/Luong Pulse Ox Last 24 Hr 97.3 F-98.9 F 70-101 15-22 120-142/56-76 93-100 Discharge Results Procedures and tests throughout hospitalization: Pending Orders 12/30/16 18:15 Sputum Culture and Gram Stain Stat Labs on day of discharge: Labs from last 24 hours 12/31/16 12/31/16 12/31/16 07:13 03:38 03:38 WBC 20.2 H RBC 4.05 Hgb 12.3 Hct 35.6 L MCV 87.9 MCH 30 MCHC 34.6 RDW 14.3 Plt Count 332 MPV 10.1 Neut % (Auto) 82.0 H Lymph % (Auto) 6.4 L Whitley % (Auto) 6.7 Eos % (Auto) 0.0 Baso % (Auto) 0.2 Neut # (Auto) 16.5 H Lymph # (Auto) 1.3 L Whitley # (Auto) 1.4 H Eos # (Auto) 0.0 Baso # (Auto) 0.0 Total Counted 100 Immature Gran % 4.7 Nucleated RBC % 0.1 Immature Gran # 0.94 Segmented Neutrophils 75 Band Neutrophils 1 Lymphocytes 19 L Monocytes 1 L Metamyelocytes 2 Myelocytes 2 Nucleated RBCs # 0.03 Platelet Estimate Normal Pappenheimer Bodies Scoreboard Operator Sodium Potassium Chloride Carbon Dioxide Anion Gap BUN Creatinine GFR Calculation BUN/Creatinine Ratio Glucose POC Glucose 180 H Calculated Osmolality Calcium Phosphorus Albumin Theophylline 8.1 L 12/31/16 12/30/16 12/30/16 03:38 19:55 15:42 WBC RBC Hgb Hct MCV MCH MCHC RDW Plt Count MPV Neut % (Auto) Lymph % (Auto) Whitley % (Auto) Eos % (Auto) Baso % (Auto) Neut # (Auto) Lymph # (Auto) Whitley # (Auto) Eos # (Auto) Baso # (Auto) Total Counted Immature Gran % Nucleated RBC % Immature Gran # Segmented Neutrophils Band Neutrophils Lymphocytes Monocytes Metamyelocytes Myelocytes Nucleated RBCs # Platelet Estimate Pappenheimer Bodies Sodium 143 Potassium 3.9 Chloride 106 Carbon Dioxide 27 Anion Gap 13.9 BUN 19 H Creatinine 1.00 GFR Calculation 86 BUN/Creatinine Ratio 19.00 Glucose 299 H POC Glucose 278 H 277 H Calculated Osmolality 297.0 Calcium 8.8 Phosphorus 3.0 Albumin 3.1 L Theophylline 12/30/16 11:27 WBC RBC Hgb Hct MCV MCH MCHC RDW Plt Count MPV Neut % (Auto) Lymph % (Auto) Whitley % (Auto) Eos % (Auto) Baso % (Auto) Neut # (Auto) Lymph # (Auto) Whitley # (Auto) Eos # (Auto) Baso # (Auto) Total Counted Immature Gran % Nucleated RBC % Immature Gran # Segmented Neutrophils Band Neutrophils Lymphocytes Monocytes Metamyelocytes Myelocytes Nucleated RBCs # Platelet Estimate Pappenheimer Bodies Sodium Potassium Chloride Carbon Dioxide Anion Gap BUN Creatinine GFR Calculation BUN/Creatinine Ratio Glucose POC Glucose 319 H Calculated Osmolality Calcium Phosphorus Albumin Theophylline DS: Provider Date of admission: 12/23/16 15:28 Primary care physician: . No PCP Attending physician on admission: Chico Tolliver MD Consults: 12/23/16 15:46 Consult to Physician [CONS] Routine Comment: Consulting Provider: Cory Trevino When should Consulting Provider be notified: Now Consult to Specialist Group: Pulmonology Person Notified: Dr. Trevino Date Notified: 12/24/16 Time Notified: 09:00 12/23/16 16:04 Consult to [facility], Educator [CONS] Routine Reason for Track Greaser: Diabetes Education Discharging clinician: Wendy Roblero MD
[2016-12-31 11:44] VITALS: BP 168/74
== END 2016-12-31 16:50 | disposition home or self-care (01) | DRG 140 ==
LOC: N.ED 13:49 → SUATTDRO 15:28 → N.2E 15:28
PROVIDERS: ADMIT Family Medicine; ATTEND Internal Medicine

== ENCOUNTER 2017-01-16 16:52 | Inpatient (IN) ==
--- NOTE | 2017-01-16 17:08 | EKG Report ---
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
[2017-01-16] MEDS ORDERED: ALBUTEROL/IPRATROPIUM 3 ML NEB RESP TX STA (17:11)
[2017-01-16] MEDS ORDERED: cefTRIAXone 1,000 MG in SODIUM CHLORIDE 0.9% 100 ML IV STA (17:11)
[2017-01-16] MEDS ORDERED: methylPREDNISolone SOD SUC 125 MG/2 ML VIAL IV STA (17:11)
[2017-01-16] MEDS ORDERED: ALBUTEROL NEB SOLN 5 MG/ML 20 ML/BOTTLE CONT NEB STA (17:37)
--- NOTE | 2017-01-16 17:44 | XRay Report ---
XR chest 2V Date: 01/16/2017 5:11 PM History: Asthma exacerbation Comparison: 12/25/2016 Technique: PA and lateral chest Findings: The heart is borderline in size. Bronchial wall thickening with minimal atelectasis. Unremarkable mediastinum and osseous structures. Impression: Bronchial wall thickening which can be seen with bronchitis or possible reactive airway disease with minimal atelectasis. PROCEDURE INTERPRETED AT [facility] DEPARTMENT OF RADIOLOGY Final Report Signed by: Dr. Jayla Zafar
[2017-01-16] MEDS ORDERED: cefTRIAXone 1,000 MG VIAL ONE (17:47)
[2017-01-16] MEDS ORDERED: methylPREDNISolone SOD SUC 125 MG/2 ML VIAL ONE (17:48)
[2017-01-16 18:10] LABS: Basophils % 0.4 % (0.0-0.8); Eosinophils # 0.3 10*3/uL (0.0-0.87); Eosinophils % 3.8 % (0.00-10.9); Hematocrit 36.9 VOL% (35.7-47.0); Immature Granulocytes % 0.4 %; Immature Granulocytes Absolute 0.03 #; Lymphocytes # 1.4 10*3/uL (1.4-4.0); Mean Corpuscular HGB Conc 35.2 GM/DL (32-36); Mean Corpuscular Hemoglobin 30 PG (27-34); Mean Corpuscular Volume 86.4 FL (87-102); Mean Platelet Volume 9.9 FL (9.6-12.0); Monocytes # 0.3 10*3/uL (0.11-0.8); Monocytes % 4.1 % (1.7-12.7); Neutrophils # 5.1 10*3/uL (1.4-7.4); Neutrophils % 71.3 % (38.7-73.9); Platelet Count 233 T/CUMM (130-400); Red Blood Count 4.27 MC/CUMM (3.8-5.5); Red Cell Distribution Width 14.6 % (9.3-17.3); White Blood Count 7.1 T/CUMM (4-12)
[2017-01-16 18:32] LABS: Calcium 9.8 MG/DL (8.5-10.1); Magnesium 2.1 MG/DL (1.8-2.4); Osmolality,Calculated 281.1 MOS/KG (273-304); Potassium 3.2 MMOL/L (3.5-5.1)
--- NOTE | 2017-01-16 18:44 | Emergency Department Note ---
Lior Lincoln Brittany, am scribing for, and in the presence of, Car Clancy MD 17 :14. Aston Lincoln Hans, MD, personally performed the services described in this documentation, ascribed by Fatou Tinajero in my presence, and it is both accurate and complete 844 . Arrival - Arrival Chief Complaint: Shortness of Breath Stated Complaint: shortness of breath ED Nursing Triage Note: Brought in per EMS from [facility] with c/o shortness of breath onset this am. Oxygen saturation "in the 80's" on oxygen at clinic. +mid-sternal chest pain, worse when exhaling. +productive cough with yellow sputum. Denies fever. Mode of Arrival: Stretcher Limitations: No Limitations Source: Patient, RN Notes Reviewed - History of Present Illness HPI Narrative: Patient is a 61 y/o black female presenting to the ED by EMS from [facility] for further evaluation of SOB. Patient reports that while at [facility] her oxygen saturation continued to decline into the 80 's. Daughter at the bedside reports that patient has been SOB for about a week now, but worsened today. Patient states that she's had some chest pain radiating into the left arm that began today. Patient reports that she currently is on Prednisone 20 mg. She notes that she was hospitalized on last visit, which was earlier this month, for an acute episode of COPD exacerbation. Patient denies history of Cardiac Problems. On monitor patient is hypertensive with a blood pressure reading of 149/85 mmHg. Patient denies use of tobacco. She has no other complaint/pain in the ED at this time. PMHx significant for COPD, Chronic Asthma, Chronic Bronchitis, and Allergies. Onset (ago): hour(s) Consistency: constant Date of Last Menstrual Period: PM Allergies/Adverse Reactions: Allergies Allergy/AdvReac Type Severity Reaction Status Date / Time strawberry Allergy Mild ITCHING Verified 01/16/17 17:04 Iodinated Contrast Media - Allergy ANAPHYLAXIS Verified 01/16/17 17:04 Oral and [Iodinated Contrast Media - IV Dye] Penicillins Allergy RASH Verified 01/16/17 17:04 iodine AdvReac ITCHING Verified 01/16/17 17:04 Home Medications: Home Medications Medication Instructions Recorded Confirmed Type glipiZIDE [Glipizide] 5 mg PO DAILY 08/25/15 01/16/17 History Pantoprazole Sodium 40 mg PO BID 12/01/15 01/16/17 History Furosemide Tab [Lasix Tab] 20 mg PO DAILY 03/18/16 01/16/17 History Albuterol Sulfate [Ventolin HFA] 2 puff INH Q4H PRN 04/24/16 01/16/17 History Montelukast Tab [Singulair Tab] 10 mg PO BEDTIME 04/24/16 01/16/17 History Fluticasone 50 Mcg Nasal [place] 1 spray BOTH NARES DAILY 06/01/16 01/16/17 History [Flonase Nasal [place]] Promethazine Tab [Phenergan Tab] 25 mg PO Q6H PRN 07/07/16 01/16/17 History Beclomethasone 40 Mcg Inhaler 2 puffs INH BID 08/01/16 01/16/17 History [Qvar 40 Mcg] Arformoterol Neb [Brovana] 15 mcg RESP TX BID #90 08/28/16 01/16/17 Rx Theophylline ER Tab (24 Hr) 200 mg PO BID W/MEALS #100 08/28/16 01/16/17 Rx Cholecalciferol [Vitamin D3] 1,000 unit PO QOTHER DAY 11/03/16 01/16/17 History Benzonatate 100 mg PO TID 12/23/16 01/16/17 History Cetirizine Tab [ZyrTEC Tab] 10 mg PO DAILY 12/23/16 01/16/17 History Tiotropium [place] [Spiriva 4 gm INH DAILY 12/23/16 01/16/17 History Respimat] Albuterol/Ipratropium Neb [Duoneb] 3 ml RESP TX RT Q6H #100 applicator 12/31/16 01/16/17 Rx Levofloxacin Tab [Levaquin Tab] 500 mg PO DAILY #3 tablet 12/31/16 01/16/17 Rx Erythromycin Base 250 mg PO TID 01/16/17 01/16/17 History HYDROcodone/ACETAMIN 7.5-325 1 tablet PO Q4H PRN 01/16/17 01/16/17 History [[place] 7.5-325] dilTIAZem HCl [Diltiazem ER (24 300 mg PO BEDTIME 01/16/17 01/16/17 History hr)] predniSONE TAB [PredniSONE] 10 mg PO DAILY 01/16/17 01/16/17 History Review of System - Review of System 12 point system: reviewed and no additional remarkable complaints except as stated - Review of System Constitutional: Absent: chills, diaphoresis, fever Eyes: Absent: vision change Head/Ears/Nose/Throat: Absent: nasal drainage, sore throat Respiratory: Present: respiratory distress Cardiovascular: Present: chest pain Gastrointestinal: Absent: abdominal pain, nausea, vomiting, diarrhea, constipation Genitourinary female: Absent: dysuria, frequency, urgency Musculoskeletal: Present: arm pain. 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), HEENT Problems ( chronic allergic rhinitis) Endocrine: History of: Diabetes Mellitus (NIDDM) (recently diagnosed), Thyroid Disorder, Endocrine Problems (morbid obesity) Rheumatology: History of;: Rheumatological Problems (carpal tunnel) Respiratory: History of: Asthma, Bronchitis, COPD, Obstructive Sleep Apnea, Respiratory Problems (patient states that she is on home oxygen) Gastrointestinal: History of: GERD (AND GASTROPARESIS), GI Problems (for history of significant reflux and was prescribed a hospital bed.) Musculoskeletal: History of: Musculoskeletal Problems (NUMBNESS AND TINGLING IN FEET AND LEGS) - Surgical History Cardiac Surgeries: Patient Denies: Cardiac Catheterization Thoracic Surgeries: Patient denies;: Organ Transplant, Lobectomy Neurologic Surgeries: Patient denies: Brain Aneurysm, Cerebral Hemorrhage, Neurologic Surgery HEENT Surgeries: Patient denies: Eye Surgery, Thyroid Surgery, Tonsilectomy & Adenoidectomy Abdominal Surgeries: Patient denies: Abdominal Surgery Reproductive Surgeries: Surgical HX of;: Hysterectomy - Family History Family History: Reports;: Family Cancer (father-liver cancer), Family Diabetes ( father and mother), Family Heart Disease (father), Family Hypertension (father) , Family Psychiatric Problems (mom and sister), Family Stroke (mom) - Social History Smoking Status: Never smoker Exam Vital Signs: Vital Signs Temperature 96.5 F L 01/16/17 16:52 Pulse Rate 98 H 01/16/17 18:30 Respiratory Rate 20 01/16/17 18:30 Blood Pressure 165/94 01/16/17 18:30 O2 Sat by Pulse Oximetry 99 01/16/17 18:30 - General General appearance: alert, in no apparent distress - Head Head exam: Present: atraumatic, normocephalic, normal inspection - Eye Eye exam: Present: normal appearance, PERRL, EOMI - ENT ENT exam: Present: normal exam, normal oropharynx - Neck Neck exam: Present: normal inspection, full ROM, trachea midline - Chest Chest inspection: Present: normal inspection, symmetric chest wall rise - Respiratory Respiratory exam: Present: wheezes (expiratory wheezes bilaterally, non- inspiratory). Absent: normal lung sounds bilaterally - Cardiovascular Cardiovascular exam: Present: normal rhythm, tachycardia, normal heart sounds. Absent: regular rate, murmur, rubs, gallop - Abdominal Exam Abdominal exam: Present: soft, normal bowel sounds. Absent: tenderness - Extremities Exam Extremities exam: Present: normal inspection. Absent: pedal edema - Back Exam Back exam: Present: normal inspection - Neurological Exam Neurological exam: Present: alert, oriented X3, CN II-XII intact. Absent: motor sensory deficit - Psychiatric Psychiatric exam: Present: normal affect, normal mood - Skin Skin exam: Present: warm, dry, intact, normal color. Absent: diaphoresis Course Course Narrative: This patient was evaluated with lab work as well as chest x-ray and blood cultures. She was also treated with Solu-Medrol and DuoNeb treatment followed by an hour-long albuterol treatment. She was still wheezing after these treatments and she has had frequent admissions for exacerbations of her reactive airway disease. She appears to require admission for breathing treatments and steroids and patient and I discussed this with the hospitalist on -call who agreed to come and see her in the ER. Results - Labs CBC & BMP: 01/16/17 17:46 01/16/17 17:46 Lab Results: I have reviewed the patients labs Labs: Laboratory Tests 01/16/17 17:46 WBC 7.1 RBC 4.27 Hgb 13.0 Hct 36.9 MCV 86.4 L Plt Count 233 Lymph % (Auto) 20.0 L Laboratory Tests 01/16/17 17:46 Sodium 142 Potassium 3.2 L Chloride 107 Carbon Dioxide 27 BUN 8 Creatinine 0.70 Glucose 121 H Calculated Osmolality 281.1 Calcium 9.8 Magnesium 2.1 - Diagnostic Findings Procedure: Chest x-ray: report reviewed by me (Bronchial wall thickening which can be seen with bronchitis or possible reactive airway disease with minimal atelectasis. ) Disposition Clinical Impression: Asthma exacerbation, Asthma with exacerbation Case discussed with: patient Disposition: Still a Patient Condition: Stable Instructions: Asthma (ED) Time of Disposition: 18:44
--- NOTE | 2017-01-16 19:10 | Hospitalist History & Physical ---
Assessment and Plan - Time spent with patient Time spent with patient: Greater than 30 minutes (1) Acute bronchitis with asthma with acute exacerbation Status: Acute Assessment and plan: Patient will be admitted for continued care including IV antibiotics, IV corticosteroids, nebulizer therapy, theophylline. Will consult Dr. Anselmo Hendrickson for pulmonary input. Current Visit: No (2) Oxygen dependent Status: Chronic Assessment and plan: Continuing O2 at 2 L by nasal cannula. She is currently saturating at 100%. Current Visit: Yes (3) Diabetes mellitus Status: Chronic Assessment and plan: We will continue her home medical regimen along with Accu-Cheks and sliding scale. Suspect her sugars will become elevated with the addition of IV corticosteroid therapy. Current Visit: No Qualifiers: Diabetes mellitus type: type 2 Diabetes mellitus complication status: with neurologic complications Diabetes mellitus complication detail: with autonomic neuropathy (4) Essential hypertension Status: Chronic Assessment and plan: We will continue her current medical regimen as she is currently well controlled. Current Visit: Yes History of Present Illness Chief complaint: Short of breath History of present illness: Ms. Armstrong is a 61 year old -[place] female with a history of COPD/asthma/ bronchitis/obstructive sleep apnea who requires home O2 presents with increasing shortness of breath today. She was seen by her primary care provider at [facility] who felt that she was not ventilating well and sent her to the emergency department. She has had a minimal cough but no sputum production. She denies any chest pain, fever, chills, abdominal pain, nausea, vomiting, diarrhea, constipation, melena, hematochezia, hematemesis, syncope, seizure. She was evaluated in the emergency room and receive O2, nebulizers however had persistent wheezing. She also received IV antibiotics and IV corticosteroids. It was felt that she would require further care and will be admitted to the hospitalist service. She states that she sees Dr. Anselom Hendrickson for pulmonary. She is a full code. Home Medications Medication Instructions Recorded Confirmed Type glipiZIDE [Glipizide] 5 mg PO DAILY 08/25/15 01/16/17 History Pantoprazole Sodium 40 mg PO BID 12/01/15 01/16/17 History Furosemide Tab [Lasix Tab] 20 mg PO DAILY 03/18/16 01/16/17 History Albuterol Sulfate [Ventolin HFA] 2 puff INH Q4H PRN 04/24/16 01/16/17 History Montelukast Tab [Singulair Tab] 10 mg PO BEDTIME 04/24/16 01/16/17 History Fluticasone 50 Mcg Nasal [place] 1 spray BOTH NARES DAILY 06/01/16 01/16/17 History [Flonase Nasal [place]] Promethazine Tab [Phenergan Tab] 25 mg PO Q6H PRN 07/07/16 01/16/17 History Beclomethasone 40 Mcg Inhaler 2 puffs INH BID 08/01/16 01/16/17 History [Qvar 40 Mcg] Arformoterol Neb [Brovana] 15 mcg RESP TX BID #90 08/28/16 01/16/17 Rx Theophylline ER Tab (24 Hr) 200 mg PO BID W/MEALS #100 08/28/16 01/16/17 Rx Cholecalciferol [Vitamin D3] 1,000 unit PO QOTHER DAY 11/03/16 01/16/17 History Benzonatate 100 mg PO TID 12/23/16 01/16/17 History Cetirizine Tab [ZyrTEC Tab] 10 mg PO DAILY 12/23/16 01/16/17 History Tiotropium [place] [Spiriva 4 gm INH DAILY 12/23/16 01/16/17 History Respimat] Albuterol/Ipratropium Neb [Duoneb] 3 ml RESP TX RT Q6H #100 applicator 12/31/16 01/16/17 Rx Levofloxacin Tab [Levaquin Tab] 500 mg PO DAILY #3 tablet 12/31/16 01/16/17 Rx Erythromycin Base 250 mg PO TID 01/16/17 01/16/17 History HYDROcodone/ACETAMIN 7.5-325 1 tablet PO Q4H PRN 01/16/17 01/16/17 History [[place] 7.5-325] dilTIAZem HCl [Diltiazem ER (24 300 mg PO BEDTIME 01/16/17 01/16/17 History hr)] predniSONE TAB [PredniSONE] 10 mg PO DAILY 01/16/17 01/16/17 History Allergies Allergy/AdvReac Type Severity Reaction Status Date / Time strawberry Allergy Mild ITCHING Verified 01/16/17 17:04 Iodinated Contrast Media - Allergy ANAPHYLAXIS Verified 01/16/17 17:04 Oral and [Iodinated Contrast Media - IV Dye] Penicillins Allergy RASH Verified 01/16/17 17:04 iodine AdvReac ITCHING Verified 01/16/17 17:04 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), HEENT Problems ( chronic allergic rhinitis) Endocrine: History of: Diabetes Mellitus (NIDDM) (recently diagnosed), Thyroid Disorder, Endocrine Problems (morbid obesity) Rheumatology: History of;: Rheumatological Problems (carpal tunnel) Respiratory: History of: Asthma, Bronchitis, COPD, Obstructive Sleep Apnea, Respiratory Problems (patient states that she is on home oxygen) Gastrointestinal: History of: GERD (AND GASTROPARESIS), GI Problems (for history of significant reflux and was prescribed a hospital bed.) Musculoskeletal: History of: Musculoskeletal Problems (NUMBNESS AND TINGLING IN FEET AND LEGS) - Surgical History Cardiac Surgeries: Patient Denies: Cardiac Catheterization Thoracic Surgeries: Patient denies;: Organ Transplant, Lobectomy Neurologic Surgeries: Patient denies: Brain Aneurysm, Cerebral Hemorrhage, Neurologic Surgery HEENT Surgeries: Patient denies: Eye Surgery, Thyroid Surgery, Tonsilectomy & Adenoidectomy Abdominal Surgeries: Patient denies: Abdominal Surgery Reproductive Surgeries: Surgical HX of;: Hysterectomy - Family History Family History: Reports;: Family Cancer (father-liver cancer), Family Diabetes ( father and mother), Family Heart Disease (father), Family Hypertension (father) , Family Psychiatric Problems (mom and sister), Family Stroke (mom) - Social History Smoking Status: Never smoker Frequency of Alcohol Use: None Type of Drug Use: None 12 point system: reviewed and no additional remarkable complaints except as stated Exam - Constitutional Vitals: Period Temp Pulse Resp BP Sys/Luong Pulse Ox Last 24 Hr 96.5 F-96.5 F 88-112 16-24 130-165/61-94 96-100 General appearance: no acute distress - Head Head exam: Present: normocephalic, atraumatic - Eye Eye exam: Present: EOMI. Absent: scleral icterus Pupils: Present: MUSTAPHA - ENT ENT exam: Present: normal oropharynx - Neck Neck exam: Present: normal inspection - Respiratory Respiratory exam: Present: wheezes (Scattered end expiratory wheezes bilaterally ). Absent: accessory muscle use, chest wall tenderness, rales, rhonchi - Cardiovascular Cardiovascular exam: Present: regular rate and rhythm, tachycardia. Absent: gallop, systolic murmur - GI/Abdominal GI/Abdominal exam: Present: normal bowel sounds, soft. Absent: mass, tenderness , rebound - Extremities Exam Extremities exam: Absent: calf tenderness, edema - Back Exam Back exam: Present: normal inspection - Neurological Exam Neurological exam: Present: alert, oriented X3, CN II-XII intact. Absent: motor sensory deficit - Psychiatric Psychiatric exam: Present: normal affect, normal mood. Absent: agitated, anxious - Skin Skin exam: Present: warm, dry. Absent: erythema, rash Results - Labs CBC & BMP: 01/16/17 17:46 01/16/17 17:46 Lab Results: I have reviewed the past 24 hour labs - EKG EKG shows: tachycardia, sinus rhythm - Diagnostic Findings Procedure: Chest x-ray: report reviewed by me
[2017-01-16] MEDS ORDERED: GLUCAGON 1 MG VIAL IM PRN (20:48)
[2017-01-16] MEDS ORDERED: ALBUTEROL 2.5 MG/3 ML NEB RESP TX PRN (20:48)
[2017-01-16] MEDS ORDERED: DEXTROSE 50% 25 GM/50 ML VIAL IV PRN (20:48)
[2017-01-16] MEDS ORDERED: ONDANSETRON 4 MG/2 ML VIAL IV PRN (20:48)
[2017-01-16] MEDS: ENOXAPARIN 40 MG/0.4 ML SYRINGE SUBCUT SCH (21:36)
[2017-01-16] MEDS: BENZONATATE 100 MG CAPSULE PO SCH (21:36)
[2017-01-16] MEDS: PANTOPRAZOLE 40 MG TABLET PO SCH (21:37)
[2017-01-16] MEDS: DILTIAZEM CD 300 MG CAPSULE PO SCH (21:37)
[2017-01-16] MEDS: BECLOMETHASONE 40 MCG/PUFF INHALER 8.7 GM INH SCH (21:37)
[2017-01-16] MEDS: MONTELUKAST 10 MG TABLET PO SCH (21:37)
[2017-01-16] MEDS: POTASSIUM CHLORIDE RIDER 10 MEQ in PREMIX 1 EACH IV SCH (22:16)
[2017-01-16] MEDS: INSULIN LISPRO 100 UNIT/ML SUBCUT SCH (22:20)
[2017-01-16] MEDS: AZITHROMYCIN INJ 500 MG in SODIUM CHLORIDE 0.9% 250 ML IV SCH (23:08)
[2017-01-16] MEDS: methylPREDNISolone SOD SUC 40 MG/1 ML VIAL IV SCH (23:09)
[2017-01-17] MEDS: ARFORMOTEROL 15 MCG/2 ML NEB RESP TX SCH ×3 (00:27→19:47)
[2017-01-17] MEDS: ALBUTEROL/IPRATROPIUM 3 ML NEB RESP TX SCH (00:27)
[2017-01-17] MEDS: POTASSIUM CHLORIDE RIDER 10 MEQ in PREMIX 1 EACH IV SCH ×5 (02:05→19:36)
[2017-01-17 05:28] LABS: Calcium 9.1 MG/DL (8.5-10.1); Potassium 3.8 MMOL/L (3.5-5.1)
[2017-01-17] MEDS: methylPREDNISolone SOD SUC 40 MG/1 ML VIAL IV SCH ×2 (06:30→11:10)
[2017-01-17] MEDS ORDERED: NON-FORMULARY MEDICATION (Tiotropium Bromide [Spiriva Respimat] 4 GM) INH SCH (09:00)
--- NOTE | 2017-01-17 09:23 | Physician Query Form ---
CLICK EDIT DOCUMENT TO SELECT QUERY ANSWER --> OK --> SIGN Emelia Martinez RN, CCDS Certified Clinical Environmental Services Coordinator W) [phone] (f) [phone] [email or web address] PROVIDERS: Make your selection(s) from the choices in EACH section by typing an "x" and enter comments in the comment section. Please use your independent medical judgment in providing your response. This request does not imply that any particular answer is desired or expected. CLINICAL INDICATORS: (Providers should not edit this section) The medical record indicates that the patient was admitted with "Acute bronchitis with asthma with acute exacerbation" and the patient is on Proventil / Duoneb/ Ceftriaxone. Based on documentation of Asthma, can you please provide further specificity regarding the diagnosis? ( ) Mild intermittent extrinsic asthma with acute exacerbation ( ) Mild persistent extrinsic asthma with acute exacerbation ( ) Moderate persistent extrinsic asthma with acute exacerbation ( x) Severe persistent extrinsic asthma with acute exacerbation ( ) Mild intermittent extrinsic asthma with status asthmaticus ( ) Mild persistent extrinsic asthma with status asthmaticus ( ) Moderate persistent extrinsic asthma with status asthmaticus ( ) Severe intermittent extrinsic asthma with status asthmaticus ( ) Other, please specify: ( ) Clinically unable to determine COMMENTS: PLEASE ALSO DOCUMENT RESPONSE IN PROGRESS NOTES AND/OR DISCHARGE SUMMARY Use of terms such as suspected, likely, or probable (associated with a specific diagnosis that is being evaluated, monitored, or treated as if it exists) are acceptable and can be restated in the discharge summary if not ruled out. MTDD
--- NOTE | 2017-01-17 09:24 | Physician Query Form ---
CLICK EDIT DOCUMENT TO SELECT QUERY ANSWER --> OK --> SIGN Emelia Martinez RN, CCDS Certified Clinical Production Boring Machine Operator W) [phone] (f) [phone] [email or web address] PROVIDERS: Make your selection(s) from the choices in EACH section by typing an "x" and enter comments in the comment section. Please use your independent medical judgment in providing your response. This request does not imply that any particular answer is desired or expected. CLINICAL INDICATORS: (Providers should not edit this section) The medical record indicates that the patient was admitted with "Acute bronchitis with asthma with acute exacerbation", Oxygen dependent, the patient was admitted and placed on 2-4 liters per NC. Based on the above, could you clarify the appropriate diagnosis, if significant , that supports the above abnormalities and additional evaluation, monitoring, and/or treatment rendered: (x ) Patient was treated or monitored for chronic respiratory failure ( ) Patient was not treated or monitored for chronic respiratory failure ( ) Other, please specify: ( ) Clinically unable to determine COMMENTS: PLEASE ALSO DOCUMENT RESPONSE IN PROGRESS NOTES AND/OR DISCHARGE SUMMARY Use of terms such as suspected, likely, or probable (associated with a specific diagnosis that is being evaluated, monitored, or treated as if it exists) are acceptable and can be restated in the discharge summary if not ruled out. MTDD
[2017-01-17] MEDS: INSULIN LISPRO 100 UNIT/ML SUBCUT SCH ×4 (10:47→20:59)
[2017-01-17] MEDS: FLUTICASONE 50 MCG NASAL SPRAY 16 GM BOTTLE BOTH NARES SCH (10:47)
[2017-01-17] MEDS: PANTOPRAZOLE 40 MG TABLET PO SCH ×2 (10:47→20:59)
[2017-01-17] MEDS: THEOPHYLLINE ER (24 HR) 400 MG TABLET PO SCH ×2 (10:47→18:36)
[2017-01-17] MEDS: BECLOMETHASONE 40 MCG/PUFF INHALER 8.7 GM INH SCH ×2 (10:48→21:00)
[2017-01-17] MEDS: FUROSEMIDE 40 MG TABLET PO SCH (10:48)
[2017-01-17] MEDS: glipiZIDE 5 MG TABLET PO SCH (10:48)
[2017-01-17] MEDS: BENZONATATE 100 MG CAPSULE PO SCH ×3 (10:48→20:58)
[2017-01-17] MEDS: CETIRIZINE 10 MG TABLET PO SCH (10:56)
[2017-01-17] MEDS ORDERED: methylPREDNISolone SOD SUC 40 MG/1 ML VIAL IV SCH (15:00)
--- NOTE | 2017-01-17 15:03 | Hospitalist Progress Note ---
Assessment and Plan (1) Asthma with exacerbation Status: Acute Assessment and plan: The patient is admitted to the hospital with acute asthma exacerbation. The patient will be treated with IV antibiotic, IV steroid, and beta agonist nebulized breathing therapies. We consulted the coding spec Dr. Hendrickson. Current Visit: Yes Qualifiers: Asthma severity: severe persistent Qualified Code(s): J45.51 - Severe persistent asthma with (acute) exacerbation (2) Acute respiratory failure with hypoxemia Status: Acute Current Visit: Yes Hospitalist: Subjective Interval history: Ms. Armstrong is admitted hospital with a typical asthma spell. She had rather sudden onset of hypoxia due to respiratory failure while she was at her primary care physician's office. The patient is admitted to the hospital for IV antibiotic, inhaled beta agonist nebulized breathing therapy, and intravenous steroid. Dr. Hendrickson her coding spec has been consulted. Exam - Constitutional Vitals: Period Temp Pulse Resp BP Sys/Luong Pulse Ox Last 24 Hr 96.5 F-98.2 F 76-112 16-24 111-165/57-94 91-100 Exam: Constitutional System: Moderate distress. Mild tremulousness. Head: Normocephalic, atraumatic. Ears, Nose and Throat System: No evidence of Otitis or Mastoiditis. No epistaxis or discharge Eyes System: Pupils equal, round, and reactive. Extraocular muscles intact. Neck: Supple, without adenopathy, No jugular venous distention. No thyromegaly , neck mass, or prior surgery apparent. Respiratory System: Chest moderate wheezing with moderate air trapping to auscultation. Cardiovascular System: Heart with regular tachycardic rate and rhythm. No murmur. GI System: Abdomen soft, nontender. Normo active bowel sounds present. Musculoskeletal System: limbs with 1+ pedal edema. Full distal pulses. Neurological System: No discernable sensory deficit. No aphasia Psychiatric System: Conversation is rational Results - Labs CBC & BMP: 01/16/17 17:46 01/17/17 04:09 Lab Results: I have reviewed the past 24 hour labs Specialty Discharge - Follow Up or Referrals
--- NOTE | 2017-01-17 15:39 | Pulmonology Consult Note ---
Assessment and Plan (1) Asthma with exacerbation Status: Acute Assessment and plan: The patient comes in with asthma but her exacerbation is not terrible now. She looks like she is breathing comfortably. She will continue with steroids and bronchodilators and she should be able to go home soon Current Visit: Yes Qualifiers: Asthma severity: severe persistent Qualified Code(s): J45.51 - Severe persistent asthma with (acute) exacerbation (2) GERD (gastroesophageal reflux disease) Status: Chronic Assessment and plan: She needs to continue antireflux measures. Current Visit: No (3) Diabetes mellitus Status: Chronic Assessment and plan: Her glucose is 186. Current Visit: No Qualifiers: Diabetes mellitus type: type 2 Diabetes mellitus complication status: with neurologic complications Diabetes mellitus complication detail: with autonomic neuropathy (4) Unspecified Sleep Apnea Problem details: Reiew of download looks good. Average pressure 7.4 and AHI of 2.2 with 4 hours and 32 minutes of sleep. Continue present therapy. Status: Acute Assessment and plan: She does not use CPAP at night. Current Visit: No History of Present Illness Chief complaint: Shortness of breath History of present illness: Ms. Armstrong is a 61 year old black female has a long history of chronic asthma and obstructive sleep apnea and has been extremely difficult to keep out of the hospital. She was sent in from the [facility] because of hypoxemia. She says she was feeling okay before she went to the clinic. She was given some treatments in the emergency room and admitted. She is not having as much trouble as she has had in the past. She has been hard to keep clear but has been a little better lately. Home Medications Medication Instructions Recorded Confirmed Type glipiZIDE [Glipizide] 5 mg PO DAILY 08/25/15 01/17/17 History Pantoprazole Sodium 40 mg PO BID 12/01/15 01/17/17 History Furosemide Tab [Lasix Tab] 20 mg PO DAILY 03/18/16 01/17/17 History Albuterol Sulfate [Ventolin HFA] 2 puff INH Q4H PRN 04/24/16 01/17/17 History Montelukast Tab [Singulair Tab] 10 mg PO BEDTIME 04/24/16 01/17/17 History Fluticasone 50 Mcg Nasal [place] 1 spray BOTH NARES DAILY 06/01/16 01/17/17 History [Flonase Nasal [place]] Promethazine Tab [Phenergan Tab] 25 mg PO Q6H PRN 07/07/16 01/17/17 History Beclomethasone 40 Mcg Inhaler 2 puffs INH BID 08/01/16 01/17/17 History [Qvar 40 Mcg] Arformoterol Neb [Brovana] 15 mcg RESP TX BID #90 08/28/16 01/17/17 Rx Theophylline ER Tab (24 Hr) 200 mg PO BID W/MEALS #100 08/28/16 01/17/17 Rx Cholecalciferol [Vitamin D3] 1,000 unit PO QOTHER DAY 11/03/16 01/17/17 History Benzonatate 100 mg PO TID 12/23/16 01/17/17 History Tiotropium [place] [Spiriva 4 gm INH DAILY 12/23/16 01/17/17 History Respimat] Albuterol/Ipratropium Neb [Duoneb] 3 ml RESP TX RT Q6H #100 applicator 12/31/16 01/17/17 Rx Levofloxacin Tab [Levaquin Tab] 500 mg PO DAILY #3 tablet 12/31/16 01/16/17 Rx Erythromycin Base 250 mg PO TID 01/16/17 01/17/17 History HYDROcodone/ACETAMIN 7.5-325 1 tablet PO Q4H PRN 01/16/17 01/17/17 History [[place] 7.5-325] dilTIAZem HCl [Diltiazem ER (24 300 mg PO BEDTIME 01/16/17 01/17/17 History hr)] predniSONE TAB [PredniSONE] 10 mg PO DAILY 01/16/17 01/17/17 History Allergies Allergy/AdvReac Type Severity Reaction Status Date / Time strawberry Allergy Mild ITCHING Verified 01/16/17 17:04 Iodinated Contrast Media - Allergy ANAPHYLAXIS Verified 01/16/17 17:04 Oral and [Iodinated Contrast Media - IV Dye] Penicillins Allergy RASH Verified 01/16/17 17:04 iodine AdvReac ITCHING Verified 01/16/17 17:04 Exam (Pulmonay) H&P - Constitutional Vitals: Period Temp Pulse Resp BP Sys/Luong Pulse Ox Last 24 Hr 96.5 F-98.2 F 76-112 16-24 111-165/57-94 91-100 General appearance: no acute distress, over weight - Head Head exam: Present: normal inspection, normocephalic - Eye Eye exam: Present: EOMI. Absent: scleral icterus Pupils: Present: MUSTAPHA - ENT ENT exam: Present: normal exam - Neck Neck exam: Present: normal inspection. Absent: lymphadenopathy, thyromegaly - Respiratory Respiratory exam: Present: prolonged expiratory phase, wheezes - Cardiovascular Cardiovascular exam: Present: regular rate and rhythm. Absent: gallop, systolic murmur - GI/Abdominal GI/Abdominal exam: Present: normal bowel sounds, soft. Absent: organomegaly, tenderness - Extremities Exam Extremities exam: Absent: calf tenderness, edema - Neurological Exam Neurological exam: Present: alert, oriented X3 - Psychiatric Psychiatric exam: Present: normal affect - Skin Skin exam: Present: warm, dry 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), HEENT Problems ( chronic allergic rhinitis) Endocrine: History of: Diabetes Mellitus (NIDDM) (recently diagnosed), Thyroid Disorder, Endocrine Problems (morbid obesity) Rheumatology: History of;: Rheumatological Problems (carpal tunnel) Respiratory: History of: Asthma, Bronchitis, COPD, Obstructive Sleep Apnea, Respiratory Problems (patient states that she is on home oxygen) Gastrointestinal: History of: GERD (AND GASTROPARESIS), GI Problems (for history of significant reflux and was prescribed a hospital bed.) Musculoskeletal: History of: Musculoskeletal Problems (NUMBNESS AND TINGLING IN FEET AND LEGS) - Surgical History Cardiac Surgeries: Patient Denies: Cardiac Catheterization Thoracic Surgeries: Patient denies;: Organ Transplant, Lobectomy Neurologic Surgeries: Patient denies: Brain Aneurysm, Cerebral Hemorrhage, Neurologic Surgery HEENT Surgeries: Patient denies: Eye Surgery, Thyroid Surgery, Tonsilectomy & Adenoidectomy Abdominal Surgeries: Patient denies: Abdominal Surgery Reproductive Surgeries: Surgical HX of;: Hysterectomy - Family History Family History: Reports;: Family Cancer (father-liver cancer), Family Diabetes ( father and mother), Family Heart Disease (father), Family Hypertension (father) , Family Psychiatric Problems (mom and sister), Family Stroke (mom) - Social History Smoking Status: Never smoker Frequency of Alcohol Use: None Type of Drug Use: None Results - Labs CBC & BMP: 01/16/17 17:46 01/17/17 04:09 - Diagnostic Findings Procedure: Chest x-ray: image reviewed by me, report reviewed by me (Chest x- ray is unremarkable with no infiltrates.) Specialty Discharge - Follow Up or Referrals
[2017-01-17] MEDS ORDERED: cefTRIAXone 1,000 MG in SODIUM CHLORIDE 0.9% 100 ML IV SCH (20:00)
[2017-01-17] MEDS: MONTELUKAST 10 MG TABLET PO SCH (20:58)
[2017-01-17] MEDS: DILTIAZEM CD 300 MG CAPSULE PO SCH (20:59)
[2017-01-17] MEDS: ENOXAPARIN 40 MG/0.4 ML SYRINGE SUBCUT SCH (21:00)
[2017-01-17] MEDS ORDERED: POLYETHYLENE GLYCOL POWDER 17 GM PACK PO PRN (21:00)
[2017-01-17] MEDS: AZITHROMYCIN INJ 500 MG in SODIUM CHLORIDE 0.9% 250 ML IV SCH (21:49)
[2017-01-18] MEDS: ALBUTEROL/IPRATROPIUM 3 ML NEB RESP TX SCH ×4 (00:52→19:05)
[2017-01-18] MEDS: ARFORMOTEROL 15 MCG/2 ML NEB RESP TX SCH ×2 (07:33→19:05)
[2017-01-18] MEDS ORDERED: CHOLECALCIFEROL 1,000 UNIT TABLET PO SCH (09:00)
[2017-01-18] MEDS: THEOPHYLLINE ER (24 HR) 400 MG TABLET PO SCH ×2 (09:06→18:05)
[2017-01-18] MEDS: FUROSEMIDE 40 MG TABLET PO SCH (09:06)
[2017-01-18] MEDS: BENZONATATE 100 MG CAPSULE PO SCH ×3 (09:06→20:49)
[2017-01-18] MEDS: PANTOPRAZOLE 40 MG TABLET PO SCH ×2 (09:06→20:48)
[2017-01-18] MEDS: INSULIN LISPRO 100 UNIT/ML SUBCUT SCH ×4 (09:07→20:51)
[2017-01-18] MEDS: glipiZIDE 5 MG TABLET PO SCH (09:07)
[2017-01-18] MEDS: CETIRIZINE 10 MG TABLET PO SCH (09:08)
[2017-01-18] MEDS: FLUTICASONE 50 MCG NASAL SPRAY 16 GM BOTTLE BOTH NARES SCH (09:08)
[2017-01-18] MEDS: BECLOMETHASONE 40 MCG/PUFF INHALER 8.7 GM INH SCH ×2 (09:09→20:51)
--- NOTE | 2017-01-18 09:53 | Pulmonology Progress Note ---
Pulmonary - PN: Subj Interval history: The patient is a 61-year-old black lady that has chronic asthma. She came in with a mild exacerbation and is really not had much problems this admission. She says she had a headache last night but her breathing is better. She is not having much coughing or wheezing now. Actually her lungs sound as clear as I have heard them in quite a while. She is comfortable sitting up now. Exam (Progress Note) - Constitutional Vitals: Period Temp Pulse Resp BP Sys/Luong Pulse Ox Last 24 Hr 97.2 F-98.6 F 76-96 18-20 107-144/52-74 94-100 Exam: General appearance: no acute distress, over weight, she looks comfortable and in no distress. - Head Head exam: Present: normal inspection, normocephalic - Eye Eye exam: Present: EOMI. Absent: scleral icterus Pupils: Present: MUSTAPHA - ENT ENT exam: Present: normal exam - Neck Neck exam: Present: normal inspection. Absent: lymphadenopathy, thyromegaly - Respiratory Respiratory exam: Present: Her lungs have fairly good air movement and not much wheezing in all now. - Cardiovascular Cardiovascular exam: Present: regular rate and rhythm. Absent: gallop, systolic murmur - GI/Abdominal GI/Abdominal exam: Present: normal bowel sounds, soft. Absent: organomegaly, tenderness - Extremities Exam Extremities exam: Absent: calf tenderness, edema, she has no signs of phlebitis. - Neurological Exam Neurological exam: Present: alert, oriented X3, no focal deficits. - Psychiatric Psychiatric exam: Present: normal affect - Skin Skin exam: Present: warm, dry Results - Labs CBC & BMP: 01/16/17 17:46 01/17/17 04:09 Assessment and Plan (1) Asthma with exacerbation Status: Acute Assessment and plan: The patient comes in with asthma but her exacerbation is not terrible now. Her lungs sound reasonably clear now and this is probably the best she has sounded in quite a while. She is tolerating her treatments well. Current Visit: Yes Qualifiers: Asthma severity: severe persistent Qualified Code(s): J45.51 - Severe persistent asthma with (acute) exacerbation (2) GERD (gastroesophageal reflux disease) Status: Chronic Assessment and plan: She needs to continue antireflux measures. Current Visit: No (3) Diabetes mellitus Status: Chronic Assessment and plan: Her glucose is 204. Current Visit: No Qualifiers: Diabetes mellitus type: type 2 Diabetes mellitus complication status: with neurologic complications Diabetes mellitus complication detail: with autonomic neuropathy (4) Unspecified Sleep Apnea Problem details: Reiew of download looks good. Average pressure 7.4 and AHI of 2.2 with 4 hours and 32 minutes of sleep. Continue present therapy. Status: Acute Assessment and plan: She does not use CPAP at night. Current Visit: No Specialty Discharge - Follow Up or Referrals
--- NOTE | 2017-01-18 11:13 | Hospitalist Progress Note ---
Assessment and Plan (1) Asthma with exacerbation Status: Acute Assessment and plan: The patient is admitted to the hospital with acute asthma exacerbation. The patient will make transition to oral antibiotic, oral steroid and continue beta agonist nebulizer. I anticipate discharge home tomorrow if the improvement continues. Current Visit: Yes Qualifiers: Asthma severity: severe persistent Qualified Code(s): J45.51 - Severe persistent asthma with (acute) exacerbation (2) Acute respiratory failure with hypoxemia Status: Acute Current Visit: Yes Hospitalist: Subjective Interval history: The patient is moving her air better today. She has modest wheezing. The patient appears comfortable. I coordinated care with Dr. Hendrickson her community support professional. Exam - Constitutional Vitals: Period Temp Pulse Resp BP Sys/Luong Pulse Ox Last 24 Hr 97.2 F-98.6 F 76-96 18-20 107-144/52-74 94-100 Exam: Constitutional System: Minimal distress. Mild tremulousness. Head: Normocephalic, atraumatic. Ears, Nose and Throat System: No evidence of Otitis or Mastoiditis. No epistaxis or discharge Eyes System: Pupils equal, round, and reactive. Extraocular muscles intact. Neck: Supple, without adenopathy, No jugular venous distention. No thyromegaly , neck mass, or prior surgery apparent. Respiratory System: Chest mild wheezing with moderate air trapping to auscultation. Cardiovascular System: Heart with regular tachycardic rate and rhythm. No murmur. GI System: Abdomen soft, nontender. Normo active bowel sounds present. Musculoskeletal System: limbs with 1+ pedal edema. Full distal pulses. Neurological System: No discernable sensory deficit. No aphasia Psychiatric System: Conversation is rational Results - Labs CBC & BMP: 01/16/17 17:46 01/17/17 04:09 Lab Results: I have reviewed the past 24 hour labs Specialty Discharge - Follow Up or Referrals
[2017-01-18] MEDS ORDERED: TEMAZEPAM 15 MG CAPSULE PO PRN (20:33)
[2017-01-18] MEDS: DILTIAZEM CD 300 MG CAPSULE PO SCH (20:49)
[2017-01-18] MEDS: predniSONE 20 MG TABLET PO SCH (20:49)
[2017-01-18] MEDS: MONTELUKAST 10 MG TABLET PO SCH (20:50)
[2017-01-18] MEDS: ENOXAPARIN 40 MG/0.4 ML SYRINGE SUBCUT SCH (20:51)
[2017-01-19] MEDS: ALBUTEROL/IPRATROPIUM 3 ML NEB RESP TX SCH ×2 (00:27→07:08)
[2017-01-19] MEDS: ARFORMOTEROL 15 MCG/2 ML NEB RESP TX SCH (07:08)
[2017-01-19] MEDS: INSULIN LISPRO 100 UNIT/ML SUBCUT SCH ×2 (07:43→13:31)
[2017-01-19] MEDS ORDERED: DEXTROSE 50% 25 GM/50 ML SYRINGE IV PRN (08:30)
[2017-01-19] MEDS ORDERED: AZITHROMYCIN 250 MG TABLET PO SCH (09:00)
--- NOTE | 2017-01-19 09:31 | Pulmonology Progress Note ---
Pulmonary - PN: Subj Interval history: The patient is a 61-year-old black lady that has chronic asthma. She came in with a mild exacerbation and is really not had much problems this admission. She had a better night and feels better today. She is not having any shortness of breath now and her wheezing is much better. She can go home today. Exam (Progress Note) - Constitutional Vitals: Period Temp Pulse Resp BP Sys/Luong Pulse Ox Last 24 Hr 97.8 F-99.8 F 81-113 18-20 107-127/53-65 90-99 Exam: General appearance: no acute distress, over weight, she looks comfortable and in no distress. She is ambulating without any problems. - Head Head exam: Present: normal inspection, normocephalic - Eye Eye exam: Present: EOMI. Absent: scleral icterus Pupils: Present: MUSTAPHA - ENT ENT exam: Present: normal exam - Neck Neck exam: Present: normal inspection. Absent: lymphadenopathy, thyromegaly - Respiratory Respiratory exam: Present: Her lungs have fairly good air movement and she has only minimal rhonchi now. - Cardiovascular Cardiovascular exam: Present: regular rate and rhythm. Absent: gallop, systolic murmur - GI/Abdominal GI/Abdominal exam: Present: normal bowel sounds, soft. Absent: organomegaly, tenderness - Extremities Exam Extremities exam: Absent: calf tenderness, edema, she has no signs of phlebitis. - Neurological Exam Neurological exam: Present: alert, oriented X3, no focal deficits. - Psychiatric Psychiatric exam: Present: normal affect - Skin Skin exam: Present: warm, dry Results - Labs CBC & BMP: 01/16/17 17:46 01/17/17 04:09 Assessment and Plan (1) Asthma with exacerbation Status: Acute Assessment and plan: The patient comes in with asthma but her exacerbation is not terrible now. Her lungs sound reasonably clear now and this is probably the best she has sounded in quite a while. She feels better and can go home from a pulmonary standpoint. Current Visit: Yes Qualifiers: Asthma severity: severe persistent Qualified Code(s): J45.51 - Severe persistent asthma with (acute) exacerbation (2) GERD (gastroesophageal reflux disease) Status: Chronic Assessment and plan: She needs to continue antireflux measures. Current Visit: No (3) Diabetes mellitus Status: Chronic Assessment and plan: Her glucose is 176. Current Visit: No Qualifiers: Diabetes mellitus type: type 2 Diabetes mellitus complication status: with neurologic complications Diabetes mellitus complication detail: with autonomic neuropathy (4) Unspecified Sleep Apnea Problem details: Reiew of download looks good. Average pressure 7.4 and AHI of 2.2 with 4 hours and 32 minutes of sleep. Continue present therapy. Status: Acute Assessment and plan: She does not use CPAP at night. Current Visit: No Specialty Discharge - Follow Up or Referrals
[2017-01-19] MEDS: FUROSEMIDE 40 MG TABLET PO SCH (09:44)
[2017-01-19] MEDS: BENZONATATE 100 MG CAPSULE PO SCH (09:44)
[2017-01-19] MEDS: CETIRIZINE 10 MG TABLET PO SCH (09:45)
[2017-01-19] MEDS: THEOPHYLLINE ER (24 HR) 400 MG TABLET PO SCH (09:45)
[2017-01-19] MEDS: predniSONE 20 MG TABLET PO SCH (09:45)
[2017-01-19] MEDS: glipiZIDE 5 MG TABLET PO SCH (09:45)
[2017-01-19] MEDS: PANTOPRAZOLE 40 MG TABLET PO SCH (09:45)
[2017-01-19] MEDS: FLUTICASONE 50 MCG NASAL SPRAY 16 GM BOTTLE BOTH NARES SCH (09:49)
[2017-01-19] MEDS: BECLOMETHASONE 40 MCG/PUFF INHALER 8.7 GM INH SCH (09:49)
--- NOTE | 2017-01-19 09:53 | Discharge Summary ---
Hospital Course - Hospital Course Hospital Course: The patient was admitted to the hospital after being seen by her primary care provider. The patient was very tight and wheezy at the time of admission with hypoxia. The patient improved over 72 hours with IV antibiotic, IV steroid, and beta agonist nebulized breathing therapy. She was seen by her fish technologist Dr. Hendrickson. The patient has returned to her baseline status and is ready for discharge home on usual medications. She will follow-up in the office with Dr. Hendrickson on February 01. On the date of discharge, the patient's chest has moderate air trapping and minimal wheezing. Heart has regular rate and rhythm. The patient was screened for tobacco use and is never smoker. The patient was given 4 minutes tobacco avoidance education. On the date of discharge, 32 minutes were required for patient evaluation, patient education, reconciliation of medications, coordination of care with service delivery management consultant, and discharge documentation. - Time spent with patient Time with patient DS: Greater than 30 minutes Diagnosis - Discharge Diagnosis (1) Asthma with exacerbation Status: Resolved (2) Acute respiratory failure with hypoxemia Status: Resolved Specialty Discharge - Follow Up or Referrals Discharge Plan - Discharge Data Disposition: Disch To Home/Self Care Condition at Discharge: Stable Discharge Diet: advance to your usual diet Activity: resume usual activities as tolerated - Discharge Medications Continue glipiZIDE [Glipizide] 5 mg PO DAILY Pantoprazole Sodium 40 mg PO BID Furosemide Tab [Lasix Tab] 20 mg PO DAILY Albuterol Sulfate [Ventolin HFA] 2 puff INH Q4H PRN PRN Reason: Shortness Of Breath/Wheezing Montelukast Tab [Singulair Tab] 10 mg PO BEDTIME Promethazine Tab [Phenergan Tab] 25 mg PO Q6H PRN PRN Reason: Nausea/Vomiting Arformoterol Neb [Brovana] 15 mcg RESP TX BID #90 Benzonatate 100 mg PO TID Tiotropium [place] [Spiriva Respimat] 4 gm INH DAILY Levofloxacin Tab [Levaquin Tab] 500 mg PO DAILY #3 tablet Albuterol/Ipratropium Neb [Duoneb] 3 ml RESP TX RT Q6H #100 applicator dilTIAZem HCl [Diltiazem ER (24 hr)] 300 mg PO BEDTIME HYDROcodone/ACETAMIN 7.5-325 [[place] 7.5-325] 1 tablet PO Q4H PRN PRN Reason: Pain Fluticasone 50 Mcg Nasal [place] [Flonase Nasal [place]] 1 spray BOTH NARES DAILY Beclomethasone 40 Mcg Inhaler [Qvar 40 Mcg] 2 puffs INH BID Theophylline ER Tab (24 Hr) 200 mg PO BID W/MEALS #100 Cholecalciferol [Vitamin D3] 1,000 unit PO QOTHER DAY predniSONE TAB [PredniSONE] 10 mg PO DAILY Erythromycin Base 250 mg PO TID - Follow Up or Referral - Forms/Instructions Instructions: Asthma (ED), Chronic Obstructive Pulmonary Disease (GEN), COPD Exacerbation, Manager [place] (GEN) Exam - Constitutional Vitals: Period Temp Pulse Resp BP Sys/Luong Pulse Ox Last 24 Hr 97.8 F-99.8 F 81-113 18-20 107-127/53-65 90-99 Discharge Results Procedures and tests throughout hospitalization: Pending Orders 01/16/17 18:03 Blood Culture Stat Labs on day of discharge: Labs from last 24 hours 01/19/17 01/18/17 01/18/17 07:16 20:28 16:42 POC Glucose 176 H 283 H 245 H 01/18/17 11:57 POC Glucose 201 H Preliminary micro results at discharge 01/16/17 18:03 Blood Culture - Preliminary Blood No growth at 1 day 01/16/17 17:46 Blood Culture - Preliminary Blood No growth at 1 day DS: Provider Date of admission: 01/16/17 18:59 Primary care physician: . No PCP Attending physician on admission: Baylee Hampton MD Consults: 01/16/17 20:48 Consult to Physician [CONS] Routine Comment: copd exac Consulting Provider: Wilfrid Henrdickson Consulting Provider Notified: Yes When should Consulting Provider be notified: Now Consult to Specialist Group: Pulmonology When should Consulting Provider be notified: Now Person Notified: EMMA Date Notified: 01/17/17 Time Notified: 09:22 Consult to Pulmonary Rehabilitation [CONS] Routine Reason for Pulmonary Rehabilitation: COPD Discharging clinician: Srinath Mir MD
[2017-01-19 13:30] VITALS: BP 141/81
== END 2017-01-19 13:00 | disposition home or self-care (01) | DRG 140 ==
LOC: EDUNIT# → EDBD → N.ED 16:52 → N.EDINP 18:59 → SUATTDRO 18:59 → N.4E 20:11
PROVIDERS: ADMIT Internal Medicine; ATTEND Internal Medicine

== ENCOUNTER 2017-01-31 21:46 | Inpatient (IN) ==
[2017-01-31] MEDS ORDERED: ALBUTEROL/IPRATROPIUM 3 ML NEB RESP TX STA (22:08)
[2017-01-31] MEDS ORDERED: AZITHROMYCIN INJ 500 MG in SODIUM CHLORIDE 0.9% 250 ML IV STA (22:08)
[2017-01-31] MEDS ORDERED: methylPREDNISolone SOD SUC 40 MG/1 ML VIAL IV STA (22:08)
--- NOTE | 2017-01-31 22:14 | Emergency Department Note ---
Arrival - Arrival Chief Complaint: Upper Respiratory Stated Complaint: ASTHMA ED Nursing Triage Note: patient states she is not sure if it is her copd or asthma flaring up, she became sob yesterday. Mode of Arrival: Wheelchair Limitations: No Limitations Source: Patient Time Seen by Provider: 01/31/17 22:08 - History of Present Illness HPI Narrative: This 61-year-old black female presents with 24 hours of increasing dyspnea on exertion, continuous wheeze, and dry cough with a background of several days of nasal congestion and rhinorrhea associated with a.m. sore throat. She denies chills, fever, orthopnea, PND, pedal edema, nausea, or vomiting. She does have some mild chest pressure or tightness as she describes it. Currently she is wheezing but in no acute medical distress. Onset (ago): hour(s) (Patient presents 24 hours post onset of symptoms) Allergies/Adverse Reactions: Allergies Allergy/AdvReac Type Severity Reaction Status Date / Time strawberry Allergy Mild ITCHING Verified 01/16/17 17:04 Iodinated Contrast Media - Allergy ANAPHYLAXIS Verified 01/16/17 17:04 Oral and [Iodinated Contrast Media - IV Dye] Penicillins Allergy RASH Verified 01/16/17 17:04 iodine AdvReac ITCHING Verified 01/16/17 17:04 Home Medications: Home Medications Medication Instructions Recorded Confirmed Type glipiZIDE [Glipizide] 5 mg PO DAILY 08/25/15 01/31/17 History Pantoprazole Sodium 40 mg PO BID 12/01/15 01/31/17 History Furosemide Tab [Lasix Tab] 20 mg PO DAILY 03/18/16 01/31/17 History Albuterol Sulfate [Ventolin HFA] 2 puff INH Q4H PRN 04/24/16 01/31/17 History Montelukast Tab [Singulair Tab] 10 mg PO BEDTIME 04/24/16 01/31/17 History Fluticasone 50 Mcg Nasal [place] 1 spray BOTH NARES DAILY 06/01/16 01/31/17 History [Flonase Nasal [place]] Promethazine Tab [Phenergan Tab] 25 mg PO Q6H PRN 07/07/16 01/31/17 History Beclomethasone 40 Mcg Inhaler 2 puffs INH BID 08/01/16 01/31/17 History [Qvar 40 Mcg] Arformoterol Neb [Brovana] 15 mcg RESP TX BID #90 08/28/16 01/31/17 Rx Theophylline ER Tab (24 Hr) 200 mg PO BID W/MEALS #100 08/28/16 01/31/17 Rx Cholecalciferol [Vitamin D3] 1,000 unit PO QOTHER DAY 11/03/16 01/31/17 History Benzonatate 100 mg PO TID 12/23/16 01/31/17 History Tiotropium [place] [Spiriva 4 gm INH DAILY 12/23/16 01/31/17 History Respimat] Albuterol/Ipratropium Neb [Duoneb] 3 ml RESP TX RT Q6H #100 applicator 12/31/16 01/31/17 Rx Levofloxacin Tab [Levaquin Tab] 500 mg PO DAILY #3 tablet 12/31/16 01/31/17 Rx Erythromycin Base 250 mg PO TID 01/16/17 01/31/17 History HYDROcodone/ACETAMIN 7.5-325 1 tablet PO Q4H PRN 01/16/17 01/31/17 History [[place] 7.5-325] dilTIAZem HCl [Diltiazem ER (24 300 mg PO BEDTIME 01/16/17 01/31/17 History hr)] predniSONE TAB [PredniSONE] 10 mg PO DAILY 01/16/17 01/31/17 History Review of System - Review of System 12 point system: reviewed and no additional remarkable complaints except as stated - Review of System Constitutional: Present: as per HPI Head/Ears/Nose/Throat: Present: see HPI Respiratory: Present: as per HPI Cardiovascular: Present: as per HPI Gastrointestinal: Present: as per HPI 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), HEENT Problems ( chronic allergic rhinitis) Endocrine: History of: Diabetes Mellitus (NIDDM) (recently diagnosed), Thyroid Disorder, Endocrine Problems (morbid obesity) Rheumatology: History of;: Rheumatological Problems (carpal tunnel) Respiratory: History of: Asthma, Bronchitis, COPD, Obstructive Sleep Apnea, Respiratory Problems (patient states that she is on home oxygen) Gastrointestinal: History of: GERD (AND GASTROPARESIS), GI Problems (for history of significant reflux and was prescribed a hospital bed.) Musculoskeletal: History of: Musculoskeletal Problems (NUMBNESS AND TINGLING IN FEET AND LEGS) - Surgical History Cardiac Surgeries: Patient Denies: Cardiac Catheterization Thoracic Surgeries: Patient denies;: Organ Transplant, Lobectomy Neurologic Surgeries: Patient denies: Brain Aneurysm, Cerebral Hemorrhage, Neurologic Surgery HEENT Surgeries: Patient denies: Eye Surgery, Thyroid Surgery, Tonsilectomy & Adenoidectomy Abdominal Surgeries: Patient denies: Abdominal Surgery Reproductive Surgeries: Surgical HX of;: Hysterectomy - Family History Family History: Reports;: Family Cancer (father-liver cancer), Family Diabetes ( father and mother), Family Heart Disease (father), Family Hypertension (father) , Family Psychiatric Problems (mom and sister), Family Stroke (mom) - Social History Smoking Status: Never smoker Frequency of Alcohol Use: None Type of Drug Use: None Exam Physical Examination: GENERAL: Obese black female in no acute distress. HEENT: Normocephalic. No trauma. Moist mucous membranes. EOMI. PERRLA. ENT ears clear, throat clear, nose reveals nasal mucosa erythema and edema NECK: Supple. Cervical adenopathy. CARDIAC: Regular. No murmurs. Heart rate 115 CHEST: Diffuse expiratory wheezing. No respiratory distress. O2 sat 93% ABDOMEN: Soft. Nontender. Active bowel sounds. EXTREMITIES: No trauma. Normal ROM. No pedal edema. SKIN: No diaphoresis. No rash. NEURO: Alert. Neuro intact no focal deficits. Vital Signs: Vital Signs Temperature 97.0 F L 01/31/17 21:48 Pulse Rate 105 H 01/31/17 22:49 Respiratory Rate 20 01/31/17 22:49 Blood Pressure 137/81 01/31/17 21:48 O2 Sat by Pulse Oximetry 100 01/31/17 22:49 Course - Reevaluation(s) Reevaluation #1: After treatment patient continues to have resting tachycardia and O2 sat in low 90 percentiles with persistent wheeze. We discussed the situation and she will be admitted for further treatment. - Consultations Consultation #1: Discussed with hospitalist service who will admit for further evaluation treatment. Results - Labs CBC & BMP: 01/31/17 22:31 01/31/17 22:31 - Diagnostic Findings Procedure: Chest x-ray: image reviewed by me, report reviewed by me (No acute disease) Disposition Clinical Impression: Exacerbation of asthma Case discussed with: patient Disposition: Still a Patient Condition: Guarded Time of Disposition: 23:36
[2017-01-31] MEDS ORDERED: methylPREDNISolone SOD SUC 125 MG/2 ML VIAL ONE (22:36)
[2017-01-31] MEDS ORDERED: AZITHROMYCIN 500 MG VIAL IV ONE (22:36)
[2017-01-31 22:45] LABS: Basophils # 0.1 10*3/uL (0.0-0.2); Basophils % 0.8 % (0.0-0.8); Eosinophils # 0.3 10*3/uL (0.0-0.87); Eosinophils % 2.9 % (0.00-10.9); Hematocrit 40.3 VOL% (35.7-47.0); Hemoglobin 14.1 GM/DL (12.0-16.0); Immature Granulocytes % 0.6 %; Immature Granulocytes Absolute 0.05 #; Lymphocytes # 2.3 10*3/uL (1.4-4.0); Lymphocytes % 25.5 % (21.3-54.2); Mean Corpuscular Hemoglobin 30 PG (27-34); Mean Corpuscular Volume 86.7 FL (87-102); Mean Platelet Volume 10.3 FL (9.6-12.0); Monocytes # 0.7 10*3/uL (0.11-0.8); Monocytes % 7.3 % (1.7-12.7); Neutrophils # 5.6 10*3/uL (1.4-7.4); Neutrophils % 62.9 % (38.7-73.9); Platelet Count 346 T/CUMM (130-400); Red Blood Count 4.65 MC/CUMM (3.8-5.5); Red Cell Distribution Width 14.6 % (9.3-17.3); White Blood Count 8.9 T/CUMM (4-12)
[2017-01-31] MEDS ORDERED: TERBUTALINE 1 MG/1 ML VIAL SUBCUT ONE (22:52)
[2017-01-31] MEDS: TERBUTALINE 1 MG/1 ML VIAL SUBCUT SCH ×2 (22:53→23:17)
[2017-01-31 23:03] LABS: Albumin 4.2 G/DL (3.4-5.0); Bilirubin,Total 0.4 MG/DL (0.2-1.0); Osmolality,Calculated 284.1 MOS/KG (273-304); Potassium 3.8 MMOL/L (3.5-5.1)
[2017-01-31 23:15] LABS: Troponin I Only < 0.015 NG/ML (0.00-0.045)
[2017-01-31] MEDS ORDERED: ALBUTEROL NEB SOLN 5 MG/ML 20 ML/BOTTLE CONT NEB STA (23:34)
[2017-01-31] MEDS ORDERED: ONDANSETRON 4 MG/2 ML VIAL ONE (23:53)
[2017-01-31] MEDS ORDERED: ACETAMINOPHEN 325 MG TABLET PO PRN (23:56)
[2017-01-31] MEDS ORDERED: ALBUTEROL 2.5 MG/3 ML NEB RESP TX PRN (23:57)
[2017-02-01] MEDS ORDERED: DEXTROSE 50% 25 GM/50 ML SYRINGE IV PRN (00:11)
[2017-02-01] MEDS ORDERED: GLUCAGON 1 MG VIAL IM PRN (00:11)
--- NOTE | 2017-02-01 00:11 | Hospitalist History & Physical ---
Assessment and Plan (1) Chronic asthma with acute exacerbation Status: Acute Assessment and plan: Solu-Medrol IV Nebulizer treatments every [address] Hendrickson Continue home medications Monitor for respiratory failure Admit to general medical floor Current Visit: Yes Qualifiers: Asthma severity: severe persistent Qualified Code(s): J45.51 - Severe persistent asthma with (acute) exacerbation (2) Asthma exacerbation Status: Acute Current Visit: Yes (3) Tachycardia Status: Acute Current Visit: Yes (4) Diabetes mellitus Status: Chronic Current Visit: Yes Qualifiers: Diabetes mellitus type: type 2 Diabetes mellitus complication status: with neurologic complications Diabetes mellitus complication detail: with autonomic neuropathy (5) ARLETH (obstructive sleep apnea) Status: Chronic Current Visit: No History of Present Illness Chief complaint: Shortness of breath History of present illness: Ms. Armstrong is a 61 year old female with a history of asthma and COPD presents to the emergency department today with significant shortness of breath and wheezing. She was recently discharged from the hospital on January 19. She has a follow-up appointment with her rotary furnace operator, Dr. Hendrickson, for February 01 ( tomorrow). She has had frequent hospitalizations for asthma exacerbation and wheezing. She was seen and evaluated in the emergency department and received a nebulizer treatment followed by a 1 hour albuterol treatment. She continues to have significant wheezing and shortness of breath with resting tachycardia. She has no fever or chills, no elevated white blood cell count, and a normal- appearing chest x-ray. She reports that she becomes short of breath with weather changes and after it rains. She continues to have significant respiratory distress but her mental status is unaffected. She is pleasant and cooperative but visibly short of breath and has audible wheezing. She is being admitted to the hospital for IV steroids and frequent nebulizer treatments. Consult will be placed for her rotary furnace operator. Her home medications were reviewed and reconciled and continued. She received a dose of azithromycin in the emergency department. Her symptoms are persistent, worsening and are severe. Home Medications Medication Instructions Recorded Confirmed Type glipiZIDE [Glipizide] 5 mg PO DAILY 08/25/15 01/31/17 History Pantoprazole Sodium 40 mg PO BID 12/01/15 01/31/17 History Furosemide Tab [Lasix Tab] 20 mg PO DAILY 03/18/16 01/31/17 History Albuterol Sulfate [Ventolin HFA] 2 puff INH Q4H PRN 04/24/16 01/31/17 History Montelukast Tab [Singulair Tab] 10 mg PO BEDTIME 04/24/16 01/31/17 History Fluticasone 50 Mcg Nasal [place] 1 spray BOTH NARES DAILY 06/01/16 01/31/17 History [Flonase Nasal [place]] Promethazine Tab [Phenergan Tab] 25 mg PO Q6H PRN 07/07/16 01/31/17 History Beclomethasone 40 Mcg Inhaler 2 puffs INH BID 08/01/16 01/31/17 History [Qvar 40 Mcg] Arformoterol Neb [Brovana] 15 mcg RESP TX BID #90 08/28/16 01/31/17 Rx Theophylline ER Tab (24 Hr) 200 mg PO BID W/MEALS #100 08/28/16 01/31/17 Rx Cholecalciferol [Vitamin D3] 1,000 unit PO QOTHER DAY 11/03/16 01/31/17 History Benzonatate 100 mg PO TID 12/23/16 01/31/17 History Tiotropium [place] [Spiriva 4 gm INH DAILY 12/23/16 01/31/17 History Respimat] Albuterol/Ipratropium Neb [Duoneb] 3 ml RESP TX RT Q6H #100 applicator 12/31/16 01/31/17 Rx Levofloxacin Tab [Levaquin Tab] 500 mg PO DAILY #3 tablet 12/31/16 01/31/17 Rx Erythromycin Base 250 mg PO TID 01/16/17 01/31/17 History HYDROcodone/ACETAMIN 7.5-325 1 tablet PO Q4H PRN 01/16/17 01/31/17 History [[place] 7.5-325] dilTIAZem HCl [Diltiazem ER (24 300 mg PO BEDTIME 01/16/17 01/31/17 History hr)] predniSONE TAB [PredniSONE] 10 mg PO DAILY 01/16/17 01/31/17 History Allergies Allergy/AdvReac Type Severity Reaction Status Date / Time strawberry Allergy Mild ITCHING Verified 01/16/17 17:04 Iodinated Contrast Media - Allergy ANAPHYLAXIS Verified 01/16/17 17:04 Oral and [Iodinated Contrast Media - IV Dye] Penicillins Allergy RASH Verified 01/16/17 17:04 iodine AdvReac ITCHING Verified 01/16/17 17:04 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), HEENT Problems ( chronic allergic rhinitis) Endocrine: History of: Diabetes Mellitus (NIDDM) (recently diagnosed), Thyroid Disorder, Endocrine Problems (morbid obesity) Rheumatology: History of;: Rheumatological Problems (carpal tunnel) Respiratory: History of: Asthma, Bronchitis, COPD, Obstructive Sleep Apnea, Respiratory Problems (patient states that she is on home oxygen) Gastrointestinal: History of: GERD (AND GASTROPARESIS), GI Problems (for history of significant reflux and was prescribed a hospital bed.) Musculoskeletal: History of: Musculoskeletal Problems (NUMBNESS AND TINGLING IN FEET AND LEGS) - Surgical History Cardiac Surgeries: Patient Denies: Cardiac Catheterization Thoracic Surgeries: Patient denies;: Organ Transplant, Lobectomy Neurologic Surgeries: Patient denies: Brain Aneurysm, Cerebral Hemorrhage, Neurologic Surgery HEENT Surgeries: Patient denies: Eye Surgery, Thyroid Surgery, Tonsilectomy & Adenoidectomy Abdominal Surgeries: Patient denies: Abdominal Surgery Reproductive Surgeries: Surgical HX of;: Hysterectomy - Family History Family History: Reports;: Family Cancer (father-liver cancer), Family Diabetes ( father and mother), Family Heart Disease (father), Family Hypertension (father) , Family Psychiatric Problems (mom and sister), Family Stroke (mom) - Social History Smoking Status: Never smoker Frequency of Alcohol Use: None Type of Drug Use: None Marital Status: Single Lives With:: Alone Functional capacity: independent ambulation 12 point system: reviewed and no additional remarkable complaints except as stated - Respiratory Respiratory: Present: as per HPI, dyspnea, wheezing Exam - Constitutional Vitals: Period Temp Pulse Resp BP Sys/Luong Pulse Ox Last 24 Hr 97.0 F-97.0 F 105-114 20-22 137-137/81-81 93-100 Exam: Constitutional System: Mild to moderate distress. No tremulousness. Patient is alert awake and oriented 3. Pleasant and cooperative. Audible wheezing noted. Head: Normocephalic, atraumatic. Ears, Nose and Throat System: No pain or tenderness. No epistaxis or discharge Eyes System: Pupils equal, round, and reactive. Extraocular muscles intact. Neck: Supple, without adenopathy, No jugular venous distention. No thyromegaly, neck mass, or prior surgery apparent. Respiratory System: Chest with significant wheezing bilaterally to auscultation. Cardiovascular System: Heart with tachycardia. No murmur. GI System: Abdomen soft, nontender. Normo active bowel sounds present. Musculoskeletal System: limbs with no pedal edema. Full distal pulses. Neurological System: No discernable sensory deficit. No aphasia Psychiatric System: Conversation is rational Results - Labs CBC & BMP: 01/31/17 22:31 01/31/17 22:31 Lab Results: I have reviewed the past 24 hour labs - Diagnostic Findings Procedure: Chest x-ray: report reviewed by me, image reviewed by me
[2017-02-01] MEDS ORDERED: PROMETHAZINE 25 MG TABLET PO PRN (02:03)
[2017-02-01] MEDS ORDERED: ALBUTEROL 2.5 MG/3 ML NEB RESP TX PRN (02:03)
[2017-02-01] MEDS: ALBUTEROL/IPRATROPIUM 3 ML NEB RESP TX SCH ×4 (02:10→19:27)
[2017-02-01] MEDS ORDERED: IPRATROPIUM 500 MCG/2.5 ML NEB RESP TX SCH (07:00)
--- NOTE | 2017-02-01 07:15 | XRay Report ---
XR chest 2V Indication: Shortness of breath Comparison: 16 January 2017 Findings: The heart and mediastinum are normal in size and configuration. The pulmonary vascularity is normal in caliber. No lung infiltrates, effusions, pneumothorax or other abnormality is demonstrated. Impression: Normal chest x-ray PROCEDURE INTERPRETED AT [facility] DEPARTMENT OF RADIOLOGY Final Report Signed by: Dr. Juan Diego Dinh
[2017-02-01] MEDS: ARFORMOTEROL 15 MCG/2 ML NEB RESP TX SCH ×2 (07:46→19:24)
[2017-02-01] MEDS: ENOXAPARIN 40 MG/0.4 ML SYRINGE SUBCUT SCH (08:18)
[2017-02-01] MEDS: AZITHROMYCIN 250 MG TABLET PO SCH (08:19)
[2017-02-01] MEDS: THEOPHYLLINE ER (24 HR) 400 MG TABLET PO SCH ×2 (08:19→16:30)
[2017-02-01] MEDS: glipiZIDE 5 MG TABLET PO SCH (08:19)
[2017-02-01] MEDS: FUROSEMIDE 20 MG TABLET PO SCH (08:20)
[2017-02-01] MEDS: FLUTICASONE 50 MCG NASAL SPRAY 16 GM BOTTLE BOTH NARES SCH (08:20)
[2017-02-01] MEDS: ERYTHROMYCIN BASE 250 MG TABLET PO SCH ×3 (08:24→20:47)
[2017-02-01] MEDS: CHOLECALCIFEROL 1,000 UNIT TABLET PO SCH (08:24)
[2017-02-01] MEDS: BENZONATATE 100 MG CAPSULE PO SCH ×3 (08:25→20:48)
[2017-02-01] MEDS: PANTOPRAZOLE 40 MG TABLET PO SCH ×2 (08:26→20:48)
[2017-02-01] MEDS: BECLOMETHASONE 80 MCG/PUFF INHALER 8.7 GM INH SCH ×2 (08:26→20:55)
[2017-02-01] MEDS: INSULIN LISPRO 100 UNIT/ML SUBCUT SCH ×4 (08:46→20:55)
[2017-02-01] MEDS ORDERED: PANTOPRAZOLE 40 MG TABLET PO SCH (09:00)
[2017-02-01] MEDS: methylPREDNISolone SOD SUC 125 MG/2 ML VIAL IV SCH (12:35)
--- NOTE | 2017-02-01 12:44 | Pulmonology Consult Note ---
Assessment and Plan (1) Diabetes mellitus Status: Chronic Assessment and plan: The patient's glucose will be monitored while on steroids. Current Visit: No Qualifiers: Diabetes mellitus type: type 2 Diabetes mellitus complication status: without complication (2) ARLETH (obstructive sleep apnea) Status: Chronic Assessment and plan: I do not think she is very compliant with treatment. Current Visit: No (3) Hypertension Status: Chronic Assessment and plan: She will continue her blood pressure medicines. Current Visit: No (4) Chronic asthma with acute exacerbation Status: Acute Assessment and plan: She has chronically been on bronchodilators and steroids. Her mild exacerbation is not that bad. We will continue with bronchodilators and steroids for now. Current Visit: Yes Qualifiers: Asthma severity: severe persistent Qualified Code(s): J45.51 - Severe persistent asthma with (acute) exacerbation History of Present Illness Chief complaint: Shortness of breath History of present illness: Ms. Armstrong is a 61 year old black female that has a long history of chronic asthma is extremely difficult to keep out of the hospital. She has been tried on multiple medicines including Xolair. There have been times when she has not been very compliant. She was scheduled to come to the clinic this week. She came to the hospital last night with wheezing and coughing and felt short of breath. She does get anxious easily. She has not had any fever or significant sputum production. She was readmitted because of her wheezing. Home Medications Medication Instructions Recorded Confirmed Type glipiZIDE [Glipizide] 5 mg PO DAILY 08/25/15 02/01/17 History Pantoprazole Sodium 40 mg PO BID 12/01/15 02/01/17 History Furosemide Tab [Lasix Tab] 20 mg PO DAILY 03/18/16 02/01/17 History Albuterol Sulfate [Ventolin HFA] 2 puff INH Q4H PRN 04/24/16 02/01/17 History Montelukast Tab [Singulair Tab] 10 mg PO BEDTIME 04/24/16 02/01/17 History Fluticasone 50 Mcg Nasal [place] 1 spray BOTH NARES DAILY 06/01/16 02/01/17 History [Flonase Nasal [place]] Promethazine Tab [Phenergan Tab] 25 mg PO Q6H PRN 07/07/16 02/01/17 History Beclomethasone 40 Mcg Inhaler 2 puffs INH BID 08/01/16 02/01/17 History [Qvar 40 Mcg] Arformoterol Neb [Brovana] 15 mcg RESP TX BID #90 08/28/16 02/01/17 Rx Theophylline ER Tab (24 Hr) 200 mg PO BID W/MEALS #100 08/28/16 02/01/17 Rx Cholecalciferol [Vitamin D3] 1,000 unit PO QOTHER DAY 11/03/16 02/01/17 History Benzonatate 100 mg PO TID 12/23/16 02/01/17 History Tiotropium [place] [Spiriva 4 gm INH DAILY 12/23/16 02/01/17 History Respimat] Albuterol/Ipratropium Neb [Duoneb] 3 ml RESP TX RT Q6H #100 applicator 12/31/16 02/01/17 Rx Levofloxacin Tab [Levaquin Tab] 500 mg PO DAILY #3 tablet 12/31/16 02/01/17 Rx Erythromycin Base 250 mg PO TID 01/16/17 02/01/17 History HYDROcodone/ACETAMIN 7.5-325 1 tablet PO Q4H PRN 01/16/17 02/01/17 History [[place] 7.5-325] dilTIAZem HCl [Diltiazem ER (24 300 mg PO BEDTIME 01/16/17 02/01/17 History hr)] predniSONE TAB [PredniSONE] 10 mg PO DAILY 01/16/17 02/01/17 History Allergies Allergy/AdvReac Type Severity Reaction Status Date / Time strawberry Allergy Mild ITCHING Verified 01/16/17 17:04 Iodinated Contrast Media - Allergy ANAPHYLAXIS Verified 01/16/17 17:04 Oral and [Iodinated Contrast Media - IV Dye] Penicillins Allergy RASH Verified 01/16/17 17:04 iodine AdvReac ITCHING Verified 01/16/17 17:04 - Constitutional Constitutional: Present: fatigue, weight gain. Absent: chills, fever(s) - EENT Eyes: Absent: loss of vision Ears: Absent: decreased hearing Nose, mouth and throat: Absent: dysphagia, headache(s), sinus pressure - Cardiovascular Cardiovascular: Present: dyspnea. Absent: chest pain at rest, edema, orthopnea - Respiratory Respiratory: Present: cough, wheezing. Absent: hemoptysis, pain on inspiration , change in phlegm color - Gastrointestinal Gastrointestinal: Absent: abdominal pain, change in bowel habits, dysphagia, nausea, vomiting - Genitourinary Genitourinary: Absent: dysuria, hematuria, urinary frequency - Musculoskeletal Musculoskeletal: Absent: arthralgias, muscle weakness - Neurological Neurological: Absent: abnormal speech, focal weakness Exam (Pulmonay) H&P - Constitutional Vitals: Period Temp Pulse Resp BP Sys/Luong Pulse Ox Last 24 Hr 97.0 F-99.0 F 105-124 18-22 117-142/54-81 92-100 General appearance: no acute distress (She looks reasonably comfortable now), over weight - Head Head exam: Present: normal inspection, normocephalic - Eye Eye exam: Present: EOMI. Absent: scleral icterus Pupils: Present: [place] - ENT ENT exam: Present: normal exam - Neck Neck exam: Present: normal inspection. Absent: lymphadenopathy, thyromegaly - Respiratory Respiratory exam: Present: prolonged expiratory phase, wheezes, other (She has good breath sounds and is moving air fairly well with mild wheezing now.) - Cardiovascular Cardiovascular exam: Present: regular rate and rhythm. Absent: gallop, systolic murmur - GI/Abdominal GI/Abdominal exam: Present: normal bowel sounds, soft. Absent: organomegaly, tenderness - Extremities Exam Extremities exam: Absent: calf tenderness, edema - Back Exam Back exam: Present: normal inspection - Neurological Exam Neurological exam: Present: alert, oriented X3, CN II-XII intact - Psychiatric Psychiatric exam: Present: normal affect - Skin Skin exam: Present: warm, dry 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), HEENT Problems ( chronic allergic rhinitis) Endocrine: History of: Diabetes Mellitus (NIDDM) (recently diagnosed), Thyroid Disorder, Endocrine Problems (morbid obesity) Rheumatology: History of;: Rheumatological Problems (carpal tunnel) Respiratory: History of: Asthma, Bronchitis, COPD, Obstructive Sleep Apnea, Respiratory Problems (patient states that she is on home oxygen) Gastrointestinal: History of: GERD (AND GASTROPARESIS), GI Problems (for history of significant reflux and was prescribed a hospital bed.) Musculoskeletal: History of: Musculoskeletal Problems (NUMBNESS AND TINGLING IN FEET AND LEGS) - Surgical History Cardiac Surgeries: Patient Denies: Cardiac Catheterization Thoracic Surgeries: Patient denies;: Organ Transplant, Lobectomy Neurologic Surgeries: Patient denies: Brain Aneurysm, Cerebral Hemorrhage, Neurologic Surgery HEENT Surgeries: Patient denies: Eye Surgery, Thyroid Surgery, Tonsilectomy & Adenoidectomy Abdominal Surgeries: Patient denies: Abdominal Surgery Reproductive Surgeries: Surgical HX of;: Hysterectomy - Family History Family History: Reports;: Family Cancer (father-liver cancer), Family Diabetes ( father and mother), Family Heart Disease (father), Family Hypertension (father) , Family Psychiatric Problems (mom and sister), Family Stroke (mom) - Social History Smoking Status: Never smoker Frequency of Alcohol Use: None Type of Drug Use: None Results - Labs CBC & BMP: 01/31/17 22:31 01/31/17 22:31 - Diagnostic Findings Procedure: Chest x-ray: image reviewed by me, report reviewed by me (No definite infiltrate.)
[2017-02-01] MEDS: ZALEPLON 5 MG CAPSULE PO PRN (20:47)
[2017-02-01] MEDS: DILTIAZEM CD 300 MG CAPSULE PO SCH (20:48)
[2017-02-01] MEDS: MONTELUKAST 10 MG TABLET PO SCH (20:48)
[2017-02-01] MEDS ORDERED: MONTELUKAST 10 MG TABLET PO SCH (21:00)
[2017-02-02] MEDS: ALBUTEROL/IPRATROPIUM 3 ML NEB RESP TX SCH ×4 (01:03→20:37)
[2017-02-02] MEDS: ENOXAPARIN 40 MG/0.4 ML SYRINGE SUBCUT SCH ×2 (02:00→08:45)
[2017-02-02] MEDS: methylPREDNISolone SOD SUC 125 MG/2 ML VIAL IV SCH ×5 (02:01→06:28)
[2017-02-02] MEDS: ZALEPLON 5 MG CAPSULE PO PRN ×2 (02:16→20:15)
[2017-02-02] MEDS: ARFORMOTEROL 15 MCG/2 ML NEB RESP TX SCH ×2 (07:19→20:37)
[2017-02-02] MEDS: AZITHROMYCIN 250 MG TABLET PO SCH (08:44)
[2017-02-02] MEDS: FLUTICASONE 50 MCG NASAL SPRAY 16 GM BOTTLE BOTH NARES SCH (08:44)
[2017-02-02] MEDS: BENZONATATE 100 MG CAPSULE PO SCH ×3 (08:44→20:15)
[2017-02-02] MEDS: BECLOMETHASONE 80 MCG/PUFF INHALER 8.7 GM INH SCH ×2 (08:44→20:15)
[2017-02-02] MEDS: ERYTHROMYCIN BASE 250 MG TABLET PO SCH ×3 (08:45→20:14)
[2017-02-02] MEDS: FUROSEMIDE 20 MG TABLET PO SCH (08:45)
[2017-02-02] MEDS: THEOPHYLLINE ER (24 HR) 400 MG TABLET PO SCH ×2 (08:45→16:48)
[2017-02-02] MEDS: PANTOPRAZOLE 40 MG TABLET PO SCH ×2 (08:45→20:14)
[2017-02-02] MEDS: glipiZIDE 5 MG TABLET PO SCH (08:46)
[2017-02-02] MEDS: INSULIN LISPRO 100 UNIT/ML SUBCUT SCH ×4 (08:46→22:13)
[2017-02-02] MEDS: POLYETHYLENE GLYCOL POWDER 17 GM PACK PO SCH (09:22)
[2017-02-02] MEDS ORDERED: methylPREDNISolone SOD SUC 125 MG/2 ML VIAL IV SCH (09:30)
--- NOTE | 2017-02-02 13:37 | Pulmonology Progress Note ---
Pulmonary - PN: Subj Interval history: Patient is a 61-year-old black lady that has chronic asthma. She came in with a mild exacerbation with coughing and wheezing. She says she is feeling okay but does have some tightness when she moves around. She did not sleep very well on the steroids. Her wheezing is better. She is ambulating without problems. Exam (Progress Note) - Constitutional Vitals: Period Temp Pulse Resp BP Sys/Luong Pulse Ox Last 24 Hr 97.2 F-98.2 F 91-123 18-20 115-144/59-80 90-98 Exam: General appearance: no acute distress (She looks reasonably comfortable now. She is walking around her room without problems.), over weight - Head Head exam: Present: normal inspection, normocephalic - Eye Eye exam: Present: EOMI. Absent: scleral icterus Pupils: Present: MUSTAPHA - ENT ENT exam: Present: normal exam - Neck Neck exam: Present: normal inspection. Absent: lymphadenopathy, thyromegaly - Respiratory Respiratory exam: Present: Her lungs have good breath sounds bilaterally with prolonged expiration but not much wheezing now. - Cardiovascular Cardiovascular exam: Present: regular rate and rhythm. Absent: gallop, systolic murmur - GI/Abdominal GI/Abdominal exam: Present: normal bowel sounds, soft. Absent: organomegaly, tenderness - Extremities Exam Extremities exam: Absent: calf tenderness, edema, she has no signs of phlebitis. - Back Exam Back exam: Present: normal inspection - Neurological Exam Neurological exam: Present: alert, oriented X3, CN II-XII intact - Psychiatric Psychiatric exam: Present: normal affect - Skin Skin exam: Present: warm, dry Results - Labs CBC & BMP: 01/31/17 22:31 01/31/17 22:31 Assessment and Plan (1) Diabetes mellitus Status: Chronic Assessment and plan: The patient's glucose will be monitored while on steroids. Her glucose is 201 this morning. Current Visit: No Qualifiers: Diabetes mellitus type: type 2 Diabetes mellitus complication status: without complication (2) ARLETH (obstructive sleep apnea) Status: Chronic Assessment and plan: I do not think she is very compliant with treatment. She is not using CPAP at present. Current Visit: No (3) Hypertension Status: Chronic Assessment and plan: She will continue her blood pressure medicines. Current Visit: No (4) Chronic asthma with acute exacerbation Status: Acute Assessment and plan: She has chronically been on bronchodilators and steroids. Her mild exacerbation is not that bad. Her wheezing is better and will cut back on her steroids Current Visit: Yes Qualifiers: Asthma severity: severe persistent Qualified Code(s): J45.51 - Severe persistent asthma with (acute) exacerbation
--- NOTE | 2017-02-02 16:22 | Hospitalist Progress Note ---
Assessment and Plan (1) Asthma with exacerbation Status: Acute Assessment and plan: The patient is admitted to the hospital for acute on chronic asthma with exacerbation. The patient is receiving usual treatment for asthma and improving incrementally. Will reevaluate tomorrow. I coordinate care with Dr. Hendrickson. Current Visit: No Qualifiers: Asthma severity: severe persistent Qualified Code(s): J45.51 - Severe persistent asthma with (acute) exacerbation Hospitalist: Subjective Interval history: The patient has less shortness of breath today than she had yesterday. The patient complains of insomnia on account of the steroid medication. Exam - Constitutional Vitals: Period Temp Pulse Resp BP Sys/Luong Pulse Ox Last 24 Hr 97.4 F-98.2 F 91-123 18-20 115-137/59-67 90-99 General appearance: mild distress - Respiratory Respiratory exam: Present: prolonged expiratory phase - Cardiovascular Cardiovascular exam: Present: regular rate and rhythm - GI/Abdominal GI/Abdominal exam: Present: normal bowel sounds Results - Labs CBC & BMP: 01/31/17 22:31 01/31/17 22:31 Lab Results: I have reviewed the past 24 hour labs
[2017-02-02] MEDS: methylPREDNISolone SOD SUC 40 MG/1 ML VIAL IV SCH (16:49)
[2017-02-02] MEDS: MONTELUKAST 10 MG TABLET PO SCH (20:14)
[2017-02-02] MEDS: DILTIAZEM CD 300 MG CAPSULE PO SCH (20:14)
[2017-02-03] MEDS: ALBUTEROL/IPRATROPIUM 3 ML NEB RESP TX SCH ×4 (01:30→20:19)
[2017-02-03] MEDS: methylPREDNISolone SOD SUC 40 MG/1 ML VIAL IV SCH ×2 (03:18→16:28)
[2017-02-03] MEDS: ARFORMOTEROL 15 MCG/2 ML NEB RESP TX SCH ×2 (07:32→20:19)
[2017-02-03] MEDS: BECLOMETHASONE 80 MCG/PUFF INHALER 8.7 GM INH SCH ×2 (08:42→20:14)
[2017-02-03] MEDS: BENZONATATE 100 MG CAPSULE PO SCH ×3 (08:42→20:09)
[2017-02-03] MEDS: glipiZIDE 5 MG TABLET PO SCH (08:42)
[2017-02-03] MEDS: AZITHROMYCIN 250 MG TABLET PO SCH (08:42)
[2017-02-03] MEDS: ENOXAPARIN 40 MG/0.4 ML SYRINGE SUBCUT SCH (08:42)
[2017-02-03] MEDS: PANTOPRAZOLE 40 MG TABLET PO SCH ×2 (08:42→20:11)
[2017-02-03] MEDS: FLUTICASONE 50 MCG NASAL SPRAY 16 GM BOTTLE BOTH NARES SCH (08:42)
[2017-02-03] MEDS: FUROSEMIDE 20 MG TABLET PO SCH (08:42)
[2017-02-03] MEDS: ERYTHROMYCIN BASE 250 MG TABLET PO SCH ×3 (08:42→20:09)
[2017-02-03] MEDS: THEOPHYLLINE ER (24 HR) 400 MG TABLET PO SCH ×2 (08:42→16:28)
[2017-02-03] MEDS: POLYETHYLENE GLYCOL POWDER 17 GM PACK PO SCH (08:43)
[2017-02-03] MEDS: CHOLECALCIFEROL 1,000 UNIT TABLET PO SCH (08:43)
[2017-02-03] MEDS: INSULIN LISPRO 100 UNIT/ML SUBCUT SCH ×4 (08:43→21:43)
--- NOTE | 2017-02-03 09:32 | Pulmonology Progress Note ---
Pulmonary - PN: Subj Interval history: This 61-year-old white female has severe asthma. She has frequent admissions. She is on Brovana and Qvar at home. She has been on Xolair injections in the past. She is once again in with an exacerbation. She is on IV steroids as well as nebulized bronchodilators. She is feeling better but still having some bronchospasm. Exam (Progress Note) - Constitutional Vitals: Period Temp Pulse Resp BP Sys/Luong Pulse Ox Last 24 Hr 97.6 F-98.2 F 70-110 18-20 114-137/58-70 89-99 Exam: Patient's alert and oriented. Vital signs normal. Pupils react to light. Throat is clear. Neck supple no bruits. Chest reveals bilateral expiratory wheezes. She is not tight. Heart normal rate and rhythm no murmurs. Abdomen soft nontender no masses. Extremities no clubbing cyanosis or edema. Calves nontender. Results - Labs CBC & BMP: 01/31/17 22:31 01/31/17 22:31 Lab Results: I have reviewed the past 24 hour labs Assessment and Plan (1) Asthma with exacerbation Status: Acute Assessment and plan: Continuing intravenous steroids and bronchodilators per nebulizer. Not ready to wean medications yet. Current Visit: No Qualifiers: Asthma severity: severe persistent Qualified Code(s): J45.51 - Severe persistent asthma with (acute) exacerbation (2) Diabetes mellitus Status: Chronic Assessment and plan: Glucoses elevated due to steroids. Patient on sliding scale insulin. Defer to primary service. Current Visit: Yes Qualifiers: Diabetes mellitus type: type 2 Diabetes mellitus complication status: with neurologic complications Diabetes mellitus complication detail: with autonomic neuropathy (3) Gastroparesis Status: Chronic Assessment and plan: Does not appear to have trouble swallowing. No nausea. No vomiting Current Visit: No
--- NOTE | 2017-02-03 12:39 | Hospitalist Progress Note ---
Assessment and Plan (1) Asthma with exacerbation Status: Acute Assessment and plan: The patient is admitted to the hospital for acute on chronic asthma with exacerbation. The patient is receiving usual treatment for asthma and improving incrementally. Will reevaluate tomorrow. I am going to add 2 doses of Humulin N 16 units with breakfast and supper. Will reevaluate blood glucose tomorrow. Current Visit: No Qualifiers: Asthma severity: severe persistent Qualified Code(s): J45.51 - Severe persistent asthma with (acute) exacerbation Hospitalist: Subjective Interval history: Mrs. Armstrong continues with shortness of breath. She has mild wheezing and moderate air trapping today. This is an incremental improvement over the last 2 days. The patient is having hyperglycemia Exam - Constitutional Vitals: Period Temp Pulse Resp BP Sys/Luong Pulse Ox Last 24 Hr 97.6 F-98.4 F 70-115 18-20 114-149/58-77 89-99 General appearance: mild distress - Respiratory Respiratory exam: Present: prolonged expiratory phase (Moderate), wheezes (Mild) Results - Labs CBC & BMP: 01/31/17 22:31 01/31/17 22:31 Lab Results: I have reviewed the past 24 hour labs
[2017-02-03] MEDS: INSULIN NPH 100 UNIT/ML SUBCUT SCH (16:25)
[2017-02-03] MEDS: ZALEPLON 5 MG CAPSULE PO PRN (20:09)
[2017-02-03] MEDS: DILTIAZEM CD 300 MG CAPSULE PO SCH (20:10)
[2017-02-03] MEDS: MONTELUKAST 10 MG TABLET PO SCH (20:11)
[2017-02-04] MEDS: ALBUTEROL/IPRATROPIUM 3 ML NEB RESP TX SCH ×4 (00:22→20:09)
[2017-02-04] MEDS: methylPREDNISolone SOD SUC 40 MG/1 ML VIAL IV SCH ×2 (03:39→10:26)
[2017-02-04 07:03] LABS: Magnesium 2.8 MG/DL (1.8-2.4); Osmolality,Calculated 289.5 MOS/KG (273-304); Potassium 4.4 MMOL/L (3.5-5.1)
[2017-02-04] MEDS: ARFORMOTEROL 15 MCG/2 ML NEB RESP TX SCH ×2 (07:26→20:09)
[2017-02-04] MEDS: BECLOMETHASONE 80 MCG/PUFF INHALER 8.7 GM INH SCH ×2 (09:11→20:24)
[2017-02-04] MEDS: FLUTICASONE 50 MCG NASAL SPRAY 16 GM BOTTLE BOTH NARES SCH (09:11)
[2017-02-04] MEDS: ENOXAPARIN 40 MG/0.4 ML SYRINGE SUBCUT SCH (09:11)
[2017-02-04] MEDS: INSULIN NPH 100 UNIT/ML SUBCUT SCH ×2 (09:11→16:07)
[2017-02-04] MEDS: AZITHROMYCIN 250 MG TABLET PO SCH (09:12)
[2017-02-04] MEDS: PANTOPRAZOLE 40 MG TABLET PO SCH ×2 (09:12→20:24)
[2017-02-04] MEDS: INSULIN LISPRO 100 UNIT/ML SUBCUT SCH ×4 (09:12→21:45)
[2017-02-04] MEDS: ERYTHROMYCIN BASE 250 MG TABLET PO SCH ×3 (09:13→20:22)
[2017-02-04] MEDS: glipiZIDE 5 MG TABLET PO SCH (09:13)
[2017-02-04] MEDS: THEOPHYLLINE ER (24 HR) 400 MG TABLET PO SCH ×2 (09:13→16:07)
[2017-02-04] MEDS: FUROSEMIDE 20 MG TABLET PO SCH (09:13)
[2017-02-04] MEDS: BENZONATATE 100 MG CAPSULE PO SCH ×3 (09:13→20:22)
[2017-02-04] MEDS: POLYETHYLENE GLYCOL POWDER 17 GM PACK PO SCH (09:16)
--- NOTE | 2017-02-04 09:27 | Pulmonology Progress Note ---
Pulmonary - PN: Subj Interval history: This 61-year-old white female has severe asthma. She has frequent admissions. She is on Brovana and Qvar at home. She has been on Xolair injections in the past. She is once again in with an exacerbation. She is on IV steroids as well as nebulized bronchodilators. She is feeling better but still having some bronchospasm. 02/04/2017 patient feels a little better. Glucoses are little high. Will reduce steroids some. Exam (Progress Note) - Constitutional Vitals: Period Temp Pulse Resp BP Sys/Luong Pulse Ox Last 24 Hr 97.2 F-99.0 F 72-97 18-20 109-139/54-76 91-99 Exam: Patient's alert and oriented. Vital signs normal. Pupils react to light. Throat is clear. Neck supple no bruits. Chest reveals mild bilateral expiratory wheezes. She is not tight. Heart normal rate and rhythm no murmurs. Abdomen soft nontender no masses. Extremities no clubbing cyanosis or edema. Calves nontender. Results - Labs CBC & BMP: 01/31/17 22:31 02/04/17 04:28 Lab Results: I have reviewed the past 24 hour labs Assessment and Plan (1) Asthma with exacerbation Status: Acute Assessment and plan: Continuing intravenous steroids and bronchodilators per nebulizer. Not ready to wean medications yet. 02/04/2017 she is a little better. Will reduce steroids. Glucose is too high. Current Visit: No Qualifiers: Asthma severity: severe persistent Qualified Code(s): J45.51 - Severe persistent asthma with (acute) exacerbation (2) Diabetes mellitus Status: Chronic Assessment and plan: Glucoses elevated due to steroids. Patient on sliding scale insulin. Defer to primary service. 02/04/2017 blood sugars running in the 300s. Current Visit: Yes Qualifiers: Diabetes mellitus type: type 2 Diabetes mellitus complication status: with neurologic complications Diabetes mellitus complication detail: with autonomic neuropathy (3) Gastroparesis Status: Chronic Assessment and plan: Does not appear to have trouble swallowing. No nausea. No vomiting 02/04/2017 no problems with eating at present. Current Visit: No
--- NOTE | 2017-02-04 13:05 | Hospitalist Progress Note ---
Assessment and Plan (1) Asthma with exacerbation Status: Acute Assessment and plan: The patient is admitted to the hospital for acute on chronic asthma with exacerbation. The patient is receiving usual treatment for asthma and improving incrementally. Will reevaluate tomorrow. Blood glucose is difficult to control on high-dose steroids. Steroid has been reduced. Current Visit: No Qualifiers: Asthma severity: severe persistent Qualified Code(s): J45.51 - Severe persistent asthma with (acute) exacerbation Hospitalist: Subjective Interval history: This 61-year-old lady has severe asthma. She has frequent admissions. She is on Brovana and Qvar at home. She has been on Xolair injections in the past. She is once again in with an exacerbation. She is on IV steroids as well as nebulized bronchodilators. She is feeling better but still having some bronchospasm. The patient is more active today and was walking in the hallway when I arrived. Exam - Constitutional Vitals: Period Temp Pulse Resp BP Sys/Luong Pulse Ox Last 24 Hr 97.2 F-99.0 F 74-100 17-20 109-142/54-76 91-99 General appearance: mild distress - Respiratory Respiratory exam: Present: decreased breath sounds, prolonged expiratory phase ( Moderate), wheezes (Mild) - Cardiovascular Cardiovascular exam: Present: regular rate and rhythm Results - Labs CBC & BMP: 01/31/17 22:31 02/04/17 04:28 Lab Results: I have reviewed the past 24 hour labs
[2017-02-04] MEDS: ZALEPLON 5 MG CAPSULE PO PRN (20:20)
[2017-02-04] MEDS: DILTIAZEM CD 300 MG CAPSULE PO SCH (20:21)
[2017-02-04] MEDS: MONTELUKAST 10 MG TABLET PO SCH (20:24)
[2017-02-05] MEDS: ALBUTEROL/IPRATROPIUM 3 ML NEB RESP TX SCH ×3 (00:22→13:25)
[2017-02-05] MEDS: ARFORMOTEROL 15 MCG/2 ML NEB RESP TX SCH (07:25)
[2017-02-05] MEDS: INSULIN NPH 100 UNIT/ML SUBCUT SCH (09:25)
[2017-02-05] MEDS: THEOPHYLLINE ER (24 HR) 400 MG TABLET PO SCH (09:25)
[2017-02-05] MEDS: POLYETHYLENE GLYCOL POWDER 17 GM PACK PO SCH (09:25)
[2017-02-05] MEDS: AZITHROMYCIN 250 MG TABLET PO SCH (09:25)
[2017-02-05] MEDS: ERYTHROMYCIN BASE 250 MG TABLET PO SCH (09:25)
[2017-02-05] MEDS: BENZONATATE 100 MG CAPSULE PO SCH (09:25)
[2017-02-05] MEDS: PANTOPRAZOLE 40 MG TABLET PO SCH (09:25)
[2017-02-05] MEDS: ENOXAPARIN 40 MG/0.4 ML SYRINGE SUBCUT SCH (09:25)
[2017-02-05] MEDS: CHOLECALCIFEROL 1,000 UNIT TABLET PO SCH (09:25)
[2017-02-05] MEDS: FUROSEMIDE 20 MG TABLET PO SCH (09:25)
[2017-02-05] MEDS: INSULIN LISPRO 100 UNIT/ML SUBCUT SCH ×2 (09:32→13:00)
[2017-02-05] MEDS: methylPREDNISolone SOD SUC 40 MG/1 ML VIAL IV SCH (09:33)
[2017-02-05] MEDS: BECLOMETHASONE 80 MCG/PUFF INHALER 8.7 GM INH SCH (09:35)
[2017-02-05] MEDS: glipiZIDE 5 MG TABLET PO SCH (09:35)
[2017-02-05] MEDS: FLUTICASONE 50 MCG NASAL SPRAY 16 GM BOTTLE BOTH NARES SCH (09:35)
[2017-02-05] MEDS ORDERED: HYDROCORTISONE 2.5% RECTAL CREAM 30 GM TUBE TOP PRN (09:36)
--- NOTE | 2017-02-05 11:19 | Discharge Summary ---
Hospital Course - Hospital Course Hospital Course: Ms. Armstrong is a 61 year old female with a history of asthma and COPD presents to the emergency department today with significant shortness of breath and wheezing. She has reoccurring hospitalizations due to asthma and COPD exacerbation. She is currently followed by an transfer agent and security door installer. Despite maximum therapy she continues to have problems with exacerbations. Chest x-ray is negative. Patient was given duo nebs and IV steroids. Her blood sugars have been elevated and was started on insulin but her blood sugar easily bottoms out at home. She says that she has been taking her glipizide on a as needed basis. Patient also suffers from GERD and obstructive sleep apnea. She has a CPAP machine that she wears at night and she takes Protonix for her GERD twice a day. Patient also has known gastroparesis and is on erythromycin. Patient is doing better today and will be discharged home with follow-up with Dr. Hendrickson, her transfer agent and her primary care doctor. She will complete 7 more days of levaquin with a steroid taper. She does not want to use insulin. - Time spent with patient Time with patient DS: Greater than 30 minutes (50 min) Discharge Plan - Discharge Data Disposition: Disch To Home/Self Care Condition at Discharge: Stable Discharge Diet: diabetic diet Activity: resume usual activities as tolerated Hygiene: no restrictions Weight Bearing at Discharge: full weight bearing Driving: no restrictions - Discharge Medications New guaiFENesin/DM LIQUID [Robitussin Dm] 10 ml PO Q4H PRN PRN Reason: Cough Levofloxacin Tab [Levaquin Tab] 500 mg PO DAILY #7 tablet Hydrocortisone 2.5% Rectal Cr [Anusol HC Cream] 1 applic TOP TID PRN #30 gram PRN Reason: Hemorrhoids Continue glipiZIDE [Glipizide] 5 mg PO DAILY Pantoprazole Sodium 40 mg PO BID Furosemide Tab [Lasix Tab] 20 mg PO DAILY Albuterol Sulfate [Ventolin HFA] 2 puff INH Q4H PRN PRN Reason: Shortness Of Breath/Wheezing Montelukast Tab [Singulair Tab] 10 mg PO BEDTIME Arformoterol Neb [Brovana] 15 mcg RESP TX BID #90 Benzonatate 100 mg PO TID Albuterol/Ipratropium Neb [Duoneb] 3 ml RESP TX RT Q6H #100 applicator dilTIAZem HCl [Diltiazem ER (24 hr)] 300 mg PO BEDTIME HYDROcodone/ACETAMIN 7.5-325 [[place] 7.5-325] 1 tablet PO Q4H PRN PRN Reason: Pain predniSONE TAB [PredniSONE] 10 mg PO DAILY #0 Fluticasone 50 Mcg Nasal [place] [Flonase Nasal [place]] 1 spray BOTH NARES DAILY Beclomethasone 40 Mcg Inhaler [Qvar 40 Mcg] 2 puffs INH BID Theophylline ER Tab (24 Hr) 200 mg PO BID W/MEALS #100 Cholecalciferol [Vitamin D3] 1,000 unit PO QOTHER DAY Erythromycin Base 250 mg PO TID No Action Promethazine Tab [Phenergan Tab] 25 mg PO Q6H PRN PRN Reason: Nausea/Vomiting Tiotropium [place] [Spiriva Respimat] 4 gm INH DAILY Levofloxacin Tab [Levaquin Tab] 500 mg PO DAILY #3 tablet - Follow Up or Referral Follow Up: transfer agentdr [Other] - 1 Week Wilfrid Hendrickson MD [Physician] - 1 Week pmdr john [Other] - 2 Weeks - Forms/Instructions Additional Discharge Instructions: tell her not to milk pickup driver the azithromycin from the pharmacy. I will send her home on levaquin Exam - Constitutional Vitals: Period Temp Pulse Resp BP Sys/Luong Pulse Ox Last 24 Hr 97.2 F-98.6 F 78-109 16-20 113-142/56-80 94-100 General appearance: normal weight, no acute distress - Respiratory Respiratory exam: Present: clear to auscultation bilaterally, wheezes. Absent: rhonchi - Cardiovascular Cardiovascular exam: Present: regular rate and rhythm. Absent: systolic murmur - GI/Abdominal GI/Abdominal exam: Present: normal bowel sounds, soft. Absent: tenderness - Extremities Exam Extremities exam: Present: normal inspection, normal capillary refill - Neurological Exam Neurological exam: Present: alert, oriented X3 Discharge Results Procedures and tests throughout hospitalization: Pending Orders 01/31/17 18:11 Blood Culture Stat Labs on day of discharge: Labs from last 24 hours 02/05/17 02/04/17 02/04/17 07:29 20:35 15:48 POC Glucose 189 H 339 H 230 H 02/04/17 11:41 POC Glucose 296 H Preliminary micro results at discharge 01/31/17 18:11 Blood Culture - Preliminary Blood No growth at 3 days 01/31/17 18:11 Blood Culture - Preliminary Blood No growth at 3 days DS: Provider Date of admission: 01/31/17 23:56 Primary care physician: . Jana PCP Attending physician on admission: Chico Tolliver MD Consults: 01/31/17 23:56 Consult to Physician [CONS] Routine Comment: asthma exacerbation Consulting Provider: Wilfrid Hendrickson Consult to Specialist Group: Pulmonology When should Consulting Provider be notified: Now Person Notified: EMMA Date Notified: 02/01/17 Time Notified: 15:17 Discharging clinician: Kiana Andres MD
[2017-02-05 11:26] VITALS: BP 129/73
--- NOTE | 2017-02-05 12:20 | Pulmonology Progress Note ---
Pulmonary - PN: Subj Interval history: Patient is a 61-year-old black lady that has chronic asthma. She came in with a mild exacerbation with coughing and wheezing. She says she had a good weekend and that her breathing is much better today. She says she slept well last night. Her coughing and wheezing are better. She feels like going home today. Exam (Progress Note) - Constitutional Vitals: Period Temp Pulse Resp BP Sys/Luong Pulse Ox Last 24 Hr 97.2 F-98.6 F 78-109 16-20 113-129/56-80 94-100 Exam: General appearance: no acute distress (She looks reasonably comfortable now. She is walking around her room without problems.), over weight - Head Head exam: Present: normal inspection, normocephalic - Eye Eye exam: Present: EOMI. Absent: scleral icterus Pupils: Present: MUSTAPHA - ENT ENT exam: Present: normal exam - Neck Neck exam: Present: normal inspection. Absent: lymphadenopathy, thyromegaly - Respiratory Respiratory exam: Present: Her lungs have good breath sounds bilaterally she is moving air reasonably well with only minimal rhonchi now. - Cardiovascular Cardiovascular exam: Present: regular rate and rhythm. Absent: gallop, systolic murmur - GI/Abdominal GI/Abdominal exam: Present: normal bowel sounds, soft. Absent: organomegaly, tenderness - Extremities Exam Extremities exam: Absent: calf tenderness, edema, she has no signs of phlebitis. - Back Exam Back exam: Present: normal inspection - Neurological Exam Neurological exam: Present: alert, oriented X3, CN II-XII intact - Psychiatric Psychiatric exam: Present: normal affect - Skin Skin exam: Present: warm, dry Results - Labs CBC & BMP: 01/31/17 22:31 02/04/17 04:28 Assessment and Plan (1) Diabetes mellitus Status: Chronic Assessment and plan: The patient's glucose will be monitored while on steroids. Her glucose is 189 this morning. Current Visit: No Qualifiers: Diabetes mellitus type: type 2 Diabetes mellitus complication status: without complication (2) ARLETH (obstructive sleep apnea) Status: Chronic Assessment and plan: I do not think she is very compliant with treatment. She is not using CPAP at present. Current Visit: No (3) Hypertension Status: Chronic Assessment and plan: She will continue her blood pressure medicines. She appears to be hemodynamically stable Current Visit: No (4) Chronic asthma with acute exacerbation Status: Acute Assessment and plan: She has chronically been on bronchodilators and steroids. Her mild exacerbation is not that bad. She is feeling better and wants to go home. She has bronchodilators and her nebulizer along with inhaled steroids. She can taper prednisone at home. She has been very hard to keep clear. Current Visit: Yes Qualifiers: Asthma severity: severe persistent Qualified Code(s): J45.51 - Severe persistent asthma with (acute) exacerbation Specialty Discharge - Follow Up or Referrals Follow up with: balance clerkdr [Other] - [address] oscar [Other] - 2 Weeks Wilfrid Hendrickson MD [Physician] - 1 Week
== END 2017-02-05 15:35 | disposition home or self-care (01) | DRG 140 ==
LOC: N.ED 21:46 → SUATTDRO 23:56 → N.EDINP 23:56 → N.4E 02-01 00:56
PROVIDERS: ADMIT Family Medicine; ATTEND Internal Medicine

== ENCOUNTER 2017-02-21 09:10 | Inpatient (IN) ==
[2017-02-21] MEDS ORDERED: ALBUTEROL 2.5 MG/3 ML NEB RESP TX STA (09:24)
[2017-02-21] MEDS ORDERED: methylPREDNISolone SOD SUC 125 MG/2 ML VIAL IV STA (09:25)
--- NOTE | 2017-02-21 09:26 | EKG Report ---
Stationary ECG Study [facility] ER Test Date: 02/21/2017 9:20:40 AM Pat Name: FEMI ZACARIAS Department: Room: Gender: F Video Production Coordinator: : 1955 Requested by: Albert Yo Order Number: [id number] [place] MD: TARAN BEY Intervals [place] Rate: 109 P: 58 [place]: 125 QRS: -7 QRSD: 93 T: 29 QT: 320 QTc: 384 Interpretive Statements SINUS TACHYCARDIA CONSIDER ANTEROSEPTAL INFARCT OR LEAD PLACEMENT Electronically Signed On 02-21-17 16:54:53 CDT by TARAN BEY [email or web address]
[2017-02-21] MEDS ORDERED: methylPREDNISolone SOD SUC 125 MG/2 ML VIAL ONE (09:28)
[2017-02-21 09:44] LABS: Basophils # 0.1 10*3/uL (0.0-0.2); Basophils % 0.8 % (0.0-0.8); Eosinophils # 0.6 10*3/uL (0.0-0.87); Eosinophils % 8.4 % (0.00-10.9); Hematocrit 39.6 VOL% (35.7-47.0); Hemoglobin 13.7 GM/DL (12.0-16.0); Immature Granulocytes % 0.6 %; Immature Granulocytes Absolute 0.04 #; Lymphocytes % 28.7 % (21.3-54.2); Mean Corpuscular HGB Conc 34.6 GM/DL (32-36); Mean Corpuscular Hemoglobin 31 PG (27-34); Mean Corpuscular Volume 88.6 FL (87-102); Mean Platelet Volume 10.1 FL (9.6-12.0); Monocytes # 0.4 10*3/uL (0.11-0.8); Monocytes % 6.2 % (1.7-12.7); Neutrophils # 3.9 10*3/uL (1.4-7.4); Neutrophils % 55.3 % (38.7-73.9); Platelet Count 229 T/CUMM (130-400); Red Blood Count 4.47 MC/CUMM (3.8-5.5); Red Cell Distribution Width 14.6 % (9.3-17.3); White Blood Count 7.1 T/CUMM (4-12)
--- NOTE | 2017-02-21 09:53 | XRay Report ---
XR chest 2V Date: 02/21/2017 9:24 AM History: Wheezing, shortness of breath Comparison: 01/31/2017 Technique: PA and lateral chest Findings: The heart is normal in size. Bronchial wall thickening with minimal accentuation of the perihilar markings. No acute osseous findings. Impression: Findings which can be seen with possible reactive airway disease or viral illness. PROCEDURE INTERPRETED AT [facility] DEPARTMENT OF RADIOLOGY Final Report Signed by: Dr. Jayla Zafar
[2017-02-21 10:15] LABS: Albumin 4.1 G/DL (3.4-5.0); Bilirubin,Total 0.7 MG/DL (0.2-1.0); Calcium 9.7 MG/DL (8.5-10.1); Potassium 3.7 MMOL/L (3.5-5.1); Total Protein 7.1 G/DL (6.4-8.3)
--- NOTE | 2017-02-21 10:31 | Emergency Department Note ---
Adrianna Lincoln Hilary, am scribing for, and in the presence of, Albert Chun MD 10:03. Lay Lincoln Phillip K, MD, personally performed the services described in this documentation, ascribed by Rosalina Rodas in my presence, and it is both accurate and complete . Arrival - Arrival Chief Complaint: Upper Respiratory Stated Complaint: wheezing ED Nursing Triage Note: Brought in by EMS c/o cough and wheezing-onset last night, worse this morning. States her nebulizer treatments aren't helping. Audible wheezing ntoed. Mode of Arrival: Stretcher Limitations: No Limitations Source: Patient, RN Notes Reviewed Time Seen by Provider: 02/21/17 09:38 - History of Present Illness HPI Narrative: Pt is a 61 y/o female brought to the ED via EMS for c/o coughing and wheezing which onset last night but worsened this morning. She reports that her nebulizer treatments are not helping. Pt confirms dry cough, wheezing, SOB, fever, chills, diaphoresis but denies nausea. Pt has a PMHx of heart flutters, HTN, NIDDM, Asthma, COPD, and Bronchitis. She states that she has been taking 10mg prednisone, 1/2 a tablet every other day. No other complaints or problems stated in the ED. Onset (ago): hour(s) Consistency: constant Severity: moderate Severity scale (1-10): 2 Date of Last Menstrual Period: hysterectomy Allergies/Adverse Reactions: Allergies Allergy/AdvReac Type Severity Reaction Status Date / Time strawberry Allergy Mild ITCHING Verified 01/16/17 17:04 Iodinated Contrast Media - Allergy ANAPHYLAXIS Verified 01/16/17 17:04 Oral and [Iodinated Contrast Media - IV Dye] Penicillins Allergy RASH Verified 01/16/17 17:04 iodine AdvReac ITCHING Verified 01/16/17 17:04 Home Medications: Home Medications Medication Instructions Recorded Confirmed Type glipiZIDE [Glipizide] 5 mg PO DAILY 08/25/15 02/01/17 History Pantoprazole Sodium 40 mg PO BID 12/01/15 02/01/17 History Furosemide Tab [Lasix Tab] 20 mg PO DAILY 03/18/16 02/01/17 History Albuterol Sulfate [Ventolin HFA] 2 puff INH Q4H PRN 04/24/16 02/01/17 History Montelukast Tab [Singulair Tab] 10 mg PO BEDTIME 04/24/16 02/01/17 History Fluticasone 50 Mcg Nasal [place] 1 spray BOTH NARES DAILY 06/01/16 02/01/17 History [Flonase Nasal [place]] Promethazine Tab [Phenergan Tab] 25 mg PO Q6H PRN 07/07/16 02/01/17 History Beclomethasone 40 Mcg Inhaler 2 puffs INH BID 08/01/16 02/01/17 History [Qvar 40 Mcg] Arformoterol Neb [Brovana] 15 mcg RESP TX BID #90 08/28/16 02/01/17 Rx Theophylline ER Tab (24 Hr) 200 mg PO BID W/MEALS #100 08/28/16 02/01/17 Rx Cholecalciferol [Vitamin D3] 1,000 unit PO QOTHER DAY 11/03/16 02/01/17 History Benzonatate 100 mg PO TID 12/23/16 02/01/17 History Tiotropium [place] [Spiriva 4 gm INH DAILY 12/23/16 02/01/17 History Respimat] Albuterol/Ipratropium Neb [Duoneb] 3 ml RESP TX RT Q6H #100 applicator 12/31/16 02/01/17 Rx Levofloxacin Tab [Levaquin Tab] 500 mg PO DAILY #3 tablet 12/31/16 02/01/17 Rx Erythromycin Base 250 mg PO TID 01/16/17 02/01/17 History HYDROcodone/ACETAMIN 7.5-325 1 tablet PO Q4H PRN 01/16/17 02/01/17 History [[place] 7.5-325] dilTIAZem HCl [Diltiazem ER (24 300 mg PO BEDTIME 01/16/17 02/01/17 History hr)] Hydrocortisone 2.5% Rectal Cr 1 applic TOP TID PRN #30 gram 02/05/17 Rx [Anusol HC Cream] Levofloxacin Tab [Levaquin Tab] 500 mg PO DAILY #7 tablet 02/05/17 Rx guaiFENesin/DM LIQUID [Robitussin 10 ml PO Q4H PRN 02/05/17 Rx Dm] predniSONE TAB [PredniSONE] 10 mg PO DAILY #0 02/05/17 02/01/17 Rx Review of System - Review of System 12 point system: reviewed and no additional remarkable complaints except as stated - Review of System Constitutional: Present: chills, diaphoresis, fever Respiratory: Present: cough, respiratory distress (SOB), wheezing Medical,Surgical,& Family Hx - Medical History Cardio: History of: Cardiac Dysrhythmia (she states that her heart flutters), Hypertension No history of: CHF, CAD Neurology: History of: Migraine No history of: Brain Aneurysm, Cerebral Hemorrhage, Cerebrovascular Accident , Cerebral Palsy, Dementia, Multiple Sclerosis, Parkinson's Disease, Peripheral Neuropathy, Seizures, TIA, Vertigo, Neurologocal Cancer HEENT: History of: Ear Problem (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), HEENT Problems ( chronic allergic rhinitis) Endocrine: History of: Diabetes Mellitus (NIDDM) (recently diagnosed), Thyroid Disorder, Endocrine Problems (morbid obesity) Rheumatology: History of;: Rheumatological Problems (carpal tunnel) Respiratory: History of: Asthma, Bronchitis, COPD, Obstructive Sleep Apnea, Respiratory Problems (patient states that she is on home oxygen) Gastrointestinal: History of: GERD, GI Problems (gastroparesis) Musculoskeletal: History of: Musculoskeletal Problems (NUMBNESS AND TINGLING IN FEET AND LEGS) - Surgical History Cardiac Surgeries: Patient Denies: Cardiac Catheterization Thoracic Surgeries: Patient denies;: Organ Transplant, Lobectomy Neurologic Surgeries: Patient denies: Brain Aneurysm, Cerebral Hemorrhage, Neurologic Surgery HEENT Surgeries: Patient denies: Eye Surgery, Thyroid Surgery, Tonsilectomy & Adenoidectomy Abdominal Surgeries: Patient denies: Abdominal Surgery Reproductive Surgeries: Surgical HX of;: Hysterectomy - Family History Family History: Reports;: Family Cancer (father-liver cancer), Family Diabetes ( father and mother), Family Heart Disease (father), Family Hypertension (father) , Family Psychiatric Problems (mom and sister), Family Stroke (mom) - Social History Smoking Status: Never smoker Frequency of Alcohol Use: None Type of Drug Use: None Exam Vital Signs: Vital Signs Temperature 99.0 F 02/21/17 09:17 Pulse Rate 118 H 02/21/17 09:50 Respiratory Rate 28 H 02/21/17 09:50 Blood Pressure 114/91 02/21/17 09:30 O2 Sat by Pulse Oximetry 96 02/21/17 09:50 - General General appearance: alert, in no apparent distress - Head Head exam: Present: atraumatic, normocephalic - Eye Eye exam: Present: normal appearance, PERRL, EOMI - ENT ENT exam: Present: mucous membranes moist, TM's normal bilaterally. Absent: mucous membranes dry - Neck Neck exam: Present: full ROM, trachea midline. Absent: tenderness - Chest Chest inspection: Present: symmetric chest wall rise. Absent: tenderness - Respiratory Respiratory exam: Present: prolonged expiratory phase, wheezes (expiratory). Absent: normal lung sounds bilaterally - Cardiovascular Cardiovascular exam: Present: normal rhythm, tachycardia, normal heart sounds. Absent: murmur, rubs, gallop - Abdominal Exam Abdominal exam: Present: soft, normal bowel sounds. Absent: distention, tenderness - Extremities Exam Extremities exam: Present: full ROM. Absent: tenderness - Back Exam Back exam: Present: full ROM. Absent: tenderness - Neurological Exam Neurological exam: Present: alert, oriented X3, CN II-XII intact. Absent: motor sensory deficit - Psychiatric Psychiatric exam: Present: normal affect, normal mood - Skin Skin exam: Present: warm, dry, intact, normal color. Absent: rash Results - Labs CBC & BMP: 02/21/17 09:21 02/21/17 09:21 Lab Results: I have reviewed the patients labs Labs: Laboratory Tests 02/21/17 09:21 WBC 7.1 RBC 4.47 Hgb 13.7 Hct 39.6 Plt Count 229 Laboratory Tests 02/21/17 09:21 Sodium 143 Potassium 3.7 Chloride 108 H Carbon Dioxide 27 Glucose 156 H Alkaline Phosphatase 171 H Total Protein 7.1 - Diagnostic Findings Procedure: Chest x-ray: report reviewed by me (Finding which can be seen with possible reactive airway disease or viral illness.) Disposition Clinical Impression: Asthma with exacerbation, Bronchitis Case discussed with: patient Disposition: Still a Patient Condition: Guarded Additional Instructions: Admit to the hospitalist.
--- NOTE | 2017-02-21 11:58 | Hospitalist History & Physical ---
<Leonardo Martínez - Last Filed: 02/21/17 11:44> Assessment and Plan - Time spent with patient Time spent with patient: Greater than 30 minutes (1) Asthma with exacerbation Status: Acute Assessment and plan: Patient has continued shortness of breath and audible wheezing post 3 breathing treatments in the ED. Will admit for an continue duo nebs every 4 hours and IV steroids. Current Visit: Yes Qualifiers: Asthma severity: severe persistent Qualified Code(s): J45.51 - Severe persistent asthma with (acute) exacerbation (2) Acute exacerbation of chronic obstructive airways disease Status: Acute Assessment and plan: As above Current Visit: No (3) Acute dyspnea Status: Acute Assessment and plan: Continue pulse oximetry and O2 per nasal cannula Current Visit: No (4) Obstructive sleep apnea Status: Acute Assessment and plan: CPAP use at night Current Visit: No (5) GERD (gastroesophageal reflux disease) Status: Chronic Assessment and plan: Continue PPI therapy Current Visit: No (6) Gastroparesis Status: Chronic Current Visit: No (7) Hypertension Status: Chronic Current Visit: No Qualifiers: Hypertension type: essential hypertension Qualified Code(s): I10 - Essential (primary) hypertension (8) Hyperglycemia, drug-induced Status: Acute Current Visit: Yes History of Present Illness Chief complaint: SOB, wheezing History of present illness: Ms. Armstrong is a 61 year old female with a past medical history significant for asthma and COPD who presents to the emergency department today with significant shortness of breath and wheezing with having onset this morning. She is well known to our service and has frequent hospitalizations due to asthma and COPD exacerbation. She is currently followed by an multi needle machine operator and adult basic education manager (Dr. Hendrickson). Despite maximum therapy she continues to have problems with exacerbations. Chest x-ray is suggestive of reactive airway disease. Patient was given duo nebs and IV steroids in the emergency room. Her blood sugars have been elevated due to chronic ICS; however, the patient states that she bottoms out easily at home. She says that she has been taking her glipizide on a as needed basis. Patient also suffers from GERD and obstructive sleep apnea. She has a CPAP machine that she wears at night and she takes Protonix for her GERD twice a day. Patient also has known gastroparesis and is on erythromycin. She confirms severe SOB, wheezing, bloating, and constipation. Since receiving the breathing treatments, the patient has had a cough minimally productive of yellow sputum. She denies headache, chest pain, nausea or vomiting, lower extremity edema. Lab work is significant for: serum glucose 156, alk phos 171. This case has been discussed with Dr. Chun, ER physician, and Dr. Tolliver, admitting physician, and the patient will be admitted to the hospital medicine service for further evaluation and treatment. CODE STATUS was discussed with patient; she is a FULL CODE. Home medications have been reviewed and reconciled. Home Medications Medication Instructions Recorded Confirmed Type glipiZIDE [Glipizide] 5 mg PO DAILY PRN 08/25/15 02/21/17 History Pantoprazole Sodium 40 mg PO BID 12/01/15 02/21/17 History Furosemide Tab [Lasix Tab] 20 mg PO QAM 03/18/16 02/21/17 History Albuterol Sulfate [Ventolin HFA] 2 puff INH Q4H PRN 04/24/16 02/21/17 History Montelukast Tab [Singulair Tab] 10 mg PO BEDTIME 04/24/16 02/21/17 History Fluticasone 50 Mcg Nasal [place] 1 spray BOTH NARES QAM 06/01/16 02/21/17 History [Flonase Nasal [place]] Promethazine Tab [Phenergan Tab] 25 mg PO Q6H PRN 07/07/16 02/21/17 History Arformoterol Neb [Brovana] 15 mcg RESP TX BID #90 08/28/16 02/21/17 Rx Theophylline ER Tab (24 Hr) 200 mg PO BID W/MEALS #100 08/28/16 02/21/17 Rx Cholecalciferol [Vitamin D3] 1,000 unit PO QOTHER DAY 11/03/16 02/21/17 History Benzonatate 100 mg PO TID 12/23/16 02/21/17 History Tiotropium [place] [Spiriva 4 gm INH PC LUNCH 12/23/16 02/21/17 History Respimat] Albuterol/Ipratropium Neb [Duoneb] 3 ml RESP TX RT Q6H #100 applicator 12/31/16 02/21/17 Rx Erythromycin Base 250 mg PO TID W/MEALS 01/16/17 02/21/17 History HYDROcodone/ACETAMIN 7.5-325 1 tablet PO Q4H PRN 01/16/17 02/21/17 History [[place] 7.5-325] dilTIAZem HCl [Diltiazem ER (24 300 mg PO BEDTIME 01/16/17 02/21/17 History hr)] guaiFENesin/DM LIQUID [Robitussin 10 ml PO Q4H PRN 02/05/17 02/21/17 Rx Dm] Beclomethasone 80 Mcg Inhaler 2 puffs INH BID 02/21/17 02/21/17 History [Qvar 80 Mcg] predniSONE TAB [PredniSONE] 10 mg PO QAM 02/21/17 02/21/17 History Allergies Allergy/AdvReac Type Severity Reaction Status Date / Time strawberry Allergy Mild ITCHING Verified 01/16/17 17:04 Iodinated Contrast Media - Allergy ANAPHYLAXIS Verified 01/16/17 17:04 Oral and [Iodinated Contrast Media - IV Dye] Penicillins Allergy RASH Verified 01/16/17 17:04 iodine AdvReac ITCHING Verified 01/16/17 17:04 Medical,Surgical,& Family Hx - Medical History Cardio: History of: Cardiac Dysrhythmia (she states that her heart flutters), Hypertension No history of: CHF, CAD Neurology: History of: Migraine No history of: Brain Aneurysm, Cerebral Hemorrhage, Cerebrovascular Accident , Cerebral Palsy, Dementia, Multiple Sclerosis, Parkinson's Disease, Peripheral Neuropathy, Seizures, TIA, Vertigo, Neurologocal Cancer HEENT: History of: Ear Problem (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), HEENT Problems ( chronic allergic rhinitis) Endocrine: History of: Diabetes Mellitus (NIDDM) (recently diagnosed), Thyroid Disorder, Endocrine Problems (morbid obesity) Rheumatology: History of;: Rheumatological Problems (carpal tunnel) Respiratory: History of: Asthma, Bronchitis, COPD, Obstructive Sleep Apnea, Respiratory Problems (patient states that she is on home oxygen) Gastrointestinal: History of: GERD, GI Problems (gastroparesis) Musculoskeletal: History of: Musculoskeletal Problems (NUMBNESS AND TINGLING IN FEET AND LEGS) - Surgical History Cardiac Surgeries: Patient Denies: Cardiac Catheterization Thoracic Surgeries: Patient denies;: Organ Transplant, Lobectomy Neurologic Surgeries: Patient denies: Brain Aneurysm, Cerebral Hemorrhage, Neurologic Surgery HEENT Surgeries: Patient denies: Eye Surgery, Thyroid Surgery, Tonsilectomy & Adenoidectomy Abdominal Surgeries: Patient denies: Abdominal Surgery Reproductive Surgeries: Surgical HX of;: Hysterectomy - Family History Family History: Reports;: Family Cancer (father-liver cancer), Family Diabetes ( father and mother), Family Heart Disease (father), Family Hypertension (father) , Family Psychiatric Problems (mom and sister), Family Stroke (mom) - Social History Smoking Status: Never smoker Frequency of Alcohol Use: None Type of Drug Use: None Marital Status: Lives With:: Alone Functional capacity: independent ambulation 12 point system: reviewed and no additional remarkable complaints except as stated Exam - Constitutional Vitals: Period Temp Pulse Resp BP Sys/Luong Pulse Ox Last 24 Hr 99.0 F-99.0 F 87-127 21-28 114-166/91-101 91-99 Exam: General appearance: obese, mild distress - Head Head exam: Present: normocephalic, atraumatic - Eye Eye exam: Present: EOMI. Absent: conjunctival injection, nystagmus Pupils: Present: MUSTAPHA, normal accommodation - ENT ENT exam: Present: normal exam, normal external ear exam - Neck Neck exam: Present: normal inspection. Absent: lymphadenopathy, tenderness, thyromegaly - Respiratory Respiratory exam: Present: diffuse rhonchi and expiratory wheezing bilaterally Absent: rales - Cardiovascular Cardiovascular exam: Present: tachycardia. Absent: carotid bruit, gallop, rubs - GI/Abdominal GI/Abdominal exam: Present: normal bowel sounds, distended Absent: ascites - Extremities Exam Extremities exam: Present: normal inspection, normal capillary refill. Absent: edema - Back Exam Back exam: Absent: CVA tenderness (L), CVA tenderness (R) - Neurological Exam Neurological exam: Present: alert, oriented X3, CN II-XII intact, reflexes normal - Psychiatric Psychiatric exam: Present: normal affect, normal mood - Skin Skin exam: Present: normal color, warm, dry Results - Labs CBC & BMP: 02/21/17 09:21 02/21/17 09:21 Lab Results: I have reviewed the past 24 hour labs - EKG EKG results: interpreted by ERMD - Diagnostic Findings Procedure: Chest x-ray: image reviewed by me, report reviewed by me (Reactive airway disease) <Gabe Calabrese - Last Filed: 02/21/17 16:01> History of Present Illness History of present illness: Ms. Armstrong is a 61 year old female Exam - Constitutional Vitals: Period Temp Pulse Resp BP Sys/[place] Pulse Ox Last 24 Hr 98.2 F-99.0 F 87-130 12-28 114-166/74-101 91-99 Results - Labs CBC & BMP: 02/21/17 09:21 02/21/17 09:21
[2017-02-21] MEDS ORDERED: ACETAMINOPHEN 325 MG TABLET PO PRN (12:11)
[2017-02-21] MEDS ORDERED: PANTOPRAZOLE 40 MG TABLET PO SCH (12:30)
[2017-02-21] MEDS: ALBUTEROL/IPRATROPIUM 3 ML NEB RESP TX SCH ×2 (12:32→19:24)
[2017-02-21] MEDS ORDERED: ONDANSETRON 4 MG/2 ML VIAL ONE (12:55)
[2017-02-21] MEDS ORDERED: LEVOFLOXACIN 750 MG TABLET ONE (12:55)
[2017-02-21] MEDS: LEVOFLOXACIN 750 MG TABLET PO SCH (13:02)
[2017-02-21] MEDS ORDERED: ONDANSETRON 4 MG/2 ML VIAL IV STA (13:11)
[2017-02-21] MEDS: methylPREDNISolone SOD SUC 40 MG/1 ML VIAL IV SCH ×2 (15:41→21:18)
[2017-02-21] MEDS ORDERED: DEXTROSE 50% 25 GM/50 ML SYRINGE IV PRN (16:36)
[2017-02-21] MEDS ORDERED: GLUCAGON 1 MG VIAL IM PRN (16:36)
[2017-02-21] MEDS ORDERED: PROMETHAZINE 25 MG TABLET PO PRN (16:52)
[2017-02-21] MEDS: IPRATROPIUM 500 MCG/2.5 ML NEB RESP TX SCH (19:24)
[2017-02-21] MEDS: ARFORMOTEROL 15 MCG/2 ML NEB RESP TX SCH (19:24)
[2017-02-21] MEDS: MONTELUKAST 10 MG TABLET PO SCH (21:18)
[2017-02-21] MEDS: DILTIAZEM CD 300 MG CAPSULE PO SCH (21:18)
[2017-02-21] MEDS: BENZONATATE 100 MG CAPSULE PO SCH (21:18)
[2017-02-21] MEDS: PANTOPRAZOLE 40 MG TABLET PO SCH (21:18)
[2017-02-21] MEDS: BECLOMETHASONE 80 MCG/PUFF INHALER 8.7 GM INH SCH (22:18)
[2017-02-22] MEDS: ALBUTEROL/IPRATROPIUM 3 ML NEB RESP TX SCH ×4 (00:33→19:52)
[2017-02-22] MEDS: methylPREDNISolone SOD SUC 40 MG/1 ML VIAL IV SCH ×4 (03:27→22:25)
[2017-02-22 07:23] LABS: Basophils % 0.1 % (0.0-0.8); Hematocrit 38.1 VOL% (35.7-47.0); Hemoglobin 13.2 GM/DL (12.0-16.0); Immature Granulocytes % 1.3 %; Immature Granulocytes Absolute 0.17 #; Lymphocytes # 1.1 10*3/uL (1.4-4.0); Lymphocytes % 8.9 % (21.3-54.2); Mean Corpuscular HGB Conc 34.6 GM/DL (32-36); Mean Corpuscular Hemoglobin 31 PG (27-34); Mean Corpuscular Volume 88.2 FL (87-102); Mean Platelet Volume 10.4 FL (9.6-12.0); Monocytes # 0.2 10*3/uL (0.11-0.8); Monocytes % 1.3 % (1.7-12.7); Neutrophils # 11.3 10*3/uL (1.4-7.4); Neutrophils % 88.4 % (38.7-73.9); Platelet Count 248 T/CUMM (130-400); Red Blood Count 4.32 MC/CUMM (3.8-5.5); Red Cell Distribution Width 14.6 % (9.3-17.3); White Blood Count 12.8 T/CUMM (4-12)
[2017-02-22] MEDS: ARFORMOTEROL 15 MCG/2 ML NEB RESP TX SCH ×2 (07:36→19:52)
[2017-02-22] MEDS: IPRATROPIUM 500 MCG/2.5 ML NEB RESP TX SCH ×2 (07:36→13:48)
[2017-02-22 07:50] LABS: Osmolality,Calculated 286.3 MOS/KG (273-304); Potassium 4.5 MMOL/L (3.5-5.1)
[2017-02-22] MEDS: FLUTICASONE 50 MCG NASAL SPRAY 16 GM BOTTLE BOTH NARES SCH (08:28)
[2017-02-22] MEDS: PANTOPRAZOLE 40 MG TABLET PO SCH ×2 (08:28→20:18)
[2017-02-22] MEDS: BECLOMETHASONE 80 MCG/PUFF INHALER 8.7 GM INH SCH ×2 (08:28→20:20)
[2017-02-22] MEDS: FUROSEMIDE 20 MG TABLET PO SCH (08:28)
[2017-02-22] MEDS: BENZONATATE 100 MG CAPSULE PO SCH ×3 (08:28→20:18)
--- NOTE | 2017-02-22 08:44 | XRay Report ---
XR chest 2V Date: 02/22/2017 4:00 AM History: Shortness of breath Comparison: 02/21/2017 Technique: PA and lateral chest Findings: The heart is slightly larger in size with minimally progressive parenchymal findings in the right mid-lower lung zone. Stable mediastinum and osseous structures. Impression: The heart is slightly larger in size with minimal atelectasis/infiltration/edema in the right mid-lower lung zone. PROCEDURE INTERPRETED AT [facility] DEPARTMENT OF RADIOLOGY Final Report Signed by: Dr. Jayla Zafar
--- NOTE | 2017-02-22 09:53 | Pulmonology Consult Note ---
Assessment and Plan (1) Asthma with exacerbation Status: Acute Assessment and plan: The patient comes in with a mild asthma exacerbation. She does fairly well with steroids and bronchodilators. She is hard to keep out of the hospital however Current Visit: Yes Qualifiers: Asthma severity: severe persistent Qualified Code(s): J45.51 - Severe persistent asthma with (acute) exacerbation (2) GERD (gastroesophageal reflux disease) Status: Chronic Assessment and plan: She will continue with antireflux measures. Current Visit: No (3) Diabetes mellitus Status: Chronic Assessment and plan: Her glucose is around 200. Current Visit: No Qualifiers: Diabetes mellitus type: type 2 Diabetes mellitus complication status: with neurologic complications Diabetes mellitus complication detail: with autonomic neuropathy (4) ARLETH (obstructive sleep apnea) Status: Chronic Assessment and plan: I do not think she is compliant with CPAP. Current Visit: No (5) Essential hypertension Status: Chronic Assessment and plan: Patient's blood pressure is stable. Current Visit: No History of Present Illness Chief complaint: Asthma History of present illness: Ms. Armstrong is a 61 year old black female that has chronic persistent asthma and is very difficult to treat. She is keeps coming back any time she has little trouble. She said the weather changed and her breathing got worse yesterday. She has had some sneezing and sinus drainage. She is not having any fever. She does not have any purulent secretions. She says she is feeling a little better at present. She has been extremely difficult to treat for one reason or another. Home Medications Medication Instructions Recorded Confirmed Type glipiZIDE [Glipizide] 5 mg PO DAILY PRN 08/25/15 02/21/17 History Pantoprazole Sodium 40 mg PO BID 12/01/15 02/21/17 History Furosemide Tab [Lasix Tab] 20 mg PO QAM 03/18/16 02/21/17 History Albuterol Sulfate [Ventolin HFA] 2 puff INH Q4H PRN 04/24/16 02/21/17 History Montelukast Tab [Singulair Tab] 10 mg PO BEDTIME 04/24/16 02/21/17 History Fluticasone 50 Mcg Nasal [place] 1 spray BOTH NARES QAM 06/01/16 02/21/17 History [Flonase Nasal [place]] Promethazine Tab [Phenergan Tab] 25 mg PO Q6H PRN 07/07/16 02/21/17 History Arformoterol Neb [Brovana] 15 mcg RESP TX BID #90 08/28/16 02/21/17 Rx Theophylline ER Tab (24 Hr) 200 mg PO BID W/MEALS #100 08/28/16 02/21/17 Rx Cholecalciferol [Vitamin D3] 1,000 unit PO QOTHER DAY 11/03/16 02/21/17 History Benzonatate 100 mg PO TID 12/23/16 02/21/17 History Tiotropium [place] [Spiriva 4 gm INH PC LUNCH 12/23/16 02/21/17 History Respimat] Albuterol/Ipratropium Neb [Duoneb] 3 ml RESP TX RT Q6H #100 applicator 12/31/16 02/21/17 Rx Erythromycin Base 250 mg PO TID W/MEALS 01/16/17 02/21/17 History HYDROcodone/ACETAMIN 7.5-325 1 tablet PO Q4H PRN 01/16/17 02/21/17 History [[place] 7.5-325] dilTIAZem HCl [Diltiazem ER (24 300 mg PO BEDTIME 01/16/17 02/21/17 History hr)] guaiFENesin/DM LIQUID [Robitussin 10 ml PO Q4H PRN 02/05/17 02/21/17 Rx Dm] Beclomethasone 80 Mcg Inhaler 2 puffs INH BID 02/21/17 02/21/17 History [Qvar 80 Mcg] predniSONE TAB [PredniSONE] 10 mg PO QAM 02/21/17 02/21/17 History Allergies Allergy/AdvReac Type Severity Reaction Status Date / Time strawberry Allergy Mild ITCHING Verified 01/16/17 17:04 Iodinated Contrast Media - Allergy ANAPHYLAXIS Verified 01/16/17 17:04 Oral and [Iodinated Contrast Media - IV Dye] Penicillins Allergy RASH Verified 01/16/17 17:04 iodine AdvReac ITCHING Verified 01/16/17 17:04 - Constitutional Constitutional: Present: fatigue, weight gain. Absent: chills, fever(s) - EENT Eyes: Absent: loss of vision Ears: Absent: decreased hearing Nose, mouth and throat: Present: sinus pressure. Absent: dysphagia, headache(s) - Cardiovascular Cardiovascular: Present: dyspnea. Absent: chest pain at rest, edema, palpitations - Respiratory Respiratory: Present: cough, wheezing. Absent: hemoptysis, change in phlegm color - Gastrointestinal Gastrointestinal: Absent: abdominal pain, change in bowel habits, dysphagia, nausea, vomiting - Genitourinary Genitourinary: Absent: difficulty urinating, dysuria, hematuria - Musculoskeletal Musculoskeletal: Absent: arthralgias Exam (Pulmonay) H&P - Constitutional Vitals: Period Temp Pulse Resp BP Sys/Luong Pulse Ox Last 24 Hr 96.8 F-98.7 F 87-130 12-22 132-153/68-75 91-99 General appearance: no acute distress, over weight - Head Head exam: Present: normal inspection, normocephalic - Eye Eye exam: Present: EOMI. Absent: scleral icterus Pupils: Present: MUSTAPHA - ENT ENT exam: Present: normal exam - Neck Neck exam: Present: normal inspection. Absent: lymphadenopathy, thyromegaly - Respiratory Respiratory exam: Present: wheezes. Absent: accessory muscle use - Cardiovascular Cardiovascular exam: Present: regular rate and rhythm. Absent: gallop, systolic murmur - GI/Abdominal GI/Abdominal exam: Present: normal bowel sounds, soft. Absent: organomegaly, tenderness - Extremities Exam Extremities exam: Absent: calf tenderness, edema - Neurological Exam Neurological exam: Present: alert, oriented X3, CN II-XII intact - Psychiatric Psychiatric exam: Present: normal affect, normal mood - Skin Skin exam: Present: warm, dry Medical,Surgical,& Family Hx - Medical History Cardio: History of: Cardiac Dysrhythmia (she states that her heart flutters), Hypertension No history of: CHF, CAD Neurology: History of: Migraine No history of: Brain Aneurysm, Cerebral Hemorrhage, Cerebrovascular Accident , Cerebral Palsy, Dementia, Multiple Sclerosis, Parkinson's Disease, Peripheral Neuropathy, Seizures, TIA, Vertigo, Neurologocal Cancer HEENT: History of: Ear Problem (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), HEENT Problems ( chronic allergic rhinitis) Endocrine: History of: Diabetes Mellitus (NIDDM) (recently diagnosed), Thyroid Disorder, Endocrine Problems (morbid obesity) Rheumatology: History of;: Rheumatological Problems (carpal tunnel) Respiratory: History of: Asthma, Bronchitis, COPD, Obstructive Sleep Apnea, Respiratory Problems (patient states that she is on home oxygen) Gastrointestinal: History of: GERD, GI Problems (gastroparesis) Musculoskeletal: History of: Musculoskeletal Problems (NUMBNESS AND TINGLING IN FEET AND LEGS) - Surgical History Cardiac Surgeries: Patient Denies: Cardiac Catheterization Thoracic Surgeries: Patient denies;: Organ Transplant, Lobectomy Neurologic Surgeries: Patient denies: Brain Aneurysm, Cerebral Hemorrhage, Neurologic Surgery HEENT Surgeries: Patient denies: Eye Surgery, Thyroid Surgery, Tonsilectomy & Adenoidectomy Abdominal Surgeries: Patient denies: Abdominal Surgery Reproductive Surgeries: Surgical HX of;: Hysterectomy - Family History Family History: Reports;: Family Cancer (father-liver cancer), Family Diabetes ( father and mother), Family Heart Disease (father), Family Hypertension (father) , Family Psychiatric Problems (mom and sister), Family Stroke (mom) - Social History Smoking Status: Never smoker Frequency of Alcohol Use: None Type of Drug Use: None Results - Labs CBC & BMP: 02/22/17 06:25 02/22/17 06:25 - Diagnostic Findings Procedure: Chest x-ray: image reviewed by me, report reviewed by me (Chest x- ray is clear.) Specialty Discharge - Follow Up or Referrals
[2017-02-22] MEDS ORDERED: ALUMINUM/MAGNES/SIMETH MAX STR 30 ML UDCUP PO PRN (10:59)
[2017-02-22] MEDS: LEVOFLOXACIN 750 MG TABLET PO SCH (12:06)
[2017-02-22] MEDS: POLYETHYLENE GLYCOL POWDER 17 GM PACK PO SCH (12:07)
--- NOTE | 2017-02-22 14:09 | Hospitalist Progress Note ---
Assessment and Plan (1) Asthma with exacerbation Status: Acute Assessment and plan: Although symptomatically better she still has diffuse rhonchi and has frequent admissions will continue on IV steroid and current management. Appreciate Dr. Hendrickson to help with the management Current Visit: Yes Qualifiers: Asthma severity: severe persistent Qualified Code(s): J45.51 - Severe persistent asthma with (acute) exacerbation (2) Leukocytosis Status: Acute Assessment and plan: Noted leukocytosis likely from the IV steroid Current Visit: Yes (3) Hypertension Status: Chronic Assessment and plan: Controlled Current Visit: No Qualifiers: Hypertension type: essential hypertension Qualified Code(s): I10 - Essential (primary) hypertension (4) Type 2 diabetes mellitus Status: Chronic Assessment and plan: We will continue monitor blood sugar and as needed short-acting insulin for blood sugar managed Current Visit: No Hospitalist: Subjective Interval history: Patient states her breathing some better with sputum loosening up. She just wants something to sleep and relax because all these medications make her anxious. She remained afebrile Exam - Constitutional Vitals: Period Temp Pulse Resp BP Sys/Luong Pulse Ox Last 24 Hr 96.8 F-98.7 F 95-130 16-22 129-153/64-75 91-99 General appearance: no acute distress, over weight - Head Head exam: Present: normal inspection, normocephalic, atraumatic - Eye Eye exam: Present: EOMI. Absent: conjunctival injection Pupils: Present: MUSTAPHA, normal accommodation - Neck Neck exam: Present: normal inspection - Respiratory Respiratory exam: Present: rhonchi (Bilateral equal air entry with diffuse rhonchi). Absent: accessory muscle use, rales - Cardiovascular Cardiovascular exam: Present: regular rate and rhythm. Absent: tachycardia - GI/Abdominal GI/Abdominal exam: Present: normal bowel sounds. Absent: distended, tenderness - Extremities Exam Extremities exam: Present: normal inspection. Absent: edema - Neurological Exam Neurological exam: Present: alert, oriented X3 Results - Labs CBC & BMP: 02/22/17 06:25 02/22/17 06:25 Lab Results: I have reviewed the past 24 hour labs Specialty Discharge - Follow Up or Referrals
[2017-02-22] MEDS: INSULIN REGULAR 100 UNIT/ML SUBCUT SCH (16:47)
[2017-02-22] MEDS: MONTELUKAST 10 MG TABLET PO SCH (20:18)
[2017-02-22] MEDS: clonazePAM 0.5 MG TABLET PO PRN (20:19)
[2017-02-22] MEDS: DILTIAZEM CD 300 MG CAPSULE PO SCH (20:20)
[2017-02-23] MEDS: ALBUTEROL/IPRATROPIUM 3 ML NEB RESP TX SCH ×4 (00:46→18:59)
[2017-02-23] MEDS: methylPREDNISolone SOD SUC 40 MG/1 ML VIAL IV SCH ×2 (04:14→10:04)
[2017-02-23] MEDS: IPRATROPIUM 500 MCG/2.5 ML NEB RESP TX SCH ×6 (07:26→19:00)
[2017-02-23] MEDS: ARFORMOTEROL 15 MCG/2 ML NEB RESP TX SCH ×2 (08:00→19:00)
--- NOTE | 2017-02-23 08:36 | Pulmonology Progress Note ---
Pulmonary - PN: Subj Interval history: Patient is a 61-year-old black lady that has chronic persistent asthma along with obstructive sleep apnea and obesity. She comes in with wheezing and coughing again. She feels better today and is clearing nicely. She is walking the maloney and not really having any distress. She says she slept better last night. Overall she looks like she is reasonably stable. Exam (Progress Note) - Constitutional Vitals: Period Temp Pulse Resp BP Sys/Luong Pulse Ox Last 24 Hr 97.3 F-99 F 85-111 14-22 103-143/62-81 91-99 Exam: General appearance: no acute distress, over weight, she looks comfortable sitting up in bed. - Head Head exam: Present: normal inspection, normocephalic - Eye Eye exam: Present: EOMI. Absent: scleral icterus Pupils: Present: MUSTAPHA - ENT ENT exam: Present: normal exam, no sinus tenderness. - Neck Neck exam: Present: normal inspection. Absent: lymphadenopathy, thyromegaly - Respiratory Respiratory exam: Present: Her lungs have fairly good air movement with just very minimal wheeze now. She is not using any accessory muscles. - Cardiovascular Cardiovascular exam: Present: regular rate and rhythm. Absent: gallop, systolic murmur - GI/Abdominal GI/Abdominal exam: Present: normal bowel sounds, soft. Absent: organomegaly, tenderness - Extremities Exam Extremities exam: Absent: calf tenderness, edema - Neurological Exam Neurological exam: Present: alert, oriented X3, CN II-XII intact - Psychiatric Psychiatric exam: Present: normal affect, normal mood - Skin Skin exam: Present: warm, dry Results - Labs CBC & BMP: 02/22/17 06:25 02/22/17 06:25 Assessment and Plan (1) Asthma with exacerbation Status: Acute Assessment and plan: The patient comes in with a mild asthma exacerbation. She does fairly well with steroids and bronchodilators. She is hard to keep out of the hospital however. She can probably taper her steroids as an outpatient and can go home anytime. Current Visit: Yes Qualifiers: Asthma severity: severe persistent Qualified Code(s): J45.51 - Severe persistent asthma with (acute) exacerbation (2) GERD (gastroesophageal reflux disease) Status: Chronic Assessment and plan: She will continue with antireflux measures. Current Visit: No (3) Diabetes mellitus Status: Chronic Assessment and plan: Her glucose is around 200. She is getting insulin. Current Visit: No Qualifiers: Diabetes mellitus type: type 2 Diabetes mellitus complication status: with neurologic complications Diabetes mellitus complication detail: with autonomic neuropathy (4) ARLETH (obstructive sleep apnea) Status: Chronic Assessment and plan: She says she has a new machine and has been using her CPAP at night. Current Visit: No (5) Essential hypertension Status: Chronic Assessment and plan: Patient's blood pressure is stable. Current Visit: No Specialty Discharge - Follow Up or Referrals
[2017-02-23] MEDS ORDERED: CHOLECALCIFEROL 1,000 UNIT TABLET PO SCH (09:00)
[2017-02-23] MEDS: INSULIN REGULAR 100 UNIT/ML SUBCUT SCH ×2 (09:58→17:48)
[2017-02-23] MEDS: BECLOMETHASONE 80 MCG/PUFF INHALER 8.7 GM INH SCH ×2 (10:00→22:00)
[2017-02-23] MEDS: FLUTICASONE 50 MCG NASAL SPRAY 16 GM BOTTLE BOTH NARES SCH (10:00)
[2017-02-23] MEDS: POLYETHYLENE GLYCOL POWDER 17 GM PACK PO SCH (10:02)
[2017-02-23] MEDS: PANTOPRAZOLE 40 MG TABLET PO SCH ×2 (10:02→21:59)
[2017-02-23] MEDS: FUROSEMIDE 20 MG TABLET PO SCH (10:02)
[2017-02-23] MEDS: BENZONATATE 100 MG CAPSULE PO SCH ×3 (10:03→21:59)
[2017-02-23] MEDS: clonazePAM 0.5 MG TABLET PO PRN ×2 (10:03→22:07)
[2017-02-23] MEDS: LEVOFLOXACIN 750 MG TABLET PO SCH (13:35)
--- NOTE | 2017-02-23 16:07 | Hospitalist Progress Note ---
Assessment and Plan (1) Asthma with exacerbation Status: Acute Assessment and plan: This seems to be intrinsic asthma with status asthmaticus in the emergency room. She did not respond to initial intervention repeatedly. Current Visit: Yes Qualifiers: Asthma severity: severe persistent Qualified Code(s): J45.51 - Severe persistent asthma with (acute) exacerbation (2) Acute exacerbation of chronic obstructive airways disease Status: Acute Assessment and plan: Continue treatment for COPD exacerbation alongside treatment for the asthma. Current Visit: No (3) Diabetes mellitus Status: Chronic Assessment and plan: Noticed that her blood sugars a little bit high on the use of steroid does not help. Will therefore aggressively intervene with a as needed insulin here. Current Visit: No Qualifiers: Diabetes mellitus type: type 2 Diabetes mellitus complication status: with neurologic complications Diabetes mellitus complication detail: with autonomic neuropathy Hospitalist: Subjective Interval history: Patient has been seen interviewed and examined and chart has been reviewed. Admitted to the hospital with status asthmaticus with history of COPD and asthma asthmatic bronchitis. She also has obstructive sleep apnea using his CPAP at home. Her asthma has been difficult to break she still is quite prolonged expiratory phase with end-expiratory wheezing. She has been on systemic IV steroids I am going to switch it to oral prednisone today. Exam - Constitutional Vitals: Period Temp Pulse Resp BP Sys/Luong Pulse Ox Last 24 Hr 97.1 F-99 F 85-111 14-20 103-143/62-81 91-100 General appearance: no acute distress, morbidly obese - Head Head exam: Present: normocephalic, atraumatic - Eye Eye exam: Present: EOMI Pupils: Present: MUSTAPHA - Neck Neck exam: Present: normal inspection - Respiratory Respiratory exam: Present: clear to auscultation bilaterally, other (Prolonged expiratory phase with end-expiratory wheezing but no respiratory distress) - Cardiovascular Cardiovascular exam: Present: regular rate and rhythm - GI/Abdominal GI/Abdominal exam: Present: normal bowel sounds, soft - Extremities Exam Extremities exam: Present: full ROM - Neurological Exam Neurological exam: Present: alert, oriented X3, CN II-XII intact - Psychiatric Psychiatric exam: Present: normal affect, normal mood - Skin Skin exam: Present: normal color, warm, dry Results - Labs CBC & BMP: 02/22/17 06:25 02/22/17 06:25 Lab Results: I have reviewed the past 24 hour labs Specialty Discharge - Follow Up or Referrals
[2017-02-23] MEDS: MONTELUKAST 10 MG TABLET PO SCH (21:58)
[2017-02-23] MEDS: predniSONE 20 MG TABLET PO SCH (21:59)
[2017-02-23] MEDS: DILTIAZEM CD 300 MG CAPSULE PO SCH (22:00)
[2017-02-24] MEDS: ALBUTEROL/IPRATROPIUM 3 ML NEB RESP TX SCH ×3 (00:41→14:09)
[2017-02-24] MEDS: ARFORMOTEROL 15 MCG/2 ML NEB RESP TX SCH (07:26)
[2017-02-24] MEDS: POLYETHYLENE GLYCOL POWDER 17 GM PACK PO SCH (09:44)
[2017-02-24] MEDS: BENZONATATE 100 MG CAPSULE PO SCH (09:44)
[2017-02-24] MEDS: PANTOPRAZOLE 40 MG TABLET PO SCH (09:45)
[2017-02-24] MEDS: clonazePAM 0.5 MG TABLET PO PRN (09:45)
[2017-02-24] MEDS: FUROSEMIDE 20 MG TABLET PO SCH (09:45)
[2017-02-24] MEDS: predniSONE 20 MG TABLET PO SCH (09:45)
[2017-02-24] MEDS: FLUTICASONE 50 MCG NASAL SPRAY 16 GM BOTTLE BOTH NARES SCH (09:46)
[2017-02-24] MEDS: BECLOMETHASONE 80 MCG/PUFF INHALER 8.7 GM INH SCH (09:46)
[2017-02-24] MEDS: INSULIN REGULAR 100 UNIT/ML SUBCUT SCH (09:51)
[2017-02-24] MEDS: IPRATROPIUM 500 MCG/2.5 ML NEB RESP TX SCH (09:52)
--- NOTE | 2017-02-24 11:07 | Discharge Summary ---
<Leonardo Martínez - Last Filed: 02/24/17 13:08> Hospital Course - Hospital Course Hospital Course: Ms. Armstrong is a 61-year-old -[place] female that has chronic persistent asthma which is very difficult to treat. She presented to the ED on 02/21/2017 with acute asthma exacerbation. She was admitted to the hospital medicine service and treated with IV steroids and bronchodilators along with pulmonology consultation. She does have obstructive sleep apnea however is unclear whether the patient is compliant with CPAP at home. She was started on IV Levaquin to treat suspected upper respiratory infection could be contributing to this exacerbation. Patient began to improve clinically and symptomatically. At this time, the patient has reached maximum benefit from hospitalization and is stable for discharge home. She should continue to remain compliant with her current medication regimen as well as home CPAP use to try and minimize hospitalization. Patient is to follow with her PCP as well as vessel master in outpatient setting in 1-2 weeks. - Time spent with patient Time with patient DS: Greater than 30 minutes (37) Diagnosis - Discharge Diagnosis (1) Asthma with exacerbation Status: Acute (2) Acute exacerbation of chronic obstructive airways disease Status: Acute (3) Acute dyspnea Status: Acute (4) Obstructive sleep apnea Status: Acute (5) GERD (gastroesophageal reflux disease) Status: Chronic (6) Gastroparesis Status: Chronic (7) Hypertension Status: Chronic (8) Hyperglycemia, drug-induced Status: Acute Specialty Discharge - Follow Up or Referrals Discharge Plan - Discharge Data Disposition: Disch To Home/Self Care - Discharge Medications New predniSONE TAB [PredniSONE] 20 mg PO BID #10 tablet predniSONE TAB [PredniSONE] 20 mg PO DAILY #5 tablet predniSONE TAB [PredniSONE] 5 mg PO DAILY #7 tablet predniSONE TAB [PredniSONE] 10 mg PO DAILY #7 tablet Continue glipiZIDE [Glipizide] 5 mg PO DAILY PRN PRN Reason: GLUCOSE >180 Pantoprazole Sodium 40 mg PO BID Furosemide Tab [Lasix Tab] 20 mg PO QAM Albuterol Sulfate [Ventolin HFA] 2 puff INH Q4H PRN PRN Reason: Shortness Of Breath/Wheezing Montelukast Tab [Singulair Tab] 10 mg PO BEDTIME Promethazine Tab [Phenergan Tab] 25 mg PO Q6H PRN PRN Reason: Nausea/Vomiting Arformoterol Neb [Brovana] 15 mcg RESP TX BID #90 Benzonatate 100 mg PO TID Tiotropium [place] [Spiriva Respimat] 4 gm INH PC LUNCH Albuterol/Ipratropium Neb [Duoneb] 3 ml RESP TX RT Q6H #100 applicator dilTIAZem HCl [Diltiazem ER (24 hr)] 300 mg PO BEDTIME HYDROcodone/ACETAMIN 7.5-325 [[place] 7.5-325] 1 tablet PO Q4H PRN PRN Reason: Pain guaiFENesin/DM LIQUID [Robitussin Dm] 10 ml PO Q4H PRN PRN Reason: Cough Beclomethasone 80 Mcg Inhaler [Qvar 80 Mcg] 2 puffs INH BID predniSONE TAB [PredniSONE] 10 mg PO QAM Fluticasone 50 Mcg Nasal [place] [Flonase Nasal [place]] 1 spray BOTH NARES QAM Theophylline ER Tab (24 Hr) 200 mg PO BID W/MEALS #100 Cholecalciferol [Vitamin D3] 1,000 unit PO QOTHER DAY Erythromycin Base 250 mg PO TID W/MEALS - Follow Up or Referral - Forms/Instructions Instructions: Chronic Obstructive Pulmonary Disease (ED), Asthma, Hand Stapler (GEN), COPD Exacerbation, Hand Stapler (GEN) Exam - Constitutional Vitals: Period Temp Pulse Resp BP Sys/Luong Pulse Ox Last 24 Hr 97.1 F-98.2 F 85-110 18-20 132-142/63-85 95-100 Discharge Results Labs on day of discharge: Labs from last 24 hours 02/24/17 02/24/17 02/23/17 11:35 07:23 20:16 POC Glucose 279 H 241 H 287 H 02/23/17 16:20 POC Glucose 381 H DS: Provider Date of admission: 02/21/17 11:33 Primary care physician: Apolonia Hendrickson DO Attending physician on admission: Chico Tolliver MD Consults: 02/21/17 12:12 Consult to Pulmonary Rehabilitation [CONS] Routine Reason for Pulmonary Rehabilitation: COPD 02/21/17 17:01 Consult to Physician [CONS] Routine Comment: pt with asthma/copd execrbation Consulting Provider: Wilfrid Hendrickson Consulting Provider Notified: No When should Consulting Provider be notified: In am Person Notified: EMMA Date Notified: 02/21/17 Time Notified: 15:30 Discharging clinician: Leonardo IRWIN Expected date of discharge: 02/24/17 <VeronicaBj - Last Filed: 02/24/17 13:41> Diagnosis - Discharge Diagnosis (1) Asthma with exacerbation Status: Acute (2) Acute exacerbation of chronic obstructive airways disease Status: Acute (3) Diabetes mellitus Status: Chronic Discharge Plan - Discharge Data Condition at Discharge: Stable Discharge Diet: diabetic diet, heart healthy Activity: resume usual activities as tolerated Hygiene: no restrictions Weight Bearing at Discharge: full weight bearing Driving: no restrictions Contact your physician if you experience:: fever over 101, Nausea/Vomiting, Shortness of breath Exam - Constitutional General appearance: morbidly obese - Head Head exam: Present: normocephalic, atraumatic - Eye Eye exam: Present: EOMI Pupils: Present: MUSTAPHA - ENT ENT exam: Present: normal exam - Neck Neck exam: Present: normal inspection - Respiratory Respiratory exam: Present: clear to auscultation bilaterally, other (End expiratory wheezing no respiratory distress no cough) - Cardiovascular Cardiovascular exam: Present: regular rate and rhythm - GI/Abdominal GI/Abdominal exam: Present: normal bowel sounds, soft - Extremities Exam Extremities exam: Present: full ROM - Neurological Exam Neurological exam: Present: alert, oriented X3, CN II-XII intact - Psychiatric Psychiatric exam: Present: normal affect, normal mood - Skin Skin exam: Present: normal color, warm, dry
[2017-02-24] MEDS ORDERED: INSULIN REGULAR 100 UNIT/ML SUBCUT SCH (11:30)
[2017-02-24 11:43] VITALS: BP 133/85
[2017-02-24] MEDS: LEVOFLOXACIN 750 MG TABLET PO SCH (14:21)
--- NOTE | 2017-03-05 13:01 | Physician Query Form ---
CLICK EDIT DOCUMENT TO SELECT QUERY ANSWER --> OK --> SIGN Sariah Bates RN Clinical Service Correspondent W) [phone] (f) [phone] [email or web address] PROVIDERS: Make your selection(s) from the choices in EACH section by typing an "x" and enter comments in the comment section. Please use your independent medical judgment in providing your response. This request does not imply that any particular answer is desired or expected. CLINICAL INDICATORS: (Providers should not edit this section) Based on documentation of "Acute asthma with exacerbation" "Acute exacerbation of COPD" "Acute dyspnea" "Acute ARLETH" uses home CPAP. Room air SAT 91%. O2 2L/NC applied. If possible, please further clarify the type and acuity of respiratory diagnosis : ACUITY: ( ) Acute ( ) Chronic ( ) Acute on Chronic TYPE: ( ) Respiratory failure with hypoxia ( ) Respiratory failure with hypercapnia ( ) Respiratory Arrest ( ) Postprocedural/postoperative respiratory failure ( ) ARDS (Adult/Acute Respiratory Distress Syndrome) ( ) Other, please specify: ( ) Clinically unable to determine Recognized criteria for respiratory failure PH <7.35 or >7.45 PO2 <60 PCO2 >50 RR >24 O2 Sat <90% on RA or <95% on O2 Use of accessory muscles Unable to speak in full sentences Intubation is not required COMMENTS: PLEASE ALSO DOCUMENT RESPONSE IN PROGRESS NOTES AND/OR DISCHARGE SUMMARY Use of terms such as suspected, likely, or probable (associated with a specific diagnosis that is being evaluated, monitored, or treated as if it exists) are acceptable and can be restated in the discharge summary if not ruled out. MTDD
--- NOTE | 2017-03-12 08:00 | Physician Query Form ---
CLICK EDIT DOCUMENT TO SELECT QUERY ANSWER --> OK --> SIGN Sariah Bates RN Clinical Commercial Real Estate Sales Manager W) [phone] (f) [phone] [email or web address]: Make your selection(s) from the choices in EACH section by typing an "x" and enter comments in the comment section. Please use your independent medical judgment in providing your response. This request does not imply that any particular answer is desired or expected. CLINICAL INDICATORS: (Providers should not edit this section) Based on documentation of "Acute asthma with exacerbation" "Acute exacerbation of COPD" "Acute dyspnea" "Acute ARLETH" uses home CPAP. Room air SAT 91%. O2 2L/NC applied. If possible, please further clarify the type and acuity of respiratory diagnosis : ACUITY: ( x) Acute ( ) Chronic ( ) Acute on Chronic TYPE: (x ) Respiratory failure with hypoxia ( ) Respiratory failure with hypercapnia ( ) Respiratory Arrest ( ) Postprocedural/postoperative respiratory failure ( ) Respiratory Insufficiency ( ) ARDS (Adult/Acute Respiratory Distress Syndrome) ( ) Other, please specify: ( ) Clinically unable to determine Recognized criteria for respiratory failure PH <7.35 or >7.45 PO2 <60 PCO2 >50 RR >24 O2 Sat <90% on RA or <95% on O2 Use of accessory muscles Unable to speak in full sentences Intubation is not required COMMENTS: PLEASE ALSO DOCUMENT RESPONSE IN PROGRESS NOTES AND/OR DISCHARGE SUMMARY Use of terms such as suspected, likely, or probable (associated with a specific diagnosis that is being evaluated, monitored, or treated as if it exists) are acceptable and can be restated in the discharge summary if not ruled out. MTDD
== END 2017-02-24 14:46 | disposition home or self-care (01) | DRG 140 ==
LOC: EDUNIT# → N.ED 09:10 → SUATTDRO 11:33 → N.EDINP 11:33 → N.2E 14:10
PROVIDERS: ADMIT Family Medicine; ATTEND Internal Medicine Infectious Disease

== ENCOUNTER 2017-03-22 23:55 | Inpatient (IN) ==
[2017-03-23] MEDS ORDERED: ALBUTEROL/IPRATROPIUM 3 ML NEB RESP TX STA (02:51)
[2017-03-23] MEDS ORDERED: ALBUTEROL NEB SOLN 5 MG/ML 20 ML/BOTTLE CONT NEB STA (03:01)
[2017-03-23] MEDS ORDERED: methylPREDNISolone SOD SUC 125 MG/2 ML VIAL IV STA (03:06)
[2017-03-23 03:19] LABS: Basophils # 0.1 10*3/uL (0.0-0.2); Basophils % 0.7 % (0.0-0.8); Eosinophils # 0.5 10*3/uL (0.0-0.87); Hematocrit 42.4 VOL% (35.7-47.0); Hemoglobin 14.8 GM/DL (12.0-16.0); Immature Granulocytes % 0.3 %; Immature Granulocytes Absolute 0.03 #; Lymphocytes # 1.8 10*3/uL (1.4-4.0); Lymphocytes % 19.7 % (21.3-54.2); Mean Corpuscular HGB Conc 34.9 GM/DL (32-36); Mean Corpuscular Hemoglobin 31 PG (27-34); Mean Corpuscular Volume 89.5 FL (87-102); Mean Platelet Volume 10.4 FL (9.6-12.0); Monocytes # 0.6 10*3/uL (0.11-0.8); Monocytes % 6.8 % (1.7-12.7); Neutrophils # 5.9 10*3/uL (1.4-7.4); Neutrophils % 66.5 % (38.7-73.9); Platelet Count 327 T/CUMM (130-400); Red Blood Count 4.74 MC/CUMM (3.8-5.5); Red Cell Distribution Width 14.5 % (9.3-17.3); White Blood Count 8.9 T/CUMM (4-12)
[2017-03-23 03:28] LABS: Albumin 4.3 G/DL (3.4-5.0); Bilirubin,Total 0.5 MG/DL (0.2-1.0); Calcium 9.9 MG/DL (8.5-10.1); Osmolality,Calculated 277.5 MOS/KG (273-304); Potassium 3.7 MMOL/L (3.5-5.1); Total Protein 8.1 G/DL (6.4-8.3)
--- NOTE | 2017-03-23 03:56 | Emergency Department Note ---
Arrival - Arrival Chief Complaint: Shortness of Breath Stated Complaint: asthma ED Nursing Triage Note: Patient to triage with c/o chest tightness that has been going on all day that worsened tonight. Patient states the tightness is worse with expirations and she had a difficult time taking her breathing treatment at home. Patient has used her inhaler as well with no relief. Patient noted to have expiratory wheezing in triage. Mode of Arrival: Ambulatory Time Seen by Provider: 03/23/17 01:20 - History of Present Illness HPI Narrative: This is a 61-year-old female of descent with a history of hypertension asthma, chronic bronchitis, COPD, obstructive sleep apnea on CPAP, brief frequent admissions to the hospital for COPD exacerbation, type 2 diabetes, and hypothyroidism who presents with increased wheezing cough shortness of breath and chest pain. Allergies/Adverse Reactions: Allergies Allergy/AdvReac Type Severity Reaction Status Date / Time strawberry Allergy Mild ITCHING Verified 03/23/17 00:14 Iodinated Contrast Media - Allergy ANAPHYLAXIS Verified 03/23/17 00:14 Oral and [Iodinated Contrast Media - IV Dye] Penicillins Allergy RASH Verified 03/23/17 00:14 iodine AdvReac ITCHING Verified 03/23/17 00:14 Home Medications: Home Medications Medication Instructions Recorded Confirmed Type glipiZIDE [Glipizide] 5 mg PO DAILY PRN 08/25/15 02/21/17 History Pantoprazole Sodium 40 mg PO BID 12/01/15 02/21/17 History Furosemide Tab [Lasix Tab] 20 mg PO QAM 03/18/16 02/21/17 History Albuterol Sulfate [Ventolin HFA] 2 puff INH Q4H PRN 04/24/16 02/21/17 History Montelukast Tab [Singulair Tab] 10 mg PO BEDTIME 04/24/16 02/21/17 History Fluticasone 50 Mcg Nasal [place] 1 spray BOTH NARES QAM 06/01/16 02/21/17 History [Flonase Nasal [place]] Promethazine Tab [Phenergan Tab] 25 mg PO Q6H PRN 07/07/16 02/21/17 History Arformoterol Neb [Brovana] 15 mcg RESP TX BID #90 08/28/16 02/21/17 Rx Theophylline ER Tab (24 Hr) 200 mg PO BID W/MEALS #100 08/28/16 02/21/17 Rx Cholecalciferol [Vitamin D3] 1,000 unit PO QOTHER DAY 11/03/16 02/21/17 History Benzonatate 100 mg PO TID 12/23/16 02/21/17 History Tiotropium [place] [Spiriva 4 gm INH PC LUNCH 12/23/16 02/21/17 History Respimat] Albuterol/Ipratropium Neb [Duoneb] 3 ml RESP TX RT Q6H #100 applicator 12/31/16 02/21/17 Rx Erythromycin Base 250 mg PO TID W/MEALS 01/16/17 02/21/17 History HYDROcodone/ACETAMIN 7.5-325 1 tablet PO Q4H PRN 01/16/17 02/21/17 History [[place] 7.5-325] dilTIAZem HCl [Diltiazem ER (24 300 mg PO BEDTIME 01/16/17 02/21/17 History hr)] guaiFENesin/DM LIQUID [Robitussin 10 ml PO Q4H PRN 02/05/17 02/21/17 Rx Dm] Beclomethasone 80 Mcg Inhaler 2 puffs INH BID 02/21/17 02/21/17 History [Qvar 80 Mcg] predniSONE TAB [PredniSONE] 10 mg PO QAM 02/21/17 02/21/17 History predniSONE TAB [PredniSONE] 5 mg PO DAILY #7 tablet 02/24/17 Rx predniSONE TAB [PredniSONE] 10 mg PO DAILY #7 tablet 02/24/17 Rx predniSONE TAB [PredniSONE] 20 mg PO BID #10 tablet 02/24/17 Rx predniSONE TAB [PredniSONE] 20 mg PO DAILY #5 tablet 02/24/17 Rx Review of System - Review of System Constitutional: Absent: fever, night sweats Eyes: Absent: redness, vision change Head/Ears/Nose/Throat: Absent: epistaxis, nasal drainage Respiratory: Present: cough, wheezing Cardiovascular: Present: chest pain, dyspnea on exertion. Absent: palpitations , orthopnea Gastrointestinal: Absent: diarrhea, constipation, hematemesis, melena Genitourinary female: Absent: dysuria, frequency Musculoskeletal: Absent: joint swelling, lower back pain, leg pain Skin: Absent: change in color, change in hair/nails, pruritus Neurological: Absent: numbness, paresthesias, confusion Psychiatric: Absent: anxiety, depression Endocrine: Absent: heat intolerance, polydipsia, polyuria Hematological/Lymphatic: Absent: easy bruising, lymphadenopathy Allergic/Immunologic: Absent: urticaria, itchy eyes Medical,Surgical,& Family Hx - Medical History Cardio: History of: Cardiac Dysrhythmia (she states that her heart flutters), Hypertension No history of: CHF, CAD Neurology: History of: Migraine No history of: Brain Aneurysm, Cerebral Hemorrhage, Cerebrovascular Accident , Cerebral Palsy, Dementia, Multiple Sclerosis, Parkinson's Disease, Peripheral Neuropathy, Seizures, TIA, Vertigo, Neurologocal Cancer HEENT: History of: Ear Problem (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), HEENT Problems ( chronic allergic rhinitis) Endocrine: History of: Diabetes Mellitus (NIDDM), Thyroid Disorder, Endocrine Problems (morbid obesity) Rheumatology: History of;: Rheumatological Problems (carpal tunnel) Respiratory: History of: Asthma, Bronchitis, COPD, Obstructive Sleep Apnea, Respiratory Problems (patient states that she is on home oxygen) Gastrointestinal: History of: GERD, GI Problems (for history of significant reflux and was prescribed a hospital bed.) Musculoskeletal: History of: Musculoskeletal Problems (NUMBNESS AND TINGLING IN FEET AND LEGS) - Surgical History Cardiac Surgeries: Patient Denies: Cardiac Catheterization Thoracic Surgeries: Patient denies;: Organ Transplant, Lobectomy Neurologic Surgeries: Patient denies: Brain Aneurysm, Cerebral Hemorrhage, Neurologic Surgery HEENT Surgeries: Patient denies: Eye Surgery, Thyroid Surgery, Tonsilectomy & Adenoidectomy Abdominal Surgeries: Patient denies: Abdominal Surgery Reproductive Surgeries: Surgical HX of;: Hysterectomy - Family History Family History: Reports;: Family Cancer (father-liver cancer), Family Diabetes ( father and mother), Family Heart Disease (father), Family Hypertension (father) , Family Psychiatric Problems (mom and sister), Family Stroke (mom) - Social History Smoking Status: Never smoker Frequency of Alcohol Use: None Type of Drug Use: None Exam Vital Signs: Vital Signs Temperature 98.4 F 03/23/17 00:08 Pulse Rate 83 03/23/17 04:06 Respiratory Rate 20 03/23/17 04:06 Blood Pressure 142/75 03/23/17 00:08 O2 Sat by Pulse Oximetry 99 03/23/17 04:06 - Head Head exam: Present: atraumatic, normocephalic - Eye Eye exam: Present: PERRL, EOMI - ENT ENT exam: Present: normal exam, normal oropharynx - Neck Neck exam: Present: normal inspection, full ROM - Chest Chest inspection: Present: normal inspection, symmetric chest wall rise - Respiratory Respiratory exam: Present: wheezes - Cardiovascular Cardiovascular exam: Present: regular rate, normal rhythm - Abdominal Exam Abdominal exam: Present: soft, normal bowel sounds - Extremities Exam Extremities exam: Present: normal inspection, full ROM - Back Exam Back exam: Present: normal inspection, full ROM - Neurological Exam Neurological exam: Present: alert, oriented X3, CN II-XII intact - Psychiatric Psychiatric exam: Present: normal affect, normal mood - Skin Skin exam: Present: warm, dry Course Course Narrative: The case was discussed with the hospitalist who is familiar with the patient and agreed to admit the patient for exacerbation of COPD Results - Labs CBC & BMP: 03/23/17 01:11 03/23/17 01:11 Disposition Clinical Impression: COPD exacerbation
--- NOTE | 2017-03-23 05:31 | Hospitalist History & Physical ---
Assessment and Plan (1) Asthma with exacerbation Status: Acute Current Visit: No Qualifiers: Asthma severity: severe persistent Qualified Code(s): J45.51 - Severe persistent asthma with (acute) exacerbation (2) Respiratory distress Status: Resolved Current Visit: No (3) GERD (gastroesophageal reflux disease) Status: Chronic Current Visit: No (4) Diabetes mellitus Status: Chronic Assessment and plan: Plan for this patient. We will admit the patient our service. Scheduled breathing treatments and steroids. 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 Moose Hendrickson. Current Visit: No Qualifiers: Diabetes mellitus type: type 2 Diabetes mellitus complication status: with neurologic complications Diabetes mellitus complication detail: with autonomic neuropathy (5) ARLETH (obstructive sleep apnea) Status: Chronic Current Visit: No History of Present Illness Chief complaint: Shortness of breath and wheezing History of present illness: Ms. Armstrong is a 61 year old female with past medical history significant for asthma, chronic bronchitis COPD obstructive sleep apnea and frequent admissions to the hospital and well-known to our service presents with wheezing and shortness of breath. She reports is been going on approximately 1 day. Says that the wheezing did not respond to treatment she took at home and came to our hospital for further evaluation. I was consulted to admit her after she received an hour-long nebulizing treatment Home Medications Medication Instructions Recorded Confirmed Type glipiZIDE [Glipizide] 5 mg PO DAILY PRN 08/25/15 02/21/17 History Pantoprazole Sodium 40 mg PO BID 12/01/15 02/21/17 History Furosemide Tab [Lasix Tab] 20 mg PO QAM 03/18/16 02/21/17 History Albuterol Sulfate [Ventolin HFA] 2 puff INH Q4H PRN 04/24/16 02/21/17 History Montelukast Tab [Singulair Tab] 10 mg PO BEDTIME 04/24/16 02/21/17 History Fluticasone 50 Mcg Nasal [place] 1 spray BOTH NARES QAM 06/01/16 02/21/17 History [Flonase Nasal [place]] Promethazine Tab [Phenergan Tab] 25 mg PO Q6H PRN 07/07/16 02/21/17 History Arformoterol Neb [Brovana] 15 mcg RESP TX BID #90 08/28/16 02/21/17 Rx Theophylline ER Tab (24 Hr) 200 mg PO BID W/MEALS #100 08/28/16 02/21/17 Rx Cholecalciferol [Vitamin D3] 1,000 unit PO QOTHER DAY 11/03/16 02/21/17 History Benzonatate 100 mg PO TID 12/23/16 02/21/17 History Tiotropium [place] [Spiriva 4 gm INH PC LUNCH 12/23/16 02/21/17 History Respimat] Albuterol/Ipratropium Neb [Duoneb] 3 ml RESP TX RT Q6H #100 applicator 12/31/16 02/21/17 Rx Erythromycin Base 250 mg PO TID W/MEALS 01/16/17 02/21/17 History HYDROcodone/ACETAMIN 7.5-325 1 tablet PO Q4H PRN 01/16/17 02/21/17 History [[place] 7.5-325] dilTIAZem HCl [Diltiazem ER (24 300 mg PO BEDTIME 01/16/17 02/21/17 History hr)] guaiFENesin/DM LIQUID [Robitussin 10 ml PO Q4H PRN 02/05/17 02/21/17 Rx Dm] Beclomethasone 80 Mcg Inhaler 2 puffs INH BID 02/21/17 02/21/17 History [Qvar 80 Mcg] predniSONE TAB [PredniSONE] 10 mg PO QAM 02/21/17 02/21/17 History predniSONE TAB [PredniSONE] 5 mg PO DAILY #7 tablet 02/24/17 Rx predniSONE TAB [PredniSONE] 10 mg PO DAILY #7 tablet 02/24/17 Rx predniSONE TAB [PredniSONE] 20 mg PO BID #10 tablet 02/24/17 Rx predniSONE TAB [PredniSONE] 20 mg PO DAILY #5 tablet 02/24/17 Rx Allergies Allergy/AdvReac Type Severity Reaction Status Date / Time strawberry Allergy Mild ITCHING Verified 03/23/17 00:14 Iodinated Contrast Media - Allergy ANAPHYLAXIS Verified 03/23/17 00:14 Oral and [Iodinated Contrast Media - IV Dye] Penicillins Allergy RASH Verified 03/23/17 00:14 iodine AdvReac ITCHING Verified 03/23/17 00:14 Medical,Surgical,& Family Hx - Medical History Cardio: History of: Cardiac Dysrhythmia (she states that her heart flutters), Hypertension No history of: CHF, CAD Neurology: History of: Migraine No history of: Brain Aneurysm, Cerebral Hemorrhage, Cerebrovascular Accident , Cerebral Palsy, Dementia, Multiple Sclerosis, Parkinson's Disease, Peripheral Neuropathy, Seizures, TIA, Vertigo, Neurologocal Cancer HEENT: History of: Ear Problem (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), HEENT Problems ( chronic allergic rhinitis) Endocrine: History of: Diabetes Mellitus (NIDDM), Thyroid Disorder, Endocrine Problems (morbid obesity) Rheumatology: History of;: Rheumatological Problems (carpal tunnel) Respiratory: History of: Asthma, Bronchitis, COPD, Obstructive Sleep Apnea, Respiratory Problems (patient states that she is on home oxygen) Gastrointestinal: History of: GERD, GI Problems (for history of significant reflux and was prescribed a hospital bed.) Musculoskeletal: History of: Musculoskeletal Problems (NUMBNESS AND TINGLING IN FEET AND LEGS) - Surgical History Cardiac Surgeries: Patient Denies: Cardiac Catheterization Thoracic Surgeries: Patient denies;: Organ Transplant, Lobectomy Neurologic Surgeries: Patient denies: Brain Aneurysm, Cerebral Hemorrhage, Neurologic Surgery HEENT Surgeries: Patient denies: Eye Surgery, Thyroid Surgery, Tonsilectomy & Adenoidectomy Abdominal Surgeries: Patient denies: Abdominal Surgery Reproductive Surgeries: Surgical HX of;: Hysterectomy - Family History Family History: Reports;: Family Cancer (father-liver cancer), Family Diabetes ( father and mother), Family Heart Disease (father), Family Hypertension (father) , Family Psychiatric Problems (mom and sister), Family Stroke (mom) - Social History Smoking Status: Never smoker Frequency of Alcohol Use: None Type of Drug Use: None 12 point system: reviewed and no additional remarkable complaints except as stated Exam - Constitutional Vitals: Period Temp Pulse Resp BP Sys/Luong Pulse Ox Last 24 Hr 98.4 F-98.4 F 83-100 20-20 142-142/75-75 94-99 General appearance: morbidly obese - Head Head exam: Present: normal inspection - Eye Eye exam: Present: EOMI Pupils: Present: [place]HA - ENT ENT exam: Present: normal exam - Neck Neck exam: Present: normal inspection - Respiratory Respiratory exam: Present: wheezes - Cardiovascular Cardiovascular exam: Present: regular rate and rhythm - GI/Abdominal GI/Abdominal exam: Present: normal bowel sounds - Extremities Exam Extremities exam: Present: normal inspection - Back Exam Back exam: Present: normal inspection - Neurological Exam Neurological exam: Present: alert, oriented X3 - Psychiatric Psychiatric exam: Present: normal affect Results - Labs CBC & BMP: 03/23/17 01:11 03/23/17 01:11
[2017-03-23] MEDS ORDERED: DEXTROSE 50% 25 GM/50 ML VIAL IV PRN (05:35)
[2017-03-23] MEDS ORDERED: ONDANSETRON 4 MG/2 ML VIAL IV PRN (05:35)
[2017-03-23] MEDS ORDERED: ALBUTEROL 2.5 MG/3 ML NEB RESP TX PRN (05:35)
[2017-03-23] MEDS ORDERED: GLUCAGON 1 MG VIAL IM PRN ×2 (05:35)
[2017-03-23] MEDS ORDERED: DEXTROSE 50% 25 GM/50 ML SYRINGE IV PRN (05:35)
[2017-03-23] MEDS ORDERED: ENOXAPARIN 40 MG/0.4 ML SYRINGE ONE (07:26)
--- NOTE | 2017-03-23 07:38 | XRay Report ---
Portable chest Date: 03/23/2017 Clinical history: Shortness of breath Comparison: 02/22/2017 Technique: Portable AP sitting chest Findings: The heart is minimally enlarged with progressive diffuse parenchymal findings at the lung bases with small pleural effusions. Stable mediastinum and osseous structures. Impression: Chronic scarring with additional diffuse edema/infiltration at the lung bases with small pleural effusions. PROCEDURE INTERPRETED AT [facility] ([facility]) DEPARTMENT OF RADIOLOGY Final Report Signed by: Dr. Jayla Zafar
[2017-03-23] MEDS: ALBUTEROL/IPRATROPIUM 3 ML NEB RESP TX SCH ×3 (08:03→19:08)
[2017-03-23] MEDS: PANTOPRAZOLE 40 MG TABLET PO SCH (08:39)
[2017-03-23] MEDS: ENOXAPARIN 40 MG/0.4 ML SYRINGE SUBCUT SCH (08:39)
[2017-03-23] MEDS: INSULIN REGULAR 100 UNIT/ML SUBCUT SCH ×4 (08:39→20:05)
[2017-03-23] MEDS: methylPREDNISolone SOD SUC 125 MG/2 ML VIAL IV SCH ×3 (08:39→18:20)
[2017-03-23] MEDS: POTASSIUM CHLORIDE 20 MEQ TABLET PO SCH (08:39)
[2017-03-23] MEDS ORDERED: FUROSEMIDE 40 MG/4 ML VIAL IV SCH (09:00)
--- NOTE | 2017-03-23 09:07 | Pulmonology Consult Note ---
Assessment and Plan (1) Asthma with exacerbation Status: Acute Assessment and plan: Patient comes in with an asthma exacerbation and is reasonably comfortable at present. She will continue with vigorous respiratory therapy and steroids. Current Visit: No Qualifiers: Asthma severity: severe persistent Qualified Code(s): J45.51 - Severe persistent asthma with (acute) exacerbation (2) Respiratory distress Status: Resolved Assessment and plan: The patient gets in distress easily but she is reasonably comfortable now. Current Visit: No (3) GERD (gastroesophageal reflux disease) Status: Chronic Assessment and plan: She will continue with antireflux measures. Current Visit: No (4) Diabetes mellitus Status: Chronic Assessment and plan: Her glucoses will be monitored. Current Visit: No Qualifiers: Diabetes mellitus type: type 2 Diabetes mellitus complication status: with neurologic complications Diabetes mellitus complication detail: with autonomic neuropathy (5) ARLETH (obstructive sleep apnea) Status: Chronic Assessment and plan: She will continue with her CPAP at night. Current Visit: No History of Present Illness Chief complaint: Shortness of breath History of present illness: Ms. Armstrong is a 61 year old black female has a long history of severe persistent asthma and keep coming back in with exacerbations. She is extremely hard to keep clear. She does use CPAP at home now. She uses frequent bronchodilator therapy and we have given her steroids over and over. She comes back in now wheezing and coughing and short of breath. She says she started flaring up yesterday. She cannot really cough up a lot of secretions. She usually does well when she gets IV steroids. We have tried her on almost everything in the past. It is unclear what her home situation is like. Home Medications Medication Instructions Recorded Confirmed Type glipiZIDE [Glipizide] 5 mg PO DAILY PRN 08/25/15 03/23/17 History Pantoprazole Sodium 40 mg PO BID 12/01/15 03/23/17 History Furosemide Tab [Lasix Tab] 20 mg PO QAM 03/18/16 03/23/17 History Albuterol Sulfate [Ventolin HFA] 2 puff INH Q4H PRN 04/24/16 03/23/17 History Montelukast Tab [Singulair Tab] 10 mg PO BEDTIME 04/24/16 03/23/17 History Fluticasone 50 Mcg Nasal [place] 1 spray BOTH NARES BID 06/01/16 03/23/17 History [Flonase Nasal [place]] Arformoterol Neb [Brovana] 15 mcg RESP TX BID #90 08/28/16 03/23/17 Rx Theophylline ER Tab (24 Hr) 200 mg PO BID W/MEALS #100 08/28/16 03/23/17 Rx Cholecalciferol [Vitamin D3] 1,000 unit PO QOTHER DAY 11/03/16 03/23/17 History Benzonatate 100 mg PO TID 12/23/16 03/23/17 History Tiotropium [place] [Spiriva 4 gm INH PC LUNCH 12/23/16 03/23/17 History Respimat] Albuterol/Ipratropium Neb [Duoneb] 3 ml RESP TX RT Q6H #100 applicator 12/31/16 03/23/17 Rx Erythromycin Base 250 mg PO BID W/MEALS 01/16/17 03/23/17 History HYDROcodone/ACETAMIN 7.5-325 1 tablet PO Q4H PRN 01/16/17 03/23/17 History [[place] 7.5-325] dilTIAZem HCl [Diltiazem ER (24 300 mg PO BEDTIME 01/16/17 03/23/17 History hr)] guaiFENesin/DM LIQUID [Robitussin 10 ml PO Q4H PRN 02/05/17 03/23/17 Rx Dm] Beclomethasone 80 Mcg Inhaler 2 puffs INH BID 02/21/17 03/23/17 History [Qvar 80 Mcg] Allergies Allergy/AdvReac Type Severity Reaction Status Date / Time strawberry Allergy Mild ITCHING Verified 03/23/17 06:55 Iodinated Contrast Media - Allergy ANAPHYLAXIS Verified 03/23/17 06:55 Oral and [Iodinated Contrast Media - IV Dye] Penicillins Allergy RASH Verified 03/23/17 06:55 iodine AdvReac ITCHING Verified 03/23/17 06:55 - Constitutional Constitutional: Present: fatigue. Absent: chills, fever(s) - EENT Eyes: Absent: loss of vision Ears: Absent: decreased hearing Nose, mouth and throat: Absent: dysphagia, headache(s), sinus pressure - Cardiovascular Cardiovascular: Present: dyspnea. Absent: chest pain at rest, orthopnea, palpitations - Respiratory Respiratory: Present: cough, wheezing. Absent: change in phlegm color - Gastrointestinal Gastrointestinal: Absent: abdominal pain, change in bowel habits, dysphagia, nausea, vomiting - Genitourinary Genitourinary: Absent: dysuria, hematuria, urinary frequency - Musculoskeletal Musculoskeletal: Absent: arthralgias, muscle weakness - Neurological Neurological: Absent: confusion Exam (Pulmonay) H&P - Constitutional Vitals: Period Temp Pulse Resp BP Sys/Luong Pulse Ox Last 24 Hr 97.8 F-98.4 F 58-100 20-20 142-148/75-78 92-99 General appearance: mild distress, over weight - Head Head exam: Present: normal inspection, normocephalic - Eye Eye exam: Present: EOMI. Absent: scleral icterus - ENT ENT exam: Present: normal exam, other (No sinus tenderness) - Neck Neck exam: Absent: lymphadenopathy, thyromegaly - Respiratory Respiratory exam: Present: prolonged expiratory phase, wheezes - Cardiovascular Cardiovascular exam: Present: regular rate and rhythm. Absent: gallop, systolic murmur - GI/Abdominal GI/Abdominal exam: Present: normal bowel sounds, soft. Absent: organomegaly, tenderness - Extremities Exam Extremities exam: Absent: calf tenderness, edema - Neurological Exam Neurological exam: Present: alert, oriented X3, CN II-XII intact. 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), HEENT Problems ( chronic allergic rhinitis) Endocrine: History of: Diabetes Mellitus (NIDDM), Thyroid Disorder, Endocrine Problems (morbid obesity) Rheumatology: History of;: Rheumatological Problems (carpal tunnel) Respiratory: History of: Asthma, Bronchitis, COPD, Obstructive Sleep Apnea, Pneumonia, Respiratory Problems (patient states that she is on home oxygen) Gastrointestinal: History of: GERD, GI Problems (for history of significant reflux and was prescribed a hospital bed.) Musculoskeletal: History of: Musculoskeletal Problems (NUMBNESS AND TINGLING IN FEET AND LEGS) Hematology: History of: Anemia - Surgical History Cardiac Surgeries: Patient Denies: Cardiac Catheterization Thoracic Surgeries: Patient denies;: Organ Transplant, Lobectomy Neurologic Surgeries: Patient denies: Brain Aneurysm, Cerebral Hemorrhage, Neurologic Surgery HEENT Surgeries: Patient denies: Eye Surgery, Thyroid Surgery, Tonsilectomy & Adenoidectomy Abdominal Surgeries: Patient denies: Abdominal Surgery Reproductive Surgeries: Surgical HX of;: Hysterectomy, Tubal Ligation - Family History Family History: Reports;: Family Cancer (father-liver cancer), Family Diabetes ( father and mother), Family Heart Disease (father), Family Hypertension (father) , Family Psychiatric Problems (mom and sister), Family Stroke (mom) - Social History Smoking Status: Never smoker Frequency of Alcohol Use: None Type of Drug Use: None Results - Labs CBC & BMP: 03/23/17 01:11 03/23/17 01:11 - Diagnostic Findings Procedure: Chest x-ray: image reviewed by me, report reviewed by me (Chest x- ray shows no acute changes.)
--- NOTE | 2017-03-23 15:10 | Hospitalist Progress Note ---
Assessment and Plan (1) Asthma with exacerbation Status: Acute Assessment and plan: Continue duo nebs, steroids, chest x-ray suggest mild volume overload will give 1 dose of Lasix. Echocardiogram showed normal EF of 60% with PAP of 22 in October 2016 Current Visit: No Qualifiers: Asthma severity: severe persistent Qualified Code(s): J45.51 - Severe persistent asthma with (acute) exacerbation (2) Respiratory distress Status: Resolved Assessment and plan: cont steroids, and breathing treatments Current Visit: No (3) Acute exacerbation of chronic obstructive airways disease Status: Acute Assessment and plan: cont duonebs and steroids. Current Visit: No (4) GERD (gastroesophageal reflux disease) Status: Chronic Assessment and plan: protonix cont Current Visit: No (5) Diabetes mellitus Status: Chronic Assessment and plan: hemoglobin A1c 7.4, isc Current Visit: No Qualifiers: Diabetes mellitus type: type 2 Diabetes mellitus complication status: with neurologic complications Diabetes mellitus complication detail: with autonomic neuropathy (6) Gastroparesis Status: Chronic Assessment and plan: reglan 10 mg po every 6 hours Current Visit: No (7) ARLETH (obstructive sleep apnea) Status: Chronic Assessment and plan: cpap at bedtime Current Visit: No Hospitalist: Subjective Interval history: Patient frequently visits the hospital. Some of her shortness of breath is due to volume overload. Turns out that she has been drinking lots of water. We have reeducated her in told her that it will increase her shortness of breath due to volume overload. Her BNP however is not elevated. Exam - Constitutional Vitals: Period Temp Pulse Resp BP Sys/Luong Pulse Ox Last 24 Hr 97.8 F-98.4 F 58-116 20-20 142-153/75-78 91-99 Exam: Heart Rate-[tacky] Lungs-[diffuse wheezing better than her usual baseline GI-[+bs soft, NT] Ext-[no edema] Neuro [Motor 5/5], [alert and oriented times 3] psych [normal mood and affect] General [no acute distress] Results - Labs CBC & BMP: 03/23/17 01:11 03/23/17 01:11 Lab Results: I have reviewed the past 24 hour labs - Diagnostic Findings Procedure: Chest x-ray: report reviewed by me (Pulmonary edema with pleural effusions)
[2017-03-23] MEDS: METOCLOPRAMIDE 10 MG/10 ML UDCUP PO SCH (18:20)
[2017-03-24] MEDS: ALBUTEROL/IPRATROPIUM 3 ML NEB RESP TX SCH ×2 (00:08→07:15)
[2017-03-24] MEDS: METOCLOPRAMIDE 10 MG/10 ML UDCUP PO SCH ×2 (00:09→06:44)
[2017-03-24] MEDS: methylPREDNISolone SOD SUC 125 MG/2 ML VIAL IV SCH ×4 (00:09→19:30)
[2017-03-24] MEDS: ACETAMINOPHEN 325 MG TABLET PO PRN ×2 (00:24→21:46)
[2017-03-24 02:12] LABS: Basophils % 0.2 % (0.0-0.8); Hematocrit 39.5 VOL% (35.7-47.0); Hemoglobin 13.5 GM/DL (12.0-16.0); Immature Granulocytes % 1.4 %; Immature Granulocytes Absolute 0.15 #; Lymphocytes # 0.9 10*3/uL (1.4-4.0); Lymphocytes % 8.6 % (21.3-54.2); Mean Corpuscular HGB Conc 34.2 GM/DL (32-36); Mean Corpuscular Hemoglobin 31 PG (27-34); Mean Corpuscular Volume 90.6 FL (87-102); Mean Platelet Volume 10.2 FL (9.6-12.0); Monocytes # 0.3 10*3/uL (0.11-0.8); Monocytes % 2.4 % (1.7-12.7); Neutrophils # 9.3 10*3/uL (1.4-7.4); Neutrophils % 87.4 % (38.7-73.9); Platelet Count 317 T/CUMM (130-400); Red Blood Count 4.36 MC/CUMM (3.8-5.5); Red Cell Distribution Width 14.4 % (9.3-17.3); White Blood Count 10.6 T/CUMM (4-12)
[2017-03-24 02:43] LABS: Albumin 3.7 G/DL (3.4-5.0); Bilirubin,Total 0.9 MG/DL (0.2-1.0); Osmolality,Calculated 290.1 MOS/KG (273-304); Potassium 4.9 MMOL/L (3.5-5.1); Total Protein 6.6 G/DL (6.4-8.3)
[2017-03-24] MEDS ORDERED: FUROSEMIDE 40 MG/4 ML VIAL IV SCH (09:00)
[2017-03-24] MEDS: ENOXAPARIN 40 MG/0.4 ML SYRINGE SUBCUT SCH (09:12)
[2017-03-24] MEDS: PANTOPRAZOLE 40 MG TABLET PO SCH ×2 (09:12→21:45)
[2017-03-24] MEDS: POTASSIUM CHLORIDE 20 MEQ TABLET PO SCH (09:12)
[2017-03-24] MEDS: INSULIN REGULAR 100 UNIT/ML SUBCUT SCH ×4 (09:13→21:45)
[2017-03-24] MEDS ORDERED: glipiZIDE 5 MG TABLET PO PRN (10:18)
--- NOTE | 2017-03-24 11:07 | Hospitalist Progress Note ---
Assessment and Plan (1) Asthma with exacerbation Status: Acute Assessment and plan: Continue duo nebs, steroids Current Visit: No Qualifiers: Asthma severity: severe persistent Qualified Code(s): J45.51 - Severe persistent asthma with (acute) exacerbation (2) Respiratory distress Status: Resolved Assessment and plan: Resolved Current Visit: No (3) Acute exacerbation of chronic obstructive airways disease Status: Acute Assessment and plan: Stable, cont duonebs and steroids. Current Visit: No (4) GERD (gastroesophageal reflux disease) Status: Chronic Assessment and plan: protonix twice daily Current Visit: No (5) Diabetes mellitus Status: Chronic Assessment and plan: hemoglobin A1c 7.4, bs not controlled, add lantus to glyburide Current Visit: No Qualifiers: Diabetes mellitus type: type 2 Diabetes mellitus complication status: with neurologic complications Diabetes mellitus complication detail: with autonomic neuropathy (6) Gastroparesis Status: Chronic Assessment and plan: Change to erythromycin Current Visit: No (7) ARLETH (obstructive sleep apnea) Status: Chronic Assessment and plan: cpap at bedtime Current Visit: No Hospitalist: Subjective Interval history: Patient seems better today she has returned to baseline. I have asked her to ambulate the halls. Patient has had relatively little response to Lasix. We have discontinued it. Exam - Constitutional Vitals: Period Temp Pulse Resp BP Sys/Luong Pulse Ox Last 24 Hr 97.5 F-98.0 F 103-117 17-20 116-127/51-67 90-100 Exam: Heart Rate-[tachy] Lungs-[diffuse wheezing improving GI-[+bs soft, NT] Ext-[no edema] Neuro [Motor 5/5], [alert and oriented times 3] psych [normal mood and affect] General [no acute distress] Results - Labs CBC & BMP: 03/24/17 01:17 03/24/17 01:17 Lab Results: I have reviewed the past 24 hour labs
[2017-03-24] MEDS: ALBUTEROL 2.5 MG/3 ML NEB RESP TX SCH ×4 (11:12→23:18)
[2017-03-24] MEDS: IPRATROPIUM 500 MCG/2.5 ML NEB RESP TX SCH ×3 (11:12→19:21)
--- NOTE | 2017-03-24 11:48 | Pulmonology Progress Note ---
Pulmonary - PN: Subj Interval history: This is a 61-year-old black female whom I am seeing for Dr. Anselmo Hendrickson. This patient has chronic asthma she has had multiple hospital admissions in spite of Dr. Hendrickson's best efforts. She is admitted with another flareup. She continues to wheeze but is beginning to mobilize a little bit of sputum which she says is yellow discharge colic. Patient has no complaints and she has no new requests. Microbiology. No studies have been reported Lab. Creatinine is 1.2 with a BUN of 18 and normal electrolytes. White count is 10,600 with 87 segs. H&H is 13.5/39.5 and platelets of 317,000. Physical exam. Vital signs see below Face. Symmetrical. No edema of the lips or tongue Neck. Symmetrical no meningismus Psychiatric. Oriented 3 General. Sitting on the side of the bed with mild to moderate shortness of breath and occasional cough Chest. Prolonged incomplete expiration with large airway wheeze associated coarse congestion Heart. Heart sounds are distant Abdomen. Obese. Extremities. Nothing to suggest deep venous thrombophlebitis Neurologic. Cranial nerves are intact. Patient moves all 4 extremities. The remainder the physical exam is negative Plan. 1. Continue present regimen. 2. I made no changes Exam (Progress Note) - Constitutional Vitals: Period Temp Pulse Resp BP Sys/Luong Pulse Ox Last 24 Hr 97.5 F-98.0 F 103-117 17-20 116-127/51-67 90-100 Results - Labs CBC & BMP: 03/24/17 01:17 03/24/17 01:17
[2017-03-24] MEDS: INSULIN GLARGINE 100 UNIT/ML SUBCUT SCH (12:06)
[2017-03-24] MEDS: FLUTICASONE 50 MCG NASAL SPRAY 16 GM BOTTLE BOTH NARES SCH ×2 (12:07→21:45)
[2017-03-24] MEDS: BECLOMETHASONE 80 MCG/PUFF INHALER 8.7 GM INH SCH ×2 (12:07→21:46)
[2017-03-24] MEDS: BENZONATATE 100 MG CAPSULE PO SCH ×2 (15:45→21:46)
[2017-03-24] MEDS: THEOPHYLLINE ER (24 HR) 400 MG TABLET PO SCH (17:22)
[2017-03-24] MEDS: ERYTHROMYCIN BASE 250 MG TABLET PO SCH (17:22)
[2017-03-24] MEDS: ARFORMOTEROL 15 MCG/2 ML NEB RESP TX SCH (19:21)
[2017-03-24] MEDS: DILTIAZEM CD 300 MG CAPSULE PO SCH (21:45)
[2017-03-24] MEDS: MONTELUKAST 10 MG TABLET PO SCH (21:46)
[2017-03-25] MEDS: methylPREDNISolone SOD SUC 125 MG/2 ML VIAL IV SCH ×4 (01:10→20:46)
[2017-03-25] MEDS: ALBUTEROL 2.5 MG/3 ML NEB RESP TX SCH ×5 (03:36→19:27)
[2017-03-25] MEDS: ARFORMOTEROL 15 MCG/2 ML NEB RESP TX SCH ×2 (08:06→19:27)
[2017-03-25] MEDS: IPRATROPIUM 500 MCG/2.5 ML NEB RESP TX SCH ×4 (08:06→19:27)
[2017-03-25] MEDS: INSULIN REGULAR 100 UNIT/ML SUBCUT SCH ×4 (08:37→21:16)
[2017-03-25] MEDS: INSULIN GLARGINE 100 UNIT/ML SUBCUT SCH (08:38)
[2017-03-25] MEDS: BECLOMETHASONE 80 MCG/PUFF INHALER 8.7 GM INH SCH ×2 (08:39→20:47)
[2017-03-25] MEDS: FLUTICASONE 50 MCG NASAL SPRAY 16 GM BOTTLE BOTH NARES SCH ×2 (08:39→20:47)
[2017-03-25] MEDS: PANTOPRAZOLE 40 MG TABLET PO SCH ×2 (09:31→20:46)
[2017-03-25] MEDS: ERYTHROMYCIN BASE 250 MG TABLET PO SCH ×2 (09:31→16:45)
[2017-03-25] MEDS: ENOXAPARIN 40 MG/0.4 ML SYRINGE SUBCUT SCH (09:31)
[2017-03-25] MEDS: THEOPHYLLINE ER (24 HR) 400 MG TABLET PO SCH ×2 (09:31→16:44)
[2017-03-25] MEDS: BENZONATATE 100 MG CAPSULE PO SCH ×3 (09:31→20:46)
--- NOTE | 2017-03-25 12:34 | Hospitalist Progress Note ---
Assessment and Plan (1) Asthma with exacerbation Status: Acute Assessment and plan: Continue duo nebs, steroids Current Visit: No Qualifiers: Asthma severity: severe persistent Qualified Code(s): J45.51 - Severe persistent asthma with (acute) exacerbation (2) Respiratory distress Status: Resolved Assessment and plan: Resolved Current Visit: No (3) Acute exacerbation of chronic obstructive airways disease Status: Acute Assessment and plan: Stable, cont duonebs and steroids. Current Visit: No (4) GERD (gastroesophageal reflux disease) Status: Chronic Assessment and plan: protonix twice daily Current Visit: No (5) Diabetes mellitus Status: Chronic Assessment and plan: hemoglobin A1c 7.4, cont glyburide and lantus Current Visit: No Qualifiers: Diabetes mellitus type: type 2 Diabetes mellitus complication status: with neurologic complications Diabetes mellitus complication detail: with autonomic neuropathy (6) Gastroparesis Status: Chronic Assessment and plan: cont erythromycin Current Visit: No (7) ARLETH (obstructive sleep apnea) Status: Chronic Assessment and plan: cpap at bedtime Current Visit: No Hospitalist: Subjective Interval history: Discussed with Dr Trevino feels she may need a couple for days Exam - Constitutional Vitals: Period Temp Pulse Resp BP Sys/Luong Pulse Ox Last 24 Hr 96.7 F-98.5 F 62-114 16-20 102-139/46-70 92-100 Exam: Heart Rate-[tachy] Lungs-[diffuse wheezing improving GI-[+bs soft, NT] Ext-[no edema] Neuro [Motor 5/5], [alert and oriented times 3] psych [normal mood and affect] General [no acute distress] Results - Labs CBC & BMP: 03/24/17 01:17 03/24/17 01:17 Lab Results: I have reviewed the past 24 hour labs
--- NOTE | 2017-03-25 12:46 | Pulmonology Progress Note ---
Pulmonary - PN: Subj Interval history: This is a 61-year-old black female whom I am seeing for Dr. Anselmo Hendrickson. This patient has chronic asthma she has had multiple hospital admissions in spite of Dr. Hendrickson's best efforts. She is admitted with another flareup. She continues to wheeze but is beginning to mobilize a little bit of sputum which she says is yellow discharge colic. Patient has no complaints and she has no new requests. Microbiology. No studies have been reported Lab. Creatinine is 1.2 with a BUN of 18 and normal electrolytes. White count is 10,600 with 87 segs. H&H is 13.5/39.5 and platelets of 317,000. 03/25/2017. Patient's a lot better today. She is beginning to mobilize her sputum. She has less wheezing but her expiration is still markedly prolonged and incomplete. She will require a few more days in the hospital. Glucose is under fair control. There are no positive studies from microbiology. Physical exam. Vital signs see below Face. Symmetrical. No edema of the lips or tongue Neck. Symmetrical no meningismus Psychiatric. Oriented 3 General. Sitting on the side of the bed with mild to moderate shortness of breath and occasional cough Chest. Prolonged incomplete expiration with large airway wheeze associated coarse congestion, gradually improved Heart. Heart sounds are distant Abdomen. Obese. Extremities. Nothing to suggest deep venous thrombophlebitis Neurologic. Cranial nerves are intact. Patient moves all 4 extremities. The remainder the physical exam is negative Plan. 03/24/2017 1. Continue present regimen. 2. I made no changes 03/25/2017. 1. See today's note above 2. I made no change in the patient's regimen 3. Dr. Andres and I discussed the case and coordinating her care. Exam (Progress Note) - Constitutional Vitals: Period Temp Pulse Resp BP Sys/Luong Pulse Ox Last 24 Hr 96.7 F-98.5 F 62-114 16-20 102-139/46-70 92-100 Results - Labs CBC & BMP: 03/24/17 01:17 03/24/17 01:17
[2017-03-25] MEDS: MONTELUKAST 10 MG TABLET PO SCH (20:46)
[2017-03-25] MEDS: DILTIAZEM CD 300 MG CAPSULE PO SCH (20:46)
[2017-03-25] MEDS: ACETAMINOPHEN 325 MG TABLET PO PRN (21:16)
[2017-03-26] MEDS: ALBUTEROL 2.5 MG/3 ML NEB RESP TX SCH ×7 (00:35→23:50)
[2017-03-26] MEDS: methylPREDNISolone SOD SUC 125 MG/2 ML VIAL IV SCH ×4 (02:01→20:16)
[2017-03-26] MEDS: IPRATROPIUM 500 MCG/2.5 ML NEB RESP TX SCH ×4 (08:09→19:26)
[2017-03-26] MEDS: ARFORMOTEROL 15 MCG/2 ML NEB RESP TX SCH ×2 (08:09→19:26)
[2017-03-26] MEDS ORDERED: CHOLECALCIFEROL 1,000 UNIT TABLET PO SCH (09:00)
[2017-03-26] MEDS: INSULIN REGULAR 100 UNIT/ML SUBCUT SCH ×4 (09:59→21:58)
[2017-03-26] MEDS: INSULIN GLARGINE 100 UNIT/ML SUBCUT SCH (10:00)
[2017-03-26] MEDS: glipiZIDE 5 MG TABLET PO SCH (10:02)
[2017-03-26] MEDS: THEOPHYLLINE ER (24 HR) 400 MG TABLET PO SCH ×2 (10:02→17:06)
[2017-03-26] MEDS: ERYTHROMYCIN BASE 250 MG TABLET PO SCH ×2 (10:02→17:06)
[2017-03-26] MEDS: ENOXAPARIN 40 MG/0.4 ML SYRINGE SUBCUT SCH (10:03)
[2017-03-26] MEDS: PANTOPRAZOLE 40 MG TABLET PO SCH ×2 (10:04→21:58)
[2017-03-26] MEDS: BENZONATATE 100 MG CAPSULE PO SCH ×3 (10:04→21:57)
[2017-03-26] MEDS: FLUTICASONE 50 MCG NASAL SPRAY 16 GM BOTTLE BOTH NARES SCH ×2 (10:07→21:57)
[2017-03-26] MEDS: BECLOMETHASONE 80 MCG/PUFF INHALER 8.7 GM INH SCH ×2 (10:07→21:57)
--- NOTE | 2017-03-26 10:11 | Physician Query Form ---
CLICK EDIT DOCUMENT TO SELECT QUERY ANSWER --> OK --> SIGN Emelia Martinez RN, CCDS Certified Clinical Supervisor [employer] W) [phone] (f) [phone] [email or web address] PROVIDERS: Make your selection(s) from the choices in EACH section by typing an "x" and enter comments in the comment section. Please use your independent medical judgment in providing your response. This request does not imply that any particular answer is desired or expected. CLINICAL INDICATORS: (Providers should not edit this section) The medical record indicates that the patient was admitted with asthma exacerbation, on the : "Chest x-ray: report reviewed by me (Pulmonary edema with pleural effusions)", and the patient was treated with IV Lasix. As the attending MD can you please clarify the acuity of the pulmonary edema? Clarify which of the following accurately represents the acuity of the above diagnosis. (X ) Acute ( ) Acute on chronic ( ) Chronic stable condition ( ) Remission ( ) Other, please specify: ( ) Clinically unable to determine COMMENTS: PLEASE ALSO DOCUMENT RESPONSE IN PROGRESS NOTES AND/OR DISCHARGE SUMMARY Use of terms such as suspected, likely, or probable (associated with a specific diagnosis that is being evaluated, monitored, or treated as if it exists) are acceptable and can be restated in the discharge summary if not ruled out. MTDD
--- NOTE | 2017-03-26 13:02 | Pulmonology Progress Note ---
Pulmonary - PN: Subj Interval history: The patient is a 61-year-old black lady that has chronic asthma. She came in with an exacerbation last week and she says she did have some chills and aching. She has not had much fever. She did have a positive flu screen. She has been getting steroids and bronchodilators over the weekend and seems to be doing better. Her breathing is much better now. Exam (Progress Note) - Constitutional Vitals: Period Temp Pulse Resp BP Sys/Luong Pulse Ox Last 24 Hr 96.7 F-98.7 F 80-102 16-20 119-139/54-73 93-99 Exam: General appearance: no distress, over weight - Head Head exam: Present: normal inspection, normocephalic - Eye Eye exam: Present: EOMI. Absent: scleral icterus - ENT ENT exam: Present: normal exam, other (No sinus tenderness) - Neck Neck exam: Absent: lymphadenopathy, thyromegaly - Respiratory Respiratory exam: Present: She has good breath sounds bilaterally now is moving air fairly well with minimal wheezing. - Cardiovascular Cardiovascular exam: Present: regular rate and rhythm. Absent: gallop, systolic murmur - GI/Abdominal GI/Abdominal exam: Present: normal bowel sounds, soft. Absent: organomegaly, tenderness - Extremities Exam Extremities exam: Absent: calf tenderness, edema - Neurological Exam Neurological exam: Present: alert, oriented X3, CN II-XII intact. Absent: motor sensory deficit - Psychiatric Psychiatric exam: Present: normal affect, normal mood - Skin Skin exam: Present: warm, dry Results - Labs CBC & BMP: 03/24/17 01:17 03/24/17 01:17 Labs: She had positive influenza A screen Assessment and Plan (1) Asthma with exacerbation Status: Acute Assessment and plan: Patient comes in with an asthma exacerbation and is reasonably comfortable at present. She is breathing better and her wheezing is improved. Current Visit: No Qualifiers: Asthma severity: severe persistent (2) GERD (gastroesophageal reflux disease) Status: Chronic Assessment and plan: She will continue with antireflux measures. Current Visit: No (3) Diabetes mellitus Status: Chronic Assessment and plan: Her glucoses will be monitored. Her glucose is 222 today. Current Visit: No Qualifiers: Diabetes mellitus type: type 2 Diabetes mellitus complication status: with neurologic complications Diabetes mellitus complication detail: with autonomic neuropathy (4) ARLETH (obstructive sleep apnea) Status: Chronic Assessment and plan: She will continue with her CPAP at night. Current Visit: No (5) Influenza A Status: Acute Assessment and plan: We will start her on a short course of Tamiflu Current Visit: Yes
--- NOTE | 2017-03-26 13:39 | Hospitalist Progress Note ---
Assessment and Plan (1) Acute respiratory failure with hypoxemia Status: Acute Assessment and plan: The patient continues treatment for asthma and influenza A. Blood glucose is reasonably controlled. Anticipate discharge home tomorrow on oral Tamiflu. Current Visit: No (2) Influenza A Status: Acute Current Visit: Yes Hospitalist: Subjective Interval history: Mrs. Armstrong was admitted to the hospital with exacerbation of asthma. She has been found to have a positive screen for influenza A and is on Tamiflu now. I anticipate discharge home tomorrow. Exam - Constitutional Vitals: Period Temp Pulse Resp BP Sys/Luong Pulse Ox Last 24 Hr 96.7 F-98.7 F 80-102 16-20 119-139/54-73 93-100 General appearance: no acute distress - Respiratory Respiratory exam: Present: prolonged expiratory phase - Cardiovascular Cardiovascular exam: Present: regular rate and rhythm - GI/Abdominal GI/Abdominal exam: Present: normal bowel sounds Results - Labs CBC & BMP: 03/24/17 01:17 03/24/17 01:17 Lab Results: I have reviewed the past 24 hour labs
[2017-03-26] MEDS: OSELTAMIVIR 75 MG CAPSULE PO SCH ×2 (13:54→21:57)
[2017-03-26] MEDS: POLYETHYLENE GLYCOL POWDER 17 GM PACK PO PRN (17:09)
[2017-03-26] MEDS: MONTELUKAST 10 MG TABLET PO SCH (21:57)
[2017-03-26] MEDS: DILTIAZEM CD 300 MG CAPSULE PO SCH (21:57)
[2017-03-27] MEDS: methylPREDNISolone SOD SUC 125 MG/2 ML VIAL IV SCH ×2 (01:29→06:43)
[2017-03-27] MEDS: ALBUTEROL 2.5 MG/3 ML NEB RESP TX SCH ×4 (03:46→14:48)
[2017-03-27 07:40] LABS: Calcium 9.5 MG/DL (8.5-10.1); Magnesium 2.6 MG/DL (1.8-2.4); Osmolality,Calculated 289.5 MOS/KG (273-304); Potassium 4.3 MMOL/L (3.5-5.1)
[2017-03-27] MEDS: IPRATROPIUM 500 MCG/2.5 ML NEB RESP TX SCH ×3 (07:40→14:48)
[2017-03-27] MEDS: ARFORMOTEROL 15 MCG/2 ML NEB RESP TX SCH (07:45)
[2017-03-27 08:30] LABS: Basophils % 0.1 % (0.0-0.8); Hematocrit 42.4 VOL% (35.7-47.0); Hemoglobin 14.6 GM/DL (12.0-16.0); Immature Granulocytes % 1.6 %; Immature Granulocytes Absolute 0.27 #; Lymphocytes # 0.7 10*3/uL (1.4-4.0); Lymphocytes % 4.3 % (21.3-54.2); Mean Corpuscular HGB Conc 34.4 GM/DL (32-36); Mean Corpuscular Hemoglobin 31 PG (27-34); Mean Corpuscular Volume 88.5 FL (87-102); Mean Platelet Volume 11.5 FL (9.6-12.0); Monocytes # 0.5 10*3/uL (0.11-0.8); Monocytes % 2.7 % (1.7-12.7); Neutrophils # 15.6 10*3/uL (1.4-7.4); Neutrophils % 91.3 % (38.7-73.9); Red Blood Count 4.79 MC/CUMM (3.8-5.5); Red Cell Distribution Width 13.9 % (9.3-17.3)
[2017-03-27 08:45] LABS: Platelet Count 213 T/CUMM (130-400); White Blood Count 17.1 T/CUMM (4-12)
[2017-03-27] MEDS: INSULIN REGULAR 100 UNIT/ML SUBCUT SCH ×3 (08:45→16:49)
[2017-03-27] MEDS: THEOPHYLLINE ER (24 HR) 400 MG TABLET PO SCH ×2 (08:46→16:49)
[2017-03-27] MEDS: ERYTHROMYCIN BASE 250 MG TABLET PO SCH ×2 (08:46→16:49)
[2017-03-27] MEDS: glipiZIDE 5 MG TABLET PO SCH (08:47)
[2017-03-27] MEDS: OSELTAMIVIR 75 MG CAPSULE PO SCH (08:47)
[2017-03-27] MEDS: ENOXAPARIN 40 MG/0.4 ML SYRINGE SUBCUT SCH (08:47)
[2017-03-27] MEDS: BECLOMETHASONE 80 MCG/PUFF INHALER 8.7 GM INH SCH (08:47)
[2017-03-27] MEDS: PANTOPRAZOLE 40 MG TABLET PO SCH (08:47)
[2017-03-27] MEDS: FLUTICASONE 50 MCG NASAL SPRAY 16 GM BOTTLE BOTH NARES SCH (08:47)
[2017-03-27] MEDS: BENZONATATE 100 MG CAPSULE PO SCH ×2 (08:48→16:49)
[2017-03-27] MEDS: POLYETHYLENE GLYCOL POWDER 17 GM PACK PO PRN (08:49)
[2017-03-27 08:54] LABS: Giant Platelets Few; Hypochromasia 1+; Lymphocytes 7 % (20-55); Platelet Estimate Adequate; Segmented Neutrophils 87 % (50-85); Total Cells Counted 100
--- NOTE | 2017-03-27 09:03 | Pulmonology Progress Note ---
Pulmonary - PN: Subj Interval history: The patient is a 61-year-old black lady that has chronic asthma. She came in with an exacerbation last week and she says she did have some chills and aching. She has not had much fever. She did have a positive flu screen. She has been getting steroids and bronchodilators over the weekend and seems to be doing better. She had a fairly good night and her breathing is much better. Her wheezing is much improved. Overall she seems to be stable. Exam (Progress Note) - Constitutional Vitals: Period Temp Pulse Resp BP Sys/Luong Pulse Ox Last 24 Hr 97.1 F-98.5 F 78-111 14-20 115-142/60-71 95-100 Exam: General appearance: no distress, over weight, she is in no acute distress. - Head Head exam: Present: normal inspection, normocephalic - Eye Eye exam: Present: EOMI. Absent: scleral icterus - ENT ENT exam: Present: normal exam, other (No sinus tenderness) - Neck Neck exam: Absent: lymphadenopathy, thyromegaly - Respiratory Respiratory exam: Present: She has good breath sounds bilaterally now is moving air fairly well with minimal wheezing. Her lungs do sound much better. - Cardiovascular Cardiovascular exam: Present: regular rate and rhythm. Absent: gallop, systolic murmur - GI/Abdominal GI/Abdominal exam: Present: normal bowel sounds, soft. Absent: organomegaly, tenderness - Extremities Exam Extremities exam: Absent: calf tenderness, edema - Neurological Exam Neurological exam: Present: alert, oriented X3, CN II-XII intact. Absent: motor sensory deficit - Psychiatric Psychiatric exam: Present: normal affect, normal mood - Skin Skin exam: Present: warm, dry Results - Labs CBC & BMP: 03/27/17 07:55 03/27/17 05:46 Assessment and Plan (1) Asthma with exacerbation Status: Acute Assessment and plan: Patient comes in with an asthma exacerbation and is reasonably comfortable at present. She is breathing better and her wheezing is improved. Her breathing is close to baseline now. Current Visit: No Qualifiers: Asthma severity: severe persistent (2) GERD (gastroesophageal reflux disease) Status: Chronic Assessment and plan: She will continue with antireflux measures. Current Visit: No (3) Diabetes mellitus Status: Chronic Assessment and plan: Her glucoses will be monitored. Her glucose is 261 today. Will cut back on steroids. Current Visit: No Qualifiers: Diabetes mellitus type: type 2 Diabetes mellitus complication status: with neurologic complications Diabetes mellitus complication detail: with autonomic neuropathy (4) ARLETH (obstructive sleep apnea) Status: Chronic Assessment and plan: She will continue with her CPAP at night. Current Visit: No (5) Influenza A Status: Acute Assessment and plan: We will start her on a short course of Tamiflu Current Visit: Yes
[2017-03-27] MEDS ORDERED: predniSONE 20 MG TABLET PO SCH (09:30)
[2017-03-27] MEDS: INSULIN GLARGINE 100 UNIT/ML SUBCUT SCH (11:40)
--- NOTE | 2017-03-27 11:42 | Discharge Summary ---
Hospital Course - Hospital Course Hospital Course: The patient was admitted to the hospital with cough, fever, shortness of breath. She had wheezing to a moderate degree which improved with appropriate asthma care. The patient was treated for a couple of days in the hospital but had continued cough and fever. She had a flu test swab which revealed influenza A. Tamiflu was started and the patient's symptoms are improving. Wheezing is controlled and she is ready for discharge home. During the hospital stay the patient had consultation with Dr. Hendrickson. On the date of discharge, the chest had moderate baseline air trapping but minimal wheezing. The patient continues to have rhinorrhea and indolent fever consistent with influenza A. Patient medications were reconciled upon admission, and again at the time of discharge. The patient was screened for tobacco use and found to be a previous smoker. The patient was given 4 minutes of tobacco avoidance education. The patient's medical decsion maker is themself, and when asked, they asked to be Full code. Discharge Time was 31 minutes, including final examination, evaluation and planning, education, reconciliation of medications, writing prescriptions, coordinating care with case managers, and preparing discharge documentation. - Time spent with patient Time with patient DS: Greater than 30 minutes Time spent discussing smoking cessation with patient: 3 to 10 minutes Diagnosis - Discharge Diagnosis (1) Acute respiratory failure with hypoxemia Status: Resolved (2) Influenza A Status: Acute Discharge Plan - Discharge Data Disposition: Disch To Home/Self Care Condition at Discharge: Stable Discharge Diet: heart healthy Activity: resume usual activities as tolerated - Discharge Medications New Montelukast Tab [Singulair Tab] 10 mg PO BEDTIME #60 tablet Oseltamivir Cap [Tamiflu Cap] 75 mg PO BID #8 capsule Continue glipiZIDE [Glipizide] 5 mg PO DAILY PRN PRN Reason: GLUCOSE >180 Pantoprazole Sodium 40 mg PO BID Montelukast Tab [Singulair Tab] 10 mg PO BEDTIME Arformoterol Neb [Brovana] 15 mcg RESP TX BID #90 Benzonatate 100 mg PO TID Tiotropium [place] [Spiriva Respimat] 4 gm INH PC LUNCH Albuterol/Ipratropium Neb [Duoneb] 3 ml RESP TX RT Q6H #100 applicator HYDROcodone/ACETAMIN 7.5-325 [[place] 7.5-325] 1 tablet PO Q4H PRN PRN Reason: Pain guaiFENesin/DM LIQUID [Robitussin Dm] 10 ml PO Q4H PRN PRN Reason: Cough Beclomethasone 80 Mcg Inhaler [Qvar 80 Mcg] 2 puffs INH BID Albuterol Sulfate [Ventolin HFA] 2 puff INH Q4H PRN #2 PRN Reason: Shortness Of Breath/Wheezing dilTIAZem HCl [Diltiazem ER (24 hr)] 300 mg PO BEDTIME #90 Fluticasone 50 Mcg Nasal [place] [Flonase Nasal [place]] 1 spray BOTH NARES BID Theophylline ER Tab (24 Hr) 200 mg PO BID W/MEALS #100 Cholecalciferol [Vitamin D3] 1,000 unit PO QOTHER DAY Erythromycin Base 250 mg PO BID W/MEALS Changed Furosemide Tab [Lasix Tab] 40 mg PO QAM #60 - Follow Up or Referral - Forms/Instructions Exam - Constitutional Vitals: Period Temp Pulse Resp BP Sys/Luong Pulse Ox Last 24 Hr 97.1 F-98.5 F 78-126 14-20 115-159/60-74 94-99 Discharge Results Labs on day of discharge: Labs from last 24 hours 03/27/17 03/27/17 03/27/17 11:02 07:55 06:34 WBC 17.1 H D RBC 4.79 Hgb 14.6 Hct 42.4 MCV 88.5 MCH 31 MCHC 34.4 RDW 13.9 Plt Count 213 D MPV 11.5 Neut % (Auto) 91.3 H Lymph % (Auto) 4.3 L Alexander % (Auto) 2.7 Eos % (Auto) 0.0 Baso % (Auto) 0.1 Neut # (Auto) 15.6 H Lymph # (Auto) 0.7 L Alexander # (Auto) 0.5 Eos # (Auto) 0.0 Baso # (Auto) 0.0 Total Counted 100 Immature Gran % 1.6 Nucleated RBC % 0.0 Immature Gran # 0.27 Segmented Neutrophils 87 H Lymphocytes 7 L Monocytes 6 Nucleated RBCs # 0.00 Platelet Estimate Adequate Giant Platelets Few Immature Plt Fraction 0.0 Hypochromasia 1+ Sodium Potassium Chloride Carbon Dioxide Anion Gap BUN Creatinine GFR Calculation BUN/Creatinine Ratio Glucose POC Glucose 254 H 261 H Calculated Osmolality Calcium Magnesium B-Natriuretic Peptide 03/27/17 03/27/17 03/26/17 05:46 05:46 20:33 WBC RBC Hgb Hct MCV MCH MCHC RDW Plt Count MPV Neut % (Auto) Lymph % (Auto) Alexander % (Auto) Eos % (Auto) Baso % (Auto) Neut # (Auto) Lymph # (Auto) Alexander # (Auto) Eos # (Auto) Baso # (Auto) Total Counted Immature Gran % Nucleated RBC % Immature Gran # Segmented Neutrophils Lymphocytes Monocytes Nucleated RBCs # Platelet Estimate Giant Platelets Immature Plt Fraction Hypochromasia Sodium 139 Potassium 4.3 Chloride 104 Carbon Dioxide 23 Anion Gap 16.3 H BUN 20 H Creatinine 1.10 H GFR Calculation 77 BUN/Creatinine Ratio 18.00 Glucose 283 H POC Glucose 211 H Calculated Osmolality 289.5 Calcium 9.5 Magnesium 2.6 H B-Natriuretic Peptide 20 03/26/17 16:40 WBC RBC Hgb Hct MCV MCH MCHC RDW Plt Count MPV Neut % (Auto) Lymph % (Auto) Alexander % (Auto) Eos % (Auto) Baso % (Auto) Neut # (Auto) Lymph # (Auto) Alexander # (Auto) Eos # (Auto) Baso # (Auto) Total Counted Immature Gran % Nucleated RBC % Immature Gran # Segmented Neutrophils Lymphocytes Monocytes Nucleated RBCs # Platelet Estimate Giant Platelets Immature Plt Fraction Hypochromasia Sodium Potassium Chloride Carbon Dioxide Anion Gap BUN Creatinine GFR Calculation BUN/Creatinine Ratio Glucose POC Glucose 228 H Calculated Osmolality Calcium Magnesium B-Natriuretic Peptide DS: Provider Date of admission: 03/23/17 05:35 Primary care physician: Apolonia Hendrickson DO Attending physician on admission: Wilfrido Pham MD Consults: 03/23/17 05:35 Consult to Physician [CONS] Routine Comment: patient of yours Consulting Provider: Wilfrid Hendrickson Consulting Provider Notified: Yes When should Consulting Provider be notified: Now Person Notified: Dr. Hendrickson saw Date Notified: 03/23/17 Time Notified: 08:15 03/23/17 07:02 Consult to Dietitian [CONS] Routine Reason for Dietitian: Dietary Consult Discharging clinician: Srinath Mir MD
[2017-03-27 16:27] VITALS: BP 141/76
[2017-03-27] MEDS: ACETAMINOPHEN 325 MG TABLET PO PRN (16:50)
--- NOTE | 2017-03-28 21:42 | Order Completion Report ---
See report scanned to EMR
== END 2017-03-27 18:30 | disposition home or self-care (01) | DRG 140 ==
LOC: N.ED 23:55 → N.EDINP 03-23 05:35 → SUATTDRO 03-23 05:35 → N.3E 03-23 06:02
PROVIDERS: ADMIT Internal Medicine; ATTEND Internal Medicine

== ENCOUNTER 2017-08-22 09:10 | Inpatient (IN) ==
[2017-08-22] MEDS ORDERED: ALBUTEROL 2.5 MG/3 ML NEB RESP TX STA (09:45)
[2017-08-22 10:08] LABS: Basophils % 0.7 % (0.0-0.8); Eosinophils # 0.3 10*3/uL (0.0-0.87); Eosinophils % 7.2 % (0.00-10.9); Hematocrit 43.6 VOL% (35.7-47.0); Hemoglobin 14.6 GM/DL (12.0-16.0); Immature Granulocytes % 0.2 %; Immature Granulocytes Absolute 0.01 #; Lymphocytes # 1.6 10*3/uL (1.4-4.0); Mean Corpuscular HGB Conc 33.5 GM/DL (32-36); Mean Corpuscular Hemoglobin 30 PG (27-34); Mean Corpuscular Volume 88.8 FL (87-102); Mean Platelet Volume 10.1 FL (9.6-12.0); Monocytes # 0.4 10*3/uL (0.11-0.8); Monocytes % 8.4 % (1.7-12.7); Neutrophils # 1.9 10*3/uL (1.4-7.4); Neutrophils % 44.5 % (38.7-73.9); Platelet Count 301 T/CUMM (130-400); Red Blood Count 4.91 MC/CUMM (3.8-5.5); Red Cell Distribution Width 13.9 % (9.3-17.3); White Blood Count 4.2 T/CUMM (4-12)
[2017-08-22 10:16] LABS: PT Patient Result 10.8 SECS; Partial Thromboplastin Time 27.3 SECS (0-40)
[2017-08-22 10:46] LABS: Alanine Aminotransferase 26 U/L (13-56); Albumin 4.3 G/DL (3.4-5.0); Alkaline Phosphatase 200 U/L (45-117); Aspartate Amino Transferase 18 U/L (0-37); Blood Urea Nitrogen 7 MG/DL (7-18); Calcium 9.8 MG/DL (8.5-10.1); Glucose 117 MG/DL (74-106); Potassium 4.3 MMOL/L (3.5-5.1); Sodium 143 MMOL/L (136-145); Total Protein 7.7 G/DL (6.4-8.3); Troponin I Only < 0.015 NG/ML (0.00-0.045)
[2017-08-22] MEDS ORDERED: ONDANSETRON 4 MG/2 ML VIAL IV PRN (12:31)
[2017-08-22] MEDS ORDERED: LACTULOSE 20 GM/30 ML UDCUP PO PRN (12:31)
[2017-08-22] MEDS ORDERED: MAGNESIUM SULF RIDER 2 GM in PREMIX 1 EACH IV ONE (12:31)
[2017-08-22] MEDS ORDERED: ACETAMINOPHEN 325 MG TABLET PO PRN (12:31)
[2017-08-22] MEDS ORDERED: MORPHINE 2 MG/1 ML SYRINGE IV PRN (12:31)
[2017-08-22] MEDS ORDERED: DOCUSATE SODIUM 100 MG CAPSULE PO PRN (12:31)
[2017-08-22] MEDS: ALBUTEROL 2.5 MG/3 ML NEB RESP TX SCH ×2 (13:09→15:21)
[2017-08-22 13:54] LABS: Thyroid Stimulating Hormone 1.79 uIU/ml (0.358-3.74)
[2017-08-22] MEDS ORDERED: glipiZIDE 5 MG TABLET PO PRN (16:22)
[2017-08-22] MEDS ORDERED: GLUCAGON 1 MG VIAL IM PRN (16:25)
[2017-08-22] MEDS ORDERED: DEXTROSE 50% 25 GM/50 ML VIAL IV PRN (16:25)
[2017-08-22] MEDS ORDERED: ALBUTEROL 2.5 MG/3 ML NEB RESP TX PRN (16:31)
[2017-08-22] MEDS: methylPREDNISolone SOD SUC 125 MG/2 ML VIAL IV SCH ×2 (16:35→20:45)
[2017-08-22] MEDS: IBUPROFEN 600 MG TABLET PO PRN (17:00)
[2017-08-22] MEDS: ERYTHROMYCIN BASE 250 MG TABLET PO SCH (17:04)
[2017-08-22] MEDS: LEVOFLOXACIN 750 MG TABLET PO SCH (17:04)
[2017-08-22] MEDS: THEOPHYLLINE ER (24 HR) 400 MG TABLET PO SCH (17:04)
[2017-08-22] MEDS: INSULIN LISPRO 100 UNIT/ML SUBCUT SCH (17:22)
[2017-08-22] MEDS: ARFORMOTEROL 15 MCG/2 ML NEB RESP TX SCH (19:27)
[2017-08-22] MEDS: ALBUTEROL/IPRATROPIUM 3 ML NEB RESP TX SCH (19:27)
[2017-08-22] MEDS: BENZONATATE 100 MG CAPSULE PO SCH (20:44)
[2017-08-22] MEDS: PANTOPRAZOLE 40 MG TABLET PO SCH (20:44)
[2017-08-22] MEDS: MONTELUKAST 10 MG TABLET PO SCH (20:44)
[2017-08-22] MEDS: FLUTICASONE 50 MCG NASAL SPRAY 16 GM BOTTLE BOTH NARES SCH (20:45)
[2017-08-22] MEDS: DILTIAZEM CD 300 MG CAPSULE PO SCH (20:46)
[2017-08-22] MEDS: guaiFENesin/DM ER 600-30 MG TABLET PO PRN (20:55)
[2017-08-22] MEDS ORDERED: MONTELUKAST 10 MG TABLET PO SCH (21:00)
[2017-08-23] MEDS: ALBUTEROL/IPRATROPIUM 3 ML NEB RESP TX SCH ×4 (00:50→19:23)
[2017-08-23] MEDS: INSULIN LISPRO 100 UNIT/ML SUBCUT SCH ×4 (00:52→21:51)
[2017-08-23] MEDS: BECLOMETHASONE 80 MCG/PUFF INHALER 8.7 GM INH SCH ×3 (00:54→21:52)
[2017-08-23] MEDS: methylPREDNISolone SOD SUC 125 MG/2 ML VIAL IV SCH ×4 (03:33→21:51)
[2017-08-23 06:19] LABS: Basophils % 0.2 % (0.0-0.8); Hematocrit 39.9 VOL% (35.7-47.0); Hemoglobin 13.4 GM/DL (12.0-16.0); Immature Granulocytes % 0.8 %; Immature Granulocytes Absolute 0.05 #; Lymphocytes # 0.8 10*3/uL (1.4-4.0); Lymphocytes % 12.9 % (21.3-54.2); Mean Corpuscular HGB Conc 33.6 GM/DL (32-36); Mean Corpuscular Hemoglobin 30 PG (27-34); Mean Corpuscular Volume 88.3 FL (87-102); Mean Platelet Volume 10.3 FL (9.6-12.0); Monocytes % 0.6 % (1.7-12.7); Neutrophils # 5.6 10*3/uL (1.4-7.4); Neutrophils % 85.5 % (38.7-73.9); Platelet Count 307 T/CUMM (130-400); Red Blood Count 4.52 MC/CUMM (3.8-5.5); Red Cell Distribution Width 13.4 % (9.3-17.3); White Blood Count 6.5 T/CUMM (4-12)
[2017-08-23 06:39] LABS: Burr Cells Slight; Giant Platelets Few; Hypochromasia 1+; Ovalocytes Slight; Platelet Estimate Adequate
[2017-08-23 06:49] LABS: Calcium 9.5 MG/DL (8.5-10.1); Osmolality,Calculated 281.5 MOS/KG (273-304); Potassium 4.9 MMOL/L (3.5-5.1); VLDL CHOLESTEROL 5.8 MG/DL
[2017-08-23] MEDS: ARFORMOTEROL 15 MCG/2 ML NEB RESP TX SCH ×2 (07:00→19:23)
[2017-08-23] MEDS: BUDESONIDE 0.5 MG/2 ML NEB RESP TX SCH (07:12)
[2017-08-23] MEDS: PANTOPRAZOLE 40 MG TABLET PO SCH ×2 (08:23→21:50)
[2017-08-23] MEDS: guaiFENesin/DM ER 600-30 MG TABLET PO PRN (08:23)
[2017-08-23] MEDS: THEOPHYLLINE ER (24 HR) 400 MG TABLET PO SCH ×2 (08:23→17:04)
[2017-08-23] MEDS: FLUTICASONE 50 MCG NASAL SPRAY 16 GM BOTTLE BOTH NARES SCH ×2 (08:24→21:52)
[2017-08-23] MEDS: ERYTHROMYCIN BASE 250 MG TABLET PO SCH ×2 (08:24→17:04)
[2017-08-23] MEDS: BENZONATATE 100 MG CAPSULE PO SCH ×3 (08:24→21:51)
[2017-08-23] MEDS: FUROSEMIDE 40 MG TABLET PO SCH (08:26)
[2017-08-23] MEDS ORDERED: PANTOPRAZOLE 40 MG TABLET PO SCH (09:00)
[2017-08-23] MEDS ORDERED: ZALEPLON 5 MG CAPSULE PO PRN (11:11)
[2017-08-23] MEDS: POLYETHYLENE GLYCOL POWDER 17 GM PACK PO SCH (17:05)
[2017-08-23] MEDS: IBUPROFEN 600 MG TABLET PO PRN (21:49)
[2017-08-23] MEDS: LEVOFLOXACIN 750 MG TABLET PO SCH (21:50)
[2017-08-23] MEDS: MONTELUKAST 10 MG TABLET PO SCH (21:50)
[2017-08-23] MEDS: DILTIAZEM CD 300 MG CAPSULE PO SCH (21:51)
[2017-08-24] MEDS: ALBUTEROL/IPRATROPIUM 3 ML NEB RESP TX SCH ×3 (00:15→13:30)
[2017-08-24] MEDS: methylPREDNISolone SOD SUC 125 MG/2 ML VIAL IV SCH ×2 (03:20→08:35)
[2017-08-24] MEDS: BUDESONIDE 0.5 MG/2 ML NEB RESP TX SCH (07:00)
[2017-08-24] MEDS: ARFORMOTEROL 15 MCG/2 ML NEB RESP TX SCH (07:00)
[2017-08-24 07:32] LABS: Basophils % 0.1 % (0.0-0.8); Hematocrit 41.9 VOL% (35.7-47.0); Hemoglobin 14.7 GM/DL (12.0-16.0); Immature Granulocytes Absolute 0.21 #; Lymphocytes # 1.1 10*3/uL (1.4-4.0); Lymphocytes % 5.4 % (21.3-54.2); Mean Corpuscular HGB Conc 35.1 GM/DL (32-36); Mean Corpuscular Hemoglobin 30 PG (27-34); Mean Corpuscular Volume 86.6 FL (87-102); Mean Platelet Volume 10.7 FL (9.6-12.0); Monocytes # 0.3 10*3/uL (0.11-0.8); Monocytes % 1.4 % (1.7-12.7); Neutrophils # 19.3 10*3/uL (1.4-7.4); Neutrophils % 92.1 % (38.7-73.9); Platelet Count 370 T/CUMM (130-400); Red Blood Count 4.84 MC/CUMM (3.8-5.5); Red Cell Distribution Width 13.8 % (9.3-17.3)
[2017-08-24 07:51] LABS: Giant Platelets Few; Hypochromasia 1+; Lymphocytes 11 % (20-55); Ovalocytes Slight; Platelet Estimate Adequate; Segmented Neutrophils 89 % (50-85); Total Cells Counted 100
[2017-08-24 08:05] LABS: Calcium 9.9 MG/DL (8.5-10.1); Osmolality,Calculated 284.4 MOS/KG (273-304); Potassium 4.6 MMOL/L (3.5-5.1)
[2017-08-24] MEDS: guaiFENesin/DM ER 600-30 MG TABLET PO PRN (08:36)
[2017-08-24] MEDS: THEOPHYLLINE ER (24 HR) 400 MG TABLET PO SCH (08:36)
[2017-08-24] MEDS: FLUTICASONE 50 MCG NASAL SPRAY 16 GM BOTTLE BOTH NARES SCH (08:37)
[2017-08-24] MEDS: PANTOPRAZOLE 40 MG TABLET PO SCH (08:37)
[2017-08-24] MEDS: POLYETHYLENE GLYCOL POWDER 17 GM PACK PO SCH (08:37)
[2017-08-24] MEDS: INSULIN LISPRO 100 UNIT/ML SUBCUT SCH (08:37)
[2017-08-24] MEDS: BENZONATATE 100 MG CAPSULE PO SCH (08:37)
[2017-08-24] MEDS: ERYTHROMYCIN BASE 250 MG TABLET PO SCH (08:37)
[2017-08-24] MEDS: FUROSEMIDE 40 MG TABLET PO SCH (08:37)
[2017-08-24] MEDS: BECLOMETHASONE 80 MCG/PUFF INHALER 8.7 GM INH SCH (08:51)
[2017-08-24 12:16] VITALS: BP 145/64
== END 2017-08-24 13:45 | disposition home or self-care (01) | DRG 140 ==
LOC: N.ED 09:10 → SUATTDRO 11:46 → N.EDINP 11:46 → N.2E 14:40
PROVIDERS: ADMIT Internal Medicine; ATTEND Internal Medicine

== ENCOUNTER 2018-06-17 14:16 | Inpatient (IN) ==
[2018-06-17] MEDS ORDERED: methylPREDNISolone SOD SUC 125 MG/2 ML VIAL IV STA (14:42)
[2018-06-17] MEDS ORDERED: SODIUM CHLORIDE 0.9% 500 ML IV STA (14:42)
[2018-06-17 14:58] LABS: Basophils % 0.5 % (0.0-0.8); Eosinophils # 0.1 10*3/uL (0.0-0.87); Eosinophils % 1.6 % (0.00-10.9); Hematocrit 41.8 VOL% (35.7-47.0); Immature Granulocytes % 0.4 %; Immature Granulocytes Absolute 0.03 #; Lymphocytes # 1.7 10*3/uL (1.4-4.0); Lymphocytes % 20.7 % (21.3-54.2); Mean Corpuscular HGB Conc 33.5 GM/DL (32-36); Mean Corpuscular Hemoglobin 30 PG (27-34); Mean Corpuscular Volume 88.4 FL (87-102); Monocytes # 0.6 10*3/uL (0.11-0.8); Monocytes % 7.7 % (1.7-12.7); Neutrophils # 5.6 10*3/uL (1.4-7.4); Neutrophils % 69.1 % (38.7-73.9); Platelet Count 329 T/CUMM (130-400); Red Blood Count 4.73 MC/CUMM (3.8-5.5); White Blood Count 8.2 T/CUMM (4-12)
[2018-06-17] MEDS ORDERED: ALBUTEROL 2.5 MG/3 ML NEB RESP TX SCH ×2 (15:00→19:00)
[2018-06-17 15:16] LABS: Allen Test Positive
[2018-06-17 15:18] LABS: ABG Base Excess 1.5 MMOL/L (-2.5-2.5); ABG HCO3 25.4 MMOL/L (20-26); ABG Oxygen Saturation 84.8 % (95-100); ABG PO2 52.3 MM HG (80-95); ABG TCO2 23.6 MMOL/L (23-27)
[2018-06-17 15:37] LABS: Albumin 4.6 G/DL (3.4-5.0); Bilirubin,Total 0.7 MG/DL (0.2-1.0); Calcium 9.7 MG/DL (8.5-10.1); Osmolality,Calculated 278.4 MOS/KG (273-304); Potassium 3.6 MMOL/L (3.5-5.1); Total Protein 7.8 G/DL (6.4-8.3)
[2018-06-17] MEDS ORDERED: DEXTROSE 50% 25 GM/50 ML VIAL IV PRN (16:45)
[2018-06-17] MEDS ORDERED: GLUCAGON 1 MG VIAL IM PRN (16:45)
[2018-06-17] MEDS ORDERED: ONDANSETRON 4 MG/2 ML VIAL IV PRN (16:45)
[2018-06-17] MEDS ORDERED: INFLUENZA VIRUS VACCINE 0.5 ML SYRINGE IM ONE (17:06)
[2018-06-17] MEDS: SODIUM CHLORIDE 0.9% 1,000 ML IV SCH (17:16)
[2018-06-17] MEDS ORDERED: ALBUTEROL 2.5 MG/3 ML NEB RESP TX PRN (18:11)
[2018-06-17] MEDS: BUDESONIDE 0.5 MG/2 ML NEB RESP TX SCH (19:55)
[2018-06-17] MEDS: ALBUTEROL/IPRATROPIUM 3 ML NEB RESP TX SCH ×2 (19:55→23:55)
[2018-06-17] MEDS: ARFORMOTEROL 15 MCG/2 ML NEB RESP TX SCH (19:55)
[2018-06-17] MEDS: methylPREDNISolone SOD SUC 125 MG/2 ML VIAL IV SCH (21:20)
[2018-06-17] MEDS: INSULIN LISPRO 100 UNIT/ML SUBCUT SCH (22:21)
[2018-06-17] MEDS: FLUTICASONE 50 MCG NASAL SPRAY 16 GM BOTTLE BOTH NARES SCH (22:22)
[2018-06-17] MEDS: MONTELUKAST 10 MG TABLET PO SCH (22:23)
[2018-06-17] MEDS: DILTIAZEM CD 300 MG CAPSULE PO SCH (22:23)
[2018-06-17] MEDS: THEOPHYLLINE ER (24 HR) 400 MG TABLET PO SCH (22:23)
[2018-06-17] MEDS: PANTOPRAZOLE 40 MG TABLET PO SCH (22:25)
[2018-06-17] MEDS: DOCUSATE SODIUM 100 MG CAPSULE PO SCH (22:25)
[2018-06-17] MEDS: BENZONATATE 100 MG CAPSULE PO PRN (22:27)
[2018-06-18 00:42] LABS: Apearance,Urine CLEAR (Clear); Bilirubin,Urine Negative (Negative); Blood, Urine Negative (Negative); Glucose,Urine (UA) Negative (Negative); Ketones,Urine 5 mg/dL (Negative); Nitrite,Urine Negative (Negative); Protein,Urine Negative; RBC,Urine 1 /HPF (0-4); Urine Color Straw (Yellow); Urine Specific Gravity 1.006 (1.001-1.035); Urine Urobilinogen < 2.0 EU/DL (0.2-1.0)
[2018-06-18] MEDS: SODIUM CHLORIDE 0.9% 1,000 ML IV SCH ×3 (01:00→22:46)
[2018-06-18] MEDS: methylPREDNISolone SOD SUC 125 MG/2 ML VIAL IV SCH ×4 (03:30→22:41)
[2018-06-18 03:38] LABS: Barbiturates Screen,Urine Negative (Negative); Benzodiazepines Screen,Urine Negative (Negative); Cannabinoid Screen,Urine Negative (Negative); Opiate Screen,Urine Negative (Negative); Phencyclidine Screen,Urine Negative (Negative)
[2018-06-18] MEDS: ACETAMINOPHEN 325 MG TABLET PO PRN (04:02)
[2018-06-18] MEDS: BENZONATATE 100 MG CAPSULE PO PRN ×2 (04:04→10:12)
[2018-06-18] MEDS: ALBUTEROL/IPRATROPIUM 3 ML NEB RESP TX SCH ×3 (07:15→19:41)
[2018-06-18] MEDS: ARFORMOTEROL 15 MCG/2 ML NEB RESP TX SCH ×2 (07:16→19:40)
[2018-06-18] MEDS: BUDESONIDE 0.5 MG/2 ML NEB RESP TX SCH ×2 (07:16→19:41)
[2018-06-18] MEDS ORDERED: PANTOPRAZOLE 40 MG TABLET PO SCH (09:00)
[2018-06-18] MEDS: FLUTICASONE 50 MCG NASAL SPRAY 16 GM BOTTLE BOTH NARES SCH ×2 (10:11→21:29)
[2018-06-18] MEDS: THEOPHYLLINE ER (24 HR) 400 MG TABLET PO SCH ×2 (10:11→21:25)
[2018-06-18] MEDS: FUROSEMIDE 40 MG TABLET PO SCH (10:12)
[2018-06-18] MEDS: INSULIN LISPRO 100 UNIT/ML SUBCUT SCH ×4 (10:13→22:44)
[2018-06-18] MEDS: POTASSIUM CHLORIDE 10 MEQ TABLET PO SCH (10:13)
[2018-06-18] MEDS: DOCUSATE SODIUM 100 MG CAPSULE PO SCH ×2 (10:13→21:25)
[2018-06-18] MEDS: PANTOPRAZOLE 40 MG TABLET PO SCH ×2 (10:13→21:27)
[2018-06-18] MEDS ORDERED: BENZONATATE 100 MG CAPSULE PO PRN (10:23)
[2018-06-18] MEDS ORDERED: BISACODYL 10 MG SUPP RECTAL PRN (10:23)
[2018-06-18] MEDS: LEVOFLOXACIN INJ 500 MG in PREMIX 1 EACH IV SCH (13:50)
[2018-06-18] MEDS: DILTIAZEM CD 300 MG CAPSULE PO SCH (21:25)
[2018-06-18] MEDS: MONTELUKAST 10 MG TABLET PO SCH (21:27)
[2018-06-18] MEDS: MAGNESIUM HYDROXIDE SUSP 30 ML UDCUP PO PRN (21:32)
[2018-06-19] MEDS: SODIUM CHLORIDE 0.9% 1,000 ML IV SCH ×2 (00:48→08:07)
[2018-06-19] MEDS: ALBUTEROL/IPRATROPIUM 3 ML NEB RESP TX SCH ×4 (01:00→19:41)
[2018-06-19] MEDS: methylPREDNISolone SOD SUC 125 MG/2 ML VIAL IV SCH ×4 (05:31→21:29)
[2018-06-19] MEDS: ACETAMINOPHEN 325 MG TABLET PO PRN ×2 (05:35→21:58)
[2018-06-19] MEDS: ARFORMOTEROL 15 MCG/2 ML NEB RESP TX SCH ×2 (07:33→19:41)
[2018-06-19] MEDS: BUDESONIDE 0.5 MG/2 ML NEB RESP TX SCH ×2 (07:33→19:42)
[2018-06-19] MEDS: FLUTICASONE 50 MCG NASAL SPRAY 16 GM BOTTLE BOTH NARES SCH ×2 (08:08→21:33)
[2018-06-19] MEDS: LEVOFLOXACIN INJ 500 MG in PREMIX 1 EACH IV SCH (08:08)
[2018-06-19] MEDS: FUROSEMIDE 40 MG TABLET PO SCH (08:10)
[2018-06-19] MEDS: DOCUSATE SODIUM 100 MG CAPSULE PO SCH ×2 (08:11→21:32)
[2018-06-19] MEDS: INSULIN LISPRO 100 UNIT/ML SUBCUT SCH ×4 (08:11→21:56)
[2018-06-19] MEDS: THEOPHYLLINE ER (24 HR) 400 MG TABLET PO SCH ×2 (08:11→21:33)
[2018-06-19] MEDS: PANTOPRAZOLE 40 MG TABLET PO SCH ×2 (08:11→21:31)
[2018-06-19] MEDS: POTASSIUM CHLORIDE 10 MEQ TABLET PO SCH (08:11)
[2018-06-19] MEDS ORDERED: HYDROCORTISONE 2.5% RECTAL CREAM 30 GM TUBE TOP PRN (14:19)
[2018-06-19] MEDS: MONTELUKAST 10 MG TABLET PO SCH (21:28)
[2018-06-19] MEDS: DILTIAZEM CD 300 MG CAPSULE PO SCH (21:31)
[2018-06-20] MEDS: ALBUTEROL/IPRATROPIUM 3 ML NEB RESP TX SCH ×4 (00:18→19:47)
[2018-06-20] MEDS: methylPREDNISolone SOD SUC 125 MG/2 ML VIAL IV SCH ×4 (03:15→21:03)
[2018-06-20] MEDS: ACETAMINOPHEN 325 MG TABLET PO PRN (04:00)
[2018-06-20 05:10] LABS: Basophils % 0.1 % (0.0-0.8); Hematocrit 35.7 VOL% (35.7-47.0); Immature Granulocytes % 1.8 %; Immature Granulocytes Absolute 0.31 #; Lymphocytes # 0.7 10*3/uL (1.4-4.0); Lymphocytes % 3.9 % (21.3-54.2); Mean Corpuscular HGB Conc 33.1 GM/DL (32-36); Mean Corpuscular Hemoglobin 30 PG (27-34); Mean Corpuscular Volume 89.7 FL (87-102); Mean Platelet Volume 10.3 FL (9.6-12.0); Monocytes # 0.5 10*3/uL (0.11-0.8); Monocytes % 2.5 % (1.7-12.7); Neutrophils # 16.2 10*3/uL (1.4-7.4); Neutrophils % 91.7 % (38.7-73.9); Platelet Count 308 T/CUMM (130-400); Red Blood Count 3.98 MC/CUMM (3.8-5.5); Red Cell Distribution Width 13.9 % (9.3-17.3)
[2018-06-20 05:12] LABS: White Blood Count 17.7 T/CUMM (4-12)
[2018-06-20 05:13] LABS: Hemoglobin 11.8 GM/DL (12.0-16.0)
[2018-06-20 05:26] LABS: Osmolality,Calculated 290.3 MOS/KG (273-304); Potassium 3.5 MMOL/L (3.5-5.1)
[2018-06-20 05:59] LABS: Hypochromasia Slight; Lymphocytes 3 % (20-55); Platelet Estimate Normal; Segmented Neutrophils 97 % (50-85); Total Cells Counted 100
[2018-06-20] MEDS: BUDESONIDE 0.5 MG/2 ML NEB RESP TX SCH ×2 (07:40→19:47)
[2018-06-20] MEDS: ARFORMOTEROL 15 MCG/2 ML NEB RESP TX SCH ×2 (07:41→19:47)
[2018-06-20] MEDS: FLUTICASONE 50 MCG NASAL SPRAY 16 GM BOTTLE BOTH NARES SCH ×2 (08:55→21:03)
[2018-06-20] MEDS: INSULIN LISPRO 100 UNIT/ML SUBCUT SCH ×4 (08:56→21:04)
[2018-06-20] MEDS: FUROSEMIDE 40 MG TABLET PO SCH (08:57)
[2018-06-20] MEDS: POTASSIUM CHLORIDE 10 MEQ TABLET PO SCH (08:57)
[2018-06-20] MEDS: DOCUSATE SODIUM 100 MG CAPSULE PO SCH ×2 (08:57→21:02)
[2018-06-20] MEDS: PANTOPRAZOLE 40 MG TABLET PO SCH ×2 (08:57→21:02)
[2018-06-20] MEDS: LEVOFLOXACIN INJ 500 MG in PREMIX 1 EACH IV SCH (08:58)
[2018-06-20] MEDS: THEOPHYLLINE ER (24 HR) 400 MG TABLET PO SCH ×2 (12:07→21:01)
[2018-06-20] MEDS: MONTELUKAST 10 MG TABLET PO SCH (21:01)
[2018-06-20] MEDS: DILTIAZEM CD 300 MG CAPSULE PO SCH (21:02)
[2018-06-20] MEDS: guaiFENesin/CODEINE 5 ML LIQUID PO PRN (21:03)
[2018-06-20] MEDS: MAGNESIUM HYDROXIDE SUSP 30 ML UDCUP PO PRN (21:03)
[2018-06-21] MEDS: ALBUTEROL/IPRATROPIUM 3 ML NEB RESP TX SCH ×3 (00:50→12:00)
[2018-06-21] MEDS: methylPREDNISolone SOD SUC 125 MG/2 ML VIAL IV SCH ×2 (03:33→11:47)
[2018-06-21] MEDS: BUDESONIDE 0.5 MG/2 ML NEB RESP TX SCH (07:30)
[2018-06-21] MEDS: ARFORMOTEROL 15 MCG/2 ML NEB RESP TX SCH (07:30)
[2018-06-21] MEDS: POTASSIUM CHLORIDE 10 MEQ TABLET PO SCH (09:01)
[2018-06-21] MEDS: FUROSEMIDE 40 MG TABLET PO SCH (09:01)
[2018-06-21] MEDS: PANTOPRAZOLE 40 MG TABLET PO SCH (09:01)
[2018-06-21] MEDS: DOCUSATE SODIUM 100 MG CAPSULE PO SCH (09:01)
[2018-06-21] MEDS: THEOPHYLLINE ER (24 HR) 400 MG TABLET PO SCH (09:02)
[2018-06-21] MEDS: INSULIN LISPRO 100 UNIT/ML SUBCUT SCH ×3 (09:02→15:42)
[2018-06-21] MEDS: guaiFENesin/CODEINE 5 ML LIQUID PO PRN (09:05)
[2018-06-21] MEDS: FLUTICASONE 50 MCG NASAL SPRAY 16 GM BOTTLE BOTH NARES SCH (09:14)
[2018-06-21] MEDS: LEVOFLOXACIN INJ 500 MG in PREMIX 1 EACH IV SCH (11:47)
[2018-06-21] MEDS: ACETAMINOPHEN 325 MG TABLET PO PRN (11:55)
[2018-06-21] MEDS ORDERED: LEVOFLOXACIN 500 MG TABLET PO ONE (12:30)
[2018-06-21 15:43] VITALS: BP 139/77
== END 2018-06-21 16:22 | disposition home or self-care (01) | DRG 141 ==
LOC: N.ED 14:16 → N.EDINP 15:02 → N.2E 16:15
PROVIDERS: ADMIT Family Medicine; ATTEND Family Medicine

== ENCOUNTER 2018-08-25 10:59 | Inpatient (IN) ==
[2018-08-25] MEDS ORDERED: methylPREDNISolone SOD SUC 125 MG/2 ML VIAL IV STA (11:26)
[2018-08-25] MEDS ORDERED: ALBUTEROL 2.5 MG/3 ML NEB RESP TX STA (11:26)
[2018-08-25 11:48] LABS: Basophils % 0.6 % (0.0-0.8); Eosinophils # 0.1 10*3/uL (0.0-0.87); Eosinophils % 1.5 % (0.00-10.9); Hematocrit 40.4 VOL% (35.7-47.0); Hemoglobin 13.2 GM/DL (12.0-16.0); Immature Granulocytes % 0.3 %; Immature Granulocytes Absolute 0.02 #; Lymphocytes % 30.1 % (21.3-54.2); Mean Corpuscular HGB Conc 32.7 GM/DL (32-36); Mean Corpuscular Hemoglobin 29 PG (27-34); Mean Corpuscular Volume 88.4 FL (87-102); Mean Platelet Volume 9.8 FL (9.6-12.0); Monocytes # 0.5 10*3/uL (0.11-0.8); Monocytes % 7.8 % (1.7-12.7); Neutrophils # 3.9 10*3/uL (1.4-7.4); Neutrophils % 59.7 % (38.7-73.9); Platelet Count 369 T/CUMM (130-400); Red Blood Count 4.57 MC/CUMM (3.8-5.5); Red Cell Distribution Width 13.7 % (9.3-17.3); White Blood Count 6.6 T/CUMM (4-12)
[2018-08-25] MEDS ORDERED: ONDANSETRON 4 MG/2 ML VIAL IV PRN (13:08)
[2018-08-25] MEDS ORDERED: ALBUTEROL/IPRATROPIUM 3 ML NEB RESP TX PRN (13:11)
[2018-08-25] MEDS ORDERED: LOSARTAN 25 MG TABLET PO PRN (13:13)
[2018-08-25] MEDS ORDERED: glipiZIDE 5 MG TABLET PO PRN (13:13)
[2018-08-25] MEDS ORDERED: BENZONATATE 100 MG CAPSULE PO PRN (13:13)
[2018-08-25] MEDS ORDERED: LEVOFLOXACIN 250 MG TABLET PO SCH (13:30)
[2018-08-25] MEDS ORDERED: DEXTROSE 50% 25 GM/50 ML SYRINGE IV PRN (16:58)
[2018-08-25] MEDS ORDERED: GLUCAGON 1 MG VIAL IM PRN (16:58)
[2018-08-25] MEDS: methylPREDNISolone SOD SUC 40 MG/1 ML VIAL IV SCH ×2 (17:01→21:08)
[2018-08-25] MEDS: SODIUM CHLORIDE 0.45% 1,000 ML IV SCH (18:41)
[2018-08-25] MEDS: INSULIN LISPRO 100 UNIT/ML SUBCUT SCH ×2 (18:44→21:07)
[2018-08-25] MEDS: BUDESONIDE 0.5 MG/2 ML NEB RESP TX SCH (19:35)
[2018-08-25] MEDS: ARFORMOTEROL 15 MCG/2 ML NEB RESP TX SCH (19:35)
[2018-08-25] MEDS: MONTELUKAST 10 MG TABLET PO SCH (21:06)
[2018-08-25] MEDS: ENOXAPARIN 40 MG/0.4 ML SYRINGE SUBCUT SCH (21:07)
[2018-08-25] MEDS: DILTIAZEM CD 300 MG CAPSULE PO SCH (21:07)
[2018-08-25] MEDS: THEOPHYLLINE ER (24 HR) 400 MG TABLET PO SCH (21:29)
[2018-08-25] MEDS ORDERED: ZALEPLON 5 MG CAPSULE PO ONE (22:59)
[2018-08-25] MEDS: ACETAMINOPHEN 325 MG TABLET PO PRN (23:36)
[2018-08-26] MEDS: SODIUM CHLORIDE 0.45% 1,000 ML IV SCH ×2 (02:58→14:53)
[2018-08-26] MEDS: methylPREDNISolone SOD SUC 40 MG/1 ML VIAL IV SCH (06:42)
[2018-08-26] MEDS: ARFORMOTEROL 15 MCG/2 ML NEB RESP TX SCH ×2 (07:18→18:53)
[2018-08-26] MEDS: BUDESONIDE 0.5 MG/2 ML NEB RESP TX SCH ×2 (07:18→18:53)
[2018-08-26 09:29] LABS: Osmolality,Calculated 287.3 MOS/KG (273-304); Potassium 3.7 MMOL/L (3.5-5.1)
[2018-08-26] MEDS: INSULIN LISPRO 100 UNIT/ML SUBCUT SCH ×4 (09:40→23:26)
[2018-08-26] MEDS: POTASSIUM CHLORIDE 10 MEQ TABLET PO SCH (09:40)
[2018-08-26] MEDS: PANTOPRAZOLE 40 MG TABLET PO SCH (09:41)
[2018-08-26] MEDS: THEOPHYLLINE ER (24 HR) 400 MG TABLET PO SCH ×2 (09:41→23:23)
[2018-08-26] MEDS: FUROSEMIDE 40 MG TABLET PO SCH (09:41)
[2018-08-26] MEDS: ACETAMINOPHEN 325 MG TABLET PO PRN (14:10)
[2018-08-26] MEDS ORDERED: methylPREDNISolone SOD SUC 40 MG/1 ML VIAL IV SCH (17:00)
[2018-08-26] MEDS: ENOXAPARIN 40 MG/0.4 ML SYRINGE SUBCUT SCH (23:23)
[2018-08-26] MEDS: rOPINIRole 0.25 MG TABLET PO SCH (23:24)
[2018-08-26] MEDS: DILTIAZEM CD 300 MG CAPSULE PO SCH (23:25)
[2018-08-26] MEDS: MONTELUKAST 10 MG TABLET PO SCH (23:27)
[2018-08-27] MEDS: BUDESONIDE 0.5 MG/2 ML NEB RESP TX SCH ×2 (07:36→19:23)
[2018-08-27] MEDS: ARFORMOTEROL 15 MCG/2 ML NEB RESP TX SCH ×2 (07:36→19:23)
[2018-08-27] MEDS: INSULIN LISPRO 100 UNIT/ML SUBCUT SCH ×4 (08:01→22:13)
[2018-08-27] MEDS: PANTOPRAZOLE 40 MG TABLET PO SCH (08:38)
[2018-08-27] MEDS: FUROSEMIDE 40 MG TABLET PO SCH (08:38)
[2018-08-27] MEDS: predniSONE 20 MG TABLET PO SCH (08:38)
[2018-08-27] MEDS: POTASSIUM CHLORIDE 10 MEQ TABLET PO SCH (08:39)
[2018-08-27] MEDS: THEOPHYLLINE ER (24 HR) 400 MG TABLET PO SCH ×2 (08:39→22:12)
[2018-08-27] MEDS ORDERED: LEVOFLOXACIN 250 MG TABLET PO SCH (09:00)
[2018-08-27] MEDS ORDERED: SIMETHICONE CHEW 80 MG TABLET PO PRN (11:11)
[2018-08-27] MEDS ORDERED: FLUTICASONE 50 MCG NASAL SPRAY 16 GM BOTTLE BOTH NARES SCH (11:25)
[2018-08-27] MEDS: DILTIAZEM CD 300 MG CAPSULE PO SCH (22:11)
[2018-08-27] MEDS: ENOXAPARIN 40 MG/0.4 ML SYRINGE SUBCUT SCH (22:11)
[2018-08-27] MEDS: rOPINIRole 0.25 MG TABLET PO SCH (22:12)
[2018-08-27] MEDS: MONTELUKAST 10 MG TABLET PO SCH (22:12)
[2018-08-28] MEDS: ARFORMOTEROL 15 MCG/2 ML NEB RESP TX SCH (07:10)
[2018-08-28] MEDS: BUDESONIDE 0.5 MG/2 ML NEB RESP TX SCH (07:15)
[2018-08-28] MEDS: INSULIN LISPRO 100 UNIT/ML SUBCUT SCH ×2 (08:25→12:33)
[2018-08-28] MEDS: THEOPHYLLINE ER (24 HR) 400 MG TABLET PO SCH (08:57)
[2018-08-28] MEDS: FUROSEMIDE 40 MG TABLET PO SCH (08:58)
[2018-08-28] MEDS: POTASSIUM CHLORIDE 10 MEQ TABLET PO SCH (08:58)
[2018-08-28] MEDS: PANTOPRAZOLE 40 MG TABLET PO SCH (08:58)
[2018-08-28] MEDS: predniSONE 20 MG TABLET PO SCH (08:59)
[2018-08-28] MEDS ORDERED: FLUTICASONE 50 MCG NASAL SPRAY 16 GM BOTTLE BOTH NARES SCH (09:00)
[2018-08-28 12:00] VITALS: BP 125/68
== END 2018-08-28 13:41 | disposition home or self-care (01) | DRG 141 ==
LOC: N.ED 10:59 → N.EDINP 13:08 → N.2E 16:57
PROVIDERS: ADMIT Family Medicine; ATTEND Family Medicine

== ENCOUNTER 2018-10-28 14:04 | Observation (INO) ==
[2018-10-28] MEDS ORDERED: ALBUTEROL/IPRATROPIUM 3 ML NEB RESP TX STA ×2 (15:25→16:00)
[2018-10-28 15:45] LABS: Basophils % 0.2 % (0.0-0.8); Eosinophils % 0.2 % (0.00-10.9); Hemoglobin 14.7 GM/DL (12.0-16.0); Immature Granulocytes % 0.3 %; Immature Granulocytes Absolute 0.03 #; Lymphocytes # 1.2 10*3/uL (1.4-4.0); Lymphocytes % 13.5 % (21.3-54.2); Mean Corpuscular HGB Conc 32.7 GM/DL (32-36); Mean Corpuscular Volume 87.9 FL (87-102); Mean Platelet Volume 9.9 FL (9.6-12.0); Monocytes % 2.4 % (1.7-12.7); Neutrophils % 83.4 % (38.7-73.9); Platelet Count 340 T/CUMM (130-400); Red Blood Count 5.12 MC/CUMM (3.8-5.5); Red Cell Distribution Width 14.4 % (9.3-17.3); White Blood Count 8.8 T/CUMM (4-12)
[2018-10-28 16:09] LABS: Albumin 4.7 G/DL (3.4-5.0); Bilirubin,Total 0.6 MG/DL (0.2-1.0); Calcium 9.6 MG/DL (8.5-10.1); Osmolality,Calculated 279.4 MOS/KG (273-304); Total Protein 8.2 G/DL (6.4-8.3)
[2018-10-28] MEDS: methylPREDNISolone SOD SUC 125 MG/2 ML VIAL IV STA ×2 (17:55→18:40)
[2018-10-28] MEDS ORDERED: GLUCAGON 1 MG VIAL IM PRN (18:29)
[2018-10-28] MEDS ORDERED: DEXTROSE 50% 25 GM/50 ML SYRINGE IV PRN (18:29)
[2018-10-28] MEDS ORDERED: ALBUTEROL 2.5 MG/3 ML NEB RESP TX PRN (18:29)
[2018-10-28] MEDS ORDERED: ONDANSETRON 4 MG/2 ML VIAL IV PRN (18:29)
[2018-10-28] MEDS ORDERED: BENZONATATE 100 MG CAPSULE PO PRN (18:29)
[2018-10-28] MEDS ORDERED: glipiZIDE 5 MG TABLET PO PRN (18:29)
[2018-10-28] MEDS: ALBUTEROL/IPRATROPIUM 3 ML NEB RESP TX SCH (19:33)
[2018-10-28] MEDS: ARFORMOTEROL 15 MCG/2 ML NEB RESP TX SCH (19:33)
[2018-10-28] MEDS: FUROSEMIDE 40 MG TABLET PO SCH (21:37)
[2018-10-28] MEDS: DILTIAZEM CD 300 MG CAPSULE PO SCH (21:37)
[2018-10-28] MEDS: rOPINIRole 0.25 MG TABLET PO SCH (21:37)
[2018-10-28] MEDS: DOCUSATE SODIUM 100 MG CAPSULE PO SCH (21:37)
[2018-10-28] MEDS: MONTELUKAST 10 MG TABLET PO SCH (21:37)
[2018-10-28] MEDS: FLUTICASONE 50 MCG NASAL SPRAY 16 GM BOTTLE BOTH NARES SCH (21:40)
[2018-10-29] MEDS: BUDESONIDE 0.5 MG/2 ML NEB RESP TX SCH ×3 (00:27→19:15)
[2018-10-29] MEDS: methylPREDNISolone SOD SUC 125 MG/2 ML VIAL IV SCH ×3 (00:40→12:10)
[2018-10-29 05:58] LABS: Basophils % 0.1 % (0.0-0.8); Hemoglobin 13.8 GM/DL (12.0-16.0); Immature Granulocytes % 0.4 %; Immature Granulocytes Absolute 0.04 #; Lymphocytes # 0.9 10*3/uL (1.4-4.0); Lymphocytes % 10.6 % (21.3-54.2); Mean Corpuscular HGB Conc 33.7 GM/DL (32-36); Mean Platelet Volume 10.8 FL (9.6-12.0); Monocytes % 0.4 % (1.7-12.7); Neutrophils % 88.5 % (38.7-73.9); Platelet Count 305 T/CUMM (130-400); Red Blood Count 4.71 MC/CUMM (3.8-5.5); Red Cell Distribution Width 14.1 % (9.3-17.3); White Blood Count 8.9 T/CUMM (4-12)
[2018-10-29] MEDS: ALBUTEROL/IPRATROPIUM 3 ML NEB RESP TX SCH ×4 (07:07→19:15)
[2018-10-29] MEDS: POTASSIUM CHLORIDE 10 MEQ TABLET PO SCH (08:11)
[2018-10-29] MEDS: THEOPHYLLINE ER (24 HR) 300 MG CAPSULE PO SCH (08:11)
[2018-10-29] MEDS: LEVOFLOXACIN 250 MG TABLET PO SCH (08:11)
[2018-10-29] MEDS: DOCUSATE SODIUM 100 MG CAPSULE PO SCH ×2 (08:12→20:27)
[2018-10-29] MEDS: FLUTICASONE 50 MCG NASAL SPRAY 16 GM BOTTLE BOTH NARES SCH ×2 (08:12→20:33)
[2018-10-29] MEDS: PANTOPRAZOLE 40 MG TABLET PO SCH (08:15)
[2018-10-29] MEDS: ACETAMINOPHEN 325 MG TABLET PO PRN ×2 (08:20→13:54)
[2018-10-29] MEDS ORDERED: PANTOPRAZOLE 40 MG TABLET PO SCH (09:00)
[2018-10-29] MEDS: ARFORMOTEROL 15 MCG/2 ML NEB RESP TX SCH ×2 (11:20→19:15)
[2018-10-29] MEDS: FUROSEMIDE 40 MG TABLET PO SCH ×2 (12:10→20:27)
[2018-10-29] MEDS: MONTELUKAST 10 MG TABLET PO SCH (20:25)
[2018-10-29] MEDS: BISACODYL 5 MG TABLET PO PRN (20:26)
[2018-10-29] MEDS: rOPINIRole 0.25 MG TABLET PO SCH (20:27)
[2018-10-29] MEDS: DILTIAZEM CD 300 MG CAPSULE PO SCH (20:27)
[2018-10-29] MEDS: ZALEPLON 5 MG CAPSULE PO SCH (20:27)
[2018-10-29] MEDS: INSULIN LISPRO 100 UNIT/ML SUBCUT SCH (20:30)
[2018-10-30] MEDS: ALBUTEROL/IPRATROPIUM 3 ML NEB RESP TX SCH ×4 (07:09→19:27)
[2018-10-30] MEDS: BUDESONIDE 0.5 MG/2 ML NEB RESP TX SCH ×2 (07:09→19:27)
[2018-10-30] MEDS: ARFORMOTEROL 15 MCG/2 ML NEB RESP TX SCH ×2 (07:09→19:27)
[2018-10-30] MEDS: POTASSIUM CHLORIDE 10 MEQ TABLET PO SCH (09:28)
[2018-10-30] MEDS: PANTOPRAZOLE 40 MG TABLET PO SCH (09:28)
[2018-10-30] MEDS: DOCUSATE SODIUM 100 MG CAPSULE PO SCH ×2 (09:28→20:54)
[2018-10-30] MEDS: THEOPHYLLINE ER (24 HR) 300 MG CAPSULE PO SCH (09:28)
[2018-10-30] MEDS: LEVOFLOXACIN 250 MG TABLET PO SCH (09:28)
[2018-10-30] MEDS: FLUTICASONE 50 MCG NASAL SPRAY 16 GM BOTTLE BOTH NARES SCH ×2 (09:29→20:56)
[2018-10-30] MEDS: INSULIN LISPRO 100 UNIT/ML SUBCUT SCH ×4 (09:29→20:54)
[2018-10-30] MEDS: ACETAMINOPHEN 325 MG TABLET PO PRN (09:31)
[2018-10-30] MEDS: FUROSEMIDE 40 MG TABLET PO SCH ×2 (12:13→20:54)
[2018-10-30] MEDS: BISACODYL 5 MG TABLET PO PRN (18:06)
[2018-10-30] MEDS: rOPINIRole 0.25 MG TABLET PO SCH (20:54)
[2018-10-30] MEDS: ZALEPLON 5 MG CAPSULE PO SCH (20:54)
[2018-10-30] MEDS: MONTELUKAST 10 MG TABLET PO SCH (20:54)
[2018-10-30] MEDS: DILTIAZEM CD 300 MG CAPSULE PO SCH (20:58)
[2018-10-31] MEDS ORDERED: ENOXAPARIN 40 MG/0.4 ML SYRINGE SUBCUT SCH (06:30)
[2018-10-31] MEDS: BUDESONIDE 0.5 MG/2 ML NEB RESP TX SCH (07:33)
[2018-10-31] MEDS: ARFORMOTEROL 15 MCG/2 ML NEB RESP TX SCH (07:33)
[2018-10-31] MEDS: ALBUTEROL/IPRATROPIUM 3 ML NEB RESP TX SCH ×3 (07:33→14:43)
[2018-10-31] MEDS: DOCUSATE SODIUM 100 MG CAPSULE PO SCH (08:52)
[2018-10-31] MEDS: POTASSIUM CHLORIDE 10 MEQ TABLET PO SCH (08:52)
[2018-10-31] MEDS: LEVOFLOXACIN 250 MG TABLET PO SCH (08:52)
[2018-10-31] MEDS: THEOPHYLLINE ER (24 HR) 300 MG CAPSULE PO SCH (08:52)
[2018-10-31] MEDS: PANTOPRAZOLE 40 MG TABLET PO SCH (08:52)
[2018-10-31] MEDS: FLUTICASONE 50 MCG NASAL SPRAY 16 GM BOTTLE BOTH NARES SCH (08:53)
[2018-10-31] MEDS: INSULIN LISPRO 100 UNIT/ML SUBCUT SCH ×2 (09:31→12:47)
[2018-10-31 11:59] VITALS: BP 116/57
[2018-10-31] MEDS: FUROSEMIDE 40 MG TABLET PO SCH (12:46)
[2018-10-31] MEDS: ACETAMINOPHEN 325 MG TABLET PO PRN (12:50)
== END 2018-10-31 16:10 | disposition home or self-care (01) ==
LOC: N.ED 14:04 → N.EDINP 14:04 → SUPCPDRO 16:12 → N.4E 18:27
PROVIDERS: ADMIT Family Medicine; ATTEND Family Medicine

== ENCOUNTER 2019-03-17 09:07 | Observation (INO) ==
[2019-03-17] MEDS ORDERED: methylPREDNISolone SOD SUC 125 MG/2 ML VIAL IV STA (09:25)
[2019-03-17] MEDS ORDERED: ALBUTEROL NEB SOLN 5 MG/ML 20 ML/BOTTLE CONT NEB STA (09:25)
[2019-03-17 11:20] LABS: Basophils % 0.6 % (0.0-0.8); Eosinophils # 0.1 10*3/uL (0.0-0.87); Eosinophils % 1.2 % (0.00-10.9); Hematocrit 45.3 VOL% (35.7-47.0); Hemoglobin 15.2 GM/DL (12.0-16.0); Immature Granulocytes % 0.2 %; Immature Granulocytes Absolute 0.01 #; Lymphocytes # 1.9 10*3/uL (1.4-4.0); Lymphocytes % 38.6 % (21.3-54.2); Mean Corpuscular HGB Conc 33.6 GM/DL (32-36); Mean Corpuscular Volume 90.6 FL (87-102); Mean Platelet Volume 10.4 FL (9.6-12.0); Neutrophils % 52.4 % (38.7-73.9); Platelet Count 323 T/CUMM (130-400); Red Cell Distribution Width 14.2 % (9.3-17.3)
[2019-03-17 11:33] LABS: Albumin 4.4 G/DL (3.4-5.0); Bilirubin,Total 0.6 MG/DL (0.2-1.0); Calcium 9.8 MG/DL (8.5-10.1); Osmolality,Calculated 283.1 MOS/KG (273-304); Total Protein 8.2 G/DL (6.4-8.3)
[2019-03-17] MEDS ORDERED: GLUCAGON 1 MG VIAL IM PRN (13:23)
[2019-03-17] MEDS ORDERED: DEXTROSE 50% 25 GM/50 ML VIAL IV PRN ×2 (13:23)
[2019-03-17] MEDS ORDERED: ALBUTEROL 2.5 MG/3 ML NEB RESP TX PRN (13:23)
[2019-03-17] MEDS ORDERED: glipiZIDE 5 MG TABLET PO PRN (13:23)
[2019-03-17] MEDS ORDERED: NON-FORMULARY MEDICATION (Albuterol Sulfate [Proair Hfa] 2 PUFF) INH PRN (13:23)
[2019-03-17] MEDS ORDERED: MEPOLIZUMAB 100 MG SUBCUT SCH (13:23)
[2019-03-17] MEDS ORDERED: ONDANSETRON 4 MG/2 ML VIAL IV PRN (13:23)
[2019-03-17] MEDS ORDERED: BENZONATATE 100 MG CAPSULE PO PRN (13:23)
[2019-03-17] MEDS ORDERED: ALBUTEROL 2.5 MG/3 ML NEB RESP TX SCH (14:00)
[2019-03-17] MEDS ORDERED: LEVOFLOXACIN INJ 500 MG in PREMIX 1 EACH IV SCH (14:00)
[2019-03-17] MEDS: ALBUTEROL/IPRATROPIUM 3 ML NEB RESP TX SCH ×2 (14:00→19:15)
[2019-03-17] MEDS: methylPREDNISolone SOD SUC 125 MG/2 ML VIAL IV SCH ×2 (14:15→21:09)
[2019-03-17] MEDS: SODIUM CHLORIDE 0.9% 1,000 ML IV SCH ×2 (14:16→23:13)
[2019-03-17] MEDS: ERYTHROMYCIN BASE 250 MG TABLET PO SCH ×2 (14:16→21:09)
[2019-03-17] MEDS: INSULIN LISPRO 100 UNIT/ML SUBCUT SCH ×2 (16:48→21:10)
[2019-03-17] MEDS: DOXYCYCLINE HYCLATE 100 MG CAPSULE PO SCH (16:48)
[2019-03-17] MEDS: guaiFENesin 200 MG/10 ML UDCUP PO PRN (17:15)
[2019-03-17] MEDS: POLYETHYLENE GLYCOL POWDER 17 GM PACK PO PRN (17:16)
[2019-03-17] MEDS: ARFORMOTEROL 15 MCG/2 ML NEB RESP TX SCH (19:15)
[2019-03-17] MEDS: BUDESONIDE 0.5 MG/2 ML NEB RESP TX SCH (19:15)
[2019-03-17] MEDS: DILTIAZEM CD 300 MG CAPSULE PO SCH (21:09)
[2019-03-17] MEDS: DOCUSATE SODIUM 100 MG CAPSULE PO SCH (21:09)
[2019-03-17] MEDS: rOPINIRole 0.25 MG TABLET PO SCH (21:10)
[2019-03-17] MEDS: THEOPHYLLINE ER (24 HR) 400 MG TABLET PO SCH (21:10)
[2019-03-17] MEDS: MONTELUKAST 10 MG TABLET PO SCH (21:10)
[2019-03-17] MEDS: MICONAZOLE 2% VAG CREAM 45 GM TUBE VAG SCH (21:11)
[2019-03-17] MEDS: FLUTICASONE 50 MCG NASAL SPRAY 16 GM BOTTLE BOTH NARES SCH (21:11)
[2019-03-18] MEDS: ALBUTEROL/IPRATROPIUM 3 ML NEB RESP TX SCH ×4 (00:40→19:45)
[2019-03-18] MEDS: methylPREDNISolone SOD SUC 125 MG/2 ML VIAL IV SCH ×3 (01:39→20:25)
[2019-03-18] MEDS: SODIUM CHLORIDE 0.9% 1,000 ML IV SCH ×2 (06:52→14:06)
[2019-03-18] MEDS: ARFORMOTEROL 15 MCG/2 ML NEB RESP TX SCH ×2 (07:16→19:45)
[2019-03-18] MEDS: BUDESONIDE 0.5 MG/2 ML NEB RESP TX SCH ×2 (07:16→19:45)
[2019-03-18] MEDS: THEOPHYLLINE ER (24 HR) 400 MG TABLET PO SCH ×2 (08:14→20:23)
[2019-03-18] MEDS: INSULIN LISPRO 100 UNIT/ML SUBCUT SCH ×4 (08:15→20:25)
[2019-03-18] MEDS: DOCUSATE SODIUM 100 MG CAPSULE PO SCH ×2 (08:15→20:24)
[2019-03-18] MEDS: ERYTHROMYCIN BASE 250 MG TABLET PO SCH ×3 (08:15→20:24)
[2019-03-18] MEDS: PANTOPRAZOLE 40 MG TABLET PO SCH (08:15)
[2019-03-18] MEDS: FUROSEMIDE 40 MG TABLET PO SCH (08:15)
[2019-03-18] MEDS: DOXYCYCLINE HYCLATE 100 MG CAPSULE PO SCH ×2 (08:15→17:06)
[2019-03-18] MEDS: ACETAMINOPHEN 325 MG TABLET PO PRN ×2 (08:21→20:24)
[2019-03-18] MEDS: POTASSIUM CHLORIDE 10 MEQ TABLET PO SCH (08:53)
[2019-03-18] MEDS: FLUTICASONE 50 MCG NASAL SPRAY 16 GM BOTTLE BOTH NARES SCH ×2 (08:53→20:26)
[2019-03-18] MEDS ORDERED: PANTOPRAZOLE 40 MG TABLET PO SCH (09:00)
[2019-03-18] MEDS: POLYETHYLENE GLYCOL POWDER 17 GM PACK PO PRN (12:25)
[2019-03-18] MEDS: guaiFENesin 200 MG/10 ML UDCUP PO PRN (20:23)
[2019-03-18] MEDS: MONTELUKAST 10 MG TABLET PO SCH (20:24)
[2019-03-18] MEDS: rOPINIRole 0.25 MG TABLET PO SCH (20:24)
[2019-03-18] MEDS: DILTIAZEM CD 300 MG CAPSULE PO SCH (20:24)
[2019-03-18] MEDS: MICONAZOLE 2% VAG CREAM 45 GM TUBE VAG SCH (20:25)
[2019-03-19] MEDS: ALBUTEROL/IPRATROPIUM 3 ML NEB RESP TX SCH ×2 (01:00→07:12)
[2019-03-19] MEDS: BUDESONIDE 0.5 MG/2 ML NEB RESP TX SCH (07:12)
[2019-03-19] MEDS: ARFORMOTEROL 15 MCG/2 ML NEB RESP TX SCH (07:12)
[2019-03-19] MEDS: methylPREDNISolone SOD SUC 125 MG/2 ML VIAL IV SCH (09:08)
[2019-03-19] MEDS: THEOPHYLLINE ER (24 HR) 400 MG TABLET PO SCH (09:09)
[2019-03-19] MEDS: FUROSEMIDE 40 MG TABLET PO SCH (09:09)
[2019-03-19] MEDS: DOXYCYCLINE HYCLATE 100 MG CAPSULE PO SCH (09:09)
[2019-03-19] MEDS: DOCUSATE SODIUM 100 MG CAPSULE PO SCH (09:09)
[2019-03-19] MEDS: ERYTHROMYCIN BASE 250 MG TABLET PO SCH (09:10)
[2019-03-19] MEDS: INSULIN LISPRO 100 UNIT/ML SUBCUT SCH ×2 (09:10→12:08)
[2019-03-19] MEDS: PANTOPRAZOLE 40 MG TABLET PO SCH (09:10)
[2019-03-19] MEDS: POTASSIUM CHLORIDE 10 MEQ TABLET PO SCH (09:10)
[2019-03-19] MEDS: FLUTICASONE 50 MCG NASAL SPRAY 16 GM BOTTLE BOTH NARES SCH (09:11)
[2019-03-19 11:25] LABS: Apearance,Urine CLEAR (Clear); Bilirubin,Urine Negative (Negative); Blood, Urine Negative (Negative); Glucose,Urine (UA) >=500 mg/dL (Negative); Ketones,Urine Negative (Negative); Mucus,Urine Occasional /LPF (Occasional); Nitrite,Urine Negative (Negative); Protein,Urine Negative; RBC,Urine 1 /HPF (0-4); Squamous Epithelial Cell,Urine Occasional /HPF (0-10); Urine Color Yellow (Yellow); Urine Specific Gravity 1.027 (1.001-1.035); Urine Urobilinogen < 2.0 EU/DL (0.2-1.0)
[2019-03-19] MEDS: SODIUM CHLORIDE 0.9% 1,000 ML IV SCH (11:55)
[2019-03-19] MEDS: ACETAMINOPHEN 325 MG TABLET PO PRN (12:03)
[2019-03-19] MEDS ORDERED: INFLUENZA VIRUS VACCINE 0.5 ML SYRINGE IM ONE (12:26)
[2019-03-19 13:46] VITALS: BP 134/69
== END 2019-03-19 13:55 | disposition home or self-care (01) ==
LOC: N.ED 09:07 → N.EDINP 11:13 → INTOOBSV 11:13 → N.EDINP 13:09 → N.5E 13:18
PROVIDERS: ADMIT Family Medicine; ATTEND Family Medicine

== ENCOUNTER 2019-06-22 09:36 | Observation (INO) ==
[2019-06-22] MEDS ORDERED: ALBUTEROL 2.5 MG/3 ML NEB RESP TX STA ×3 (11:18→14:18)
[2019-06-22] MEDS ORDERED: methylPREDNISolone SOD SUC 40 MG/1 ML VIAL IV STA (11:18)
[2019-06-22 11:24] LABS: Basophils % 0.7 % (0.0-0.8); Eosinophils # 0.1 10*3/uL (0.0-0.87); Eosinophils % 1.2 % (0.00-10.9); Hemoglobin 14.4 GM/DL (12.0-16.0); Immature Granulocytes % 0.2 %; Immature Granulocytes Absolute 0.01 #; Lymphocytes # 1.4 10*3/uL (1.4-4.0); Lymphocytes % 32.6 % (21.3-54.2); Mean Corpuscular HGB Conc 33.5 GM/DL (32-36); Mean Corpuscular Volume 89.8 FL (87-102); Mean Platelet Volume 9.9 FL (9.6-12.0); Monocytes % 7.5 % (1.7-12.7); Neutrophils % 57.8 % (38.7-73.9); Platelet Count 330 T/CUMM (130-400); Red Blood Count 4.79 MC/CUMM (3.8-5.5); Red Cell Distribution Width 13.6 % (9.3-17.3); White Blood Count 4.3 T/CUMM (4-12)
[2019-06-22 11:39] LABS: Calcium 9.4 MG/DL (8.5-10.1); Osmolality,Calculated 282.3 MOS/KG (273-304)
[2019-06-22] MEDS ORDERED: GLUCAGON 1 MG VIAL IM PRN (15:31)
[2019-06-22] MEDS ORDERED: ONDANSETRON 4 MG/2 ML VIAL IV PRN (15:31)
[2019-06-22] MEDS ORDERED: DEXTROSE 50% 25 GM/50 ML VIAL IV PRN (15:31)
[2019-06-22] MEDS ORDERED: glipiZIDE 5 MG TABLET PO PRN (15:36)
[2019-06-22] MEDS: methylPREDNISolone SOD SUC 40 MG/1 ML VIAL IV SCH (17:21)
[2019-06-22] MEDS: ENOXAPARIN 40 MG/0.4 ML SYRINGE SUBCUT SCH (17:21)
[2019-06-22] MEDS: LEVOFLOXACIN INJ 500 MG in PREMIX 1 EACH IV SCH (17:22)
[2019-06-22] MEDS: SODIUM CHLORIDE 0.45% 1,000 ML IV SCH (17:22)
[2019-06-22] MEDS: INSULIN LISPRO 100 UNIT/ML SUBCUT SCH ×2 (17:30→21:00)
[2019-06-22] MEDS: ACETAMINOPHEN 325 MG TABLET PO PRN (17:31)
[2019-06-22] MEDS ORDERED: BUDESONIDE 0.5 MG/2 ML NEB RESP TX SCH (19:00)
[2019-06-22] MEDS ORDERED: ALBUTEROL 2.5 MG/3 ML NEB RESP TX SCH (19:00)
[2019-06-22] MEDS ORDERED: ALBUTEROL/IPRATROPIUM 3 ML NEB RESP TX SCH (19:00)
[2019-06-22] MEDS: ARFORMOTEROL 15 MCG/2 ML NEB RESP TX SCH (19:35)
[2019-06-22] MEDS ORDERED: FUROSEMIDE 40 MG/4 ML VIAL IV ONE (19:55)
[2019-06-22] MEDS: BUDESONIDE 0.5 MG/2 ML NEB RESP TX SCH (20:00)
[2019-06-22] MEDS: DILTIAZEM CD 300 MG CAPSULE PO SCH (20:58)
[2019-06-22] MEDS: rOPINIRole 0.25 MG TABLET PO SCH (20:58)
[2019-06-22] MEDS: ERYTHROMYCIN BASE 250 MG TABLET PO SCH (20:58)
[2019-06-22] MEDS: THEOPHYLLINE ER (24 HR) 200 MG CAPSULE PO SCH (20:59)
[2019-06-22] MEDS: DOCUSATE SODIUM 100 MG CAPSULE PO SCH (20:59)
[2019-06-22] MEDS: MONTELUKAST 10 MG TABLET PO SCH (20:59)
[2019-06-22] MEDS: FLUTICASONE 50 MCG NASAL SPRAY 16 GM BOTTLE BOTH NARES SCH (21:00)
[2019-06-22] MEDS: OLOPATADINE 0.1% OPH SOLN 5 ML BOTTLE BOTH EYES SCH (22:14)
[2019-06-23] MEDS: methylPREDNISolone SOD SUC 40 MG/1 ML VIAL IV SCH ×3 (00:24→21:41)
[2019-06-23] MEDS: ALBUTEROL/IPRATROPIUM 3 ML NEB RESP TX SCH ×4 (01:32→19:27)
[2019-06-23] MEDS: BENZONATATE 100 MG CAPSULE PO PRN (04:25)
[2019-06-23] MEDS: ACETAMINOPHEN 325 MG TABLET PO PRN (04:25)
[2019-06-23] MEDS: SODIUM CHLORIDE 0.45% 1,000 ML IV SCH ×2 (05:55→09:09)
[2019-06-23] MEDS: ARFORMOTEROL 15 MCG/2 ML NEB RESP TX SCH ×2 (07:03→19:27)
[2019-06-23] MEDS: BUDESONIDE 0.5 MG/2 ML NEB RESP TX SCH ×2 (07:04→19:27)
[2019-06-23] MEDS ORDERED: PANTOPRAZOLE 40 MG TABLET PO SCH (09:00)
[2019-06-23] MEDS ORDERED: FUROSEMIDE 40 MG TABLET PO SCH (09:00)
[2019-06-23] MEDS: FUROSEMIDE 40 MG/4 ML VIAL IV SCH (09:11)
[2019-06-23] MEDS: POLYETHYLENE GLYCOL POWDER 17 GM PACK PO SCH (09:11)
[2019-06-23] MEDS: FLUTICASONE 50 MCG NASAL SPRAY 16 GM BOTTLE BOTH NARES SCH ×2 (09:11→20:46)
[2019-06-23] MEDS: LORATADINE 10 MG TABLET PO SCH (09:12)
[2019-06-23] MEDS: DOCUSATE SODIUM 100 MG CAPSULE PO SCH ×2 (09:12→20:45)
[2019-06-23] MEDS: THEOPHYLLINE ER (24 HR) 200 MG CAPSULE PO SCH ×2 (09:13→20:44)
[2019-06-23] MEDS: ERYTHROMYCIN BASE 250 MG TABLET PO SCH ×3 (09:13→20:44)
[2019-06-23] MEDS: OLOPATADINE 0.1% OPH SOLN 5 ML BOTTLE BOTH EYES SCH ×2 (09:13→20:45)
[2019-06-23] MEDS: POTASSIUM CHLORIDE 10 MEQ TABLET PO SCH (09:13)
[2019-06-23] MEDS: METOPROLOL SUCCINATE XL 25 MG TABLET PO SCH (09:13)
[2019-06-23] MEDS: PANTOPRAZOLE 40 MG TABLET PO SCH (09:13)
[2019-06-23] MEDS: LEVOFLOXACIN INJ 500 MG in PREMIX 1 EACH IV SCH (09:15)
[2019-06-23] MEDS: INSULIN LISPRO 100 UNIT/ML SUBCUT SCH ×4 (12:30→21:16)
[2019-06-23] MEDS: FLUCONAZOLE 100 MG TABLET PO SCH (14:20)
[2019-06-23] MEDS: rOPINIRole 0.25 MG TABLET PO SCH (20:44)
[2019-06-23] MEDS: MONTELUKAST 10 MG TABLET PO SCH (20:44)
[2019-06-23] MEDS: DILTIAZEM CD 300 MG CAPSULE PO SCH (20:45)
[2019-06-23] MEDS: ENOXAPARIN 40 MG/0.4 ML SYRINGE SUBCUT SCH (20:46)
[2019-06-23] MEDS ORDERED: PHENYLEPH/MINERAL OIL/PETROLAT 57 GM TUBE TOP PRN (23:05)
[2019-06-24] MEDS: ALBUTEROL/IPRATROPIUM 3 ML NEB RESP TX SCH ×3 (00:31→14:33)
[2019-06-24] MEDS: ARFORMOTEROL 15 MCG/2 ML NEB RESP TX SCH (07:49)
[2019-06-24] MEDS: BUDESONIDE 0.5 MG/2 ML NEB RESP TX SCH (07:49)
[2019-06-24] MEDS: LEVOFLOXACIN INJ 500 MG in PREMIX 1 EACH IV SCH (09:06)
[2019-06-24] MEDS: FUROSEMIDE 40 MG/4 ML VIAL IV SCH (09:09)
[2019-06-24] MEDS: ACETAMINOPHEN 325 MG TABLET PO PRN (09:09)
[2019-06-24] MEDS: INSULIN LISPRO 100 UNIT/ML SUBCUT SCH ×2 (09:10→12:38)
[2019-06-24] MEDS: METOPROLOL SUCCINATE XL 25 MG TABLET PO SCH (09:11)
[2019-06-24] MEDS: THEOPHYLLINE ER (24 HR) 200 MG CAPSULE PO SCH (09:11)
[2019-06-24] MEDS: POTASSIUM CHLORIDE 10 MEQ TABLET PO SCH (09:11)
[2019-06-24] MEDS: DOCUSATE SODIUM 100 MG CAPSULE PO SCH (09:11)
[2019-06-24] MEDS: LORATADINE 10 MG TABLET PO SCH (09:11)
[2019-06-24] MEDS: BENZONATATE 100 MG CAPSULE PO PRN (09:11)
[2019-06-24] MEDS: PANTOPRAZOLE 40 MG TABLET PO SCH (09:12)
[2019-06-24] MEDS: ERYTHROMYCIN BASE 250 MG TABLET PO SCH ×2 (09:12→14:30)
[2019-06-24] MEDS: methylPREDNISolone SOD SUC 40 MG/1 ML VIAL IV SCH (09:12)
[2019-06-24] MEDS: FLUCONAZOLE 100 MG TABLET PO SCH (09:12)
[2019-06-24] MEDS: OLOPATADINE 0.1% OPH SOLN 5 ML BOTTLE BOTH EYES SCH (09:13)
[2019-06-24] MEDS: FLUTICASONE 50 MCG NASAL SPRAY 16 GM BOTTLE BOTH NARES SCH (09:13)
[2019-06-24] MEDS: POLYETHYLENE GLYCOL POWDER 17 GM PACK PO SCH (09:16)
[2019-06-24 12:34] VITALS: BP 137/68
[2019-06-24] MEDS ORDERED: BENZONATATE 100 MG CAPSULE PO ONE (14:00)
[2019-06-26] MEDS ORDERED: [UNRECOGNIZED DRUG - REMARK] IM SCH (09:00)
[2019-07-10] MEDS ORDERED: MEPOLIZUMAB 100 MG SUBCUT SCH (09:00)
== END 2019-06-24 16:05 | disposition home or self-care (01) ==
LOC: N.ED 09:36 → N.EDINP 15:31 → INTOOBSV 15:31 → N.2E 16:37
PROVIDERS: ADMIT Family Medicine; ATTEND Family Medicine

== ENCOUNTER 2019-07-03 15:10 | Inpatient (IN) ==
[2019-07-03] MEDS ORDERED: methylPREDNISolone SOD SUC 125 MG/2 ML VIAL IV STA (15:58)
[2019-07-03] MEDS ORDERED: ONDANSETRON 4 MG/2 ML VIAL IV STA (15:58)
[2019-07-03] MEDS ORDERED: AZITHROMYCIN INJ 500 MG in SODIUM CHLORIDE 0.9% 250 ML IV STA (15:58)
[2019-07-03] MEDS ORDERED: ALBUTEROL 2.5 MG/3 ML NEB RESP TX SCH (16:00)
[2019-07-03 16:34] LABS: Basophils % 0.3 % (0.0-0.8); Eosinophils % 0.3 % (0.00-10.9); Hematocrit 43.1 VOL% (35.7-47.0); Hemoglobin 14.2 GM/DL (12.0-16.0); Immature Granulocytes % 0.8 %; Immature Granulocytes Absolute 0.05 #; Lymphocytes # 1.3 10*3/uL (1.4-4.0); Lymphocytes % 20.3 % (21.3-54.2); Mean Corpuscular HGB Conc 32.9 GM/DL (32-36); Mean Corpuscular Volume 89.8 FL (87-102); Mean Platelet Volume 10.1 FL (9.6-12.0); Monocytes % 5.7 % (1.7-12.7); Neutrophils % 72.6 % (38.7-73.9); Platelet Count 291 T/CUMM (130-400); Red Cell Distribution Width 13.7 % (9.3-17.3); White Blood Count 6.5 T/CUMM (4-12)
[2019-07-03 16:49] LABS: PT Patient Result 10.8 SECS (9.6-12.2); Partial Thromboplastin Time 24.1 SECS (20.8-36.0)
[2019-07-03 17:02] LABS: Alanine Aminotransferase 29 U/L (13-56); Alkaline Phosphatase 156 U/L (45-117); Aspartate Amino Transferase 15 U/L (0-37); Blood Urea Nitrogen 10 MG/DL (7-18); Calcium 9.3 MG/DL (8.5-10.1); Estimated Glom Filtration Rate 84 ML/MIN; Glucose 148 MG/DL (74-106); Osmolality,Calculated 284.1 MOS/KG (273-304); Total Protein 7.7 G/DL (6.4-8.3); Troponin I < 0.015 NG/ML (0.00-0.045)
[2019-07-03] MEDS ORDERED: ONDANSETRON 4 MG/2 ML VIAL IV PRN (17:27)
[2019-07-03] MEDS ORDERED: GLUCAGON 1 MG VIAL IM PRN (17:27)
[2019-07-03] MEDS ORDERED: DEXTROSE 50% 25 GM/50 ML VIAL IV PRN (17:27)
[2019-07-03] MEDS ORDERED: glipiZIDE 5 MG TABLET PO PRN (19:01)
[2019-07-03] MEDS ORDERED: MEPOLIZUMAB 100 MG SUBCUT SCH (19:01)
[2019-07-03] MEDS: ALBUTEROL/IPRATROPIUM 3 ML NEB RESP TX SCH (20:25)
[2019-07-03] MEDS: FLUTICASONE 50 MCG NASAL SPRAY 16 GM BOTTLE BOTH NARES SCH (20:34)
[2019-07-03] MEDS: DILTIAZEM CD 300 MG CAPSULE PO SCH (20:35)
[2019-07-03] MEDS: MONTELUKAST 10 MG TABLET PO SCH (20:35)
[2019-07-03] MEDS: rOPINIRole 0.25 MG TABLET PO SCH (20:35)
[2019-07-03] MEDS: THEOPHYLLINE ER (24 HR) 200 MG CAPSULE PO SCH (20:35)
[2019-07-03] MEDS: INSULIN REGULAR 100 UNIT/ML SUBCUT SCH (20:47)
[2019-07-04] MEDS: ALBUTEROL/IPRATROPIUM 3 ML NEB RESP TX SCH ×7 (00:44→22:35)
[2019-07-04] MEDS: methylPREDNISolone SOD SUC 125 MG/2 ML VIAL IV SCH ×3 (01:45→17:19)
[2019-07-04 06:42] LABS: Apearance,Urine CLEAR (Clear); Bilirubin,Urine Negative (Negative); Blood, Urine Negative (Negative); Glucose,Urine (UA) >=500 mg/dL (Negative); Ketones,Urine Negative (Negative); Nitrite,Urine Negative (Negative); Protein,Urine Negative; RBC,Urine 1 /HPF (0-4); Squamous Epithelial Cell,Urine Occasional /HPF (0-10); Urine Color Straw (Yellow); Urine Specific Gravity 1.003 (1.001-1.035); Urine Urobilinogen < 2.0 EU/DL (0.2-1.0); WBC,Urine <1 /HPF (0-6)
[2019-07-04] MEDS: BUDESONIDE 0.5 MG/2 ML NEB RESP TX SCH ×2 (08:18→18:45)
[2019-07-04] MEDS: FUROSEMIDE 40 MG TABLET PO SCH (08:28)
[2019-07-04] MEDS: POTASSIUM CHLORIDE 10 MEQ TABLET PO SCH (08:28)
[2019-07-04] MEDS: FLUTICASONE 50 MCG NASAL SPRAY 16 GM BOTTLE BOTH NARES SCH ×2 (08:28→21:04)
[2019-07-04] MEDS: INSULIN REGULAR 100 UNIT/ML SUBCUT SCH ×4 (08:28→21:04)
[2019-07-04] MEDS: PANTOPRAZOLE 40 MG TABLET PO SCH (08:29)
[2019-07-04] MEDS: THEOPHYLLINE ER (24 HR) 200 MG CAPSULE PO SCH ×2 (08:29→21:02)
[2019-07-04] MEDS ORDERED: GLUCAGON 1 MG VIAL IM PRN (09:48)
[2019-07-04] MEDS ORDERED: DEXTROSE 50% 25 GM/50 ML VIAL IV PRN (09:48)
[2019-07-04] MEDS: POLYETHYLENE GLYCOL POWDER 17 GM PACK PO PRN (09:55)
[2019-07-04] MEDS: cefTRIAXone 1,000 MG in SYRINGE 1 EACH IV SCH (09:55)
[2019-07-04] MEDS: rOPINIRole 0.25 MG TABLET PO SCH (21:03)
[2019-07-04] MEDS: AZITHROMYCIN INJ 500 MG in SODIUM CHLORIDE 0.9% 250 ML IV SCH (21:03)
[2019-07-04] MEDS: MONTELUKAST 10 MG TABLET PO SCH (21:03)
[2019-07-04] MEDS: DILTIAZEM CD 300 MG CAPSULE PO SCH (21:03)
[2019-07-04] MEDS: ZALEPLON 5 MG CAPSULE PO PRN (21:03)
[2019-07-04] MEDS: BENZONATATE 100 MG CAPSULE PO PRN (21:03)
[2019-07-05] MEDS: methylPREDNISolone SOD SUC 125 MG/2 ML VIAL IV SCH ×3 (01:17→17:08)
[2019-07-05] MEDS: ACETAMINOPHEN 500 MG TABLET PO PRN ×3 (01:30→16:42)
[2019-07-05] MEDS: ALBUTEROL/IPRATROPIUM 3 ML NEB RESP TX SCH ×6 (02:25→23:49)
[2019-07-05] MEDS: BUDESONIDE 0.5 MG/2 ML NEB RESP TX SCH ×2 (07:24→19:14)
[2019-07-05] MEDS: FLUTICASONE 50 MCG NASAL SPRAY 16 GM BOTTLE BOTH NARES SCH ×2 (08:43→20:09)
[2019-07-05] MEDS: POTASSIUM CHLORIDE 10 MEQ TABLET PO SCH (08:43)
[2019-07-05] MEDS: PANTOPRAZOLE 40 MG TABLET PO SCH (08:43)
[2019-07-05] MEDS: THEOPHYLLINE ER (24 HR) 200 MG CAPSULE PO SCH ×2 (08:43→20:10)
[2019-07-05] MEDS: FUROSEMIDE 40 MG TABLET PO SCH (08:43)
[2019-07-05] MEDS: INSULIN REGULAR 100 UNIT/ML SUBCUT SCH ×4 (08:43→20:09)
[2019-07-05] MEDS: BENZONATATE 100 MG CAPSULE PO PRN ×2 (08:58→20:11)
[2019-07-05] MEDS: POLYETHYLENE GLYCOL POWDER 17 GM PACK PO PRN (08:58)
[2019-07-05] MEDS: cefTRIAXone 1,000 MG in SYRINGE 1 EACH IV SCH (09:02)
[2019-07-05] MEDS: DILTIAZEM CD 300 MG CAPSULE PO SCH (20:10)
[2019-07-05] MEDS: ZALEPLON 5 MG CAPSULE PO PRN (20:12)
[2019-07-05] MEDS: MONTELUKAST 10 MG TABLET PO SCH (20:12)
[2019-07-05] MEDS: AZITHROMYCIN INJ 500 MG in SODIUM CHLORIDE 0.9% 250 ML IV SCH (20:20)
[2019-07-05] MEDS: rOPINIRole 0.25 MG TABLET PO SCH (20:43)
[2019-07-06] MEDS: methylPREDNISolone SOD SUC 125 MG/2 ML VIAL IV SCH ×4 (00:33→23:36)
[2019-07-06] MEDS: ACETAMINOPHEN 500 MG TABLET PO PRN ×3 (00:35→17:03)
[2019-07-06] MEDS: ALBUTEROL/IPRATROPIUM 3 ML NEB RESP TX SCH ×6 (03:39→22:28)
[2019-07-06] MEDS: BUDESONIDE 0.5 MG/2 ML NEB RESP TX SCH ×2 (07:06→19:45)
[2019-07-06] MEDS: FLUTICASONE 50 MCG NASAL SPRAY 16 GM BOTTLE BOTH NARES SCH ×2 (08:15→21:14)
[2019-07-06] MEDS: PANTOPRAZOLE 40 MG TABLET PO SCH (08:16)
[2019-07-06] MEDS: POTASSIUM CHLORIDE 10 MEQ TABLET PO SCH (08:16)
[2019-07-06] MEDS: INSULIN REGULAR 100 UNIT/ML SUBCUT SCH ×4 (08:16→21:14)
[2019-07-06] MEDS: THEOPHYLLINE ER (24 HR) 200 MG CAPSULE PO SCH ×2 (08:16→21:13)
[2019-07-06] MEDS: FUROSEMIDE 40 MG TABLET PO SCH (08:16)
[2019-07-06] MEDS: BENZONATATE 100 MG CAPSULE PO PRN (08:16)
[2019-07-06] MEDS: cefTRIAXone 1,000 MG in SYRINGE 1 EACH IV SCH (09:35)
[2019-07-06] MEDS: guaiFENesin 200 MG/10 ML UDCUP PO PRN ×2 (10:13→21:20)
[2019-07-06] MEDS: LACTULOSE 20 GM/30 ML UDCUP PO PRN (10:14)
[2019-07-06] MEDS: BENZONATATE 100 MG CAPSULE PO SCH ×2 (14:29→21:13)
[2019-07-06] MEDS ORDERED: HYDROCORTISONE 25 MG SUPP RECTAL PRN (16:47)
[2019-07-06] MEDS: rOPINIRole 0.25 MG TABLET PO SCH (21:12)
[2019-07-06] MEDS: DILTIAZEM CD 300 MG CAPSULE PO SCH (21:12)
[2019-07-06] MEDS: MONTELUKAST 10 MG TABLET PO SCH (21:12)
[2019-07-06] MEDS: ZALEPLON 5 MG CAPSULE PO PRN (21:14)
[2019-07-06] MEDS: AZITHROMYCIN INJ 500 MG in SODIUM CHLORIDE 0.9% 250 ML IV SCH (21:14)
[2019-07-07] MEDS: ALBUTEROL/IPRATROPIUM 3 ML NEB RESP TX SCH ×4 (02:52→14:42)
[2019-07-07] MEDS: ACETAMINOPHEN 500 MG TABLET PO PRN ×2 (02:59→20:56)
[2019-07-07 05:07] LABS: Basophils % 0.2 % (0.0-0.8); Hematocrit 37.6 VOL% (35.7-47.0); Hemoglobin 12.8 GM/DL (12.0-16.0); Lymphocytes # 0.8 10*3/uL (1.4-4.0); Lymphocytes % 3.9 % (21.3-54.2); Mean Corpuscular Volume 88.9 FL (87-102); Mean Platelet Volume 10.3 FL (9.6-12.0); Monocytes % 2.6 % (1.7-12.7); Neutrophils % 90.3 % (38.7-73.9); Platelet Count 272 T/CUMM (130-400); Red Blood Count 4.23 MC/CUMM (3.8-5.5); Red Cell Distribution Width 13.3 % (9.3-17.3)
[2019-07-07 05:25] LABS: Calcium 8.6 MG/DL (8.5-10.1); Osmolality,Calculated 288.4 MOS/KG (273-304)
[2019-07-07 05:37] LABS: Hypochromasia Slight; Microcytosis Slight
[2019-07-07 05:39] LABS: Lymphocytes 6 % (20-55); Segmented Neutrophils 91 % (50-85); Total Cells Counted 100
[2019-07-07] MEDS: BUDESONIDE 0.5 MG/2 ML NEB RESP TX SCH ×2 (07:07→19:04)
[2019-07-07] MEDS: THEOPHYLLINE ER (24 HR) 200 MG CAPSULE PO SCH ×2 (09:33→20:57)
[2019-07-07] MEDS: POTASSIUM CHLORIDE 10 MEQ TABLET PO SCH (09:33)
[2019-07-07] MEDS: BENZONATATE 100 MG CAPSULE PO SCH ×3 (09:33→21:06)
[2019-07-07] MEDS: INSULIN REGULAR 100 UNIT/ML SUBCUT SCH ×4 (09:34→20:55)
[2019-07-07] MEDS: PANTOPRAZOLE 40 MG TABLET PO SCH (09:34)
[2019-07-07] MEDS: methylPREDNISolone SOD SUC 125 MG/2 ML VIAL IV SCH ×3 (09:34→16:24)
[2019-07-07] MEDS: guaiFENesin 200 MG/10 ML UDCUP PO PRN (09:34)
[2019-07-07] MEDS: FUROSEMIDE 40 MG TABLET PO SCH (09:34)
[2019-07-07] MEDS: cefTRIAXone 1,000 MG in SYRINGE 1 EACH IV SCH (09:36)
[2019-07-07] MEDS: FLUTICASONE 50 MCG NASAL SPRAY 16 GM BOTTLE BOTH NARES SCH ×2 (10:05→20:57)
[2019-07-07 15:11] LABS: Troponin I < 0.015 NG/ML (0.00-0.045)
[2019-07-07] MEDS ORDERED: ALBUTEROL 1.25 MG/3 ML NEB RESP TX PRN (15:24)
[2019-07-07] MEDS ORDERED: FUROSEMIDE 40 MG/4 ML VIAL IV ONE (15:25)
[2019-07-07] MEDS: ARFORMOTEROL 15 MCG/2 ML NEB RESP TX SCH (19:04)
[2019-07-07] MEDS: AZITHROMYCIN INJ 500 MG in SODIUM CHLORIDE 0.9% 250 ML IV SCH (20:55)
[2019-07-07] MEDS: MONTELUKAST 10 MG TABLET PO SCH (20:57)
[2019-07-07] MEDS: DILTIAZEM CD 300 MG CAPSULE PO SCH (20:57)
[2019-07-07] MEDS: rOPINIRole 0.25 MG TABLET PO SCH (21:02)
[2019-07-08] MEDS: ARFORMOTEROL 15 MCG/2 ML NEB RESP TX SCH ×2 (07:48→21:34)
[2019-07-08] MEDS: BUDESONIDE 0.5 MG/2 ML NEB RESP TX SCH ×2 (07:48→21:34)
[2019-07-08] MEDS: methylPREDNISolone SOD SUC 125 MG/2 ML VIAL IV SCH (08:58)
[2019-07-08] MEDS: INSULIN REGULAR 100 UNIT/ML SUBCUT SCH ×3 (08:58→17:15)
[2019-07-08] MEDS: FUROSEMIDE 40 MG TABLET PO SCH (08:59)
[2019-07-08] MEDS: BENZONATATE 100 MG CAPSULE PO SCH ×3 (08:59→21:17)
[2019-07-08] MEDS: POLYETHYLENE GLYCOL POWDER 17 GM PACK PO PRN (08:59)
[2019-07-08] MEDS: ACETAMINOPHEN 500 MG TABLET PO PRN ×2 (08:59→14:55)
[2019-07-08] MEDS: POTASSIUM CHLORIDE 10 MEQ TABLET PO SCH (08:59)
[2019-07-08] MEDS: THEOPHYLLINE ER (24 HR) 200 MG CAPSULE PO SCH ×2 (09:00→21:17)
[2019-07-08] MEDS: PANTOPRAZOLE 40 MG TABLET PO SCH (09:00)
[2019-07-08] MEDS: AZITHROMYCIN 250 MG TABLET PO SCH (09:00)
[2019-07-08] MEDS: FLUTICASONE 50 MCG NASAL SPRAY 16 GM BOTTLE BOTH NARES SCH ×2 (09:00→21:19)
[2019-07-08] MEDS: cefTRIAXone 1,000 MG in SYRINGE 1 EACH IV SCH (09:35)
[2019-07-08] MEDS ORDERED: methylPREDNISolone SOD SUC 40 MG/1 ML VIAL IV SCH (12:30)
[2019-07-08] MEDS: rOPINIRole 0.25 MG TABLET PO SCH (21:17)
[2019-07-08] MEDS: MONTELUKAST 10 MG TABLET PO SCH (21:17)
[2019-07-08] MEDS: DILTIAZEM CD 300 MG CAPSULE PO SCH (21:17)
[2019-07-08] MEDS: ZALEPLON 5 MG CAPSULE PO PRN (21:17)
[2019-07-08] MEDS: methylPREDNISolone SOD SUC 40 MG/1 ML VIAL IV SCH (21:18)
[2019-07-08] MEDS: LACTULOSE 20 GM/30 ML UDCUP PO PRN (21:21)
[2019-07-09] MEDS: INSULIN REGULAR 100 UNIT/ML SUBCUT SCH ×3 (04:31→12:46)
[2019-07-09 04:46] LABS: Basophils % 0.2 % (0.0-0.8); Hematocrit 39.5 VOL% (35.7-47.0); Hemoglobin 13.4 GM/DL (12.0-16.0); Immature Granulocytes % 1.8 %; Immature Granulocytes Absolute 0.34 #; Lymphocytes # 0.7 10*3/uL (1.4-4.0); Lymphocytes % 3.9 % (21.3-54.2); Mean Corpuscular HGB Conc 33.9 GM/DL (32-36); Mean Corpuscular Volume 88.4 FL (87-102); Mean Platelet Volume 10.5 FL (9.6-12.0); Monocytes % 3.2 % (1.7-12.7); Neutrophils % 90.9 % (38.7-73.9); Platelet Count 272 T/CUMM (130-400); Red Blood Count 4.47 MC/CUMM (3.8-5.5); Red Cell Distribution Width 13.1 % (9.3-17.3); White Blood Count 18.7 T/CUMM (4-12)
[2019-07-09 05:09] LABS: Calcium 8.4 MG/DL (8.5-10.1); Hypochromasia Slight; Lymphocytes 8 % (20-55); Osmolality,Calculated 291.4 MOS/KG (273-304); Platelet Estimate Adequate; Segmented Neutrophils 91 % (50-85); Total Cells Counted 100
[2019-07-09 05:10] LABS: Microcytosis Slight
[2019-07-09] MEDS: BUDESONIDE 0.5 MG/2 ML NEB RESP TX SCH (07:13)
[2019-07-09] MEDS: ARFORMOTEROL 15 MCG/2 ML NEB RESP TX SCH (07:13)
[2019-07-09] MEDS: POLYETHYLENE GLYCOL POWDER 17 GM PACK PO PRN (09:53)
[2019-07-09] MEDS: PANTOPRAZOLE 40 MG TABLET PO SCH (09:54)
[2019-07-09] MEDS: BENZONATATE 100 MG CAPSULE PO SCH ×2 (09:54→15:11)
[2019-07-09] MEDS: POTASSIUM CHLORIDE 10 MEQ TABLET PO SCH (09:54)
[2019-07-09] MEDS: methylPREDNISolone SOD SUC 40 MG/1 ML VIAL IV SCH (09:55)
[2019-07-09] MEDS: FLUTICASONE 50 MCG NASAL SPRAY 16 GM BOTTLE BOTH NARES SCH (09:55)
[2019-07-09] MEDS: cefTRIAXone 1,000 MG in SYRINGE 1 EACH IV SCH (09:56)
[2019-07-09] MEDS: THEOPHYLLINE ER (24 HR) 200 MG CAPSULE PO SCH (09:56)
[2019-07-09] MEDS: FUROSEMIDE 40 MG TABLET PO SCH (09:56)
[2019-07-09] MEDS: AZITHROMYCIN 250 MG TABLET PO SCH (09:56)
[2019-07-09 13:48] VITALS: BP 150/58
== END 2019-07-09 15:12 | disposition home or self-care (01) | DRG 141 ==
LOC: N.EDINP 15:10 → N.ED 15:10 → N.TELEN 18:31
PROVIDERS: ADMIT Family Medicine; ATTEND Family Medicine

== ENCOUNTER 2019-07-21 15:48 | Observation (INO) ==
[2019-07-21 16:36] LABS: Basophils % 0.4 % (0.0-0.8); Eosinophils # 0.1 10*3/uL (0.0-0.87); Eosinophils % 0.6 % (0.00-10.9); Hematocrit 43.1 VOL% (35.7-47.0); Hemoglobin 14.7 GM/DL (12.0-16.0); Immature Granulocytes % 0.4 %; Immature Granulocytes Absolute 0.03 #; Lymphocytes # 1.6 10*3/uL (1.4-4.0); Mean Corpuscular HGB Conc 34.1 GM/DL (32-36); Mean Corpuscular Volume 88.7 FL (87-102); Mean Platelet Volume 9.5 FL (9.6-12.0); Monocytes % 7.1 % (1.7-12.7); Neutrophils % 71.5 % (38.7-73.9); Platelet Count 244 T/CUMM (130-400); Red Blood Count 4.86 MC/CUMM (3.8-5.5); White Blood Count 7.9 T/CUMM (4-12)
[2019-07-21 16:53] LABS: Bilirubin,Total 0.6 MG/DL (0.2-1.0); Calcium 9.2 MG/DL (8.5-10.1); Osmolality,Calculated 279.4 MOS/KG (273-304); Total Protein 7.2 G/DL (6.4-8.3)
[2019-07-21 19:00] LABS: Apearance,Urine CLEAR (Clear); Bilirubin,Urine Negative (Negative); Blood, Urine Negative (Negative); Glucose,Urine (UA) Negative (Negative); Ketones,Urine Negative (Negative); Mucus,Urine Occasional /LPF (Occasional); Nitrite,Urine Negative (Negative); Protein,Urine Negative; Squamous Epithelial Cell,Urine Occasional /HPF (0-10); Urine Color Straw (Yellow); Urine Specific Gravity 1.005 (1.001-1.035); Urine Urobilinogen < 2.0 EU/DL (0.2-1.0)
[2019-07-21] MEDS ORDERED: ONDANSETRON 4 MG/2 ML VIAL IV STA (19:01)
[2019-07-21] MEDS ORDERED: methylPREDNISolone SOD SUC 125 MG/2 ML VIAL IV STA (19:01)
[2019-07-21] MEDS ORDERED: POTASSIUM CHLORIDE 20 MEQ TABLET PO STA (19:19)
[2019-07-21] MEDS ORDERED: MAGNESIUM SULF RIDER 2 GM in PREMIX 1 EACH IV STA (19:19)
[2019-07-21] MEDS ORDERED: ALBUTEROL NEB SOLN 5 MG/ML 20 ML/BOTTLE RESP TX SCH (19:30)
[2019-07-21] MEDS ORDERED: ACETAMINOPHEN 325 MG TABLET PO PRN (22:03)
[2019-07-21] MEDS ORDERED: DEXTROSE 50% 25 GM/50 ML SYRINGE IV PRN (22:03)
[2019-07-21] MEDS ORDERED: GLUCAGON 1 MG VIAL IM PRN (22:03)
[2019-07-21] MEDS ORDERED: ONDANSETRON 4 MG/2 ML VIAL IV PRN (22:03)
[2019-07-21] MEDS ORDERED: MORPHINE 4 MG/1 ML VIAL IV PRN (22:03)
[2019-07-21] MEDS: SODIUM CHLORIDE 0.9% 1,000 ML IV SCH (22:51)
[2019-07-21] MEDS: LEVOFLOXACIN INJ 750 MG in PREMIX 1 EACH IV SCH (22:52)
[2019-07-21] MEDS: ENOXAPARIN 40 MG/0.4 ML SYRINGE SUBCUT SCH (22:53)
[2019-07-21] MEDS: DOCUSATE SODIUM 100 MG CAPSULE PO SCH (22:53)
[2019-07-21] MEDS: ALBUTEROL/IPRATROPIUM 3 ML NEB RESP TX SCH (23:36)
[2019-07-22] MEDS: INSULIN REGULAR 100 UNIT/ML SUBCUT SCH ×4 (00:54→18:33)
[2019-07-22] MEDS: methylPREDNISolone SOD SUC 40 MG/1 ML VIAL IV SCH ×3 (04:07→17:44)
[2019-07-22] MEDS: ALBUTEROL/IPRATROPIUM 3 ML NEB RESP TX SCH ×6 (04:08→22:55)
[2019-07-22 06:16] LABS: Basophils % 0.1 % (0.0-0.8); Hemoglobin 12.9 GM/DL (12.0-16.0); Immature Granulocytes % 0.9 %; Immature Granulocytes Absolute 0.08 #; Lymphocytes # 0.5 10*3/uL (1.4-4.0); Lymphocytes % 5.5 % (21.3-54.2); Mean Corpuscular HGB Conc 33.9 GM/DL (32-36); Mean Corpuscular Volume 89.4 FL (87-102); Mean Platelet Volume 9.8 FL (9.6-12.0); Monocytes % 0.5 % (1.7-12.7); Platelet Count 222 T/CUMM (130-400); Red Blood Count 4.25 MC/CUMM (3.8-5.5); Red Cell Distribution Width 14.1 % (9.3-17.3); White Blood Count 9.1 T/CUMM (4-12)
[2019-07-22 06:34] LABS: Albumin 3.3 G/DL (3.4-5.0); Bilirubin,Total 1.2 MG/DL (0.2-1.0); Calcium 9.2 MG/DL (8.5-10.1); Osmolality,Calculated 285.7 MOS/KG (273-304); Total Protein 6.7 G/DL (6.4-8.3)
[2019-07-22 06:40] LABS: Lymphocytes 3 % (20-55); Platelet Estimate Adequate; Segmented Neutrophils 97 % (50-85); Total Cells Counted 100
[2019-07-22] MEDS: DOCUSATE SODIUM 100 MG CAPSULE PO SCH ×2 (08:28→20:48)
[2019-07-22] MEDS: SODIUM CHLORIDE 0.9% 1,000 ML IV SCH ×2 (08:29→17:44)
[2019-07-22] MEDS: PANTOPRAZOLE 40 MG TABLET PO SCH (08:30)
[2019-07-22] MEDS ORDERED: BENZONATATE 100 MG CAPSULE PO PRN (09:31)
[2019-07-22] MEDS ORDERED: ALBUTEROL 2.5 MG/3 ML NEB RESP TX PRN (09:54)
[2019-07-22] MEDS: FUROSEMIDE 40 MG TABLET PO SCH (12:46)
[2019-07-22] MEDS: THEOPHYLLINE ER (24 HR) 200 MG CAPSULE PO SCH ×2 (12:47→18:17)
[2019-07-22] MEDS ORDERED: ALBUTEROL/IPRATROPIUM 3 ML NEB RESP TX SCH (13:00)
[2019-07-22] MEDS ORDERED: glipiZIDE 5 MG TABLET PO PRN (16:13)
[2019-07-22] MEDS ORDERED: MEPOLIZUMAB 100 MG SUBCUT SCH (16:15)
[2019-07-22] MEDS: ARFORMOTEROL 15 MCG/2 ML NEB RESP TX SCH (19:13)
[2019-07-22] MEDS: BUDESONIDE 0.5 MG/2 ML NEB RESP TX SCH (19:14)
[2019-07-22] MEDS ORDERED: ESZOPICLONE 1 MG TABLET PO PRN (19:46)
[2019-07-22] MEDS ORDERED: MORPHINE 4 MG/1 ML VIAL IV PRN (19:46)
[2019-07-22] MEDS ORDERED: ZALEPLON 5 MG CAPSULE PO PRN (20:41)
[2019-07-22] MEDS: FLUTICASONE 50 MCG NASAL SPRAY 16 GM BOTTLE BOTH NARES SCH (20:44)
[2019-07-22] MEDS: ENOXAPARIN 40 MG/0.4 ML SYRINGE SUBCUT SCH (20:45)
[2019-07-22] MEDS: LEVOFLOXACIN INJ 750 MG in PREMIX 1 EACH IV SCH (20:51)
[2019-07-22] MEDS ORDERED: MONTELUKAST 10 MG TABLET PO SCH (21:00)
[2019-07-22] MEDS ORDERED: DILTIAZEM CD 300 MG CAPSULE PO SCH (21:00)
[2019-07-22] MEDS ORDERED: rOPINIRole 0.25 MG TABLET PO SCH (21:00)
[2019-07-23] MEDS: INSULIN REGULAR 100 UNIT/ML SUBCUT SCH ×3 (01:11→12:55)
[2019-07-23] MEDS: ALBUTEROL/IPRATROPIUM 3 ML NEB RESP TX SCH ×4 (03:20→14:21)
[2019-07-23] MEDS: methylPREDNISolone SOD SUC 40 MG/1 ML VIAL IV SCH (05:49)
[2019-07-23] MEDS: BUDESONIDE 0.5 MG/2 ML NEB RESP TX SCH (07:41)
[2019-07-23] MEDS: ARFORMOTEROL 15 MCG/2 ML NEB RESP TX SCH (07:56)
[2019-07-23] MEDS ORDERED: POTASSIUM CHLORIDE 10 MEQ TABLET PO SCH (09:00)
[2019-07-23] MEDS: FLUTICASONE 50 MCG NASAL SPRAY 16 GM BOTTLE BOTH NARES SCH (09:26)
[2019-07-23] MEDS: THEOPHYLLINE ER (24 HR) 200 MG CAPSULE PO SCH (09:27)
[2019-07-23] MEDS: FUROSEMIDE 40 MG TABLET PO SCH (09:27)
[2019-07-23] MEDS: PANTOPRAZOLE 40 MG TABLET PO SCH (09:27)
[2019-07-23] MEDS: DOCUSATE SODIUM 100 MG CAPSULE PO SCH (09:27)
[2019-07-23 12:01] VITALS: BP 135/74
[2019-07-24] MEDS ORDERED: [UNRECOGNIZED DRUG - REMARK] IM SCH (16:13)
== END 2019-07-23 16:56 | disposition home or self-care (01) ==
LOC: N.ED 15:48 → SUPCPDRO 20:03 → INTOOBSV 20:03 → N.EDINP 20:03 → N.2E 21:15
PROVIDERS: ADMIT Family Medicine; ATTEND Family Medicine

== ENCOUNTER 2020-05-28 10:40 | Observation (INO) ==
[2020-05-28] MEDS ORDERED: DEXTROSE 50% 25 GM/50 ML VIAL IV PRN ×2 (11:23)
[2020-05-28] MEDS ORDERED: ONDANSETRON 4 MG/2 ML VIAL IV PRN (11:23)
[2020-05-28] MEDS ORDERED: MAGNESIUM SULF RIDER 4 GM in PREMIX 1 EACH IV PRN (11:23)
[2020-05-28] MEDS ORDERED: GLUCAGON 1 MG VIAL IM PRN ×2 (11:23)
[2020-05-28] MEDS ORDERED: MAGNESIUM SULF RIDER 2 GM in PREMIX 1 EACH IV PRN (11:23)
[2020-05-28] MEDS ORDERED: predniSONE 20 MG TABLET PO PRN (13:55)
[2020-05-28] MEDS ORDERED: glipiZIDE 5 MG TABLET PO PRN (13:55)
[2020-05-28] MEDS ORDERED: ALBUTEROL 2.5 MG/3 ML NEB RESP TX PRN (13:55)
[2020-05-28] MEDS ORDERED: BENZONATATE 100 MG CAPSULE PO PRN (13:55)
[2020-05-28] MEDS ORDERED: MEPOLIZUMAB 100 MG/ML SUBCUT SCH (14:00)
[2020-05-28] MEDS ORDERED: AUTO INJECTOR SUBCUT SCH (14:00)
[2020-05-28 14:27] LABS: Basophils % 0.4 % (0.0-0.8); Eosinophils % 0.4 % (0.00-10.9); Hematocrit 40.7 VOL% (35.7-47.0); Hemoglobin 13.7 GM/DL (12.0-16.0); Immature Granulocytes % 0.4 %; Immature Granulocytes Absolute 0.02 #; Lymphocytes # 1.7 10*3/uL (1.4-4.0); Lymphocytes % 29.8 % (21.3-54.2); Mean Corpuscular HGB Conc 33.7 GM/DL (32-36); Mean Corpuscular Volume 89.8 FL (87-102); Mean Platelet Volume 9.9 FL (9.6-12.0); Monocytes % 6.4 % (1.7-12.7); Neutrophils % 62.6 % (38.7-73.9); Platelet Count 330 T/CUMM (130-400); Red Blood Count 4.53 MC/CUMM (3.8-5.5); Red Cell Distribution Width 14.1 % (9.3-17.3); White Blood Count 5.6 T/CUMM (4-12)
[2020-05-28 14:39] LABS: Albumin 4.1 G/DL (3.4-5.0); Bilirubin,Total 0.5 MG/DL (0.2-1.0); Calcium 9.3 MG/DL (8.5-10.1); Osmolality,Calculated 285.1 MOS/KG (273-304); Total Protein 7.4 G/DL (6.4-8.3)
[2020-05-28] MEDS: INSULIN LISPRO 100 UNIT/ML SUBCUT SCH ×3 (14:49→21:30)
[2020-05-28] MEDS: ceFAZolin 1,000 MG in SYRINGE 1 EACH IV SCH ×2 (14:58→21:30)
[2020-05-28] MEDS: ENOXAPARIN 40 MG/0.4 ML SYRINGE SUBCUT SCH (15:00)
[2020-05-28 16:24] LABS: Bilirubin,Urine Negative (Negative); Blood, Urine Negative (Negative); Glucose,Urine (UA) Negative (Negative); Ketones,Urine Negative (Negative); Mucus,Urine Occasional /LPF (Occasional); Nitrite,Urine Negative (Negative); Protein,Urine Negative; RBC,Urine 2 /HPF (0-4); Squamous Epithelial Cell,Urine Occasional /HPF (0-10); Urine Appearance CLEAR (Clear); Urine Color Yellow (Yellow); Urine Specific Gravity 1.021 (1.001-1.035); Urine Urobilinogen < 2.0 EU/DL (0.2-1.0); WBC,Urine <1 /HPF (0-6)
[2020-05-28] MEDS: KETOROLAC 10 MG TABLET PO PRN (17:38)
[2020-05-28] MEDS: BUDESONIDE 0.5 MG/2 ML NEB RESP TX SCH (19:01)
[2020-05-28] MEDS: ARFORMOTEROL 15 MCG/2 ML NEB RESP TX SCH (19:01)
[2020-05-28] MEDS: ALBUTEROL/IPRATROPIUM 3 ML NEB RESP TX SCH (19:01)
[2020-05-28] MEDS: FLUTICASONE 50 MCG NASAL SPRAY 16 GM BOTTLE BOTH NARES SCH (21:29)
[2020-05-28] MEDS: DOCUSATE SODIUM 100 MG CAPSULE PO SCH (21:31)
[2020-05-28] MEDS: PANTOPRAZOLE 40 MG TABLET PO SCH (21:31)
[2020-05-28] MEDS: MONTELUKAST 10 MG TABLET PO SCH (21:31)
[2020-05-28] MEDS: DILTIAZEM CD 180 MG CAPSULE PO SCH (21:31)
[2020-05-28] MEDS: rOPINIRole 0.25 MG TABLET PO SCH (21:31)
[2020-05-28] MEDS: OLOPATADINE 0.1% OPH SOLN 5 ML BOTTLE BOTH EYES SCH (22:07)
[2020-05-29] MEDS: ALBUTEROL/IPRATROPIUM 3 ML NEB RESP TX SCH ×4 (02:15→19:18)
[2020-05-29] MEDS: ceFAZolin 1,000 MG in SYRINGE 1 EACH IV SCH ×3 (05:43→20:56)
[2020-05-29 06:50] LABS: Basophils % 0.7 % (0.0-0.8); Eosinophils % 0.7 % (0.00-10.9); Hematocrit 38.6 VOL% (35.7-47.0); Immature Granulocytes % 0.2 %; Immature Granulocytes Absolute 0.01 #; Lymphocytes # 1.8 10*3/uL (1.4-4.0); Lymphocytes % 45.4 % (21.3-54.2); Mean Corpuscular HGB Conc 33.7 GM/DL (32-36); Mean Corpuscular Volume 90.4 FL (87-102); Mean Platelet Volume 9.9 FL (9.6-12.0); Monocytes % 11.2 % (1.7-12.7); Neutrophils % 41.8 % (38.7-73.9); Platelet Count 268 T/CUMM (130-400); Red Blood Count 4.27 MC/CUMM (3.8-5.5)
[2020-05-29] MEDS: BUDESONIDE 0.5 MG/2 ML NEB RESP TX SCH ×2 (07:23→19:18)
[2020-05-29 07:24] LABS: Albumin 3.3 G/DL (3.4-5.0); Bilirubin,Total 0.8 MG/DL (0.2-1.0); Calcium 8.7 MG/DL (8.5-10.1); Total Protein 6.3 G/DL (6.4-8.3)
[2020-05-29] MEDS: INSULIN LISPRO 100 UNIT/ML SUBCUT SCH ×4 (08:26→20:57)
[2020-05-29] MEDS: POTASSIUM CHLORIDE 10 MEQ TABLET PO SCH (08:27)
[2020-05-29] MEDS: DOCUSATE SODIUM 100 MG CAPSULE PO SCH ×2 (08:27→20:54)
[2020-05-29] MEDS: FUROSEMIDE 40 MG TABLET PO SCH (08:27)
[2020-05-29] MEDS ORDERED: PANTOPRAZOLE 40 MG TABLET PO SCH (09:00)
[2020-05-29] MEDS ORDERED: predniSONE 20 MG TABLET PO SCH (09:00)
[2020-05-29] MEDS: OLOPATADINE 0.1% OPH SOLN 5 ML BOTTLE BOTH EYES SCH ×3 (09:08→21:43)
[2020-05-29] MEDS: FLUTICASONE 50 MCG NASAL SPRAY 16 GM BOTTLE BOTH NARES SCH ×2 (09:08→20:54)
[2020-05-29] MEDS ORDERED: methylPREDNISolone SOD SUC 40 MG/1 ML VIAL IV SCH (09:30)
[2020-05-29] MEDS: methylPREDNISolone SOD SUC 125 MG/2 ML VIAL IV SCH ×2 (09:52→20:55)
[2020-05-29] MEDS: KETOROLAC 10 MG TABLET PO PRN ×2 (11:50→21:55)
[2020-05-29] MEDS: ARFORMOTEROL 15 MCG/2 ML NEB RESP TX SCH ×2 (13:12→19:18)
[2020-05-29] MEDS: ENOXAPARIN 40 MG/0.4 ML SYRINGE SUBCUT SCH (14:14)
[2020-05-29] MEDS: diphenhydrAMINE 25 MG/10 ML UDCUP PO PRN (14:22)
[2020-05-29 18:38] LABS: Hematocrit 42.2 VOL% (35.7-47.0); Hemoglobin 14.3 GM/DL (12.0-16.0); Immature Granulocytes % 0.7 %; Immature Granulocytes Absolute 0.04 #; Lymphocytes # 0.7 10*3/uL (1.4-4.0); Lymphocytes % 12.4 % (21.3-54.2); Mean Corpuscular HGB Conc 33.9 GM/DL (32-36); Mean Corpuscular Volume 89.4 FL (87-102); Mean Platelet Volume 9.7 FL (9.6-12.0); Monocytes % 0.3 % (1.7-12.7); Neutrophils % 86.6 % (38.7-73.9); Platelet Count 346 T/CUMM (130-400); Red Blood Count 4.72 MC/CUMM (3.8-5.5); Red Cell Distribution Width 13.8 % (9.3-17.3); White Blood Count 5.7 T/CUMM (4-12)
[2020-05-29] MEDS: rOPINIRole 0.25 MG TABLET PO SCH (20:54)
[2020-05-29] MEDS: PANTOPRAZOLE 40 MG TABLET PO SCH (20:54)
[2020-05-29] MEDS: MONTELUKAST 10 MG TABLET PO SCH (20:55)
[2020-05-29] MEDS: DILTIAZEM CD 180 MG CAPSULE PO SCH (20:55)
[2020-05-30] MEDS: ALBUTEROL/IPRATROPIUM 3 ML NEB RESP TX SCH ×4 (01:12→19:06)
[2020-05-30] MEDS: ceFAZolin 1,000 MG in SYRINGE 1 EACH IV SCH ×3 (04:28→20:53)
[2020-05-30] MEDS: ACETAMINOPHEN 325 MG TABLET PO PRN ×2 (05:46→17:24)
[2020-05-30] MEDS: BUDESONIDE 0.5 MG/2 ML NEB RESP TX SCH ×2 (08:00→19:06)
[2020-05-30] MEDS: ARFORMOTEROL 15 MCG/2 ML NEB RESP TX SCH ×2 (08:00→19:06)
[2020-05-30] MEDS: DOCUSATE SODIUM 100 MG CAPSULE PO SCH ×2 (09:29→20:54)
[2020-05-30] MEDS: FUROSEMIDE 40 MG TABLET PO SCH (09:30)
[2020-05-30] MEDS: POTASSIUM CHLORIDE 10 MEQ TABLET PO SCH (09:30)
[2020-05-30] MEDS: FLUTICASONE 50 MCG NASAL SPRAY 16 GM BOTTLE BOTH NARES SCH ×2 (09:30→20:51)
[2020-05-30] MEDS: OLOPATADINE 0.1% OPH SOLN 5 ML BOTTLE BOTH EYES SCH ×2 (09:30→20:52)
[2020-05-30] MEDS: methylPREDNISolone SOD SUC 125 MG/2 ML VIAL IV SCH ×2 (09:33→20:52)
[2020-05-30] MEDS: INSULIN LISPRO 100 UNIT/ML SUBCUT SCH ×4 (09:57→20:53)
[2020-05-30] MEDS: ENOXAPARIN 40 MG/0.4 ML SYRINGE SUBCUT SCH (12:36)
[2020-05-30] MEDS: DILTIAZEM CD 180 MG CAPSULE PO SCH (20:54)
[2020-05-30] MEDS: MONTELUKAST 10 MG TABLET PO SCH (20:54)
[2020-05-30] MEDS: PANTOPRAZOLE 40 MG TABLET PO SCH (20:54)
[2020-05-30] MEDS: rOPINIRole 0.25 MG TABLET PO SCH (20:54)
[2020-05-31] MEDS: ACETAMINOPHEN 325 MG TABLET PO PRN (00:39)
[2020-05-31] MEDS: diphenhydrAMINE 25 MG/10 ML UDCUP PO PRN (01:03)
[2020-05-31] MEDS: ALBUTEROL/IPRATROPIUM 3 ML NEB RESP TX SCH ×4 (01:20→19:58)
[2020-05-31] MEDS: ceFAZolin 1,000 MG in SYRINGE 1 EACH IV SCH ×2 (04:34→12:29)
[2020-05-31 06:43] LABS: Basophils % 0.1 % (0.0-0.8); Hematocrit 38.3 VOL% (35.7-47.0); Immature Granulocytes % 1.5 %; Immature Granulocytes Absolute 0.32 #; Lymphocytes # 1.2 10*3/uL (1.4-4.0); Lymphocytes % 5.9 % (21.3-54.2); Mean Corpuscular HGB Conc 33.9 GM/DL (32-36); Mean Corpuscular Volume 88.9 FL (87-102); Mean Platelet Volume 9.9 FL (9.6-12.0); Monocytes % 2.4 % (1.7-12.7); Neutrophils % 90.1 % (38.7-73.9); Platelet Count 323 T/CUMM (130-400); Red Blood Count 4.31 MC/CUMM (3.8-5.5); Red Cell Distribution Width 13.9 % (9.3-17.3); White Blood Count 21.1 T/CUMM (4-12)
[2020-05-31 07:05] LABS: Band Neutrophils 3 % (0-10); Hypersegmented Neutrophil Few; Lymphocytes 10 % (20-55); Platelet Estimate Normal; Segmented Neutrophils 83 % (50-85); Total Cells Counted 100
[2020-05-31 07:06] LABS: Anisocytosis 1+
[2020-05-31 07:21] LABS: Calcium 9.3 MG/DL (8.5-10.1); Osmolality,Calculated 291.3 MOS/KG (273-304)
[2020-05-31] MEDS: BUDESONIDE 0.5 MG/2 ML NEB RESP TX SCH ×2 (07:57→19:58)
[2020-05-31] MEDS: ARFORMOTEROL 15 MCG/2 ML NEB RESP TX SCH ×2 (07:57→19:58)
[2020-05-31] MEDS: INSULIN LISPRO 100 UNIT/ML SUBCUT SCH ×3 (08:49→16:41)
[2020-05-31] MEDS: DOCUSATE SODIUM 100 MG CAPSULE PO SCH (08:49)
[2020-05-31] MEDS: methylPREDNISolone SOD SUC 125 MG/2 ML VIAL IV SCH (08:49)
[2020-05-31] MEDS: POTASSIUM CHLORIDE 10 MEQ TABLET PO SCH (08:49)
[2020-05-31] MEDS: FUROSEMIDE 40 MG TABLET PO SCH (08:49)
[2020-05-31] MEDS: OLOPATADINE 0.1% OPH SOLN 5 ML BOTTLE BOTH EYES SCH (08:50)
[2020-05-31] MEDS: FLUTICASONE 50 MCG NASAL SPRAY 16 GM BOTTLE BOTH NARES SCH (08:50)
[2020-05-31] MEDS ORDERED: DEXTROSE 50% 25 GM/50 ML VIAL IV PRN (10:55)
[2020-05-31] MEDS ORDERED: GLUCAGON 1 MG VIAL IM PRN (10:55)
[2020-05-31] MEDS: ENOXAPARIN 40 MG/0.4 ML SYRINGE SUBCUT SCH (12:30)
[2020-05-31 20:24] VITALS: BP 129/77
== END 2020-05-31 20:14 | disposition home or self-care (01) ==
LOC: N.3E
PROVIDERS: ADMIT Family Medicine; ATTEND Family Medicine